=== PATIENT | female | born 1945 | race Caucasian/White ===

== ENCOUNTER → 2017-03-28 | Outpatient (REF) | payer MEDICARE ==
[2017-03-28 17:04] LABS: ALBUMIN 3.3 GM/DL (3.2-5.2); ALBUMIN/GLOBULIN RATIO 0.97 (1.00-1.93); BILIRUBIN,TOTAL 0.5 MG/DL (0.2-1.0); CREATININE FOR GFR 1.48 MG/DL (0.55-1.02); GLOMERULAR FILTRATION RATE 36.9 (>39); POTASSIUM SERUM 3.8 MEQ/L (3.5-5.1); TOTAL PROTEIN 6.7 GM/DL (6.4-8.2)
[2017-03-28 19:06] LABS: MEAN CORPUSCULAR HEMOGLOBIN 30.6 pg (27.0-33.0); MEAN CORPUSCULAR HGB CONC 33.3 g/dl (32.0-36.5); MEAN CORPUSCULAR VOLUME 91.8 fl (80.0-96.0); RED CELL DISTRIBUTION WIDTH 12.2 % (11.5-14.5); WHITE BLOOD COUNT 7.2 K/mm3 (4.0-10.0)
== END ==
LOC: M SFHCCLAY 09:30
PROVIDERS: ATTEND Nurse Practitioner Family
DX: I10 Essential (primary) hypertension (principal); E11.69 Type 2 diabetes mellitus with other specified complication; E78.4 Other hyperlipidemia; E55.9 Vitamin D deficiency, unspecified

== ENCOUNTER → 2017-03-31 | Outpatient (REF) | payer MEDICARE ==
[~2017-03-31] MED LIST: ASPI81TA85 PO; FISH1000 PO; FLUO40CA PO; GAVICHW PO; HYDR12.55 PO; IRON50TA PO; LISI40TAB PO; OXYC1TAB23 PO; POTA99TA PO; SIMV40TA2 PO; VESI5TAB2 PO; VITA100072 PO; VITA2000 PO; VITRTAB4 PO; XALA0.007 OU
== END ==
LOC: M SFHCCLAY 11:34
PROVIDERS: ATTEND Nurse Practitioner Family
DX: E11.69 Type 2 diabetes mellitus with other specified complication (principal); N39.0 Urinary tract infection, site not specified
CPT/HCPCS: 81002; 87088; 87186; G0463

== ENCOUNTER → 2017-05-11 | Day surgery (SDC) | payer MEDICARE ==
[~2017-05-11] VITALS: Ht 167.6 cm; Wt 90.7 kg
[~2017-05-11] MED LIST changes: +ACETAMINOPHEN 325 MG TAB PO PRN; +AcetaZOLAMIDE 500 MG ER CAP As Ordered ONE; +AcetaZOLAMIDE 500 MG ER CAP PO ONE; +BSS with VANC/TOB/EPI for EYE CASES IR ONE; +CEFUROXIME 1MG/0.1ML INTRACAMERAL INJ As Ordered ONE; +CYCLOPENTOLATE 2% OPHTH SOLN 2ML BTL OD ONE; +HEALON DUET (HEALON 10MG/ML 0.55ML & HEALON ENDOCOAT 30MG/ML 0.85ML) As Ordered ONE; +KETOROLAC 0.5% OPHTH SOLN OD ONE; +LIDOCAINE 1% SDV 5 ML VIAL As Ordered ONE; +LIDOCAINE 4% INJ 5 ML AMP OU ONE; +LR 500 ML IV ONE; +MIDAZOLAM INJ 2 MG/2 ML VIAL (J2250) As Ordered ONE; +OFLOXACIN 0.3 % (OCUFLOX) OPTH SOL 5ML OD ONE; +PHENYLEPHRINE 2.5% OPHTH SOL 2ML OD ONE; +POVIDONE-IODINE 5% OPHTH PREP SOL 30ML As Ordered ONE; +PROPARACAINE 0.5% OPHTH SOL 15ML OD PRN; +TRIMETHOBENZAMIDE 300 MG CAP PO PRN; +TROPICAMIDE 1% OPHTH SOLN 2ML OD ONE
[2017-05-11 13:15] VITALS: BP 187/88
--- NOTE | 2017-05-12 10:54 | RO ---
DATE OF PROCEDURE: 05/11/2017 PREPROCEDURE DIAGNOSIS: Cataract and glaucoma right eye. POSTPROCEDURE DIAGNOSIS: Cataract and glaucoma right eye. PROCEDURE: Femtosecond laser and phacoemulsification of the intraocular lens with lens implantation right eye. Intraocular lens power used was PCB00, 23.5 diopter, along with ECP endocyclophotocoagulation and placement of the Glaukos eye stent in the right eye. SURGEON: Anna Marie Russo MD FIELD SERVICE ENGINEER: None. ANESTHESIA: Local IV standby. COMPLICATIONS: None. DESCRIPTION OF PROCEDURE: The patient was brought to the operating room and laid in supine position. The right eye was prepped and draped in a sterile fashion for ophthalmic surgery. The patient was brought under the femtosecond laser. After adequate patient interface and good suction, OCT images were reviewed and the laser was activated. A capsulorrhexis lens fragmentation and corneal incisions were made per plan. The suction was then released. The patient was brought to the operating room in the supine position. The eye was prepped and draped in a sterile fashion for ophthalmic surgery and a lid speculum was placed. Sideport incision for the sideport incision was then opened and EndoCoat was injected into the anterior chamber. The temporal clear corneal incision was then made open and capsulorrhexis was removed. Phacoemulsification was done in divide and conquer method within the capsular bag followed by aspiration of the cortical material. Healon was placed in the capsular bag and intraocular lens PCB00, 23.5 diopters was placed in the capsular bag. Healon was then placed in the ciliary sulcus, which was then visualized on the video screen with the help of the EndoProbe. Endocyclophotocoagulation was done 280 degrees at 0.25 mW. Good results were noted by the shrinking of the ciliary processes. After this, the Healon was placed in the anterior chamber to visualize the intranasal trabecular mesh work under high magnification with the patient's head turned away from the surgeon with the help of Gonio lens. Eye stent was then placed and good red reflex was noted. Excess viscoelastic was then aspirated. Wound was hydrated. Intracanal cefuroxime 1 mg was then given. The lid speculum was removed, and patient was returned to the recovery room in stable condition.
== END | disposition home or self-care (01) ==
LOC: M SDC 10:19
PROVIDERS: ATTEND Ophthalmology
DX: H26.9 Unspecified cataract (principal); H40.9 Unspecified glaucoma; I10 Essential (primary) hypertension; E78.00 Pure hypercholesterolemia, unspecified; E78.4 Other hyperlipidemia; F32.9 Major depressive disorder, single episode, unspecified; N13.5 Crossing vessel and stricture of ureter without hydronephrosis; E55.9 Vitamin D deficiency, unspecified; E11.9 Type 2 diabetes mellitus without complications; K21.9 Gastro-esophageal reflux disease without esophagitis; D64.9 Anemia, unspecified; R01.1 Cardiac murmur, unspecified; Z88.1 Allergy status to other antibiotic agents; Z88.8 Allergy status to other drugs, medicaments and biological substances; Z79.899 Other long term (current) drug therapy; Z79.82 Long term (current) use of aspirin; Z92.21 Personal history of antineoplastic chemotherapy; Z92.3 Personal history of irradiation; Z78.0 Asymptomatic menopausal state; Z85.038 Personal history of other malignant neoplasm of large intestine; Z87.442 Personal history of urinary calculi; Z87.891 Personal history of nicotine dependence
CPT/HCPCS: 66711; 66984; C1783; J2250; V2632

== ENCOUNTER → 2017-06-02 | Outpatient (CLI) | payer MEDICARE ==
[~2017-06-02] MED LIST changes: -ACETAMINOPHEN 325 MG TAB PO PRN; -AcetaZOLAMIDE 500 MG ER CAP As Ordered ONE; -AcetaZOLAMIDE 500 MG ER CAP PO ONE; -BSS with VANC/TOB/EPI for EYE CASES IR ONE; -CEFUROXIME 1MG/0.1ML INTRACAMERAL INJ As Ordered ONE; -CYCLOPENTOLATE 2% OPHTH SOLN 2ML BTL OD ONE; -HEALON DUET (HEALON 10MG/ML 0.55ML & HEALON ENDOCOAT 30MG/ML 0.85ML) As Ordered ONE; -KETOROLAC 0.5% OPHTH SOLN OD ONE; -LIDOCAINE 1% SDV 5 ML VIAL As Ordered ONE; -LIDOCAINE 4% INJ 5 ML AMP OU ONE; -LR 500 ML IV ONE; -MIDAZOLAM INJ 2 MG/2 ML VIAL (J2250) As Ordered ONE; -OFLOXACIN 0.3 % (OCUFLOX) OPTH SOL 5ML OD ONE; -PHENYLEPHRINE 2.5% OPHTH SOL 2ML OD ONE; -POVIDONE-IODINE 5% OPHTH PREP SOL 30ML As Ordered ONE; -PROPARACAINE 0.5% OPHTH SOL 15ML OD PRN; -TRIMETHOBENZAMIDE 300 MG CAP PO PRN; -TROPICAMIDE 1% OPHTH SOLN 2ML OD ONE
--- NOTE | 2017-06-02 11:36 | REP ---
PA and lateral chest: There are no comparisons. There is a minor zone of discoid atelectasis versus parenchymal scar inferomedially in the right lung. There is a minor zone of discoid atelectasis versus parenchymal scar inferolaterally in the left lung. The lung johnson otherwise clear. Cardiac size is borderline enlarged. The william, mediastinum, and bony thorax are unremarkable. Impression: Focal zones of scarring versus discoid atelectasis in the lung bases. Borderline cardiac size. Otherwise, negative chest.
== END ==
LOC: M CLY 10:53
PROVIDERS: ATTEND Urology
DX: Z01.818 Encounter for other preprocedural examination (principal); N13.5 Crossing vessel and stricture of ureter without hydronephrosis; N18.3 Chronic kidney disease, stage 3 (moderate); N39.0 Urinary tract infection, site not specified

== ENCOUNTER → 2017-06-02 | Outpatient (REF) | payer MEDICARE | LOC: M LABSMT 10:45 | PROVIDERS: ATTEND Specialist | DX: N13.5 Crossing vessel and stricture of ureter without hydronephrosis (principal); Z01.818 Encounter for other preprocedural examination; N39.0 Urinary tract infection, site not specified ==

== ENCOUNTER → 2017-06-07 | Outpatient (REF) | payer MEDICARE ==
[2017-06-07 17:00] LABS: MEAN CORPUSCULAR HEMOGLOBIN 31.3 pg (27.0-33.0); MEAN CORPUSCULAR VOLUME 92.3 fl (80.0-96.0); RED CELL DISTRIBUTION WIDTH 12.1 % (11.5-14.5)
[2017-06-07 17:08] LABS: CREATININE FOR GFR 1.34 MG/DL (0.55-1.02); GLOMERULAR FILTRATION RATE 41.4 (>39)
== END ==
LOC: M LABSMT 13:32 → M LABDRAWC 13:33
PROVIDERS: ATTEND Specialist
DX: Z01.818 Encounter for other preprocedural examination (principal); N13.5 Crossing vessel and stricture of ureter without hydronephrosis; N39.41 Urge incontinence

== ENCOUNTER 2017-06-10 08:36 | Day surgery (SDC) | payer MEDICARE ==
[~2017-06-10] VITALS: Ht 167.6 cm; Wt 92.5 kg
[2017-06-10] MEDS ORDERED: LR 1,000 ML IV ONE (08:45)
[2017-06-10] MEDS ORDERED: TRIMETHOPRIM/SULFAMETHOXAZOLE 80 MG in D5W 100 ML IV ONE (08:45)
[2017-06-10] MEDS ORDERED: dexameTHASONE 4 MG/ML 1ML VIAL (J1100) As Ordered ONE (09:49)
[2017-06-10] MEDS ORDERED: ONDANSETRON 4MG/2ML VIAL (J2405) As Ordered ONE (09:49)
[2017-06-10] MEDS ORDERED: MIDAZOLAM INJ 2 MG/2 ML VIAL (J2250) As Ordered ONE (09:49)
[2017-06-10] MEDS ORDERED: PROPOFOL 200 MG/20 ML VIAL As Ordered ONE (09:49)
[2017-06-10] MEDS ORDERED: fentaNYL 100 MCG/2 ML INJECTION (J3010) As Ordered ONE (09:49)
[2017-06-10] MEDS ORDERED: LIDOCAINE 2% INJ 100 MG/5 ML SDV (FOR ANES.) As Ordered ONE (09:49)
[2017-06-10] MEDS ORDERED: VANCOMYCIN HCL 1,000 MG, VIAL MATE ADAPTER 1 EACH in D5W 250 ML IV ONE (11:15)
[2017-06-10] MEDS ORDERED: CONRAY-60 60% 50ML VIAL (Q9961) As Ordered ONE (11:50)
[2017-06-10] MEDS ORDERED: LIDOCAINE 2% 5ML JELLY UROJET As Ordered ONE (12:16)
[2017-06-10] MEDS ORDERED: LIDOCAINE 2% 5ML JELLY UROJET EXT ONE (12:20)
--- NOTE | 2017-06-10 12:46 | REP ---
RETROGRADE PYELOGRAM: Two views. HISTORY: Bilateral ureteral obstruction. 12 seconds of fluoroscopy time is reported. FINDINGS: A sequence of two fluoroscopically obtained last image hold spot radiographs of the abdomen document double pigtail ureteral stent placement bilaterally. Right hydronephrosis with contrast injected into the dilated right renal pelvis. Signed by Jerry Nunes MD 06/10/2017 12:52 P
[2017-06-10 13:30] VITALS: BP 142/72
--- NOTE | 2017-06-13 06:29 | RO ---
DATE OF PROCEDURE: 06/10/2017 PREPROCEDURE DIAGNOSIS: Bilateral ureteral obstruction. POSTPROCEDURE DIAGNOSIS: Bilateral ureteral obstruction. PROCEDURE: Cystoscopy, bilateral ureteral stent exchange, bilateral retrograde pyelogram with intraoperative interpretation of images. SURGEON: Dr. Jaspal Jack ABLE BODIED TANKERMAN: None. ANESTHESIA: MAC. OPERATIVE INDICATIONS: This is a 71-year-old female with bilateral ureteral obstruction managed with chronic ureteral stenting. She is here for routine stent exchange. DESCRIPTION OF PROCEDURE: The patient was brought to the operating room where MAC anesthesia was administered. Prophylactic antibiotics were infused. She was then placed in dorsal lithotomy position, prepped and draped in the usual sterile fashion. A rigid cystoscope was inserted into the urethral meatus and advanced into the bladder. Once within the bladder, the previously placed stents were seen. At this point, the left ureteral stent was grasped and withdrawn until the distal end was seen protruding from the urethral meatus. A guidewire was advanced up the stent into the left collecting system and then the stent was removed. Next, an open ended ureteral catheter was advanced over the wire up into the left collecting system. The wire was removed and a retrograde pyelogram was performed. It was notable for mild to moderate left hydronephrosis and no extravasation. At this point, the wire was advanced back up the ureteral catheter and then the ureteral catheter was removed. We then utilized this wire to advance a #7-Bulgarian x 22-32 cm JJ ureteral stent up into the left collecting system. The wire was then removed and there was adequate curl to the stent in the left renal pelvis and in the bladder. We then withdrew the right ureteral stent in a similar fashion and advanced the wire up into the right collecting system. The stent was removed leaving the wire in place. We then advanced a ureteral catheter over the wire and then the wire was removed. A retrograde pyelogram was performed from the right side and it was also notable for mild to moderate right hydronephrosis with no extravasation. The wire was then advanced back up the ureteral catheter and then the ureteral catheter was removed leaving the wire in place. The wire was then utilized to advance a #7-Bulgarian x 22-32 cm JJ ureteral stent up into the right collecting system. The wire was then removed and there was adequate curl to the stent in the right renal pelvis and in the bladder. The bladder was emptied of all fluid and this marked the conclusion of the procedure. The patient was then taken out of dorsal lithotomy position, awakened from anesthesia and transported to the recovery room in stable condition. ESTIMATED BLOOD LOSS: 0 mL. COMPLICATIONS: None. SPECIMENS: None. PLAN: The patient will followup with urologist in [place] for her next stent exchange in a few months. CEE
== END 2017-06-10 13:35 | disposition home or self-care (01) ==
LOC: M SDC 08:36
PROVIDERS: ATTEND Urology
DX: N13.5 Crossing vessel and stricture of ureter without hydronephrosis (principal); N39.41 Urge incontinence; E11.9 Type 2 diabetes mellitus without complications; N39.0 Urinary tract infection, site not specified; I10 Essential (primary) hypertension; E78.4 Other hyperlipidemia; E55.9 Vitamin D deficiency, unspecified; H40.9 Unspecified glaucoma; F32.9 Major depressive disorder, single episode, unspecified; K21.9 Gastro-esophageal reflux disease without esophagitis; D64.9 Anemia, unspecified; Z87.442 Personal history of urinary calculi; R01.1 Cardiac murmur, unspecified; Z88.1 Allergy status to other antibiotic agents; Z79.899 Other long term (current) drug therapy; Z85.038 Personal history of other malignant neoplasm of large intestine; Z87.891 Personal history of nicotine dependence; Z92.21 Personal history of antineoplastic chemotherapy; Z92.3 Personal history of irradiation; Z96.1 Presence of intraocular lens
CPT/HCPCS: 52332; 74420; C1769; C2617; J1100; J2250; J2405; J3010; J3370; Q9961

== ENCOUNTER → 2017-06-23 | Outpatient (REF) | payer MEDICARE ==
[2017-06-24 11:47] LABS: YEAST LIKE CELL URINE AUTO SMALL
== END ==
LOC: M LABSMT 14:02 → M CLY 14:12
PROVIDERS: ATTEND Nurse Practitioner Women's Health
DX: R30.0 Dysuria (principal)

== ENCOUNTER → 2017-07-15 | Outpatient (REF) | payer MEDICARE ==
[2017-07-15 16:56] LABS: PERCENT SATURATION 17.8 % (13.2-45.0)
[2017-07-15 17:06] LABS: FOLATE 9.7 NG/ML (>5.4)
[2017-07-15 17:47] LABS: MEAN CORPUSCULAR HEMOGLOBIN 31.7 pg (27.0-33.0); MEAN CORPUSCULAR HGB CONC 34.9 g/dl (32.0-36.5); MEAN CORPUSCULAR VOLUME 90.9 fl (80.0-96.0); RED CELL DISTRIBUTION WIDTH 11.4 % (11.5-14.5); RETIC HEMOGLOBIN CONTENT CHr 32.7 PG (24-36); RETICULOCYTE % 2.6 % (0.5-1.5); WHITE BLOOD COUNT 9.6 K/mm3 (4.0-10.0)
== END ==
LOC: M SFHCCLAY 10:36
PROVIDERS: ATTEND Nurse Practitioner Family
DX: D64.9 Anemia, unspecified (principal); E11.9 Type 2 diabetes mellitus without complications; E78.4 Other hyperlipidemia; E55.9 Vitamin D deficiency, unspecified

== ENCOUNTER → 2018-05-02 | Outpatient (REF) | payer MEDICARE ==
[2018-05-02 11:52] LABS: HEMOGLOBIN 12.7 g/dl (12.0-15.5); MEAN CORPUSCULAR HEMOGLOBIN 31.5 pg (27.0-33.0); MEAN CORPUSCULAR HGB CONC 34.3 g/dl (32.0-36.5); MEAN CORPUSCULAR VOLUME 91.8 fl (80.0-96.0); PLATELET COUNT, AUTOMATED 215 10^3/uL (150-450); RED BLOOD COUNT 4.03 10^6/uL (4.00-5.40); RED CELL DISTRIBUTION WIDTH 11.3 % (11.5-14.5); RETIC HEMOGLOBIN EQUIVALENT 36.2 pg (24-36); RETICULOCYTE # 75.4 10^9/L (17-77); RETICULOCYTE % 1.9 % (0.5-1.5); WHITE BLOOD COUNT 7.7 10^3/uL (4.0-10.0)
[2018-05-02 12:20] LABS: TOTAL 25(OH) VITAMIN D 32.6 NG/ML (30.0-100.0)
[2018-05-02 12:21] LABS: VITAMIN B12 LEVEL 1786 PG/ML (247-911)
[2018-05-02 12:34] LABS: ALBUMIN 3.6 GM/DL (3.2-5.2); ALBUMIN/GLOBULIN RATIO 1.03 (1.00-1.93); ALKALINE PHOSPHATASE 98 U/L (45-117); ALT/SGPT 19 U/L (12-78); ANION GAP 10 MEQ/L (8-16); AST/SGOT 12 U/L (7-37); BILIRUBIN,TOTAL 0.4 MG/DL (0.2-1.0); BLOOD UREA NITROGEN 25 MG/DL (7-18); CALCIUM LEVEL 8.7 MG/DL (8.8-10.2); CARBON DIOXIDE LEVEL 26 MEQ/L (21-32); CHLORIDE LEVEL 105 MEQ/L (98-107); CHOLESTEROL LEVEL 190 MG/DL (<200); CHOLESTEROL RISK RATIO 2.968 (<5); CREATININE FOR GFR 1.76 MG/DL (0.55-1.30); FERRITIN 278 NG/ML (8-252); GLOMERULAR FILTRATION RATE 30.1 (>39); GLUCOSE, FASTING 91 MG/DL (70-100); HDL CHOLESTEROL 64 MG/DL (>40); IRON (FE) 75 UG/DL (50-170); LDL CHOLESTEROL 89.8 MG/DL (<100); NON-HDL-C 126 MG/DL; PERCENT SATURATION 27.3 % (13.2-45.0); POTASSIUM SERUM 3.8 MEQ/L (3.5-5.1); SODIUM LEVEL 141 MEQ/L (136-145); TOTAL IRON BINDING CAPACITY 275 UG/DL (250-450); TOTAL PROTEIN 7.1 GM/DL (6.4-8.2); TRIGLYCERIDES LEVEL 181 MG/DL (<150)
[2018-05-02 12:46] LABS: ESTIMATED AVERAGE GLUCOSE 108 MG/DL (60-110); HEMOGLOBIN A1c 5.4 %
[2018-05-02 13:05] LABS: CREATININE, URINE 90.8 MG/DL; MAU/CREAT RATIO 1080.3 MCG/MG (0.0-30.0); TOTAL PROTEIN,RANDOM URINE 182.3 MG/DL (0.0-12.0)
== END ==
LOC: M SFHCCLAY 09:27
DX: I10 Essential (primary) hypertension (principal); E11.69 Type 2 diabetes mellitus with other specified complication; E78.4 Other hyperlipidemia; E55.9 Vitamin D deficiency, unspecified; Z79.899 Other long term (current) drug therapy
CPT/HCPCS: 82746

== ENCOUNTER → 2018-06-02 | Outpatient (CLI) | payer MEDICARE | LOC: M RAD 09:09 | DX: N39.0 Urinary tract infection, site not specified (principal); N13.30 Unspecified hydronephrosis; Z96.0 Presence of urogenital implants | CPT/HCPCS: 76775 ==

== ENCOUNTER → 2018-06-27 | Outpatient (REF) | payer MEDICARE ==
[2018-06-27 18:33] LABS: BACTERIA, URINE AUTO 3+ (NEGATIVE); RBC, URINE AUTO 55 /HPF (0-3); SQUAMOUS EPITHELIAL CELL UR AU 1 /HPF (0-6); WBC, URINE AUTO TNTC /HPF (0-3)
== END ==
LOC: M SMT 17:49
DX: N39.0 Urinary tract infection, site not specified (principal)
CPT/HCPCS: 81015

== ENCOUNTER → 2018-08-17 | Outpatient (REF) | payer MEDICARE ==
[2018-08-17 17:53] LABS: HEMATOCRIT 36.8 % (36.0-47.0); HEMOGLOBIN 12.4 g/dl (12.0-15.5); MEAN CORPUSCULAR HEMOGLOBIN 31.1 pg (27.0-33.0); MEAN CORPUSCULAR HGB CONC 33.7 g/dl (32.0-36.5); MEAN CORPUSCULAR VOLUME 92.2 fl (80.0-96.0); PLATELET COUNT, AUTOMATED 277 10^3/uL (150-450); RED BLOOD COUNT 3.99 10^6/uL (4.00-5.40); RED CELL DISTRIBUTION WIDTH 11.3 % (11.5-14.5); RETIC HEMOGLOBIN EQUIVALENT 36.8 pg (24-36); RETICULOCYTE # 92.2 10^9/L (17-77); RETICULOCYTE % 2.3 % (0.5-1.5)
[2018-08-17 18:00] LABS: ALBUMIN 3.5 GM/DL (3.2-5.2); ALBUMIN/GLOBULIN RATIO 0.95 (1.00-1.93); ALKALINE PHOSPHATASE 99 U/L (45-117); ALT/SGPT 16 U/L (12-78); ANION GAP 12 MEQ/L (8-16); AST/SGOT 13 U/L (7-37); BILIRUBIN,TOTAL 0.4 MG/DL (0.2-1.0); BLOOD UREA NITROGEN 25 MG/DL (7-18); CALCIUM LEVEL 8.9 MG/DL (8.8-10.2); CARBON DIOXIDE LEVEL 25 MEQ/L (21-32); CHLORIDE LEVEL 105 MEQ/L (98-107); CHOLESTEROL LEVEL 184 MG/DL (<200); CHOLESTEROL RISK RATIO 3.285 (<5); CREATININE FOR GFR 1.77 MG/DL (0.55-1.30); FERRITIN 435 NG/ML (8-252); GLOMERULAR FILTRATION RATE 29.9 (>39); GLUCOSE, FASTING 108 MG/DL (70-100); HDL CHOLESTEROL 56 MG/DL (>40); IRON (FE) 61 UG/DL (50-170); LDL CHOLESTEROL 85 MG/DL (<100); NON-HDL-C 128 MG/DL; POTASSIUM SERUM 3.9 MEQ/L (3.5-5.1); SODIUM LEVEL 142 MEQ/L (136-145); TOTAL IRON BINDING CAPACITY 254 UG/DL (250-450); TOTAL PROTEIN 7.2 GM/DL (6.4-8.2); TRIGLYCERIDES LEVEL 214 MG/DL (<150)
[2018-08-17 18:02] LABS: FOLATE 9.7 NG/ML (>5.4)
[2018-08-17 18:03] LABS: ESTIMATED AVERAGE GLUCOSE 117 MG/DL (60-110); HEMOGLOBIN A1c 5.7 %
== END ==
LOC: M SFHCCLAY 13:15
DX: D64.9 Anemia, unspecified (principal); I10 Essential (primary) hypertension; E11.69 Type 2 diabetes mellitus with other specified complication; E78.49 Other hyperlipidemia; E55.9 Vitamin D deficiency, unspecified
CPT/HCPCS: 82746

== ENCOUNTER → 2018-08-18 | Outpatient (REF) | payer MEDICARE ==
[2018-08-18 17:46] LABS: CREATININE, URINE 40.3 MG/DL
[2018-08-18 17:48] LABS: MAU/CREAT RATIO 287.8 MCG/MG (0.0-30.0)
== END ==
LOC: M SFHCCLAY 12:27
DX: E11.69 Type 2 diabetes mellitus with other specified complication (principal)
CPT/HCPCS: 82043

== ENCOUNTER → 2019-04-13 | Outpatient (REF) | payer MEDICARE ==
[~2019-04-13] MED LIST changes: +IRON1TAB PO; +LISI40TA PO; -LISI40TAB PO; +VITA100018 PO; -VITA100072 PO
== END ==
LOC: M LAB REF 13:15
PROVIDERS: ATTEND Internal Medicine Nephrology
DX: N39.0 Urinary tract infection, site not specified (principal)

== ENCOUNTER → 2019-05-17 | Outpatient (CLI) | payer MEDICARE ==
[~2019-05-17] MED LIST changes: +IRON18TA PO; +MULTCAP PO
[2019-05-17 18:30] LABS: BACTERIA, URINE AUTO 2+ (NEGATIVE); MUCUS, URINE SMALL (NEGATIVE); RBC, URINE AUTO 11 /HPF (0-3); SQUAMOUS EPITHELIAL CELL UR AU 2 /HPF (0-6); WBC, URINE AUTO TNTC /HPF (0-3)
[2019-05-18 10:10] LABS: HEMATOCRIT 38.2 % (36.0-47.0); HEMOGLOBIN 12.4 g/dl (12.0-15.5); MEAN CORPUSCULAR HEMOGLOBIN 31.6 pg (27.0-33.0); MEAN CORPUSCULAR HGB CONC 32.5 g/dl (32.0-36.5); MEAN CORPUSCULAR VOLUME 97.2 fl (80.0-96.0); PLATELET COUNT, AUTOMATED 180 10^3/uL (150-450); RED BLOOD COUNT 3.93 10^6/uL (4.00-5.40); WHITE BLOOD COUNT 8.1 10^3/uL (4.0-10.0)
[2019-05-18 10:13] LABS: CALCIUM LEVEL 8.6 MG/DL (8.8-10.2); CREATININE FOR GFR 1.56 MG/DL (0.55-1.30); GLOMERULAR FILTRATION RATE 34.5 (>39); POTASSIUM SERUM 3.7 MEQ/L (3.5-5.1)
== END ==
LOC: M SMT 15:03 → M WUC 15:03
PROVIDERS: ATTEND Specialist
DX: Z01.818 Encounter for other preprocedural examination (principal); N13.5 Crossing vessel and stricture of ureter without hydronephrosis

== ENCOUNTER → 2019-05-17 | Outpatient (CLI) | payer MEDICARE ==
[~2019-05-17] MED LIST changes: +KEFL500C17 PO; +NEUR300C PO; -SIMV40TA2 PO; +SIMV40TA20 PO
--- NOTE | 2019-05-17 23:34 | ECGEPIP ---
[facility] Test Date: 2019-05-17 Pat Name: NINA FORBES Department: Room: - Gender: Female Trade Mark Examiner: NICKY : 1945 Requested By: NEYMAR Carrasquillo Order Number: [id number] Reading MD: Vicente Mathew Measurements Intervals [place] Rate: 67 P: 79 HI: 212 QRS: 34 QRSD: 98 T: -18 QT: 418 QTc: 444 Interpretive Statements SINUS RHYTHM WITH SINUS ARRHYTHMIA WITH FIRST DEGREE AV BLOCK ST DEVIATION AND MODERATE T-WAVE ABNORMALITY, CONSIDER ANTERIOR ISCHEMIA No prior ECG available for comparison. Electronically Signed on 05-17-2019 23:34:18 EDT by Vicente Mathew
== END ==
LOC: M EKG 15:53
PROVIDERS: ATTEND Specialist
DX: Z01.818 Encounter for other preprocedural examination (principal); N13.5 Crossing vessel and stricture of ureter without hydronephrosis
CPT/HCPCS: 36415; 80048; 81015; 85027; 87088; 87186; 93005; G0463

== ENCOUNTER 2019-05-21 09:21 | Day surgery (SDC) | payer MEDICARE ==
[~2019-05-21] VITALS: Ht 167.6 cm; Wt 91.2 kg
[~2019-05-21 09:21] MED LIST changes: -KEFL500C17 PO; +LR 1,000 ML IV ONE; -NEUR300C PO; +SIMV40TA2 PO; -SIMV40TA20 PO; +TRIMETHOPRIM/SULFAMETHOXAZOLE 80 MG in D5W 100 ML IV ONE
[2019-05-21] MEDS ORDERED: fentaNYL 100 MCG/2 ML INJECTION (J3010) As Ordered ONE (09:55)
[2019-05-21] MEDS ORDERED: dexameTHASONE 4 MG/ML 1ML VIAL (J1100) As Ordered ONE (09:55)
[2019-05-21] MEDS ORDERED: LIDOCAINE 2% INJ 100 MG/5 ML SDV (FOR ANES.) As Ordered ONE (09:55)
[2019-05-21] MEDS ORDERED: PROPOFOL 200 MG/20 ML VIAL As Ordered ONE (09:55)
[2019-05-21] MEDS ORDERED: ONDANSETRON 4MG/2ML VIAL (J2405) As Ordered ONE (09:55)
[2019-05-21] MEDS ORDERED: MIDAZOLAM INJ 2 MG/2 ML VIAL (J2250) As Ordered ONE (09:56)
--- NOTE | 2019-05-21 13:38 | REP ---
Retrograde pyelogram: There is a single intraoperative fluoroscopic view demonstrating right and left ureteral stents. The proximal stent pigtails are in satisfactory positions. The distal pigtail stents are excluded at the inferior film margin. Fluoroscopic exposure time is 14 seconds. The fluoroscopic image is performed with last image hold technique, requiring no additional radiation. Electronically Signed by Santana Estrella MD 05/21/2019 01:30 P
[2019-05-21 14:00] VITALS: BP 125/66
--- NOTE | 2019-05-22 07:38 | RO ---
DATE OF PROCEDURE: 05/21/2019 PREOPERATIVE DIAGNOSIS: Bilateral ureteral strictures. POSTOPERATIVE DIAGNOSIS: Bilateral ureteral strictures. PROCEDURE: Cystoscopy and bilateral ureteral stent exchanges. SURGEON: Dr. Tammie Ha. ANESTHESIA: IV sedation. MEDICATIONS: Bactrim preoperatively. DRAINS: 7-Vietnamese universal stents placed bilaterally. 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 She recently has been having quite a lot of urinary symptoms and her urine culture did come back with E-coli and she was started on antibiotic therapy. She also felt that it was really time to get her stents exchanged because that is when she begins getting infections again. She also has urinary urgency, frequency, and urge incontinence and we have discussed different options for this but she was not interested in intravesical Botox because she did not want to risk urinary retention. Informed consent was obtained in both verbal and written form. DESCRIPTION OF PROCEDURE: The patient was brought into the operating room and sequential compression devices were in place. Preoperative antibiotics had been given. Anesthesia was given and the patient was then placed in the lithotomy position. Careful attention was paid that her pressure points were well padded and protected. Next a 17-Vietnamese cystoscope was inserted. The urethra was noted to be open without any evidence of lesions or strictures. Upon entering the bladder, both ureteral stents were seen and there was some debris in the bladder but no erythematous patches, lesions or other significant abnormalities. First, the right ureteral stent was grasped using grasping forceps and a wire was placed up this and the stent was then removed and replaced with a 7-Vietnamese ureteral stent. There was an excellent curl seen in the renal pelvis and down in the bladder. The same procedure was then done on the left-hand side. The patient tolerated the procedure well and was returned to the recovery room in stable condition.
== END 2019-05-21 14:30 | disposition home or self-care (01) ==
LOC: M SDC 09:21
PROVIDERS: ATTEND Specialist
DX: N13.5 Crossing vessel and stricture of ureter without hydronephrosis (principal); I10 Essential (primary) hypertension; E78.5 Hyperlipidemia, unspecified; Z87.19 Personal history of other diseases of the digestive system; K58.8 Other irritable bowel syndrome; K21.9 Gastro-esophageal reflux disease without esophagitis; Z87.891 Personal history of nicotine dependence; Z79.899 Other long term (current) drug therapy; Z92.3 Personal history of irradiation; Z92.21 Personal history of antineoplastic chemotherapy
CPT/HCPCS: 52332; 74420; C1769; C2617; J1100; J2250; J2405; J3010

== ENCOUNTER → 2019-07-17 | Outpatient (REF) | payer MEDICARE ==
[~2019-07-17] MED LIST changes: -LR 1,000 ML IV ONE; -TRIMETHOPRIM/SULFAMETHOXAZOLE 80 MG in D5W 100 ML IV ONE
[2019-07-17 15:35] LABS: FOLATE > 24.0 NG/ML; VITAMIN B12 LEVEL 1638 PG/ML
== END ==
LOC: M LABNEURO 08:56
PROVIDERS: ATTEND Psychiatry & Neurology Neurology
DX: R25.1 Tremor, unspecified (principal); M54.9 Dorsalgia, unspecified; E53.8 Deficiency of other specified B group vitamins; E51.9 Thiamine deficiency, unspecified; E03.9 Hypothyroidism, unspecified; E83.01 Wilson's disease; N13.5 Crossing vessel and stricture of ureter without hydronephrosis
CPT/HCPCS: 36415; 82390; 82525; 82607; 82746; 84207; 84425; 84443; 84446; G0463

== ENCOUNTER → 2019-08-10 | Outpatient (REF) | payer MEDICARE ==
[2019-08-10 18:55] LABS: HEMATOCRIT 38.5 % (36.0-47.0); HEMOGLOBIN 12.9 g/dl (12.0-15.5); MEAN CORPUSCULAR HEMOGLOBIN 31.8 pg (27.0-33.0); MEAN CORPUSCULAR HGB CONC 33.5 g/dl (32.0-36.5); MEAN CORPUSCULAR VOLUME 94.8 fl (80.0-96.0); PLATELET COUNT, AUTOMATED 220 10^3/uL (150-450); RED BLOOD COUNT 4.06 10^6/uL (4.00-5.40)
[2019-08-10 18:56] LABS: CALCIUM LEVEL 9.6 MG/DL (8.8-10.2); CREATININE FOR GFR 1.68 MG/DL (0.55-1.30); GLOMERULAR FILTRATION RATE 31.7 (>39); POTASSIUM SERUM 3.9 MEQ/L (3.5-5.1)
== END ==
LOC: M LABSMT 13:27
PROVIDERS: ATTEND Specialist
DX: N39.41 Urge incontinence (principal)

== ENCOUNTER 2019-08-20 06:57 | Day surgery (SDC) | payer MEDICARE ==
[~2019-08-20] VITALS: Ht 167.6 cm; Wt 91.6 kg
[~2019-08-20 06:57] MED LIST changes: +LR 1,000 ML IV ONE; -SIMV40TA2 PO; +SIMV40TA20 PO
[2019-08-20] MEDS ORDERED: TRIMETHOPRIM/SULFAMETHOXAZOLE 80 MG in D5W 100 ML IV ONE (07:00)
[2019-08-20] MEDS ORDERED: PROPOFOL 200 MG/20 ML VIAL As Ordered ONE ×2 (07:16→07:59)
[2019-08-20] MEDS ORDERED: LIDOCAINE 2% INJ 100 MG/5 ML SDV (FOR ANES.) As Ordered ONE (07:59)
[2019-08-20] MEDS ORDERED: dexameTHASONE 4 MG/ML 1ML VIAL (J1100) As Ordered ONE (08:00)
[2019-08-20] MEDS ORDERED: fentaNYL 100 MCG/2 ML INJECTION (J3010) As Ordered ONE (08:00)
[2019-08-20] MEDS ORDERED: MIDAZOLAM INJ 2 MG/2 ML VIAL (J2250) As Ordered ONE (08:00)
[2019-08-20] MEDS ORDERED: ONDANSETRON 4MG/2ML VIAL (J2405) As Ordered ONE (08:00)
[2019-08-20] MEDS ORDERED: CONRAY-60 60% 50ML VIAL (Q9961) As Ordered ONE (08:27)
[2019-08-20] MEDS ORDERED: LIDOCAINE 2% 5ML JELLY UROJET As Ordered ONE (08:27)
[2019-08-20 09:35] VITALS: BP 127/59
--- NOTE | 2019-08-20 09:41 | RO ---
DATE OF SURGICAL PROCEDURE: 08/20/2019 PREOPERATIVE DIAGNOSIS: Bilateral ureteral obstruction. POSTOPERATIVE DIAGNOSIS: Bilateral ureteral obstruction. PROCEDURE: Cystoscopy and bilateral ureteral stent exchanges. SURGEON: Dr. Tammie Ha STEAM PAN SPONGER: FINDINGS: Uneventful stent exchanges. ANESTHESIA: Monitored anesthesia care (MAC). INDICATIONS FOR PROCEDURE: The patient is a 73-year-old female with a history of a colon resection and radiation therapy, and afterwards she had developed bilateral ureteral strictures. Since then, she has been managed with stent exchanges every several months. Informed consent was obtained in both verbal and written form. DESCRIPTION OF PROCEDURE: The patient was brought into the operating room. Sequential compression devices were in place, and preoperative antibiotics had been given. Anesthesia was induced. She was then placed in the lithotomy position, and careful attention was paid that her pressure points were well padded and protected. She was prepped and draped in the usual fashion. Next, a 21-Lithuanian cystoscope was inserted using a flexible forceps. First, the right ureteral stent was grasped and removed out through the urethra, and a wire was placed through this. Another 7-Lithuanian Delphi ureteral stent was then placed under fluoroscopic guidance. There was good curl seen up in the kidney and down in the bladder. This was then repeated on the left-hand side without any difficulty. The patient tolerated the procedure well and was returned to the recovery room in stable condition.
[2019-08-20] MEDS ORDERED: METOCLOPRAMIDE INJ 10MG/2ML VIAL (J2765) IV PRN (09:45)
[2019-08-20] MEDS ORDERED: MEPERIDINE INJ 25 MG/ML VIAL (J2175) IV PRN (09:45)
[2019-08-20] MEDS ORDERED: ONDANSETRON 4MG/2ML VIAL (J2405) IV PRN (09:45)
[2019-08-20] MEDS ORDERED: fentaNYL 100 MCG/2 ML INJECTION (J3010) IV PRN (09:45)
[2019-08-20] MEDS ORDERED: PERCOCET 5MG/325MG TAB PO PRN (09:45)
[2019-08-20] MEDS ORDERED: LR 1,000 ML IV SCH (09:45)
== END 2019-08-20 10:16 | disposition home or self-care (01) ==
LOC: M SDC 06:57
PROVIDERS: ATTEND Specialist
DX: N13.5 Crossing vessel and stricture of ureter without hydronephrosis (principal); N39.41 Urge incontinence; R35.0 Frequency of micturition; N18.3 Chronic kidney disease, stage 3 (moderate); I12.9 Hypertensive chronic kidney disease with stage 1 through stage 4 chronic kidney disease, or unspecified chronic kidney disease; R01.1 Cardiac murmur, unspecified; E78.00 Pure hypercholesterolemia, unspecified; F41.9 Anxiety disorder, unspecified; F32.9 Major depressive disorder, single episode, unspecified; R06.83 Snoring; Z79.899 Other long term (current) drug therapy; Z87.891 Personal history of nicotine dependence; Z92.21 Personal history of antineoplastic chemotherapy; Z85.028 Personal history of other malignant neoplasm of stomach; Z92.3 Personal history of irradiation; Z78.0 Asymptomatic menopausal state; Z96.1 Presence of intraocular lens; Z98.41 Cataract extraction status, right eye; Z98.42 Cataract extraction status, left eye
CPT/HCPCS: 52332; 74420; C1769; C2617; J1100; J2250; J2405; J3010

== ENCOUNTER → 2019-11-02 | Outpatient (REF) | payer MEDICARE ==
[~2019-11-02] MED LIST changes: -LR 1,000 ML IV ONE
[2019-11-02 16:48] LABS: AMORPHOUS SEDIMENT SMALL (NEGATIVE); APPEARANCE, URINE CLOUDY (CLEAR); BACTERIA, URINE AUTO 2+ (NEGATIVE); BILIRUBIN, URINE AUTO NEGATIVE (NEGATIVE); BLOOD, URINE BLOOD 1+ (NEGATIVE); COLOR, URINE YELLOW (YELLOW); GLUCOSE, URINE (UA) AUTO NEGATIVE (NEGATIVE); KETONE, URINE AUTO NEGATIVE (NEGATIVE); LEUKOCYTE ESTERASE, URINE AUTO 2+ (NEGATIVE); NITRITE, URINE AUTO POSITIVE (NEGATIVE); PROTEIN, URINE AUTO 1+ mg/dL (NEGATIVE); RBC, URINE AUTO 60 /HPF (0-3); SPECIFIC GRAVITY URINE AUTO 1.014 (1.002-1.035); SQUAMOUS EPITHELIAL CELL UR AU 3 /HPF (0-6); UROBILINOGEN, URINE AUTO 0.2 mg/dL (0.0-2.0); WBC, URINE AUTO TNTC /HPF (0-3)
[2019-11-02 16:53] LABS: HEMATOCRIT 36.7 % (36.0-47.0); HEMOGLOBIN 12.2 g/dl (12.0-15.5); MEAN CORPUSCULAR HEMOGLOBIN 31.3 pg (27.0-33.0); MEAN CORPUSCULAR HGB CONC 33.2 g/dl (32.0-36.5); MEAN CORPUSCULAR VOLUME 94.1 fl (80.0-96.0); PLATELET COUNT, AUTOMATED 224 10^3/uL (150-450); WHITE BLOOD COUNT 10.4 10^3/uL (4.0-10.0)
[2019-11-02 17:13] LABS: CALCIUM LEVEL 9.2 MG/DL (8.8-10.2); CREATININE FOR GFR 1.52 MG/DL (0.55-1.30); GLOMERULAR FILTRATION RATE 35.6 (>39)
== END ==
LOC: M LABSMT 13:27
PROVIDERS: ATTEND Nurse Practitioner Women's Health
DX: Z01.818 Encounter for other preprocedural examination (principal); N28.9 Disorder of kidney and ureter, unspecified

== ENCOUNTER → 2019-11-02 | Outpatient (CLI) | payer MEDICARE ==
--- NOTE | 2019-11-02 14:45 | REP ---
CHEST, TWO VIEWS: COMPARISON: 06/02/2017 Mild bibasilar fibrotic changes are stable. There is no acute infiltrate. There is mild cardiomegaly. There is calcification and tortuosity of the thoracic aorta. The mediastinal silhouette is unchanged. There are degenerative changes of the spine. IMPRESSION: Mild cardiomegaly and chronic changes appear stable. No acute infiltrate. Electronically Signed by Santana Scott MD 11/03/2019 03:23 P
== END ==
LOC: M CLY 13:32
PROVIDERS: ATTEND Nurse Practitioner Women's Health
DX: Z01.818 Encounter for other preprocedural examination (principal); I51.7 Cardiomegaly; N13.5 Crossing vessel and stricture of ureter without hydronephrosis; N28.9 Disorder of kidney and ureter, unspecified

== ENCOUNTER 2019-11-09 10:50 | Day surgery (SDC) | payer MEDICARE ==
[~2019-11-09] VITALS: Ht 160 cm; Wt 90.6 kg
[~2019-11-09 10:50] MED LIST changes: +CONRAY-60 60% 50ML VIAL (Q9961) As Ordered ONE; +KEFL500C17 PO; +LIDOCAINE 1% MDV 20ML VIAL SQ PRN; +LIDOCAINE 2% INJ 100 MG/5 ML SDV (FOR ANES.) As Ordered ONE; +LR 1,000 ML IV ONE; +MIDAZOLAM INJ 2 MG/2 ML VIAL (J2250) As Ordered ONE; +NEUR300C PO; +propofoL 200 MG/20 ML VIAL As Ordered ONE; +propofoL 500 MG/50 ML VIAL As Ordered ONE
[2019-11-09] MEDS ORDERED: TRIMETHOPRIM/SULFAMETHOXAZOLE 160 MG in D5W 250 ML IV ONE (11:00)
[2019-11-09] MEDS: LIDOCAINE 2% 5ML JELLY UROJET As Ordered ONE ×2 (11:40→12:12)
--- NOTE | 2019-11-09 13:06 | REP ---
Retrograde pyelogram: Six views. History: Bilateral ureteral obstruction. 38 seconds of fluoroscopy time is reported. Findings: A sequence of six last image hold fluoroscopically obtained spot radiographs of the abdomen document bilateral ureteral cannulation, contrast injection, and stent placement. Electronically Signed by Jerry Nunes MD 11/09/2019 12:57 P
[2019-11-09 14:05] VITALS: BP 152/65
--- NOTE | 2019-11-09 19:46 | RO ---
DATE OF PROCEDURE: 11/09/2019 PREOPERATIVE DIAGNOSIS: Bilateral ureteral obstruction. POSTOPERATIVE DIAGNOSIS: Bilateral ureteral obstruction. PROCEDURE: Cystoscopy and bilateral ureteral stent exchange with bilateral retrograde pyelogram. SURGEON: Dr. Tammie Ha CRIME ANALYST: ANESTHESIA: General. MEDICATIONS: Bactrim DS preoperatively. DRAINS: Two 8-Japanese double-J universal ureteral stents. COMPLICATIONS: None. HISTORY OF PRESENT ILLNESS: The patient is a 73-year-old female who has bilateral ureteral obstruction after a colon resection and radiation therapy, which she gets changed every 3-4 months for quite a few years now. She also has urinary urgency, frequency, urge incontinence and has failed medical management. After discussing all different options, alternatives, risks and benefits, it was decided to bring her to the operating room for bilateral stent exchange. We had talked about intravesical Botox in the past, but she was not interested but now she would like to reconsider, so we will have her scheduled for urodynamic studies before her next procedure. Informed consent was obtained in both verbal and written form. DESCRIPTION OF PROCEDURE: The patient was brought into the operating room and anesthesia was induced. She was then placed in the lithotomy position and careful attention was paid that her pressure points were well padded and protected. She was prepped and draped in the usual fashion. A 21-Japanese cystoscope was inserted. Both ureteral orifices were seen. At this point, first the right ureteral stent was pulled using a flexible grasper and a wire was placed up this. The wire was then back loaded, and a retrograde pyelogram was done. She does have both kidneys lower in the pelvic region and narrowing of the ureters bilaterally. At this point, the stent was removed and then replaced using a 7-Japanese universal stent. The same procedure was then done on the opposite side. Cystoscopy showed no significant erythematous patches or other abnormalities throughout the bladder. The patient tolerated the procedure well and was returned to the recovery room in stable condition.
== END 2019-11-09 14:06 | disposition home or self-care (01) ==
LOC: M SDC 10:50
PROVIDERS: ATTEND Specialist
DX: N13.5 Crossing vessel and stricture of ureter without hydronephrosis (principal); I10 Essential (primary) hypertension; D64.9 Anemia, unspecified; E78.5 Hyperlipidemia, unspecified; K58.8 Other irritable bowel syndrome; F41.9 Anxiety disorder, unspecified; F32.9 Major depressive disorder, single episode, unspecified; Z88.1 Allergy status to other antibiotic agents; Z88.2 Allergy status to sulfonamides; Z92.3 Personal history of irradiation; Z85.038 Personal history of other malignant neoplasm of large intestine; Z79.899 Other long term (current) drug therapy; Z87.891 Personal history of nicotine dependence
CPT/HCPCS: 52332; 74420; C1769; C2617; J2250; Q9961

== ENCOUNTER → 2019-12-13 | Outpatient (REF) | payer MEDICARE ==
[~2019-12-13] MED LIST changes: -CONRAY-60 60% 50ML VIAL (Q9961) As Ordered ONE; -LIDOCAINE 1% MDV 20ML VIAL SQ PRN; -LIDOCAINE 2% INJ 100 MG/5 ML SDV (FOR ANES.) As Ordered ONE; -LR 1,000 ML IV ONE; -MIDAZOLAM INJ 2 MG/2 ML VIAL (J2250) As Ordered ONE; -propofoL 200 MG/20 ML VIAL As Ordered ONE; -propofoL 500 MG/50 ML VIAL As Ordered ONE
== END ==
LOC: M SFHCCLAY 11:06
PROVIDERS: ATTEND Nurse Practitioner Family
DX: R35.0 Frequency of micturition (principal)

== ENCOUNTER → 2020-01-07 | Outpatient (REF) | payer MEDICARE ==
[~2020-01-07] MED LIST changes: +NITR-67 PO
[2020-01-07 17:42] LABS: BACTERIA, URINE AUTO 2+ (NEGATIVE); RBC, URINE AUTO 75 /HPF (0-3); SQUAMOUS EPITHELIAL CELL UR AU 0 /HPF (0-6); WBC, URINE AUTO TNTC /HPF (0-3)
== END ==
LOC: M SMT 17:10
PROVIDERS: ATTEND Specialist
DX: N39.0 Urinary tract infection, site not specified (principal)
CPT/HCPCS: 81015; 87088; 87186; G0463

== ENCOUNTER → 2020-01-16 | Outpatient (REF) | payer MEDICARE ==
[~2020-01-16] MED LIST changes: -NITR-67 PO
== END ==
LOC: M LAB REF 16:59
PROVIDERS: ATTEND Specialist
DX: N39.0 Urinary tract infection, site not specified (principal)

== ENCOUNTER → 2020-02-04 | Outpatient (REF) | payer MEDICARE ==
[~2020-02-04] MED LIST changes: +NITR-67 PO
[2020-02-04 16:23] LABS: BACTERIA, URINE AUTO 1+ (NEGATIVE); RBC, URINE AUTO 98 /HPF (0-3); SQUAMOUS EPITHELIAL CELL UR AU 9 /HPF (0-6); WBC, URINE AUTO TNTC /HPF (0-3)
== END ==
LOC: M SFHCCLAY 10:14
PROVIDERS: ATTEND Specialist
DX: N39.0 Urinary tract infection, site not specified (principal)

== ENCOUNTER → 2020-02-08 | Day surgery (SDC) | payer MEDICARE ==
[~2020-02-08] VITALS: Ht 167.6 cm; Wt 90.7 kg
[~2020-02-08] MED LIST changes: +CONRAY-60 60% 50ML VIAL (Q9961) As Ordered ONE; +GENTAMICIN 100 MG in IV 1 EA IV ONE; +KETOROLAC 60 MG/2 ML VIAL (J1885 PER 15MG) As Ordered ONE; +LIDOCAINE 1% MDV 20ML VIAL SQ PRN; +LIDOCAINE 2% 100MG/5ML SDV (FOR ANES.) As Ordered ONE; +LIDOCAINE 2% 5ML JELLY UROJET As Ordered ONE; +LR 1,000 ML IV ONE; +MACR100C43 PO; +MIDAZOLAM INJ 2MG/2ML VIAL (J2250 PER 1MG) As Ordered ONE; +ONDANSETRON 4MG/2ML VIAL (J2405 PER 1MG) As Ordered ONE; +fentaNYL 100 MCG/2 ML INJECTION (J3010) As Ordered ONE; +propofoL 200 MG/20 ML VIAL As Ordered ONE
--- NOTE | 2020-02-08 08:24 | REP ---
Clinical: Bilateral ureteral stent placement. Technique: Intraoperative fluoroscopic imaging. Comparison: 11/09/2019 Findings: Final image demonstrates satisfactory bilateral ureteral stent placement. Earlier images demonstrate mild/moderate right hydronephrosis and mild left hydronephrosis which is improved from prior examination. Total fluoroscopic time 44 seconds. Impression: 1. Satisfactory bilateral ureteral stent placement. 2. Hydronephrosis appears improved compared to prior examination. Electronically Signed by Miller Purvis MD 02/08/2020 08:15 A
--- NOTE | 2020-02-08 08:54 | RO ---
DATE OF PROCEDURE: 02/08/2020 PREPROCEDURE DIAGNOSIS: Bilateral ureteral obstruction. POSTPROCEDURE DIAGNOSIS: Bilateral ureteral obstruction. PROCEDURE: Cystoscopy, bilateral retrograde pyelograms with intraoperative interpretation of images, bilateral ureteral stent exchange. SURGEON: Jaspal Jack MD LADIES SUIT OPERATOR: None. ANESTHESIA: Monitored anesthesia care (MAC). OPERATIVE INDICATIONS: This is a 74-year-old female with bilateral ureteral obstruction which is managed with chronic ureteral stenting. She is brought in today for routine stent exchange. DESCRIPTION OF PROCEDURE: The patient was brought to the operating room and MAC anesthesia was administered. Prophylactic antibiotics were infused. She was then placed in dorsal lithotomy position and prepped and draped in the usual sterile fashion. At this point, a rigid cystoscope was inserted into the urethral meatus and advanced to the bladder. Once inside the bladder the previous placed ureteral stents were seen. The right sided stent was then grasped and withdrawn until the distal end was protruding from the urethral meatus. I advanced a Guidewire up the right stent and then removed the stent. I then advanced a 5-St Lucian open-ended ureteral catheter over the wire and removed the wire. I shot a retrograde pyelogram and it was notable for moderate to severe right hydronephrosis with no extravasation. I then advanced the wire back up the open ended ureteral catheter and removed the ureteral catheter. I then utilized the wire to advance a 7 St Lucian x 24 cm black silicone ureteral stent into the right collecting system. The wire was removed and there were adequate curls of the stent in the right renal pelvis and in the bladder. I then advanced a Guidewire up the left collecting system and removed the left ureteral stent. I advanced a 5-St Lucian open-ended ureteral catheter over the wire into the left collecting system. I removed the wire and then shot a retrograde pyelogram. It was notable for moderate left hydronephrosis with no extravasation. I then advanced the wire back up the left collecting system and removed the ureteral catheter. I then utilized the wire to advance a 7 [place] Lucian x 24 cm black silicone ureteral stent into the left collecting system. The wire was removed and there were adequate curls of the stent in the left renal pelvis and in the bladder. At this point, the bladder was emptied of all fluid and this marked conclusion of the procedure. The patient was then taken out of the dorsal lithotomy position, awakened from anesthesia and transferred to the recovery room in stable condition. ESTIMATED BLOOD LOSS: 5 mL. COMPLICATIONS: None. SPECIMENS: None. PLAN: I will arrange a renal ultrasound to be done in about three months to make sure that both stents are still draining her collecting systems well. If that is the case then we will plan to keep the stents in longer. Of note, these stents can potentially stay in for up to a year. CEE
[2020-02-08 10:00] VITALS: BP 160/73
== END | disposition home or self-care (01) ==
LOC: M SDC 06:11
PROVIDERS: ATTEND Urology
DX: N13.5 Crossing vessel and stricture of ureter without hydronephrosis (principal); I10 Essential (primary) hypertension; K58.8 Other irritable bowel syndrome; K21.9 Gastro-esophageal reflux disease without esophagitis; F41.9 Anxiety disorder, unspecified; F32.9 Major depressive disorder, single episode, unspecified; Z88.2 Allergy status to sulfonamides; Z88.1 Allergy status to other antibiotic agents; Z88.8 Allergy status to other drugs, medicaments and biological substances; Z85.038 Personal history of other malignant neoplasm of large intestine; Z79.899 Other long term (current) drug therapy
CPT/HCPCS: 52332; 74420; C1769; C2617; J1580; J1885; J2250; J2405; J3010; Q9961

== ENCOUNTER → 2020-02-26 | Outpatient (REF) | payer MEDICARE ==
[~2020-02-26] MED LIST changes: -CONRAY-60 60% 50ML VIAL (Q9961) As Ordered ONE; -GENTAMICIN 100 MG in IV 1 EA IV ONE; -KETOROLAC 60 MG/2 ML VIAL (J1885 PER 15MG) As Ordered ONE; -LIDOCAINE 1% MDV 20ML VIAL SQ PRN; -LIDOCAINE 2% 100MG/5ML SDV (FOR ANES.) As Ordered ONE; -LIDOCAINE 2% 5ML JELLY UROJET As Ordered ONE; -LR 1,000 ML IV ONE; -MIDAZOLAM INJ 2MG/2ML VIAL (J2250 PER 1MG) As Ordered ONE; -ONDANSETRON 4MG/2ML VIAL (J2405 PER 1MG) As Ordered ONE; -fentaNYL 100 MCG/2 ML INJECTION (J3010) As Ordered ONE; -propofoL 200 MG/20 ML VIAL As Ordered ONE
[2020-02-27 11:35] LABS: HEMATOCRIT 33.1 % (36.0-47.0); HEMOGLOBIN 11.1 g/dl (12.0-15.5); MEAN CORPUSCULAR HEMOGLOBIN 31.2 pg (27.0-33.0); MEAN CORPUSCULAR HGB CONC 33.5 g/dl (32.0-36.5); PLATELET COUNT, AUTOMATED 220 10^3/uL (150-450); RED BLOOD COUNT 3.56 10^6/uL (4.00-5.40); WHITE BLOOD COUNT 6.2 10^3/uL (4.0-10.0)
[2020-02-27 11:47] LABS: ALBUMIN 3.2 GM/DL (3.2-5.2); ALT/SGPT 19 U/L (12-78); BILIRUBIN,TOTAL 0.4 MG/DL (0.2-1.0); BLOOD UREA NITROGEN 20 MG/DL (7-18); CALCIUM LEVEL 8.6 MG/DL (8.8-10.2); CARBON DIOXIDE LEVEL 28 MEQ/L (21-32); CHLORIDE LEVEL 102 MEQ/L (98-107); CHOLESTEROL LEVEL 146 MG/DL (<200); CHOLESTEROL RISK RATIO 2.979 (<5); CREATININE FOR GFR 1.77 MG/DL (0.55-1.30); FERRITIN 559 NG/ML (8-252); GLOMERULAR FILTRATION RATE 29.8 (>39); GLUCOSE, FASTING 114 MG/DL (70-100); HDL CHOLESTEROL 49 MG/DL (>40); IRON (FE) 32 UG/DL (50-170); LDL CHOLESTEROL 69 MG/DL (<100); NON-HDL-C 97 MG/DL; PERCENT SATURATION 15.8 % (13.2-45.0); POTASSIUM SERUM 3.2 MEQ/L (3.5-5.1); SODIUM LEVEL 139 MEQ/L (136-145); TOTAL IRON BINDING CAPACITY 202 UG/DL (250-450); TOTAL PROTEIN 6.7 GM/DL (6.4-8.2); TRIGLYCERIDES LEVEL 142 MG/DL (<150)
[2020-02-27 11:52] LABS: VITAMIN B12 LEVEL 1817 PG/ML (247-911)
[2020-02-27 11:53] LABS: FOLATE > 24.0 NG/ML (>5.4)
[2020-02-27 12:04] LABS: TOTAL 25(OH) VITAMIN D 37.6 NG/ML (30.0-100.0)
[2020-02-27 12:10] LABS: HEMOGLOBIN A1c 5.2 %
== END ==
LOC: M SFHCCLAY 13:31
PROVIDERS: ATTEND Nurse Practitioner Family
DX: D64.9 Anemia, unspecified (principal); M54.9 Dorsalgia, unspecified; E11.69 Type 2 diabetes mellitus with other specified complication; E78.5 Hyperlipidemia, unspecified; E55.9 Vitamin D deficiency, unspecified
CPT/HCPCS: 80053; 80061; 82306; 82607; 82728; 82746; 83036; 83550; 85027; G0463

== ENCOUNTER 2020-03-16 19:46 | Emergency (ER) | payer MEDICARE ==
[~2020-03-16] VITALS: Ht 167.6 cm; Wt 81.8 kg
[2020-03-16] MEDS ORDERED: NS 1,000 ML IV SCH (19:58)
[2020-03-16] MEDS ORDERED: IBUPROFEN 600MG TAB PO ONE (20:00)
[2020-03-16 20:09] LABS: BASO % 0.2 % (0.0-1.0); EOS % 0.3 % (0.0-3.0); HEMATOCRIT 30.2 % (36.0-47.0); HEMOGLOBIN 10.1 g/dl (12.0-15.5); LYMPH # 2.2 10^3/uL (1.5-5.0); LYMPH % 18.2 % (24.0-44.0); MEAN CORPUSCULAR HEMOGLOBIN 29.9 pg (27.0-33.0); MEAN CORPUSCULAR HGB CONC 33.4 g/dl (32.0-36.5); MEAN CORPUSCULAR VOLUME 89.3 fl (80.0-96.0); NEUTROPHILS # 8.9 10^3/uL (1.5-8.5); NEUTROPHILS % 72.9 % (36.0-66.0); PLATELET COUNT, AUTOMATED 201 10^3/uL (150-450); RED BLOOD COUNT 3.38 10^6/uL (4.00-5.40); WHITE BLOOD COUNT 12.2 10^3/uL (4.0-10.0)
[2020-03-16] MEDS ORDERED: ALPRAZolam 0.5 MG TAB PO ONE (20:45)
[2020-03-16 20:55] LABS: ALBUMIN 2.9 GM/DL (3.2-5.2); ALT/SGPT 15 U/L (12-78); BILIRUBIN,DIRECT < 0.1 MG/DL (0.0-0.2); BILIRUBIN,TOTAL 0.4 MG/DL (0.2-1.0); BLOOD UREA NITROGEN 26 MG/DL (7-18); CALCIUM LEVEL 8.4 MG/DL (8.8-10.2); CARBON DIOXIDE LEVEL 29 MEQ/L (21-32); CHLORIDE LEVEL 101 MEQ/L (98-107); GLOMERULAR FILTRATION RATE 27.4 (>39); GLUCOSE, FASTING 127 MG/DL (70-100); LIPASE 69 U/L (73-393); POTASSIUM SERUM 3.6 MEQ/L (3.5-5.1); SODIUM LEVEL 136 MEQ/L (136-145); TOTAL PROTEIN 6.8 GM/DL (6.4-8.2)
[2020-03-16] MEDS ORDERED: AMOX500C PO (21:39)
[2020-03-16] MEDS ORDERED: AMOXICILLIN 500 MG CAP PO ONE (21:45)
[2020-03-16 22:14] VITALS: BP 131/62
--- NOTE | 2020-03-18 09:57 | REP ---
CHEST, TWO VIEWS: Two views of the chest are performed. COMPARISON: 11/02/2019. There is no acute infiltrate or pulmonary edema. There is mild cardiomegaly. There is calcification and tortuosity of the thoracic aorta. Mediastinal silhouette is otherwise unremarkable. There are mild degenerative changes of the spine. IMPRESSION: Mild cardiomegaly. No acute infiltrate. Electronically Signed by Santana Scott MD 03/18/2020 01:38 P
== END 2020-03-16 22:18 | disposition home or self-care (01) ==
LOC: M ED 19:46
DX: N39.0 Urinary tract infection, site not specified (principal); M79.10 Myalgia, unspecified site; I10 Essential (primary) hypertension; N28.9 Disorder of kidney and ureter, unspecified; Z88.1 Allergy status to other antibiotic agents; Z88.2 Allergy status to sulfonamides; Z79.899 Other long term (current) drug therapy
CPT/HCPCS: 71046; 80048; 80076; 81001; 83690; 85025; 87040; 87088; 87186; 96360; 99284; U0002

== ENCOUNTER 2020-04-06 07:56 | Inpatient (IN) | payer MEDICARE ==
[~2020-04-06] VITALS: Ht 167.6 cm; Wt 81.7 kg
[2020-04-06] VITALS (13 sets, daily range): BP systolic 108–173; BP diastolic 53–74; O2SAT 90
[~2020-04-06 07:56] MED LIST changes: +AMOX500C PO
[2020-04-06] MEDS ORDERED: NS 500 ML IV ONE ×2 (08:30→11:15)
[2020-04-06 08:49] LABS: BASO # 0.1 10^3/uL (0.0-0.2); BASO % 0.3 % (0.0-1.0); EOS % 0.1 % (0.0-3.0); HEMATOCRIT 27.8 % (36.0-47.0); HEMOGLOBIN 9.3 g/dl (12.0-15.5); LYMPH % 6.2 % (24.0-44.0); MEAN CORPUSCULAR HEMOGLOBIN 29.5 pg (27.0-33.0); MEAN CORPUSCULAR HGB CONC 33.5 g/dl (32.0-36.5); MEAN CORPUSCULAR VOLUME 88.3 fl (80.0-96.0); MONO # 0.5 10^3/uL (0.0-0.8); MONO % 3.2 % (0.0-5.0); NEUTROPHILS # 14.4 10^3/uL (1.5-8.5); NEUTROPHILS % 89.2 % (36.0-66.0); PLATELET COUNT, AUTOMATED 322 10^3/uL (150-450); RED BLOOD COUNT 3.15 10^6/uL (4.00-5.40); WHITE BLOOD COUNT 16.1 10^3/uL (4.0-10.0)
[2020-04-06] MEDS ORDERED: amLODIPine 5 MG TAB PO SCH (09:00)
[2020-04-06] MEDS ORDERED: MORPHINE 2 MG/ML 1ML VIAL (J2270) As Ordered ONE (09:04)
[2020-04-06] MEDS: MORPHINE 2 MG/ML 1ML VIAL (J2270) IV PRN ×2 (09:11→10:38)
[2020-04-06 09:16] LABS: ALBUMIN 2.5 GM/DL (3.2-5.2); ALT/SGPT 12 U/L (12-78); AMYLASE 34 U/L (25-115); BILIRUBIN,DIRECT 0.1 MG/DL (0.0-0.2); BILIRUBIN,TOTAL 0.3 MG/DL (0.2-1.0); CK-MB VALUE MASS < 1.0 NG/ML (<3.6); CPK CREATINE PHOSPHOKINASE 61 U/L (26-192); LIPASE 42 U/L (73-393); MB/CK RELATIVE INDEX 1.64 (< OR =4); TOTAL PROTEIN 6.9 GM/DL (6.4-8.2); TROPONIN I < 0.02 NG/ML (< 0.10)
[2020-04-06 09:20] LABS: INR 1.34; PROTHROMBIN TIME 16.3 SECONDS (11.8-14.0)
[2020-04-06 09:21] LABS: PARTIAL THROMBOPLASTIN TIME 42.6 SECONDS (25.0-38.4)
--- NOTE | 2020-04-06 10:51 | REP ---
Single view chest: 04/06/2020. Indication: Fever. Comparison: 11/02/2019. Findings: Small left pleural effusion is present. Air space consolidation is noted within the right middle lobe. There is no pneumothorax. Mild cardiomegaly is present. Bibasilar discoid atelectasis is present. Impression: Right middle lobe pneumonia. Mild cardiomegaly. Small left pleural effusion. Electronically Signed by Gume Elizondo DO 04/06/2020 10:43 A
--- NOTE | 2020-04-06 10:59 | REPVR ---
PROCEDURE INFORMATION: Exam: CT Abdomen And Pelvis Without Contrast Exam date and time: 04/06/2020 10:10 AM Age: 74 years old Clinical indication: Other: Arf, stents, UTI; Additional info: Acute renal failure- stents, UTI TECHNIQUE: Imaging protocol: Computed tomography of the abdomen and pelvis without contrast. Radiation optimization: All CT scans at this facility use at least one of these dose optimization techniques: automated exposure control; mA and/or kV adjustment per patient size (includes targeted exams where dose is matched to clinical indication); or iterative reconstruction. COMPARISON: RF Retrograde Pyelogram 02/08/2020 7:50 AM FINDINGS: Limitations: Evaluation is somewhat limited by lack of IV contrast. Lungs: The lung bases demonstrate some atelectasis and scarring. Liver: Grossly unremarkable. Gallbladder and bile ducts: Cholecystectomy clips are present. There is dilatation of the common bile duct, often seen after cholecystectomy. Pancreas: Grossly unremarkable. Spleen: A splenule is noted. The spleen itself appears grossly unremarkable. Adrenals: Grossly unremarkable. Kidneys and ureters: There is severe bilateral hydronephrosis with mild bilateral hydroureter, despite the presence of bilateral ureteral stents, which appear to be in satisfactory positions. The renal cortices demonstrate thinning and scarring, right more than left. Stomach and bowel: The unopacified small bowel is not significantly distended to suggest obstruction. The large bowel is grossly unremarkable in appearance. Appendix: The appendix appears normal. Intraperitoneal space: There is no free air. Small free fluid is present in the pelvis. Vasculature: Coronary artery calcifications are noted. The abdominal aorta is nonaneurysmal. Atherosclerotic vascular calcifications are noted. Lymph nodes: Some enlarged left periaortic lymph nodes measure up to 1.4 cm short axis. Bladder: Grossly unremarkable. Reproductive: There is a left adnexal cyst measuring up to 2.7 cm. Bones/joints: Degenerative changes involve the spine and hips. Soft tissues: There is a fat containing right diaphragmatic hernia posteromedially. Moderate fat containing bilateral inguinal hernias are present. IMPRESSION: 1. Severe bilateral hydronephrosis and mild bilateral hydroureter, despite the presence of bilateral ureteral stents, which appear to be in satisfactory positions. This could relate to stent obstruction and/or infection. 2. Left adnexal cyst measuring up to 2.7 cm. Correlate with ultrasound given patient age. 3. Small nonspecific free fluid in the pelvis. 4. Mild left periaortic lymphadenopathy, nonspecific. Correlate clinically and follow-up. 5. Moderate fat containing bilateral inguinal hernias. Electronically signed by: Wenceslao Busby On 04/06/2020 10:59:36 AM
[2020-04-06] MEDS ORDERED: AMPICILLIN SOD 1 GM in D5W 50 ML IV ONE (11:15)
[2020-04-06] MEDS ORDERED: FLUO20CA20 PO (12:11)
[2020-04-06] MEDS ORDERED: APAP325T4 PO (12:11)
[2020-04-06] MEDS ORDERED: POTA10TA17 PO (12:11)
[2020-04-06] MEDS ORDERED: THERTAB20 PO (12:11)
[2020-04-06] MEDS ORDERED: MOM 30ML SUSPENSION UDC PO PRN (12:30)
[2020-04-06] MEDS ORDERED: ACETAMINOPHEN TAB 650MG DOSE (2X325MG) PO PRN (12:30)
[2020-04-06 12:56] LABS: VENOUS BASE EXCESS -3.1 (-2.0-2.0); VENOUS HCO3 21.7 MEQ/L (23.0-27.0); VENOUS O2 SATURATION 73.2 % (60.0-80.0); VENOUS PARTIAL PRESSURE CO2 38.1 mmHg (38.0-50.0); VENOUS PARTIAL PRESSURE O2 39.1 mmHg (30.0-50.0); VENOUS PH 7.374 UNITS (7.330-7.430); VENOUS STANDARD HCO3 21.4 MEQ/L; VENOUS TOTAL CO2 22.9 MEQ/L (24.0-28.0)
[2020-04-06 12:59] LABS: HEMATOCRIT 29.3 % (36.0-47.0); HEMOGLOBIN 9.6 g/dl (12.0-15.5); MEAN CORPUSCULAR HEMOGLOBIN 29.3 pg (27.0-33.0); MEAN CORPUSCULAR HGB CONC 32.8 g/dl (32.0-36.5); MEAN CORPUSCULAR VOLUME 89.3 fl (80.0-96.0); PLATELET COUNT, AUTOMATED 255 10^3/uL (150-450); RED BLOOD COUNT 3.28 10^6/uL (4.00-5.40); WHITE BLOOD COUNT 18.3 10^3/uL (4.0-10.0)
[2020-04-06] MEDS ORDERED: NS 1,000 ML IV SCH (13:00)
[2020-04-06 13:25] LABS: BLOOD UREA NITROGEN 31 MG/DL (7-18); CALCIUM LEVEL 8.3 MG/DL (8.8-10.2); CARBON DIOXIDE LEVEL 22 MEQ/L (21-32); CHLORIDE LEVEL 106 MEQ/L (98-107); CREATININE FOR GFR 2.38 MG/DL (0.55-1.30); GLOMERULAR FILTRATION RATE 21.2 (>39); GLUCOSE, FASTING 116 MG/DL (70-100); MAGNESIUM LEVEL 1.6 MG/DL (1.8-2.4); POTASSIUM SERUM 3.3 MEQ/L (3.5-5.1); SODIUM LEVEL 139 MEQ/L (136-145)
[2020-04-06] MEDS ORDERED: AMIODARONE HCL 150 MG in IV 1 EA IV STA ×3 (13:25→15:26)
[2020-04-06] MEDS ORDERED: MAG SULF 1GM/100ML (MAG RUN) 1 GM in IV 1 EA IV SCH (13:30)
[2020-04-06 13:36] LABS: HEMOGLOBIN A1c 5.7 %
[2020-04-06] MEDS ORDERED: KCL 40MEQ in NS 1000ML 1,000 ML IV SCH (14:00)
[2020-04-06] MEDS ORDERED: METOPROLOL SUCC (TopROL XL) 50MG **XL** TAB PO ONE (14:15)
[2020-04-06] MEDS ORDERED: METOPROLOL TART 50 MG TAB PO ONE (14:15)
[2020-04-06] MEDS: METOPROLOL 5 MG/5 ML VIAL IV SCH ×3 (14:18→14:35)
--- NOTE | 2020-04-06 14:21 | HPEPDOC ---
[facility] Medical History & Physical Date of Admission Apr 06, 2020 Date of Service: Apr 06, 2020 Primary Care Physician: Jena Hatfield Attending Physician: FRANCISCA ELIAS MD History and Physical TIME OF SERVICE 1258PM / CC time at the bedside including first and second assessment: 45 min CHIEF COMPLAINT: Vomiting, fever, abdominal pain HISTORY OF PRESENT ILLNESS: This is a 74-year-old female who presents with complaints of 9 /10 in severity, dull, generalized and constant abdominal pain that began last night. Associated symptoms include back pain, multiple episodes of nonbloody emesis that began today, fever, chills, pain with urination and cloudy colored urine. Because the UA findings were consistent with a UTI and the CT showed bilateral hydronephrosis, hydroureter, despite the placement of stents, discuss these findings with Dr. Jack who recommended placing cadena and starting antibiotics. Dr. Umana started ampicillin based on cultures and sensitives on her most recent urine culture. REVIEW OF SYSTEMS: 12 point review of systems negative except as listed in HPI PAST MEDICAL/ SURGICAL HISTORY: Chronic HTN CKD 3/4 Bilateral renal stents Dyslipidemia Chronic Pain /Neuropathy Bilateral ureteral obstruction requiring placement of stents (these were last exchanged 3 months ago) denied hx of CAD, DM or CVA SOCIAL HISTORY: She is a former smoker She doesn't drink alcohol FAMILY HISTORY: According to the patient, she doesn't know ALLERGIES: Please see below. HOME MEDICATIONS: Please see below. PHYSICAL EXAMINATION: Vital Signs Date Time Temp Pulse Resp B/P (MAP) Pulse Ox O2 Delivery O2 Flow Rate FiO2 04/06/20 08:03 169/84 (112) 04/06/20 08:05 98.3 74 19 93 Room Air 04/06/20 09:15 2.0 HR during my exam was 117 GEN: well-nourished / well developed/ listless / has chills INTEGUMENT: Has generalized pallor and slightly diaphoretic HEENT: normocephalic / atraumatic / lips acyanotic /mucus membranes moist and pink CVS: RRR/NMRG/ radial pulse intact LUNGS: able to speak full sentences without stopping to take a breath / no coughing / lungs are clear to auscultation bilaterally on room air ABDOMEN: Contour ( obese) / there are no masses or lesions / abdomen is tympanic on percussion, soft & slightly tender with palpation NEURO: CN 2-12 are grossly intact / speech is not dysarthric PSYCH: alert and oriented to person place and time/ able to understand and follow all commands LABORATORY DATA: 04/06/20 12:50 Immature Granulocyte % (Auto) 1.0, Neutrophils (%) (Auto) 89.2H, Lymphocytes (%) (Auto) 6.2L, Monocytes (%) (Auto) 3.2, Eosinophils (%) (Auto) 0.1, Basophils (%) (Auto) 0.3, Neutrophils # (Auto) 14.4H, Lymphocytes # (Auto) 1.0L, Monocytes # (Auto) 0.5, Eosinophils # (Auto) 0.0, Basophils # (Auto) 0.1, Nucleated Red Blood Cells % (auto) 0.0, Prothrombin Time 16.3H, Prothromb Time International Ratio 1.34, Activated Partial Thromboplast Time 42.6H, Lactic Acid Level 1.1, Total Bilirubin 0.3, Direct Bilirubin 0.1, Aspartate Amino Transf (AST/SGOT) 8, Alanine Aminotransferase (ALT/SGPT) 12, Alkaline Phosphatase 75, Total Creatine Kinase 61, Creatine Kinase MB < 1.0, Creatine Kinase MB Relative Index 1.64, Troponin I < 0.02, Total Protein 6.9, Albumin 2.5L, Albumin/Globulin Ratio 0.6L, Amylase Level 34, Lipase 42L 04/06/20 08:46: POC Glucose (Misc Panel) 135H, POC Sodium (Misc Panel) 139, POC Potassium (Misc Panel) 3.1L, POC Chloride (Misc Panel) 103, POC Total CO2 (Misc Panel) 21.0L, POC Blood Urea Nitrogen (Misc Panel 28H, POC Ionized Calcium (Misc Panel) 4.3L, POC Creatinine (Misc Panel) 2.7H, POC Hematocrit (Misc Panel) 29.0L 04/06/20 09:22: Urine Color YELLOW, Urine Appearance TURBIDH, Urine pH 5.0, Urine Specific [place] 1.011, Urine Protein 2+H, Urine Glucose (UA) NEGATIVE, Urine Ketones TRACEH, Urine Blood 1+H, Urine Nitrite POSITIVEH, Urine Bilirubin NEGATIVE, Urine Urobilinogen 0.2, Urine Leukocyte Esterase 3+H, Urine WBC (Auto) TNTCH, Urine RBC (Auto) 75H, Urine Hyaline Casts (Auto) 0, Urine Bacteria (Auto) 3+H, Urine Squamous Epithelial Cells 5, Urine Amorphous Sediment SMALLH, Urine Mucus (Auto) SMALL, Urine Sperm (Auto) 04/06/20 12:50: Nucleated Red Blood Cells % (auto) 0.0, Blood Gas Bicarbonate Standard 21.4, Venous Blood pH 7.374, Venous Blood Partial Pressure CO2 38.1, Venous Blood Partial Pressure O2 39.1, Venous Blood Total Carbon Dioxide 22.9L, Venous Blood HCO3 21.7L, Venous Blood Oxygen Saturation 73.2, Venous Blood Base Excess -3.1L, Anion Gap 11, Glomerular Filtration Rate 21.2L, Estimated Mean Plasma Glucose 117H, Hemoglobin A1c 5.7, Calcium Level 8.3L, Magnesium Level 1.6L IMAGING: Chest x-ray " Impression: Right middle lobe pneumonia. Mild cardiomegaly. Small left pleural effusion." CT abdomen and pelvis " IMPRESSION: 1. Severe bilateral hydronephrosis and mild bilateral hydroureter, despite the presence of bilateral ureteral stents, which appear to be in satisfactory positions. This could relate to stent obstruction and/or infection. 2. Left adnexal cyst measuring up to 2.7 cm. Correlate with ultrasound given patient age. 3. Small nonspecific free fluid in the pelvis. 4. Mild left periaortic lymphadenopathy, nonspecific. Correlate clinically and follow-up. 5. Moderate fat containing bilateral inguinal hernias. " MICROBIOLOGY: 04/06/20 Urine Culture, Received Pending 04/06/20 Blood Culture, Received Pending 04/06/20 Blood Culture, Received Pending ASSESSMENT: Ms. Best is a 74-year-old with a history of hypertension and dyslipidemia who is admitted for management of pyelonephritis and ANTELMO PLAN: 1. Sepsis 2/2 Pyelonephritis Main symptoms are abdominal pain, back pain, nausea, vomiting and subjective fever. SIRS criteria include WBC # of 16.1 and HR of 117 during the exam UA positive for WBCs, Leukocyte esterase and nitrites and bacteria CT abdomen findings as above The lactic acid is wnl QSOFA Score is = 0 points = not high risk Plan: admit to PCU/ f/u Ucx, blood Cx and renal function / c/w ampicillin sulbactam / I contacted who recommended repeat renal US on Tue to follow upon on the hydronephrosis 2. ANTELMO on CKD 3/4 Creatinine has increased to 2.7 from a baseline of about 1.52 CK is wnl UA as above Plan: per Dr.Chandler kaitlin cadena to monitor Is/Os / IVF / f/u ulytes for FENa or FEUrea 3. Hypertensive Crisis vs Uncontrolled HTN Blood pressure was 197/87 She denied being dizzy, having CP or dyspnea. She has back pain which is likely due to the urinary tract infection but could also be due to uncontrolled BP The initial trop and chest xray were unrevealing Plan: will aim to lower BP by about 25% w/in the first 2-4 hours with target BP of <160/100 / start amlodipine, hold HTCZ (home med bc of impaired renal function) / low salt diet 4. Hypokalemia Likely 2/2 vomiting Plan: f/u add on Mag, UK , Uosmol, plasma osmol to calculate transtubular K gradient / supplement 40 meq of KCl with NS 5. Non-anion gap metabolic acidosis likely 2/2 RTA Plan: follow-up VBG, Nicki, UCl, UK to calculate Urine anion gap to determine the type of RTA /IV fluids 6. Frequent PVCs ? During my examination she had PVCs on telemetry Trop wnl Plan: telemetry / f/u EKG 7. Left adnexal cyst Plan: pelvic ultrasound at a later date 8. Periaortic lymphadenopathy Plan: she can follow-up with PCP to discuss repeat CT scan of the abdomen and pelvis on an out pt basis 9. Neuropathy / Chronic Pain Plan: Gabapentin & [place] 10. Obesity With BMI of 30.7 complicates care Plan: f/u A1C / the pt can f/u w his or her PCP for STOP BANG questionnaire, instructional consultant consult DVT PROPHYLAXIS: Heparin DISPOSITION: likely home after more than 2 midnight's stay LATE ENTRY 200PM # Vtach At approximately 1321 PM prior to transfer to the PCU the patient had a run of Vtach lasting over 30 sec there was difficulties finding a pulse therefore she received chest compressions and one dose of 150mg of IV amiodarone and mag sulfate. Plan: Per d/w bc of the arrhythmia and acute elevation in blood pressure we will order metoprolol 5mg IV x 3 followed by metoprolol tartrate 50mg PO x1. Thereafter we will c/w amiodarone 200mg PO 4 x a day. She will be upgraded to ICU status, we will trend trops, f/u an Echo & lipid panel. Home Medications Scheduled Amlodipine Besylate (Amlodipine Besylate) 10 Mg Tablet, 10 MG PO QHS Amoxicillin/Potassium Clav (Augmentin 500-125 Tablet) 1 Each Tablet, 1 TAB PO BID Aspirin (Aspirin EC) 81 Mg Tablet.dr, 81 MG PO DAILY Captopril (Captopril) 25 Mg Tablet, 25 MG PO BID Carvedilol (Carvedilol) 12.5 Mg Tablet, 12.5 MG PO BID Chlorthalidone (Chlorthalidone) 25 Mg Tablet, 12.5 MG PO DAILY Famotidine (Famotidine) 20 Mg Tablet, 40 MG PO QHS Fluoxetine Hcl (Fluoxetine HCl) 20 Mg Capsule, 40 MG PO QHS L.acidoph/L.bulg/B.bif/S.therm (Mia-Bid Caplet) 1 Each Tablet, 1 EA PO BIDWM Latanoprost (Xalatan) 0.005 % Olga, 1 DROP OU QHS Magnesium Oxide (Magnesium Oxide) 400 Mg Tablet, 400 MG PO DAILY Multivit,Calc,Mins/Iron/Folic (Thera-M Tablet) 1 Each Tablet, 1 TAB PO QHS Potassium Chloride (Klor-Con M10) 10 Meq Tab.er.prt, 40 MEQ PO DAILY Simvastatin (Simvastatin) 40 Mg Tab, 40 MG PO QHS Spironolactone (Aldactone) 25 Mg Tablet, 12.5 MG PO DAILY Scheduled PRN Acetaminophen (Acetaminophen) 325 Mg Tablet, 650 MG PO Q6H PRN for PAIN Oxycodone HCl/Acetaminophen (Oxycodone-Acetaminophen 5-325) 1 Tab Tab, 1 TAB PO Q6HP PRN for PAIN Allergies Coded Allergies: cephalexin (Verified Allergy, Intermediate, rash, 01/23/20) levofloxacin (Verified Allergy, Unknown, rash, 01/23/20) sulfamethoxazole (Verified Adverse Reaction, Intermediate, problems with kidneys, 01/23/20) trimethoprim (Verified Adverse Reaction, Intermediate, problems with kidneys, 01/23/20) A-FIB/CHADSVASC A-FIB History Current/History of A-Fib/PAF?: No Current PO Anticoag Therapy: No FRANCISCA ELIAS MD Apr 06, 2020 14:21
[2020-04-06] MEDS ORDERED: POTASSIUM CHLORIDE 10 MEQ SR TABLET PO ONE ×3 (15:00→22:00)
[2020-04-06] MEDS ORDERED: MAG SULF 1GM/100ML (MAG RUN) 1 GM in IV 1 EA IV ONE ×3 (15:00→22:00)
[2020-04-06 15:05] LABS: CHOLESTEROL LEVEL 134 MG/DL (<200); CHOLESTEROL RISK RATIO 2.481 (<5); CK-MB VALUE MASS < 1.0 NG/ML (<3.6); CPK CREATINE PHOSPHOKINASE 82 U/L (26-192); HDL CHOLESTEROL 54 MG/DL (>40); LDL CHOLESTEROL 56 MG/DL (<100); MB/CK RELATIVE INDEX 1.22 (< OR =4); NON-HDL-C 80 MG/DL; TRIGLYCERIDES LEVEL 121 MG/DL (<150); TROPONIN I 0.02 NG/ML (< 0.10)
[2020-04-06 15:07] LABS: POTASSIUM RANDOM URINE 36.3 MEQ/L
[2020-04-06] MEDS ORDERED: lisinopriL 10 MG TAB PO ONE (15:45)
--- NOTE | 2020-04-06 16:11 | ECGEPIP ---
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
[2020-04-06 17:13] LABS: HEMOGLOBIN A1c 5.7 %
[2020-04-06] MEDS: CARVedilol 12.5 MG TAB PO SCH (17:25)
[2020-04-06] MEDS ORDERED: PERCOCET 5MG/325MG TAB PO PRN (17:30)
[2020-04-06] MEDS: AMIODARONE 200 MG TAB (PACERONE) PO SCH (17:37)
[2020-04-06] MEDS: AMPICILLIN SOD/SULBACTAM SOD 1.5 GM in D5W MINI-BAG PLUS 50 ML IV SCH (17:38)
[2020-04-06] MEDS ORDERED: AMIODARONE HCL 150 MG/100 ML PREMIXED BAG (NEXTERONE) (J0282 PER 30MG) ONE (18:09)
[2020-04-06 19:08] LABS: TROPONIN I 0.19 NG/ML (< 0.10)
--- NOTE | 2020-04-06 19:12 | ECGEPIP ---
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
--- NOTE | 2020-04-06 19:14 | ECGEPIP ---
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
[2020-04-06] MEDS ORDERED: PIPERACILLIN/TAZOBACTAM SOD 3.375 GM in D5W MINI-BAG PLUS 50 ML IV ONE (20:00)
--- NOTE | 2020-04-06 20:03 | CR ---
DATE OF CONSULTATION: 04/06/2020 CARDIOLOGY CONSULTATION. INDICATION: Recurrent ventricular tachycardia. HISTORY OF PRESENT ILLNESS: This 74-year-old mother of two grown children, disabled has a history of multiple medical problems including disabling spinal stenosis, walking with a cane the past 2 years. Other serious medical problems include recurrent bilateral hydronephrosis and pyelonephritis attributed to scarring following remote partial colectomy for cancer of the colon. Has undergone recurrent ureteral stenting for past several years every 3 months, currently followed by Dr. Jack. She has advanced renal insufficiency and has been also followed by Dr. Recio. Last stenting procedure was apparently several months ago. The past week the patient claims to have had intermittent fevers and chills with dysuria. Began having recurrent associated lightheadedness and has fallen. Presented to the emergency room this morning at 7:56 a.m. with initial vital signs showing heart rate of 74 bpm, blood pressure 169/84, respiratory rate 19, O2 saturation 93% on room air. She was initially afebrile but her temperature had increased at 102.8 degrees. Urine was cloudy. (COVID testing was negative). Blood work showed a normocytic normochromic anemia with leukocytosis. Urine was turbid, obviously pertinent, with leukocyte esterase positive times three. Portable upright chest x-ray was reported as showing mild cardiomegaly with right middle lobe pneumonia and small left pleural effusion. EKG showed sinus rhythm with moderate diffuse ST/T-wave abnormalities that interestingly was not truly changed from May 17, 2019. Chemistry demonstrated a mild hypokalemia and mild hypomagnesemia. While being monitored in the emergency room, she began having frequent isolated PVCs occurring in the bigeminal pattern followed by nonsustained and then a sustained run of polymorphic ventricular tachycardia at 300 beats per minute. These bouts all terminated spontaneously with the longest bout measuring 25 seconds. This was long enough for the patient to received several chest compressions and cardiology consultation was placed. CARDINAL CARDIAC SYMPTOMS: Chest pain: Has had a very longstanding history of gastroesophageal reflux on Gaviscon antacid therapy with variable effect. Still has frequent bouts of heartburn and reflux with occasional dysphagia, nausea and vomiting. No apparent recent GI bleeding. Denies effort related chest, jaw, or arm discomforts. Has been unaware of her abnormal EKG. Describes remote treadmill study due to discomfort with her heartburn. Study at that time was reportedly normal. Shortness of breath: Was exposed to secondhand smoke growing up and started smoking herself in her teens. Has smoked on and off for many years, stopping completely 10 years ago. Continues to have a cough productive of white or yellowish sputum. Denies hemoptysis. Has had prior bronchitis and walking pneumonia. Never hospitalized for respiratory difficulties. Does describe gradually increasing shortness of breath the past few years. Denies orthopnea, sleep disturbed primarily by her back and leg pain. No history of obstructive sleep apnea. Unaware of prior rheumatic fever or heart murmur. Treated hypertension since her 40s. Unaware of her cardiomegaly. Mild weight problem (weighed at 98 pounds at age 17, max weight currently at 190 pounds; claims to have gained weight this past year). Palpitations: Claims to have never had an awareness of her heart action. Has been noted to have pulse irregularity in the past but was given no medication for this. A cousin apparently suddenly in his 30s but no other family history of premature cardiac sudden . Brother suffered a CVA in his 50s. No family history of congenital deafness. May have occasional iced tea but otherwise avoids caffeinated beverages and alcohol. Current nonsmoker. No history of thyroid dysfunction. Denies use of [id number] decongestants, energizers or diet aids. Near syncope/syncope: For at least the past several years has had problems with bilateral lower leg and numbness and weakness and has been falling fortunately without sustaining serious injury. Denies vertigo or dizziness, but claims her legs simply give out. Has had more recent collapses and today did lose consciousness with her bout of polymorphic ventricular tachycardia observed in the emergency room. Embolic phenomenon: Followed by neurology Dr. Lay for her spinal stenosis and sciatica. Prior trial of gabapentin provoked dizziness. Denies any lateralizing neurological deficit to suggest cerebrovascular accident or blue toe syndrome. Intermittent flank pain and hematuria related to her urological problems. Claudication/peripheral venous disease: Denies actual effort-related calf discomfort to suggest vascular disease. Longstanding history of varicose veins and dependent, swelling over the past 10 years. Unaware of prior phlebitis. New heading cardiac risk factors: Advanced age. Postmenopausal status. Prior longstanding smoking history. Chronic hypertension. Hypercholesterolemia. No family history of premature cardiovascular event (in first-degree relatives). No diabetes mellitus. Obesity. OTHER PAST MEDICAL/SURGICAL HISTORY: Three normal vaginal deliveries. Remote partial colectomy for cancer the colon complicated by scarring of her ureters with development of bilateral hydronephroses and urinary tract infections requiring repeated stenting (currently followed by Dr. Jack, urology). Remote tonsillectomy and cholecystectomy, degenerative lumbar disk disease with apparent vertebral compressions fractures (previously seen by Dr. Ankur Gama and Dr. Loomis) currently followed by neurology. Chronic renal insufficiency followed by Dr. Recio nephrology. REVIEW OF SYSTEMS: Wears glasses for reading. No hearing problems. Edentulous, wears dentures. Cardiovascular, pulmonary, neuro and endocrine. Describes nocturia at least two every 2-3 hours during the night. Recurrent urinary tract infections as mentioned, no history of kidney stones. Chronic renal insufficiency. No history of allergies. No apparent problem with panic attacks, history of depression with her multiple medical problems. All other systems review is negative. MEDICATIONS: At home, she takes Gaviscon as needed for heartburn, Tylenol or oxycodone/acetaminophen for her spinal stenosis and pain, fluoxetine 40 mg q.h.s., Xalatan 0.0005% 1 drop each eye q.h.s. (has a history of glaucoma), hydrochlorothiazide 12.5 mg q.h.s. and potassium chloride at 10 mg q.h.s. with simvastatin 40 mg q.h.s. and multivitamin 1 tablet daily. He is allergic to CEPHALOSPORINS with rash, LEVOFLOXACIN rash, SULFAMETHOXAZOLE and TRIMETHOPRIM adverse reaction related to her renal insufficiency. PHYSICAL EXAMINATION: Pleasant, somewhat lethargic and pale elderly lady currently lying comfortably with the head of bed elevated at 30 degrees. Vital signs: Heart rate 68 bpm and regular, blood pressure 170/74 supine (both arms) and 164/76 sitting with respiratory rate 16 with O2 saturation 97% on room air. Low grade temperature of 100.6 degrees Fahrenheit, weight 190 pounds, height 66 inches, BMI 30.7 Eyes: Slightly pale conjunctiva. No injection or petechiae. No scleral icterus. No xanthelasma. ENT/mouth: Edentulous with normal oral moisture. No central cyanosis. Neck: Trachea midline. Thyroid not enlarged. Jugular veins appeared to be elevated at least 4 cm above the sternal angle. Respiratory: Slightly increased anteroposterior chest diameter with slightly reduced chest excursion and bilateral inspiratory rales. Slight prolongation of expiration but no audible wheeze. Cardiovascular: Apical impulse at the mid clavicular line, 5th intercostal space. Heart sounds slightly distant. Unable to detect S2 splitting. S4 gallop with soft systolic ejection murmur grade 1 - 2/6 along the left sternal border, but not radiating well to the apex or the base. Normal carotid upstrokes and volume with no bruits. Upper extremity pulses and femoral pulses were symmetrical and normal. Abdominal aorta was not palpable. Pedal pulses were symmetrically reduced. Few dilated superficial venules with only plus/minus lower extremity pitting edema. No sacral pitting up. Extremities: No clubbing peripheral cyanosis or splinter hemorrhages. GI: Slightly overweight but soft and nontender abdomen with prior well-healed surgical incision. No obvious hepatosplenomegaly. Normal bowel sounds. Rectal examination not indicated. Musculoskeletal: No obvious joint deformities. Was able to sit up with minimal assistance primarily because of her back pain. Muscular strength and tone appeared to be normal. Normal spine curvature. Neuro/psych: Somewhat lethargic and seemingly depressed, but normal eye, facial, and extremity movements. No involuntary movements. Skin: Slightly pale but no obvious ecchymotic lesions or icterus. INVESTIGATIONS: Chest x-ray: Portable upright study performed earlier today was reviewed independently and again shows obvious cardiomegaly even allowing for this technique. Slightly unfolded thoracic aorta with some calcification in the aortic arch. Pulmonary vasculature did not appear to be accentuated. Possible left pleural effusion. Consolidation right middle lobe. EKGs: Serial studies reviewed from earlier today, one at 8:44 a.m. showing sinus rhythm at 72 bpm. Baseline artifact, but suspicious of left atrial conduction disturbance. Borderline first-degree AV block. Somewhat low voltages with incomplete RBBB and persistent S waves in V5-V6 consistent with her body habitus and smoking history. Diffuse ST/T-wave abnormalities, interestingly not significantly changed from prior tracing 2019. Followup study 1422 hours showed ventricular bigeminy. Review of telemetry strips from the emergency room earlier this afternoon showed nonsustained and then sustained polymorphic ventricular tachycardia consistent with Torsades de pointes. Blood work as mentioned above. ECHOCARDIOGRAM: Please see separate official report, but this showed signs of hypertensive heart disease with preserved systolic function (no localized wall motion abnormality). Mild left atrial enlargement with LV diastolic dysfunction and at least mildly elevated mean left atrial pressure. Right heart chambers were also mildly dilated with at least moderate pulmonary hypertension and signs of slightly increased central venous pressure. Mild degenerative changes of her mitral and aortic valvular structures without functional abnormality. Minuscule posterior pericardial effusion. IMPRESSION/PLAN: 1. 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 Primary management is correction of precipitating factors including her hypomagnesemia and hypokalemia. IV and p.o. replacement therapy has been ordered. Antibiotic therapy has been ordered for her infection. Amiodarone IV and p.o. will be used temporarily until these triggering events can be corrected. 2. Abnormal EKG: Findings in keeping with her body habitus, prior smoking history, and hypertension. Has no symptoms to suggest myocardial ischemia. No definite evolutionary EKG changes with negative Troponin I and echocardiogram showing no sign of localized wall motion abnormality to suggest ischemia or prior infarction. Certainly has multiple coronary risk factors and a followup evaluation of her coronary prognosis as an outpatient would be prudent. In light of her risk factors, her rhythm disturbance and hypertension, she will be placed on beta-carlos alberto, dose adjusted short-acting JESICA inhibitor along with her statin therapy. Somewhat reluctant to introduce antiplatelet therapy with her anemia. She is receiving prophylactic low-dose heparin therapy. 3. Heart failure (diastolic dysfunction/chronic): Has clinical, radiographic and echocardiographic findings in keeping with biventricular dysfunction, believed to be related to her obesity, hypertension and pulmonary disease. Especially with her renal insufficiency, she should be kept on a modest salt intake restriction with her urinary tract problems. Urology has encouraged fluid intake. Especially with her electrolyte disturbance, we have withheld diuretic therapy at this point in light of her blood pressure problems and heart failure. We reintroduced carvedilol and dose adjusted JESICA inhibition. Her IV fluid has been discontinued to avoid overt decompensation. Currently on restricted activity because of her back pain, sepsis and rhythm disturbances. Receiving prophylactic low-dose heparin to prevent deep venous thrombosis. 4. Hypertensive heart disease (benign with heart failure): Systolic blood pressure readings are suboptimally controlled and has discussed with her attending physician, we will use combination carvedilol at 12.5 mg q.6 h with hold parameter for systolic blood pressure less than 120 or heart rate less than 60 and dose adjusted captopril 12.5 mg p.o. q.12 h (in light of her electrolyte disturbances, multiple coronary risk factors, as well as renal impairment). Should these two agents be insufficient to control her systolic blood pressure less than 140, we will also be using amlodipine 5 mg p.o. q.12 h. We will continue to monitor her blood pressure and renal function with you closely. I have discussed these impressions and our plan with the patient, who appears to understand and agree. MTDD
[2020-04-06] MEDS: HEPARIN SOD (PORCINE) 5000UNITS/ML VIAL (J1644 PER 1000UNITS) SC SCH (20:21)
[2020-04-06] MEDS: FAMOTIDINE 20 MG TAB PO SCH (20:21)
[2020-04-06] MEDS: LATANOPROST 0.005% OPHTH SOLN 2.5 ML OU SCH (20:21)
[2020-04-06] MEDS: FLUoxetine 20 MG CAP PO SCH (20:21)
[2020-04-06] MEDS: CAPTOpril 12.5 MG TAB PO SCH (20:22)
[2020-04-06] MEDS: PERCOCET 5MG/325MG TAB PO PRN (20:33)
[2020-04-06] MEDS ORDERED: SIMVASTATIN 40 MG TAB PO SCH (21:00)
[2020-04-06] MEDS: amLODIPine 5 MG TAB PO SCH (22:00)
[2020-04-07] VITALS (16 sets, daily range): BP systolic 108–153; BP diastolic 56–84
[2020-04-07] MEDS: AMPICILLIN SOD/SULBACTAM SOD 1.5 GM in D5W MINI-BAG PLUS 50 ML IV SCH ×4 (01:22→18:15)
[2020-04-07] MEDS: AMIODARONE 200 MG TAB (PACERONE) PO SCH ×4 (01:22→18:15)
[2020-04-07] MEDS: PERCOCET 5MG/325MG TAB PO PRN ×3 (04:09→18:17)
[2020-04-07 04:43] LABS: HEMATOCRIT 27.4 % (36.0-47.0); MEAN CORPUSCULAR HEMOGLOBIN 29.4 pg (27.0-33.0); MEAN CORPUSCULAR HGB CONC 32.8 g/dl (32.0-36.5); MEAN CORPUSCULAR VOLUME 89.5 fl (80.0-96.0); PLATELET COUNT, AUTOMATED 295 10^3/uL (150-450); RED BLOOD COUNT 3.06 10^6/uL (4.00-5.40)
[2020-04-07 05:10] LABS: CREATININE FOR GFR 2.15 MG/DL (0.55-1.30); GLOMERULAR FILTRATION RATE 23.8 (>39); MAGNESIUM LEVEL 2.9 MG/DL (1.8-2.4); POTASSIUM SERUM 3.5 MEQ/L (3.5-5.1); TROPONIN I 0.11 NG/ML (< 0.10)
[2020-04-07] MEDS: CARVedilol 12.5 MG TAB PO SCH ×4 (05:47→18:17)
--- NOTE | 2020-04-07 06:28 | ECHO ---
DATE OF PROCEDURE: 04/06/2020 DATE OF : 1945 AGE: 74 GENDER: Female HEIGHT: 66 inches WEIGHT: 189 pounds BODY SURFACE AREA: 1.95 m2 INPATIENT: ICU - Room 3202 REFERRING PHYSICIAN: Dr. Ann Beaulieu INDICATION: Cardiac dysrhythmia - recurrent ventricular tachycardia. MEASUREMENTS 2-D Measurements: RV: 4.6 cm LV: 4.5 cm Septum: 1.2 cm Posterior wall: 1.2 cm Aortic root: 3.4 cm LA: 4.3 cm LVEF: 70% Doppler Measurements: AV: 1.76 m/s LVOT: 1.07 m/s LVOT diameter: 2.0 cm MV - E 133 A 44 EA ratio 3 Early mitral deceleration time: 140 ms E prime medial: 7.5 A prime medial: 6.0 E prime lateral: 12.3 Average E/E prime ratio: 13.6/PCWP: 18.8 mmHg PV: 0.9 m/s Pulmonary artery acceleration time: 95 ms RVSP: 45 mmHg IVC: 2.0 cm COMMENTS: Normal sinus rhythm without intraventricular conduction disturbance. M-mode and two-dimensional echo echocardiography was performed with pulsed, continuous wave, color flow and tissue Doppler studies. Mild concentric left ventricle hypertrophy with hyperkinetic wall motion. Mildly dilated left atrium with grade 2 LV diastolic dysfunction and current estimated mean left atrial pressure borderline increased. At least mildly dilated right heart chambers with normal wall motion and Doppler evidence of at least moderate pulmonary hypertension. IVC size upper limits of normal with reduced respiratory collapse indicative of at least mildly elevated central venous pressure. Normal aortic dimensions. Subtle aortic valvular sclerosis without functional abnormality. Mild mitral annular calcification with very mild insufficiency. Normal appearing tricuspid valve with moderate insufficiency. No apparent intracardiac mass. Minuscule posterior pericardial effusion.
[2020-04-07] MEDS: CAPTOpril 12.5 MG TAB PO SCH ×2 (08:42→20:17)
[2020-04-07] MEDS: HEPARIN SOD (PORCINE) 5000UNITS/ML VIAL (J1644 PER 1000UNITS) SC SCH ×2 (08:43→20:19)
[2020-04-07] MEDS: MAALOX 30 ML SUSP *UDC PO PRN (09:29)
[2020-04-07] MEDS ORDERED: POTASSIUM CHLORIDE 10 MEQ SR TABLET PO ONE (09:45)
[2020-04-07] MEDS: amLODIPine 5 MG TAB PO SCH ×2 (10:10→22:09)
--- NOTE | 2020-04-07 10:12 | IPNPDOC ---
Date Seen The patient was seen on 04/07/20. Progress Note PER UROLOGY , DR WOOD, REPEAT US IN AM. IF HYDRONEPHROSIS, WILL CHANGE STENT. VS, I&O, 24H, Fishbone Vital Signs/I&O Vital Signs Date Time Temp Pulse Resp B/P (MAP) Pulse Ox O2 Delivery O2 Flow Rate FiO2 04/07/20 10:01 62 20 153/65 (94) 96 High Flow Cannula 2.0 04/07/20 08:01 97.9 I&O- Last 24 Hours up to 6 AM 04/07/20 06:00 Intake Total 2580 ml Output Total 1450 ml Balance 1130 ml Laboratory Data 24H LABS Laboratory Tests 2 04/06/20 12:50: Nucleated Red Blood Cells % (auto) 0.0, Blood Gas Bicarbonate Standard 21.4, Ve nous Blood pH 7.374, Venous Blood Partial Pressure CO2 38.1, Venous Blood Partial Pressure O2 39.1, Venous Blood Total Carbon Dioxide 22.9L, Venous Blood HCO3 21.7L, Venous Blood Oxygen Saturation 73.2, Venous Blood Base Excess -3.1L, Anion Gap 11, Glomerular Filtration Rate 21.2L, Estimated Mean Plasma Glucose 117H, Hemoglobin A1c 5.7, Calcium Level 8.3L, Magnesium Level 1.6L, Total Creatine Kinase 82, Creatine Kinase MB < 1.0, Creatine Kinase MB Relative Index 1.22, Troponin I 0.02, Triglycerides Level 121, Total Cholesterol 134, LDL Cholesterol 56, Non-HDL Cholesterol (LDL + VLDL) 80, Total HDL Cholesterol 54, Cholesterol/HDL Ratio 2.481 04/06/20 13:30: POC Troponin I (Misc) 0.07 04/06/20 15:51: Estimated Mean Plasma Glucose 117H, Hemoglobin A1c 5.7 04/06/20 18:26: Troponin I 0.19#H, CK-Ebg-N-Type Natriuretic Peptide [id number] 04/06/20 23:48: Troponin I 0.16H 04/07/20 04:10: Troponin I 0.11#H, Nucleated Red Blood Cells % (auto) 0.0, Anion Gap 8, Glomerular Filtration Rate 23.8L, Calcium Level 8.0L, Magnesium Level 2.9H CBC/BMP Laboratory Tests 04/06/20 12:50 04/07/20 04:10 Microbiology Microbiology 04/06/20 Urine Culture, Received Pending 04/06/20 Blood Culture - Preliminary, Resulted No growth after 24 hours . All specim... 04/06/20 Blood Culture - Preliminary, Resulted No growth after 24 hours . All specim... MARTIR QUINTANILLA MD Apr 07, 2020 10:12
--- NOTE | 2020-04-07 13:18 | SMCUROLCON ---
Urology Consultation General Date of Consultation 04/07/20 Reason For Consultation This patient is seen for Pyelonephritis. History of Present Illness This is a 74 y/o F w/ a PMH significant for glaucoma, depression, GERD, colon cancer s/p bowel resection and radiation therapy, CKD HTN, HL, cataracts, and b /l ureteral obstruction managed w/ chronic ureteral stents (last changed 02/08/20 w/ black silicone stents), admitted to the hospital w/ ANTELMO, pyelonephritis, and torsades de pointes. She notes that she had been having intermittent fevers, b/l flank pain, and dysuria, and this prompted her to come in yesterday. She also notes having difficulty emptying her bladder. Her UA appears positive for a UTI. A noncontrast CT A/P was obtained yesterday and was notable for moderate to severe b/l hydroureteronephrosis down to the level of the bladder. The ureteral stents were in appropriate position. She has a catheter in at this time and is currently on unasyn. She notes that she feels a lot better than she did yesterday. Past Medical History Medical History see [facility] Surgical Hstory bowel surgery laser surgery for glaucoma 05/2013 cholecystectomy 02/2015 cardiac cath 02/2015 Medications Current Medications Current Medications Medications (Trade) Dose Ordered Sig/Pedro Route PRN Reason Start Time Stop Time Status Last Admin Dose Admin Acetaminophen (Tylenol Tab) 650 mg Q4H PRN PO PAIN OR FEVER 04/06/20 12:30 Al Hydrox/Mg Hydrox/Simethicone (Mylanta) 30 ml DAILY PRN PO DYSPEPSIA 04/06/20 12:30 04/07/20 09:29 Amiodarone HCl (Pacerone, Cordarone) 200 mg Q6H PO 04/06/20 18:00 04/07/20 05:34 Amiodarone HCl 150 mg/IV Miscellaneous Supplies 100 ml @ 600 mls/hr STAT STAT IV 04/06/20 13:25 04/06/20 13:34 DC 04/06/20 13:27 Amiodarone HCl 150 mg/IV Miscellaneous Supplies 100 ml @ 600 mls/hr STAT STAT IV 04/06/20 15:00 04/06/20 15:44 DC 04/06/20 15:00 Amiodarone HCl 150 mg/IV Miscellaneous Supplies 100 ml @ 600 mls/hr STAT STAT IV 04/06/20 15:26 04/06/20 15:35 DC 04/06/20 15:35 Amlodipine Besylate (Norvasc) 5 mg DAILY PO 04/06/20 09:00 04/06/20 15:29 DC Amlodipine Besylate (Norvasc) 5 mg Q12H PO 04/06/20 22:00 04/07/20 10:10 Ampicillin Sodium/ Sulbactam Sodium 1.5 gm/Dextrose 50 ml @ 100 mls/hr Q6H IV 04/06/20 18:00 04/07/20 05:34 Captopril (CAPOten) 12.5 mg BID PO 04/06/20 21:00 04/07/20 08:42 Carvedilol (COReg) 12.5 mg Q6H PO 04/06/20 18:00 04/06/20 17:25 Famotidine (Pepcid) 40 mg QHS PO 04/06/20 21:00 04/06/20 20:21 Fluoxetine HCl (PROzac) 40 mg QHS PO 04/06/20 21:00 04/06/20 20:21 Heparin Sodium (Porcine) (Heparin) 5,000 units Q12H SC 04/06/20 21:00 04/07/20 08:43 Home Med (Med Rec Complete!) ASDIRECTED XX 04/06/20 12:15 04/06/20 12:17 DC Latanoprost (Xalatan 0.005% Op Soln) 1 drop QHS OU 04/06/20 21:00 04/06/20 20:21 Magnesium Hydroxide (Milk Of Magnesia) 30 ml DAILY PRN PO CONSTIPATION 04/06/20 12:30 Magnesium Sulfate/ Dextrose 1 gm/IV Miscellaneous Supplies 100 ml @ 100 mls/hr ASDIRECTED IV 04/06/20 13:30 04/06/20 14:41 DC 04/06/20 13:37 Metoprolol Tartrate (Lopressor) 5 mg Q5M IV 04/06/20 14:15 04/06/20 14:26 DC 04/06/20 14:35 Morphine Sulfate (Morphine Sulfate Inj) 2 mg Q30M PRN IV MODERATE PAIN (PS 5-7) 04/06/20 09:15 04/06/20 10:38 DC 04/06/20 10:38 Oxycodone/ Acetaminophen (Percocet 5mg/ 325mg Tablet) 1 tab Q4HP PRN PO MILD/MODERATE PAIN (PS 1-7) 04/06/20 17:00 04/07/20 10:14 Oxycodone/ Acetaminophen (Percocet 5mg/ 325mg Tablet) 1 tab Q6HP PRN PO PAIN 04/06/20 17:30 UNV Potassium Chloride/Sodium Chloride 1,000 ml @ 70 mls/hr [id number] IV 04/06/20 14:00 04/06/20 16:42 DC 04/06/20 13:52 Potassium Chloride (Micro-K Extencaps) 40 meq DAILY PO 04/08/20 09:00 Simvastatin (Zocor) 40 mg QHS PO 04/06/20 21:00 04/06/20 18:06 DC Sodium Chloride 1,000 ml @ 70 mls/hr [id number] IV 04/06/20 13:00 04/06/20 13:12 DC Allergies Allergies: Coded Allergies: cephalexin (Verified Allergy, Intermediate, rash, 01/23/20) levofloxacin (Verified Allergy, Unknown, rash, 01/23/20) sulfamethoxazole (Verified Adverse Reaction, Intermediate, problems with kidneys, 01/23/20) trimethoprim (Verified Adverse Reaction, Intermediate, problems with kidneys, 01/23/20) Review of Systems Constitutional: Reports: Fever, Chills Skin: Denies: Rash, Lesions, Breakdown, Nail Changes Pulmonary: Denies: Dyspnea, Cough Cardiovascular: Denies Chest Pain Gastrointestinal: Reports: Nausea, Vomiting Genitourinary: Reports: Dysuria Musculoskeletal: Reports: Back Pain Neurological: Reports: Weakness Physical Examination General Exam: Alert, Cooperative Chest Exam: Normal air movement Heart Exam: Rate Normal Abdomen Exam: Soft; No: Tenderness Skin Exam: Nl turgor and temperature Neuro Exam: Normal Speech Psych Exam: Mental status NL, Mood NL Vital Signs/I&O Vital Signs Date Time Temp Pulse Resp B/P (MAP) Pulse Ox O2 Delivery O2 Flow Rate FiO2 04/07/20 10:14 20 04/07/20 10:10 60 146/67 04/07/20 10:01 96 High Flow Cannula 2.0 04/07/20 08:01 97.9 I&O- Last 24 Hours up to 6 AM 04/07/20 06:00 Intake Total 2580 ml Output Total 1450 ml Balance 1130 ml Laboratory Data 24H Labs Laboratory Tests 2 04/06/20 12:50: Nucleated Red Blood Cells % (auto) 0.0, Blood Gas Bicarbonate Standard 21.4, Venous Blood pH 7.374, Venous Blood Partial Pressure CO2 38.1, Venous Blood Partial Pressure O2 39.1, Venous Blood Total Carbon Dioxide 22.9L, Venous Blood HCO3 21.7L, Venous Blood Oxygen Saturation 73.2, Venous Blood Base Excess -3.1L, Anion Gap 11, Glomerular Filtration Rate 21.2L, Estimated Mean Plasma Glucose 117H, Hemoglobin A1c 5.7, Calcium Level 8.3L, Magnesium Level 1.6L, Total Creatine Kinase 82, Creatine Kinase MB < 1.0, Creatine Kinase MB Relative Index 1.22, Troponin I 0.02, Triglycerides Level 121, Total Cholesterol 134, LDL Cholesterol 56, Non-HDL Cholesterol (LDL + VLDL) 80, Total HDL Cholesterol 54, Cholesterol/HDL Ratio 2.481 04/06/20 13:30: POC Troponin I (Misc) 0.07 04/06/20 15:51: Estimated Mean Plasma Glucose 117H, Hemoglobin A1c 5.7 04/06/20 18:26: Troponin I 0.19#H, NP-Eun-P-Type Natriuretic Peptide [id number] 04/06/20 23:48: Troponin I 0.16H 04/07/20 04:10: Troponin I 0.11#H, Nucleated Red Blood Cells % (auto) 0.0, Anion Gap 8, Glomerular Filtration Rate 23.8L, Calcium Level 8.0L, Magnesium Level 2.9H CBC/BMP Laboratory Tests 04/06/20 12:50 04/07/20 04:10 Microbiology Microbiology 04/06/20 Urine Culture, Received Pending 04/06/20 Blood Culture - Preliminary, Resulted No growth after 24 hours . All specim... 04/06/20 Blood Culture - Preliminary, Resulted No growth after 24 hours . All specim... Assessment This is a 74 y/o F admitted to the hospital w/ ANTELMO, pyelonephritis, and torsades de pointes. The hydro seen on CT yesterday could be due to the stents not draining properly or due to incomplete bladder emptying. Her Cr has started improving and her flank pain has resolved since catheter placement. I recommend a renal US tomorrow to reassess the degree of hydro. If there is improvement, this would indicate incomplete bladder emptying as the cause of her hydro and likely her recurrent UTIs. If that is the case, she will need a chronic catheter. If the hydro has not improved, we will need to set her up to change her stents. Plan - cont treatment of pyelonephritis w/ broad spectrum abx and adjust based on cultures - keep catheter to gravity drainage - renal US tomorrow - will follow ANNEMARIE WOOD MD Apr 07, 2020 10:59
--- NOTE | 2020-04-07 17:54 | IPN ---
DATE: 04/07/2020 Patient complains of chills and feeling warm at times. She complains of pain in the back. No dysuria or urgency. Telemetry was nonsustained ventricular tachycardia (v tach) with Torsades, on amiodarone and Coreg per Dr. Ness. No other issues overnight. Patient has been hydrated. No nausea or vomiting this morning, chest pain, pressure, tightness, shortness of breath, palpitations, or lightheadedness. Temperature 97.9, pulse 57, respiratory rate 20, blood pressure 141/65, 98% on 4 liters nasal cannula. Generally, patient is able to speak in full sentences with no respiratory distress or use of respiratory accessory muscles. Lungs are clear to auscultation. No wheezing, rales or rhonchi. Heart: S1, S2, sinus rhythm. Abdomen is obese, soft, nontender, nondistended. Positive costovertebral angle tenderness Extremities: No cyanosis or clubbing. LABORATORY DATA: White count 15, hemoglobin 9, hematocrit 27, platelet count 295. Sodium 139, potassium 3.5, chloride 105, bicarbonate 26, BUN 29, creatinine 2.15, glucose of 107, troponin 0.11, BNP 13,307. Echocardiogram read by Dr. Bobo Ness. Ejection fraction of 70%, at least moderate pulmonary hypertension, grade 2 left ventricular diastolic dysfunction, mild concentric left ventricular hypertrophy (LVH) with hyperkinetic wall motion. ASSESSMENT AND PLAN: This is a 74-year-old female with grade 2 left ventricular diastolic dysfunction, moderate pulmonary hypertension, abnormal EKG, presented with pyelonephritis, bilateral hydronephrosis despite stent, and Torsades de pointes in the setting of hypertensive heart disease, hypokalemia and hypomagnesemia and infection. IMPRESSION: 1. Acute pyelonephritis, currently on day #2 of intravenous Unasyn. Urine culture is still pending. 2. Torsades de pointes. Keep magnesium above 2, potassium above 4, repleted yesterday, required amiodarone. Coreg currently at 12.5 mg every 6 hours. Echo shows EF of 70% with grade 2 left ventricular diastolic dysfunction and moderate pulmonary hypertension. 3. Moderate pulmonary hypertension, complicating her care. 4. Bilateral hydronephrosis despite stent placement. Defer to urology. Dr. Jack has been consulted for any changes in management. Currently on IV antibiotics for pyelonephritis. 5. Chronic kidney disease, stage III to IV, currently at baseline creatinine. 6. Chronic hypertensive heart disease, currently on Coreg 12.5 mg every 6 hours, Norvasc 5 mg every 12 hours and captopril 12.5 mg twice a day. DISPOSITION: Patient may be transferred to progressive care unit (PCU). Telemetry to be continued. MTDD
[2020-04-07] MEDS: FAMOTIDINE 20 MG TAB PO SCH (20:18)
[2020-04-07] MEDS: LATANOPROST 0.005% OPHTH SOLN 2.5 ML OU SCH (20:19)
[2020-04-07] MEDS: FLUoxetine 20 MG CAP PO SCH (20:19)
--- NOTE | 2020-04-07 21:12 | ECGEPIP ---
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
--- NOTE | 2020-04-07 23:40 | IPN ---
DATE: 04/07/2020 CARDIOLOGY PROGRESS NOTE SUBJECTIVE: The patient has been up in her room in the intensive care unit ambulating with physical therapy, limited at this point chiefly by fatigue. Has remained free of chest discomfort, shortness of breath, any further dizziness or faintness. Appears to tolerate her current combination medical therapy without adverse effect. OBJECTIVE: Pleasant elderly lady, mildly overweight, appears less lethargic today. Heart rate has been regular, currently 68 beats per minute (bpm). Blood pressures for the most part have been controlled with current value of 154/69 with her lying. Respiratory rate 16 with oxygen (O2) saturation of 91-92. Currently afebrile. Weight today is essentially unchanged from yesterday. Appears comfortable lying with the head of bed elevated with one pillow. Fairly good air entry over both lung johnson with no current inspiratory rales. Slight prolongation of expiration but no audible wheeze. Heart sounds remain distant. Has no significant pitting edema at this time. 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 EKG: Last study showed sinus rhythm with borderline first-degree atrioventricular (AV) block. Diffuse repolarization abnormalities did not appear dramatically changed. I BLOOD WORK: Hemoglobin has drifted to 9, white blood cell count has come down to 15 from 18 yesterday. Normal platelet count. Electrolytes this morning were in balance with potassium up to 3.5, magnesium 2.9, BUN slightly down to 29 from 31 and creatinine down to 2.15 from 2.38 yesterday. Fasting glucose 107. Troponin I level remains in an indeterminate range related to her renal insufficiency. Pro-BNP level requested yesterday (13,307). IMPRESSION/PLAN: 1. Polymorphic ventricular tachycardia: Gratifyingly no further recurrent malignant ventricular arrhythmia. Now her electrolytes are in balance. She was given additional 40 mEq of potassium chloride this morning by her primary provider. I intend to continue amiodarone for the next few days in light of her recurrent acute on chronic urinary tract infection. 2. Abnormal EKG: Has remained free of symptomatic myocardial ischemia. Repolarization abnormalities did not appear significantly changed. Troponin I remains indeterminate due to her renal function. Remains on protective beta-carlos alberto, angiotensin-converting enzyme (JESICA) inhibitor, statin and low-dose prophylactic heparin. Followup EKG will be obtained tomorrow. QT interval remains prolonged but this has been the case for at least the past year. 3. Heart failure (diastolic dysfunction/chronic): Despite her elevated BNP level, has no current shortness of breath and lung johnson actually sound improved from yesterday. She remains on a modest salt intake restriction, but I hope to withhold diuretic therapy if possible. Continues on carvedilol and low-dose captopril. We will continue to monitor her chemistry and renal function. 4. Hypertensive heart disease (benign with heart failure): Blood pressure control has been improved, but at this point, we are still unsure of the specific combination of antihypertensive therapy we plan to send her home on. We should be able to have a better idea after initial 24-48 hours (understand urology will need this much time anyway). No medication changes have been made at this time. We will continue to observe her as we discussed above. I believe if urological intervention was necessary that she would tolerate this from the cardiac standpoint.
[2020-04-08] VITALS (11 sets, daily range): BP systolic 122–169; BP diastolic 58–70
[2020-04-08] MEDS: PERCOCET 5MG/325MG TAB PO PRN ×5 (00:08→20:18)
[2020-04-08] MEDS: AMPICILLIN SOD/SULBACTAM SOD 1.5 GM in D5W MINI-BAG PLUS 50 ML IV SCH ×5 (00:08→23:43)
[2020-04-08] MEDS: CARVedilol 12.5 MG TAB PO SCH ×5 (00:09→23:42)
[2020-04-08] MEDS: AMIODARONE 200 MG TAB (PACERONE) PO SCH ×2 (00:10→06:01)
[2020-04-08 04:46] LABS: BASO % 0.4 % (0.0-1.0); EOS # 0.1 10^3/uL (0.0-0.5); EOS % 0.6 % (0.0-3.0); HEMATOCRIT 25.9 % (36.0-47.0); HEMOGLOBIN 8.4 g/dl (12.0-15.5); LYMPH # 1.4 10^3/uL (1.5-5.0); LYMPH % 13.6 % (24.0-44.0); MEAN CORPUSCULAR HGB CONC 32.4 g/dl (32.0-36.5); MEAN CORPUSCULAR VOLUME 89.3 fl (80.0-96.0); MONO # 0.8 10^3/uL (0.0-0.8); MONO % 8.2 % (0.0-5.0); NEUTROPHILS # 7.6 10^3/uL (1.5-8.5); NEUTROPHILS % 76.2 % (36.0-66.0); PLATELET COUNT, AUTOMATED 276 10^3/uL (150-450)
[2020-04-08 05:00] LABS: CALCIUM LEVEL 7.9 MG/DL (8.8-10.2); CREATININE FOR GFR 2.17 MG/DL (0.55-1.30); GLOMERULAR FILTRATION RATE 23.5 (>39); POTASSIUM SERUM 3.6 MEQ/L (3.5-5.1)
[2020-04-08 08:05] LABS: MAGNESIUM LEVEL 2.4 MG/DL (1.8-2.4)
[2020-04-08] MEDS ORDERED: PREVNAR 13 VACCINE SYRINGE (CPT CODE:90670) IM ONE (09:00)
[2020-04-08] MEDS: HEPARIN SOD (PORCINE) 5000UNITS/ML VIAL (J1644 PER 1000UNITS) SC SCH ×2 (09:47→20:19)
[2020-04-08] MEDS: POTASSIUM CHLORIDE 10 MEQ SR TABLET PO SCH (09:48)
[2020-04-08] MEDS: CAPTOpril 12.5 MG TAB PO SCH ×2 (10:06→20:20)
--- NOTE | 2020-04-08 12:05 | REP ---
URINARY TRACT SONOGRAPHY: HISTORY: Hydronephrosis and pyelonephritis with stents. Comparison CT study April 06, 2020. FINDINGS: Scanning at the level of the urinary bladder shows that it is empty. Richmond catheter. Severe bilateral hydronephrosis persists similar to the CT scan findings. Renal cortical echogenicity pattern is somewhat hyperechoic and renal cortical thinning is seen bilaterally. Right kidney measures 13.3 x 7.2 x 7.4 cm. Left renal dimensions are 12.7 x 5.3 x 7.1 cm. Resistive indices in the intralobar arteries are slightly increased bilaterally measured at 0.87 on the right and 0.77 on the left. IMPRESSION: Severe bilateral hydronephrosis persists essentially unchanged. A Richmond catheter in the bladder. Electronically Signed by Jerry Nunes MD 04/08/2020 12:30 P
--- NOTE | 2020-04-08 15:24 | IPNPDOC ---
Date Seen The patient was seen on 04/08/20. Progress Note SUBJECTIVE: Renal US showed severe b/l hydronephrosis, to go to OR tomorrow for removal of old stents, replacing with new. Cr slightly improved. No events on tele overnight. Has poor appetite overall. Denies chest pain, shortness of breath, increased n/v. OBJECTIVE: VITAL SIGNS: Please see below PHYSICAL EXAMINATION: CONSTITUTIONAL: No acute distress, resting , AAO x 3 EYES: PERRLA, EOM intact HENT, MOUTH: Normocephalic, atraumatic, moist mucous membranes NECK: SUPPLE, no JVD, no lymphadenopathy, no carotid bruit CV: Regular rate and rhythm, S1S2 normal, no murmurs/rubs/gallops RESPIRATORY: Clear to auscultation bilaterally, no rales/rhonchi/wheezes GI: diffuse abd discomfort on exam. BS positive in 4 quadrants, soft, nontender, nondistended, no rebound or guarding, no organomegaly : Richmond catheter MUSCULOSKELETAL: Normal ROM. No cyanosis, clubbing, swelling, joint deformity, extremity edema INTEGUMENTARY: Intact, no rashes, no lesions, no erythema NEUROLOGIC: Cranial Nerves II-XII are intact, no focal deficits PSYCHIATRIC: Mood and affect are normal CURRENT MEDICATIONS: Please see below LABORATORY DATA: Please see below IMAGING: Renal US: severe b/l hydronephrosis Echo: EF of 70% with grade 2 left ventricular diastolic dysfunction and moderate pulmonary hypertension. ASSESSMENT: 74 y/o F PLAN: 1. Bilateral hydronephrosis, severe. Current stents in place. Renal US do not show change. To OR tomorrow by urology ( Dr. Jack) to take current stents out and replace. Monitor CMP closely. 2. Acute pyelonephritis. WBC 10K, improved. Afebrile but continues to complain of low back pain. Urine culture pending. F/u daily CBC. C/w Unasyn (day #3) 3. Torsades de pointes/ Polymorphic ventricular tachycardia. Potassium replaced this AM, no events overnight on tele. Per cardiology, continue amiodarone for the next few days in light of her recurrent acute on chronic urinary tract infection. C/w BB, telemetry. 4. Abnormal EKG. Last trop trending down, indeterminate with renal function. On repeat ECG, repolarization abnormalities did not appear significantly changed. C/w BB, ACEi, statin. F/u ECG in AM. According to cardiology, QT interval remains prolonged but this has been the case for at least the past year. 5. Chronic kidney disease, stage III to IV. Cr improved further today. F/u daily labs. Avoid nephrotoxic medications. 6. Chronic hypertensive heart disease. C/w BB, CCB, ACEi. 7. Diastolic CHF, chronic. Denies SOB, chest pain. Holding lasix , c/w BB, ACEi low dose. Echo above. 8. DVT px. Heparin. DISPOSITION: C/w current treatment above. PT/OT, plan for discharge not yet determined. VS, I&O, 24H, Fishbone Vital Signs/I&O Vital Signs Date Time Temp Pulse Resp B/P (MAP) Pulse Ox O2 Delivery O2 Flow Rate FiO2 04/08/20 12:00 97.0 51 18 153/66 (95) 91 Room Air 04/08/20 07:31 1.0 I&O- Last 24 Hours up to 6 AM 04/08/20 06:00 Intake Total 1460 ml Output Total 970 ml Balance 490 ml Laboratory Data 24H LABS Laboratory Tests 2 04/08/20 04:11: Immature Granulocyte % (Auto) 1.0, Neutrophils (%) (Auto) 76.2H, Lymphocytes (%) (Auto) 13.6L, Monocytes (%) (Auto) 8.2H, Eosinophils (%) (Auto) 0.6, Basophils (%) (Auto) 0.4, Neutrophils # (Auto) 7.6, Lymphocytes # (Auto) 1.4L, Monocytes # (Auto) 0.8, Eosinophils # (Auto) 0.1, Basophils # (Auto) 0.0, Nucleated Red Blood Cells % (auto) 0.0, Anion Gap 7L, Glomerular Filtration Rate 23.5L, Calcium Level 7.9L, Magnesium Level 2.4 CBC/BMP Laboratory Tests 04/08/20 04:11 Microbiology Microbiology 04/08/20 Respiratory Virus Panel (PCR) (LUZMA) - Final, Complete 04/06/20 Urine Culture, Received Pending 04/06/20 Blood Culture - Preliminary, Resulted No Growth after 48 hours. All Specime... 04/06/20 Blood Culture - Preliminary, Resulted No Growth after 48 hours. All Specime... Current Medications Current Medications Medications (Trade) Dose Ordered Sig/Pedro Route PRN Reason Start Time Stop Time Status Last Admin Dose Admin Acetaminophen (Tylenol Tab) 650 mg Q4H PRN PO PAIN OR FEVER 04/06/20 12:30 Al Hydrox/Mg Hydrox/Simethicone (Mylanta) 30 ml DAILY PRN PO DYSPEPSIA 04/06/20 12:30 04/07/20 09:29 Amiodarone HCl (Pacerone, Cordarone) 200 mg Q6H PO 04/06/20 18:00 04/08/20 08:13 DC 04/08/20 06:01 Amiodarone HCl 150 mg/IV Miscellaneous Supplies 100 ml @ 600 mls/hr STAT STAT IV 04/06/20 13:25 04/06/20 13:34 DC 04/06/20 13:27 Amiodarone HCl 150 mg/IV Miscellaneous Supplies 100 ml @ 600 mls/hr STAT STAT IV 04/06/20 15:00 04/06/20 15:44 DC 04/06/20 15:00 Amiodarone HCl 150 mg/IV Miscellaneous Supplies 100 ml @ 600 mls/hr STAT STAT IV 04/06/20 15:26 04/06/20 15:35 DC 04/06/20 15:35 Amlodipine Besylate (Norvasc) 5 mg DAILY PO 04/06/20 09:00 04/06/20 15:29 DC Amlodipine Besylate (Norvasc) 5 mg Q12H PO 04/06/20 22:00 04/08/20 08:14 DC 04/07/20 22:09 Ampicillin Sodium/ Sulbactam Sodium 1.5 gm/Dextrose 50 ml @ 100 mls/hr Q6H IV 04/06/20 18:00 04/08/20 11:25 Captopril (CAPOten) 12.5 mg BID PO 04/06/20 21:00 04/08/20 10:06 Carvedilol (COReg) 12.5 mg Q6H PO 04/06/20 18:00 04/08/20 00:09 Famotidine (Pepcid) 40 mg QHS PO 04/06/20 21:00 04/07/20 20:18 Fluoxetine HCl (PROzac) 40 mg QHS PO 04/06/20 21:00 04/07/20 20:19 Heparin Sodium (Porcine) (Heparin) 5,000 units Q12H SC 04/06/20 21:00 04/08/20 09:47 Home Med (Med Rec Complete!) ASDIRECTED XX 04/06/20 12:15 04/06/20 12:17 DC Latanoprost (Xalatan 0.005% Op Soln) 1 drop QHS OU 04/06/20 21:00 04/07/20 20:19 Magnesium Hydroxide (Milk Of Magnesia) 30 ml DAILY PRN PO CONSTIPATION 04/06/20 12:30 Magnesium Sulfate/ Dextrose 1 gm/IV Miscellaneous Supplies 100 ml @ 100 mls/hr ASDIRECTED IV 04/06/20 13:30 04/06/20 14:41 DC 04/06/20 13:37 Metoprolol Tartrate (Lopressor) 5 mg Q5M IV 04/06/20 14:15 04/06/20 14:26 DC 04/06/20 14:35 Morphine Sulfate (Morphine Sulfate Inj) 2 mg Q30M PRN IV MODERATE PAIN (PS 5-7) 04/06/20 09:15 04/06/20 10:38 DC 04/06/20 10:38 Oxycodone/ Acetaminophen (Percocet 5mg/ 325mg Tablet) 1 tab Q4HP PRN PO MILD/MODERATE PAIN (PS 1-7) 04/06/20 17:00 04/08/20 11:25 Oxycodone/ Acetaminophen (Percocet 5mg/ 325mg Tablet) 1 tab Q6HP PRN PO PAIN 04/06/20 17:30 UNV Potassium Chloride/Sodium Chloride 1,000 ml @ 70 mls/hr [id number] IV 04/06/20 14:00 04/06/20 16:42 DC 04/06/20 13:52 Potassium Chloride (Micro-K Extencaps) 40 meq DAILY PO 04/08/20 09:00 04/08/20 09:48 Simvastatin (Zocor) 40 mg QHS PO 04/06/20 21:00 04/06/20 18:06 DC Sodium Chloride 1,000 ml @ 70 mls/hr [id number] IV 04/06/20 13:00 6/14/20 13:12 DC Allergies Coded Allergies: cephalexin (Verified Allergy, Intermediate, rash, 01/23/20) levofloxacin (Verified Allergy, Unknown, rash, 01/23/20) sulfamethoxazole (Verified Adverse Reaction, Intermediate, problems with kidneys, 01/23/20) trimethoprim (Verified Adverse Reaction, Intermediate, problems with kidneys, 01/23/20) Josselin Judd MD Apr 08, 2020 15:24
--- NOTE | 2020-04-08 17:30 | ECGEPIP ---
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
[2020-04-08] MEDS: MAALOX 30 ML SUSP *UDC PO PRN (19:27)
[2020-04-08] MEDS: FAMOTIDINE 20 MG TAB PO SCH (20:18)
[2020-04-08] MEDS: FLUoxetine 20 MG CAP PO SCH (20:19)
[2020-04-08] MEDS: LATANOPROST 0.005% OPHTH SOLN 2.5 ML OU SCH (20:25)
[2020-04-09] VITALS (7 sets, daily range): BP systolic 130–178; BP diastolic 63–80
[2020-04-09] MEDS: PERCOCET 5MG/325MG TAB PO PRN ×5 (00:27→21:17)
[2020-04-09] MEDS: AMPICILLIN SOD/SULBACTAM SOD 1.5 GM in D5W MINI-BAG PLUS 50 ML IV SCH (05:40)
[2020-04-09] MEDS: CARVedilol 12.5 MG TAB PO SCH ×3 (05:40→20:31)
[2020-04-09 05:48] LABS: BASO # 0.1 10^3/uL (0.0-0.2); BASO % 0.6 % (0.0-1.0); EOS # 0.1 10^3/uL (0.0-0.5); HEMATOCRIT 26.3 % (36.0-47.0); HEMOGLOBIN 8.5 g/dl (12.0-15.5); LYMPH # 1.5 10^3/uL (1.5-5.0); LYMPH % 15.7 % (24.0-44.0); MEAN CORPUSCULAR HEMOGLOBIN 28.8 pg (27.0-33.0); MEAN CORPUSCULAR HGB CONC 32.3 g/dl (32.0-36.5); MEAN CORPUSCULAR VOLUME 89.2 fl (80.0-96.0); MONO # 0.8 10^3/uL (0.0-0.8); MONO % 7.9 % (0.0-5.0); NEUTROPHILS # 6.9 10^3/uL (1.5-8.5); PLATELET COUNT, AUTOMATED 256 10^3/uL (150-450); RED BLOOD COUNT 2.95 10^6/uL (4.00-5.40); WHITE BLOOD COUNT 9.4 10^3/uL (4.0-10.0)
[2020-04-09 05:57] LABS: CALCIUM LEVEL 8.2 MG/DL (8.8-10.2); CREATININE FOR GFR 1.96 MG/DL (0.55-1.30); GLOMERULAR FILTRATION RATE 26.5 (>39); MAGNESIUM LEVEL 2.3 MG/DL (1.8-2.4)
--- NOTE | 2020-04-09 07:57 | IPNPDOC ---
Subjective Review oF Systems Chief Complaint The patient is a 74-year-old female admitted with a reason for visit of Pyelonephritis. Events since Last Encounter No acute events o/n. Denies flank pain. No f/c/ns. Objective Physical Examination General Exam: Alert, Cooperative, No Acute Distress Chest Exam: Normal air movement Heart Exam: Positive: Rate Normal ABDOMEN EXAM: Soft Skin Exam: Nl turgor and temperature Neuro Exam: Normal Speech Psych Exam: Mental status NL, Mood NL Other physical findings catheter draining yellow urine Vital Signs/I&O Vital Signs Date Time Temp Pulse Resp B/P (MAP) Pulse Ox O2 Delivery O2 Flow Rate FiO2 04/09/20 06:26 18 04/09/20 04:00 96.8 60 130/68 (88) 92 Nasal Cannula 2.0 I&O- Last 24 Hours up to 6 AM 04/09/20 05:59 Intake Total 880 ml Output Total 1010 ml Balance -130 ml Laboratory Data Labs 24H Laboratory Tests 2 04/09/20 05:04: Immature Granulocyte % (Auto) 1.8, Neutrophils (%) (Auto) 73.0H, Lymphocytes (%) (Auto) 15.7L, Monocytes (%) (Auto) 7.9H, Eosinophils (%) (Auto) 1.0, Basophils (%) (Auto) 0.6, Neutrophils # (Auto) 6.9, Lymphocytes # (Auto) 1.5, Monocytes # (Auto) 0.8, Eosinophils # (Auto) 0.1, Basophils # (Auto) 0.1, Nucleated Red Blood Cells % (auto) 0.0, Anion Gap 8, Glomerular Filtration Rate 26.5L, Calcium Level 8.2L, Magnesium Level 2.3 CBC/BMP Laboratory Tests 04/09/20 05:04 Microbiology Microbiology 04/08/20 Respiratory Virus Panel (PCR) (LUZMA) - Final, Complete 04/06/20 Urine Culture - Final, Complete Escherichia Coli Enterococcus Faecalis 04/06/20 Blood Culture - Preliminary, Resulted No Growth after 48 hours. All Specime... 04/06/20 Blood Culture - Preliminary, Resulted No Growth after 48 hours. All Specime... Assessment/Plan Date Seen The patient was seen on 04/09/20. Patient Summary This is a 74 y/o F admitted to the hospital w/ ANTELMO, pyelonephritis, and torsades de pointes. Her renal US yesterday demonstrated persistent b/l severe hydro despite bladder decompression w/ a Richmond. This indicates that her stents are likely encrusted and need to be changed as they are not draining her kidneys properly. I recommended that we take her to the OR this afternoon for cystoscopy, b/l ureteral stent exchange. After a discussion of the risks and benefits, informed consent was signed. Plan/VTE VTE Prophylaxis Ordered?: Yes VTE Exclusion Mechanical Proph: N/A:VTE Prophy Ordered Plan/Urinary Catheter Reason for insertion/continuin: Acute obstruct/retention Plan - keep catheter to gravity drainage - will do a voiding trial at some point prior to discharge - to OR today for cystoscopy and b/l ureteral stent exchange - urine culture growing E coli and E faecalis - unasyn covering the E coli, but patient will require coverage of the E faecalis - NPO until OR - may resume normal diet postop ANNEMARIE WOOD MD Apr 09, 2020 07:57
--- NOTE | 2020-04-09 09:05 | IPNPDOC ---
Text Note Date of Service The patient was seen on 04/09/20. NOTE Cardiology Progress Note Subjective: 74-year-old female, admitted to the hospital for ANTELMO, pyelonephritis and polymorphic ventricular tachycardia. Patient is scheduled for cystoscopy and bilateral ureteral stent exchange at noon today. Patient was interviewed and examined today in the PCU. She was found to be resting comfortably in her bed in no acute distress. Patient was easily arousable and conversant. She continues to report generalized fatigue which, she states, has improved since yesterday. She denies any chest pain/discomfort, no shortness of breath or difficulty breathing. She has not been dizzy and she has not had any near syncope. She does, however, report intermittent nausea without abdominal pain. Objective: Vitals: Temperature 96.8, pulse 60, respiratory rate of 18, blood pressure 130/68 (88), pulse oximetry of 92% on 2 L via nasal cannula, weight of 85.5 kg which has been stable. Net negative of 560 mL yesterday, 600 mL thus far today. Gen.: Elderly female appearing stated age lying in bed with the head at approximately 30, in no acute distress, conversant, able to answer questions regarding her medical care and history. HEENT: Normocephalic, atraumatic, EOMI, conjunctiva pallor noted. No scleral injection, petechiae or icterus. No xanthelasma. Edentulous. No perioral cyanosis. Neck: Trachea is midline, no appreciable thyromegaly. JVP remains 4 cm above angle of [place]. No carotid bruits bilaterally. Cardiac: Regular rate and rhythm at 62 bpm. Unable to appreciate any murmur. Dilated superficial venules noted over anterior chest. Respiratory: Clear to auscultation bilaterally in both anterior and posterior lung johnson. Slight increase in AP diameter of the chest with mild prolongation of expiratory phase. No wheezing rales or rhonchi are appreciated. Extremities: No distal clubbing or splinter hemorrhages. Capillary refill less than 2 seconds. No lower extremity edema or swelling. Neuro: Alert and oriented 3, no appreciable aphasia, or dysarthria. Facial muscles are symmetric. monitoring specialist: No events overnight, patient has remained in sinus rhythm with isolated i ncidence of bradycardia in the mid to upper 50s. EKG (04/08/20): Largely unchanged from prior, first-degree AV block. PAC noted. Persistent and unchanged diffuse and nonspecific repolarization abnormalities. Echocardiogram (04/06/20): Sinus rhythm without IV conduction disturbance. Mild concentric left ventricle hypertrophy with hyperkinetic wall motion. Mildly dilated left atrium with grade 2 left ventricular diastolic dysfunction. Lizy dilated right heart chambers with normal wall motion, Doppler evidence of at least moderate pulmonary hypertension. Mild mitral annular calcification with very mild insufficiency. Normal tricuspid valve with moderate insufficiency. Miniscule posterior pericardial effusion. Left ventricular ejection fraction of 70%. Blood work: CBC demonstrates a resolving leukocytosis of 9.4 improved from 16.1 on initial presentation. H&H of 8.5/26.3, mildly improved from yesterday of 8.4/25.9. Platelets of 256. Chemistry demonstrates a normal sodium, potassium, chloride and magnesium. Calcium of 8.2. BUN/creatinine of 29/1.96, mildly improved from yesterday of 2.17/23.5. Impression/plan: #Polymorphic ventricular tachycardia Continue to suspect underlying hypertensive heart disease in the setting of hypokalemia and hypomagnesemia and acute infection is likely etiology. She was originally placed on amiodarone, temporarily to prevent further ventricular tachycardia. Electrolytic abnormalities have since been corrected and her amiodarone was discontinued on 04/08/20. No arrhythmias noted on the monitor in the last 24 hours. Some sinus bradycardia with heart rate in the high 40s to high 50s while sleeping. Patient has been sta ble with heart rate of 60 since midnight. Continue telemetry monitoring. #Abnormal EKG Repeat EKG performed in 04/08/2020. Largely unchanged from prior EKG study. No evidence suggest myocardial ischemia. Outpatient follow-up for CAD risk factors recommended. Patient is continued on a beta carlos alberto in addition to dose adjusted short acting JESICA inhibitor. #Heart failure (diastolic dysfunction/chronic) Clinical, radiographic and echocardiographic findings consistent with biventricular dysfunction, continued to believe secondary to obesity, hypertension, pulmonary disease. Electrolytes have been appropriately repleated. Continue to hold diuretic as patient currently appears to be euvolemic. Receiving prophylactic low-dose heparin to prevent DVT. #Hypertensive heart disease Blood pressure has been better controlled overnight. Currently utilizing Captopril 12.5 every 12 hours. Carvedilol 12.5 every 6 hours. Will continue to monitor before ultimately deciding patient's home regimen at discharge. VS,Fishbone, I+O VS, Fishbone, I+O Laboratory Tests 04/09/20 05:04 Vital Signs Date Time Temp Pulse Resp B/P (MAP) Pulse Ox O2 Delivery O2 Flow Rate FiO2 04/09/20 06:26 18 04/09/20 04:00 96.8 60 130/68 (88) 92 Nasal Cannula 2.0 I&O- Last 24 Hours up to 6 AM 04/09/20 06:00 Intake Total 820 ml Output Total 960 ml Balance -140 ml SINDY CHAUDHRY DO Apr 09, 2020 09:04
[2020-04-09] MEDS: CAPTOpril 12.5 MG TAB PO SCH (09:37)
[2020-04-09] MEDS: HEPARIN SOD (PORCINE) 5000UNITS/ML VIAL (J1644 PER 1000UNITS) SC SCH ×2 (09:37→20:32)
[2020-04-09] MEDS: POTASSIUM CHLORIDE 10 MEQ SR TABLET PO SCH (09:38)
--- NOTE | 2020-04-09 11:32 | IPNPDOC ---
Date Seen The patient was seen on 04/09/20. Progress Note SUBJECTIVE: BP slightly elevated today with systolics 160 mmHg, will reevaluate meds. OR today for b/l stent removal and replacement. Denies chest pain, shortness of breath, increased n/v. OBJECTIVE: VITAL SIGNS: Please see below PHYSICAL EXAMINATION: CONSTITUTIONAL: No acute distress, resting , AAO x 3 EYES: PERRLA, EOM intact HENT, MOUTH: Normocephalic, atraumatic, moist mucous membranes NECK: SUPPLE, no JVD, no lymphadenopathy, no carotid bruit CV: Regular rate and rhythm, S1S2 normal, no murmurs/rubs/gallops RESPIRATORY: Clear to auscultation bilaterally, no rales/rhonchi/wheezes GI: diffuse abd discomfort on exam has improved compared to 04/08/20. BS positive in 4 quadrants, soft, nontender, nondistended, no rebound or guarding, no organomegaly : Richmond catheter MUSCULOSKELETAL: Normal ROM. No cyanosis, clubbing, swelling, joint deformity, extremity edema INTEGUMENTARY: Intact, no rashes, no lesions, no erythema NEUROLOGIC: Cranial Nerves II-XII are intact, no focal deficits PSYCHIATRIC: Flat affect, mood down CURRENT MEDICATIONS: Please see below LABORATORY DATA: Please see below IMAGING: No new imaging Echo: EF of 70% with grade 2 left ventricular diastolic dysfunction and moderate pulmonary hypertension. ASSESSMENT: 74 y/o F admitted for bilateral hydronephrosis and acute pyelonephritis. PLAN: 1. Bilateral hydronephrosis, severe. OR today for removal of stents, replacement of stents. Urology following closely. Monitor CMP closely. 2. Acute pyelonephritis. E. faecalis and E. coli growing in cx, sensitve to ampicillin alone. Stopped Zosyn (Completed 4 days) and switched to Ampicillin 2 gm Q6 hrs (Day 1). WBC wnl, improved. F/u daily CBC. 3. Torsades de pointes/ Polymorphic ventricular tachycardia. Suspected likely 2/2 to hypertensive heart disease. Potassium wnl, no events overnight on tele. Per cardiology, continue amiodarone, BB, telemetry. 4. Abnormal EKG. Last trop trending down, indeterminate with renal function. C/w BB, ACEi, statin. F/u ECG in AM. According to cardiology, QT interval remains prolonged but this has been the case for at least the past year per cards. 5. Chronic kidney disease, stage III to IV. Cr appears to be closer to baseline at 1.96. F/u daily labs. Avoid nephrotoxic medications. 6. Chronic hypertensive heart disease. C/w BB, CCB, ACEi. 7. Diastolic CHF, chronic. Denies SOB, chest pain. Holding lasix , c/w BB, ACEi low dose. Echo above. 8. Physical deconditioning. PT/OT. 9. DVT px. Heparin. DISPOSITION: C/w current treatment above. PT/OT, plan for discharge not yet determined. VS, I&O, 24H, Fishbone Vital Signs/I&O Vital Signs Date Time Temp Pulse Resp B/P (MAP) Pulse Ox O2 Delivery O2 Flow Rate FiO2 04/09/20 09:50 16 Room Air 04/09/20 09:37 163/72 04/09/20 08:00 97.2 60 91 2.0 I&O- Last 24 Hours up to 6 AM 04/09/20 06:00 Intake Total 820 ml Output Total 960 ml Balance -140 ml Laboratory Data 24H LABS Laboratory Tests 2 04/09/20 05:04: Immature Granulocyte % (Auto) 1.8, Neutrophils (%) (Auto) 73.0H, Lymphocytes (%) (Auto) 15.7L, Monocytes (%) (Auto) 7.9H, Eosinophils (%) (Auto) 1.0, Basophils (%) (Auto) 0.6, Neutrophils # (Auto) 6.9, Lymphocytes # (Auto) 1.5, Monocytes # (Auto) 0.8, Eosinophils # (Auto) 0.1, Basophils # (Auto) 0.1, Nucleated Red Blood Cells % (auto) 0.0, Anion Gap 8, Glomerular Filtration Rate 26.5L, Calcium Level 8.2L, Magnesium Level 2.3 CBC/BMP Laboratory Tests 04/09/20 05:04 Microbiology Microbiology 04/08/20 Respiratory Virus Panel (PCR) (LUZMA) - Final, Complete 04/06/20 Urine Culture - Final, Complete Escherichia Coli Enterococcus Faecalis 04/06/20 Blood Culture - Preliminary, Resulted No Growth after 72 hours. All specime... 04/06/20 Blood Culture - Preliminary, Resulted No Growth after 72 hours. All specime... Current Medications Current Medications Medications (Trade) Dose Ordered Sig/Pedro Route PRN Reason Start Time Stop Time Status Last Admin Dose Admin Acetaminophen (Tylenol Tab) 650 mg Q4H PRN PO PAIN OR FEVER 04/06/20 12:30 04/08/20 19:26 Al Hydrox/Mg Hydrox/Simethicone (Mylanta) 30 ml DAILY PRN PO DYSPEPSIA 04/06/20 12:30 04/08/20 19:27 Amiodarone HCl (Pacerone, Cordarone) 200 mg Q6H PO 04/06/20 18:00 04/08/20 08:13 DC 04/08/20 06:01 Amiodarone HCl 150 mg/IV Miscellaneous Supplies 100 ml @ 600 mls/hr STAT STAT IV 04/06/20 13:25 04/06/20 13:34 DC 04/06/20 13:27 Amiodarone HCl 150 mg/IV Miscellaneous Supplies 100 ml @ 600 mls/hr STAT STAT IV 04/06/20 15:00 04/06/20 15:44 DC 04/06/20 15:00 Amiodarone HCl 150 mg/IV Miscellaneous Supplies 100 ml @ 600 mls/hr STAT STAT IV 04/06/20 15:26 04/06/20 15:35 DC 04/06/20 15:35 Amlodipine Besylate (Norvasc) 5 mg DAILY PO 04/06/20 09:00 04/06/20 15:29 DC Amlodipine Besylate (Norvasc) 5 mg Q12H PO 04/06/20 22:00 04/08/20 08:14 DC 04/07/20 22:09 Ampicillin Sodium 2 gm/Dextrose 100 ml @ 200 mls/hr Q6H IV 04/09/20 12:00 Ampicillin Sodium/ Sulbactam Sodium 1.5 gm/Dextrose 50 ml @ 100 mls/hr Q6H IV 04/06/20 18:00 04/09/20 08:12 DC 04/09/20 05:40 Captopril (CAPOten) 12.5 mg BID PO 04/06/20 21:00 04/09/20 09:37 Carvedilol (COReg) 12.5 mg Q6H PO 04/06/20 18:00 04/09/20 05:40 Famotidine (Pepcid) 40 mg QHS PO 04/06/20 21:00 04/08/20 20:18 Fluoxetine HCl (PROzac) 40 mg QHS PO 04/06/20 21:00 04/08/20 20:19 Heparin Sodium (Porcine) (Heparin) 5,000 units Q12H SC 04/06/20 21:00 04/09/20 09:37 Home Med (Med Rec Complete!) ASDIRECTED XX 04/06/20 12:15 04/06/20 12:17 DC Latanoprost (Xalatan 0.005% Op Soln) 1 drop QHS OU 04/06/20 21:00 04/08/20 20:25 Magnesium Hydroxide (Milk Of Magnesia) 30 ml DAILY PRN PO CONSTIPATION 04/06/20 12:30 Magnesium Sulfate/ Dextrose 1 gm/IV Miscellaneous Supplies 100 ml @ 100 mls/hr ASDIRECTED IV 04/06/20 13:30 04/06/20 14:41 DC 04/06/20 13:37 Metoprolol Tartrate (Lopressor) 5 mg Q5M IV 04/06/20 14:15 04/06/20 14:26 DC 04/06/20 14:35 Morphine Sulfate (Morphine Sulfate Inj) 2 mg Q30M PRN IV MODERATE PAIN (PS 5-7) 04/06/20 09:15 04/06/20 10:38 DC 04/06/20 10:38 Oxycodone/ Acetaminophen (Percocet 5mg/ 325mg Tablet) 1 tab Q4HP PRN PO MILD/MODERATE PAIN (PS 1-7) 04/06/20 17:00 04/09/20 09:50 Oxycodone/ Acetaminophen (Percocet 5mg/ 325mg Tablet) 1 tab Q6HP PRN PO PAIN 04/06/20 17:30 UNV Potassium Chloride/Sodium Chloride 1,000 ml @ 70 mls/hr [id number] IV 04/06/20 14:00 04/06/20 16:42 DC 04/06/20 13:52 Potassium Chloride (Micro-K Extencaps) 40 meq DAILY PO 04/08/20 09:00 04/09/20 09:38 Simvastatin (Zocor) 40 mg QHS PO 04/06/20 21:00 04/06/20 18:06 DC Sodium Chloride 1,000 ml @ 70 mls/hr [id number] IV 04/06/20 13:00 04/06/20 13:12 DC Allergies Coded Allergies: cephalexin (Verified Allergy, Intermediate, rash, 01/23/20) levofloxacin (Verified Allergy, Unknown, rash, 01/23/20) sulfamethoxazole (Verified Adverse Reaction, Intermediate, problems with kidneys, 01/23/20) trimethoprim (Verified Adverse Reaction, Intermediate, problems with kidneys, 01/23/20) Josselin Judd MD Apr 09, 2020 11:32
[2020-04-09] MEDS ORDERED: LIDOCAINE 2% 5ML JELLY UROJET As Ordered ONE (12:30)
[2020-04-09] MEDS ORDERED: ISOVUE-300 61% 50ML VIAL As Ordered ONE (12:30)
[2020-04-09] MEDS: AMPICILLIN SOD 2 GM in D5W MINI-BAG PLUS 100 ML IV SCH ×3 (12:56→23:06)
[2020-04-09] MEDS ORDERED: propofoL 200 MG/20 ML VIAL As Ordered ONE (12:57)
[2020-04-09] MEDS ORDERED: MIDAZOLAM INJ 2MG/2ML VIAL (J2250 PER 1MG) As Ordered ONE (12:57)
[2020-04-09] MEDS ORDERED: LIDOCAINE 2% 100MG/5ML SDV (FOR ANES.) As Ordered ONE (12:57)
[2020-04-09] MEDS ORDERED: fentaNYL 100 MCG/2 ML INJECTION (J3010) As Ordered ONE (12:57)
[2020-04-09] MEDS ORDERED: DESFLURANE 240 ML INHALANT As Ordered ONE (13:27)
[2020-04-09] MEDS ORDERED: fentaNYL 100 MCG/2 ML INJECTION (J3010) IV PRN (13:45)
[2020-04-09] MEDS ORDERED: LR 1,000 ML IV SCH (13:45)
[2020-04-09] MEDS ORDERED: oxyCODONE 5MG TAB PO PRN (13:45)
[2020-04-09] MEDS ORDERED: HYDROMORPHONE HCL 0.5 MG/ 0.5 ML SYRINGE (J1170 PER 1) IV PRN (13:45)
[2020-04-09] MEDS ORDERED: ONDANSETRON 4MG/2ML VIAL IV PRN (13:45)
--- NOTE | 2020-04-09 14:00 | ROOPDOC ---
[facility] Report Of Operation Report of Operation DATE OF PROCEDURE: 04/09/20 PREPROCEDURE DIAGNOSIS: Bilateral ureteral obstruction. POSTPROCEDURE DIAGNOSIS: Bilateral ureteral obstruction. PROCEDURE: Cystoscopy, bilateral retrograde pyelograms with intraoperative interpretation of images, bilateral ureteral stent exchange. SURGEON: Annemarie Wood MD SUPERVISOR CORE SHOP: None. ANESTHESIA: Monitored anesthesia care (MAC). OPERATIVE INDICATIONS: This is a 74-year-old female with bilateral ureteral obstruction which is managed with chronic ureteral stenting. She is brought in today for routine stent exchange. DESCRIPTION OF PROCEDURE: The patient was brought to the operating room and MAC anesthesia was administered. Culture specific antibiotics were infused. She was then placed in dorsal lithotomy position and prepped and draped in the usual sterile fashion. At this point, a rigid cystoscope was inserted into the urethral meatus and advanced to the bladder. Once inside the bladder the previous placed ureteral stents were seen. The right sided stent was then grasped and withdrawn until the distal end was protruding from the urethral meatus. I advanced a Guidewire up the right stent and then removed the stent. I then advanced a 5-Gibraltarian open-ended ureteral catheter over the wire and removed the wire. I then aspirated approximately 150mL of urine from her right kidney. I then shot a retrograde pyelogram and it was notable for severe right hydronephrosis with no extravasation. I then advanced the wire back up the open ended ureteral catheter and removed the ureteral catheter. I then utilized the wire to advance a 7 Gibraltarian x 22-26cm JJ uretera stent into the right collecting system. The wire was removed and there were adequate curls of the stent in the right renal pelvis and in the bladder. I then advanced a Guidewire up the left collecting system and removed the left ureteral stent. I advanced a 5-Gibraltarian open-ended ureteral catheter over the wire into the left collecting system. I removed the wire and then aspirated approximately 150mL of urine from the left kidney. Next, I shot a retrograde pyelogram. It was notable for severe left hydronephrosis with no extravasation. I then advanced the wire back up the left collecting system and removed the ureteral catheter. I then utilized the wire to advance a 7 Gibraltarian x 22-26 cm JJ ureteral stent into the left collecting system. The wire was removed and there were adequate curls of the stent in the left renal pelvis and in the bladder. At this point, the bladder was emptied of all fluid and this marked conclusion of the procedure. The patient was then taken out of the dorsal lithotomy position, awakened from anesthesia and transferred to the recovery room in stable condition. ESTIMATED BLOOD LOSS: 5 mL. COMPLICATIONS: None. SPECIMENS: None. PLAN: The patient will be admitted back to the PCU where she is being treated for pyelonephritis. We will set her up to change her stents in 3 months. ANNEMARIE WOOD MD Apr 09, 2020 14:00
--- NOTE | 2020-04-09 14:30 | REP ---
RETROGRADE PYELOGRAM: THREE VIEWS. HISTORY: Bilateral stent exchange. Comparison study, February 08, 2020. 30 seconds of fluoroscopy time is reported. FINDINGS: A sequence of three last image hold fluoroscopically obtained spot radiographs document bilateral ureteral cannulation, contrast injection, and stent placement. Electronically Signed by Jerry Nunes MD 04/09/2020 05:15 P
[2020-04-09] MEDS: FAMOTIDINE 20 MG TAB PO SCH (20:32)
[2020-04-09] MEDS: FLUoxetine 20 MG CAP PO SCH (20:32)
[2020-04-09] MEDS: LATANOPROST 0.005% OPHTH SOLN 2.5 ML OU SCH (20:32)
[2020-04-10] VITALS (7 sets, daily range): BP systolic 143–185; BP diastolic 64–90
[2020-04-10] MEDS: AMPICILLIN SOD 2 GM in D5W MINI-BAG PLUS 100 ML IV SCH ×4 (05:06→23:39)
[2020-04-10] MEDS: PERCOCET 5MG/325MG TAB PO PRN ×5 (05:08→23:39)
[2020-04-10 05:42] LABS: BASO # 0.1 10^3/uL (0.0-0.2); BASO % 0.6 % (0.0-1.0); EOS # 0.1 10^3/uL (0.0-0.5); EOS % 1.6 % (0.0-3.0); HEMATOCRIT 26.2 % (36.0-47.0); HEMOGLOBIN 8.4 g/dl (12.0-15.5); LYMPH # 1.5 10^3/uL (1.5-5.0); LYMPH % 18.6 % (24.0-44.0); MEAN CORPUSCULAR HEMOGLOBIN 28.5 pg (27.0-33.0); MEAN CORPUSCULAR HGB CONC 32.1 g/dl (32.0-36.5); MEAN CORPUSCULAR VOLUME 88.8 fl (80.0-96.0); MONO # 0.7 10^3/uL (0.0-0.8); MONO % 8.3 % (0.0-5.0); NEUTROPHILS # 5.5 10^3/uL (1.5-8.5); NEUTROPHILS % 67.1 % (36.0-66.0); PLATELET COUNT, AUTOMATED 268 10^3/uL (150-450); RED BLOOD COUNT 2.95 10^6/uL (4.00-5.40); WHITE BLOOD COUNT 8.2 10^3/uL (4.0-10.0)
[2020-04-10 05:57] LABS: CALCIUM LEVEL 7.7 MG/DL (8.8-10.2); CREATININE FOR GFR 1.61 MG/DL (0.55-1.30); GLOMERULAR FILTRATION RATE 33.2 (>39); MAGNESIUM LEVEL 1.8 MG/DL (1.8-2.4); POTASSIUM SERUM 3.5 MEQ/L (3.5-5.1)
[2020-04-10] MEDS ORDERED: amLODIPine 5 MG TAB PO ONE (07:30)
[2020-04-10] MEDS: MAALOX 30 ML SUSP *UDC PO PRN (07:43)
--- NOTE | 2020-04-10 07:53 | IPNPDOC ---
Subjective Review oF Systems Chief Complaint The patient is a 74-year-old female admitted with a reason for visit of Pyelonephritis. Events since Last Encounter No acute events o/n. Good pain control. No n/v. No f/c/ns. Objective Physical Examination General Exam: Alert, Cooperative, No Acute Distress ABDOMEN EXAM: Soft Skin Exam: Nl turgor and temperature Neuro Exam: Normal Speech Psych Exam: Mental status NL, Mood NL Other physical findings catheter draining clear urine Vital Signs/I&O Vital Signs Date Time Temp Pulse Resp B/P (MAP) Pulse Ox O2 Delivery O2 Flow Rate FiO2 04/10/20 05:42 20 04/10/20 04:00 98.6 63 179/90 (119) 90 Nasal Cannula 2.0 I&O- Last 24 Hours up to 6 AM 04/10/20 06:00 Intake Total 2140 ml Output Total 1700 ml Balance 440 ml Laboratory Data Labs 24H Laboratory Tests 2 04/10/20 05:27: Immature Granulocyte % (Auto) 3.8H, Neutrophils (%) (Auto) 67.1H, Lymphocytes (%) (Auto) 18.6L, Monocytes (%) (Auto) 8.3H, Eosinophils (%) (Auto) 1.6, Basophils (%) (Auto) 0.6, Neutrophils # (Auto) 5.5, Lymphocytes # (Auto) 1.5, Monocytes # (Auto) 0.7, Eosinophils # (Auto) 0.1, Basophils # (Auto) 0.1, Nucleated Red Blood Cells % (auto) 0.0, Anion Gap 10, Glomerular Filtration Rate 33.2L, Calcium Level 7.7L, Magnesium Level 1.8 CBC/BMP Laboratory Tests 04/10/20 05:27 Microbiology Microbiology 04/08/20 Respiratory Virus Panel (PCR) (LUZMA) - Final, Complete 04/06/20 Urine Culture - Final, Complete Escherichia Coli Enterococcus Faecalis 04/06/20 Blood Culture - Preliminary, Resulted No Growth after 72 hours. All specime... 04/06/20 Blood Culture - Preliminary, Resulted No Growth after 72 hours. All specime... Assessment/Plan Date Seen The patient was seen on 04/10/20. Patient Summary This is a 74 y/o F admitted to the hospital w/ ANTELMO 2/2 b/l hydro, pyelonephritis, and torsades de pointes, POD1 s/p cysto w/ b/l ureteral stent exchange. Her Cr is trending down, now 1.6. Plan/VTE VTE Prophylaxis Ordered?: Yes VTE Exclusion Mechanical Proph: N/A:VTE Prophy Ordered Plan/Urinary Catheter Reason for insertion/continuin: Acute obstruct/retention Plan - continue abx for pyelonephritis - prior to discharge will need to do a fill an pull w/ the patient's catheter to determine if she is still in retention - if patient cannot void or if she retains a large amount after the fill and pull, she will need to be discharged home w/ the catheter - will arrange outpt f/u in 1 wk - once patient is done w/ her current course of abx, will plan to put her on macrobid PO 100mg daily indefinitely for UTI prophylaxis - will plan to change her stents q3 months ANNEMARIE WOOD MD Apr 10, 2020 07:53
[2020-04-10] MEDS: HEPARIN SOD (PORCINE) 5000UNITS/ML VIAL (J1644 PER 1000UNITS) SC SCH ×2 (08:11→20:37)
[2020-04-10] MEDS: POTASSIUM CHLORIDE 10 MEQ SR TABLET PO SCH (08:11)
[2020-04-10] MEDS: MAGNESIUM OXIDE 400 MG TAB (MAG-OX) PO SCH (08:13)
[2020-04-10] MEDS: SPIRONOLACTONE 12.5MG PER 1/2 TABLET PO SCH (08:13)
[2020-04-10] MEDS: CARVedilol 12.5 MG TAB PO SCH ×2 (08:13→20:36)
[2020-04-10] MEDS ORDERED: traMADol 50 MG TAB PO ONE (08:15)
[2020-04-10] MEDS ORDERED: amLODIPine 5 MG TAB PO SCH ×2 (10:00→22:00)
[2020-04-10] MEDS: CHLORTHALIDONE 12.5MG PER 1/2 TABLET PO SCH (10:19)
--- NOTE | 2020-04-10 10:48 | ECGEPIP ---
[facility] Test Date: 2020-04-09 Pat Name: NINA FORBES Department: Room: [place] [address] Gender: Female Therapeutic Radiologist: : 1945 Requested By: Bobo Ness Order Number: [id number] Reading MD: Joni López Measurements Intervals [place] Rate: 62 P: 94 WI: 211 QRS: 2 QRSD: 90 T: 2 QT: 463 QTc: 471 Interpretive Statements Normal sinus rhythm with first degree AV block Low QRS complex voltage in the precordial leads Nonspecific ST-T wave abnormalities No significant change when compared to prior tracing of 04/08/2020 Electronically Signed on 04-10-2020 10:48:12 EDT by Joni López
[2020-04-10] MEDS ORDERED: FUROSEMIDE 20MG/2ML VIAL (J1940) IV ONE (12:00)
--- NOTE | 2020-04-10 16:14 | IPN ---
DATE: 04/10/2020 CARDIOLOGY PROGRESS NOTE SUBJECTIVE: Patient claims to feel relief having her Richmond catheter removed. Responded well to intravenous (IV) Lasix administered earlier today. Has no chest discomfort, shortness of breath, but does feel somewhat weak. Has not been ambulating in light of her prior Richmond catheter. Appears to be tolerating her medications without adverse effect. OBJECTIVE: Overweight, pleasant, elderly lady, appearing somewhat lethargic. Heart rate 60 beats per minute, blood pressure 148/62 supine, 144/60 sitting, and 130/56 standing with respiratory rate 16, oxygen saturation 92% on room air. Afebrile. Weight 189 pounds, height 66 inches, body mass index (BMI) 30.5. Normal oral moisture. Appears slightly pale. Trachea midline. Neck veins did not appear to be elevated at this time. Increased anteroposterior chest diameter with fairly good air entry over both lung johnson and slight prolongation of expiration but no audible wheeze. No sacral or lower leg pitting edema. end finder forming department: This has been showing sinus rhythm/sinus bradycardia only. No further ventricular arrhythmias. Has been off amiodarone for 48 hours. LABORATORY DATA: Hemoglobin 8.4; this has been stable the past few days. Normal white blood cell count and platelet count. Chemistry this morning off potassium supplement shows a slight downward trend from 4 yesterday to 3.5 today. Her magnesium level similarly showed a downward trend off magnesium replacement, from 2.3 yesterday to 1.80 today. Other electrolytes were normal, BUN down to 22, creatinine down to 1.6 from a high of 2.38 on admission. EKG: Last study was performed yesterday and shows a sinus rhythm at 62 BPM with first-degree atrioventricular (AV) block. Somewhat low precordial voltage and ongoing nonspecific ST/T-wave abnormalities. IMPRESSION/PLAN: 1. Polymorphic ventricular tachycardia: Gratifyingly has been free of further ventricular tachyarrhythmia with electrolyte balance and off amiodarone the past 48 hours. Curiously, despite her renal insufficiency, she appears to waste potassium and magnesium. I have reordered a daily potassium supplement with magnesium oxide. 2. Abnormal EKG: Repolarization abnormalities date back for at least the past year. No evolutionary change at this time. Continues to have a prolonged QT interval as in the past. Will continue on protective beta carlos alberto, carvedilol, angiotensin converting enzyme inhibitor, captopril, simvastatin 40 mg daily, and low-dose aspirin antiplatelet therapy. 3. Heart failure (diastolic/chronic): As previously mentioned, despite significantly elevated brain natriuretic peptide (BNP) level, really few clinical features of heart failure, but her echocardiogram did show left ventricular (LV) diastolic dysfunction and elevated mean left atrial pressure and elevated pulmonary arterial pressure. She should remain on a modest salt intake restriction along with low-dose carvedilol, captopril, chlorthalidone, and spirolactone. Hopefully, physical therapy can now start working on ambulation prior to tentative discharge tomorrow. 4. Hypertensive heart disease (benign with heart failure): With resolution of her septic process, off diuretic therapy, her blood pressure has been increasing despite adjustment of any hypertensive vasodilators and beta carlos alberto. We did start her on low-dose chlorthalidone and spirolactone earlier today, but to augment her response to her vasodilator therapy, a low dose of Lasix 20 mg IV was administered with good effect. At this point, I am cautiously optimistic she will be able to be discharged tomorrow with medications from our standpoint: Carvedilol 12.5 mg by mouth twice a day., captopril 25 mg by mouth twice a day, chlorthalidone 12.5 mg daily, spironolactone 12.5 mg daily, amlodipine 10 mg daily, potassium chloride 20 mEq daily, and magnesium oxide 400 mg by mouth daily. We will plan on seeing her in followup in approximately 1-2 weeks in my office. At that point, we will plan on arranging for an objective definition of her coronary prognosis, a pharmacological stress heart scan.
--- NOTE | 2020-04-10 19:47 | IPNPDOC ---
Date Seen The patient was seen on 04/10/20. Progress Note SUBJECTIVE: BP elevated in 180's, started on chlorthalidone, spironolactone and given dose of lasix with some improvement. Cr further improved to 1.6, near baseline. Passed fill and pull test with cadena catheter, will monitor for signs of urinary retention overnight. If she retains over the evening, will need to replace catheter and d/c home with it. Discussed her depression and lack of wanting to participate with PT. She did not wish to be seen by psychiatry this admission but will try to participate tomorrow more. Possible d/c in the AM if all things remain stable. Denies chest pain, shortness of breath, increased n/v. OBJECTIVE: VITAL SIGNS: Please see below PHYSICAL EXAMINATION: CONSTITUTIONAL: No acute distress, resting , AAO x 3 EYES: PERRLA, EOM intact HENT, MOUTH: Normocephalic, atraumatic, moist mucous membranes NECK: SUPPLE, no JVD, no lymphadenopathy, no carotid bruit CV: Regular rate and rhythm, S1S2 normal, no murmurs/rubs/gallops RESPIRATORY: Clear to auscultation bilaterally, no rales/rhonchi/wheezes GI: diffuse abd discomfort on exam has improved compared to 04/08/20. BS positive in 4 quadrants, soft, nontender, nondistended, no rebound or guarding, no organomegaly : Cadena catheter MUSCULOSKELETAL: Normal ROM. No cyanosis, clubbing, swelling, joint deformity, extremity edema INTEGUMENTARY: Intact, no rashes, no lesions, no erythema NEUROLOGIC: Cranial Nerves II-XII are intact, no focal deficits PSYCHIATRIC: Flat affect, mood down CURRENT MEDICATIONS: Please see below LABORATORY DATA: Please see below IMAGING: No new imaging ASSESSMENT: 74 y/o F admitted for bilateral hydronephrosis and acute pyelonephritis. PLAN: 1. Bilateral ureteral obstruction/hydronephrosis, severe. Status post cystoscopy, bilateral pyelogram, bilateral ureteral stent exchange 04/09/20. Upon discussion with urology is believed that her urinary retention was more likely to have caused this versus an issue with her stents. She passed a fill and pull test today and catheter was removed. We'll monitor urinary output. If urinary retention is suspected over the evening, Cadena catheter should be placed again. Follow up CMP in the a.m. Urology following. 2. Acute pyelonephritis. E. faecalis and E. coli growing in cx, sensitve to ampicillin alone. Stopped Zosyn (Completed 4 days) and switched to Ampicillin 2 gm Q6 hrs (Day 2). WBC wnl, improved. Patient can be discharged with ampicillin PO and levofloxacin tailored to specific bacteria. Patient complains of some GI disturbance with the IV antibiotics, probiotic added. F/u daily CBC. 3. Chronic hypertensive heart disease. BP uncontrolled earlier. Added spironolactone, chlorthalidone, lasix x 1 dose, C/w BB, CCB, ACEi. 4. Abnormal EKG. Last trop trending down, indeterminate with renal function. C/w BB, ACEi, statin. F/u ECG in AM. According to cardiology, QT interval remains prolonged but this has been the case for at least the past year per cards. 5. Chronic kidney disease, stage III to IV. Cr better than baseline at 1.6. Now that on diuretics monitor Cr closely. Avoid other nephrotoxic medications. F/u daily labs. 6. Torsades de pointes/ Polymorphic ventricular tachycardia- resolved. Suspected likely 2/2 to hypertensive heart disease. All electrolytes are within normal limits. Per cardiology, continue BB, telemetry. 7. Diastolic CHF, chronic. Denies SOB, chest pain. Holding lasix , c/w BB, ACEi low dose, spironolactone. Echo above. 8. Physical deconditioning. Not participating well with PT/OT. 9. Depression. Hx of chronic pain syndrome, fibromyalgia, chronic depression. States she has tried several medications in the past, with no improvement. Has seen specialists. Slightly tearful today. Discussed having psychiatry consulted, as worsening depression and not participating with PT/OT may delay discharge home. She did not wish to consult psychiatry. Will monitor and if by tomorrow she has not improved, will consult. C/w current treatment. DVT px. Heparin. 10. DVT px. Heparin SC. DISPOSITION: C/w current treatment above. Patient will need to start pa rticipating with PT/OT. Discussed at length with patient today. When appropriate the plan is discharge home. Cleared by urology and cardiology for discharge if remains stable over night. VS, I&O, 24H, Fishbone Vital Signs/I&O Vital Signs Date Time Temp Pulse Resp B/P (MAP) Pulse Ox O2 Delivery O2 Flow Rate FiO2 04/10/20 19:18 18 04/10/20 16:00 97.6 57 162/70 (100) 92 Room Air 04/10/20 04:00 2.0 I&O- Last 24 Hours up to 6 AM 04/10/20 06:00 Intake Total 2140 ml Output Total 1700 ml Balance 440 ml Laboratory Data 24H LABS Laboratory Tests 2 04/10/20 05:27: Immature Granulocyte % (Auto) 3.8H, Neutrophils (%) (Auto) 67.1H, Lymphocytes (%) (Auto) 18.6L, Monocytes (%) (Auto) 8.3H, Eosinophils (%) (Auto) 1.6, Basophils (%) (Auto) 0.6, Neutrophils # (Auto) 5.5, Lymphocytes # (Auto) 1.5, Monocytes # (Auto) 0.7, Eosinophils # (Auto) 0.1, Basophils # (Auto) 0.1, Nucleated Red Blood Cells % (auto) 0.0, Anion Gap 10, Glomerular Filtration Rate 33.2L, Calcium Level 7.7L, Magnesium Level 1.8 CBC/BMP Laboratory Tests 04/10/20 05:27 Microbiology Microbiology 04/08/20 Respiratory Virus Panel (PCR) (LUZMA) - Final, Complete 04/06/20 Urine Culture - Final, Complete Escherichia Coli Enterococcus Faecalis 04/06/20 Blood Culture - Preliminary, Resulted No Growth after 72 hours. All specime... 04/06/20 Blood Culture - Preliminary, Resulted No Growth after 72 hours. All specime... Current Medications Current Medications Medications (Trade) Dose Ordered Sig/Pedro Route PRN Reason Start Time Stop Time Status Last Admin Dose Admin Acetaminophen (Tylenol Tab) 650 mg Q4H PRN PO PAIN OR FEVER 04/06/20 12:30 04/08/20 19:26 Al Hydrox/Mg Hydrox/Simethicone (Mylanta) 30 ml DAILY PRN PO DYSPEPSIA 04/06/20 12:30 04/10/20 07:43 Amiodarone HCl (Pacerone, Cordarone) 200 mg Q6H PO 04/06/20 18:00 04/08/20 08:13 DC 04/08/20 06:01 Amiodarone HCl 150 mg/IV Miscellaneous Supplies 100 ml @ 600 mls/hr STAT STAT IV 04/06/20 13:25 04/06/20 13:34 DC 04/06/20 13:27 Amiodarone HCl 150 mg/IV Miscellaneous Supplies 100 ml @ 600 mls/hr STAT STAT IV 04/06/20 15:00 04/06/20 15:44 DC 04/06/20 15:00 Amiodarone HCl 150 mg/IV Miscellaneous Supplies 100 ml @ 600 mls/hr STAT STAT IV 04/06/20 15:26 04/06/20 15:35 DC 04/06/20 15:35 Amlodipine Besylate (Norvasc) 5 mg BID@1000,2200 PO 04/10/20 10:00 04/10/20 15:59 DC 04/10/20 10:19 Amlodipine Besylate (Norvasc) 5 mg BID@1000,2200 PO 04/10/20 22:00 04/10/20 23:55 Amlodipine Besylate (Norvasc) 5 mg DAILY PO 04/06/20 09:00 04/06/20 15:29 DC Amlodipine Besylate (Norvasc) 5 mg Q12H PO 04/06/20 22:00 04/08/20 08:14 DC 04/07/20 22:09 Amlodipine Besylate (Norvasc) 10 mg QHS PO 04/11/20 21:00 Ampicillin Sodium 2 gm/Dextrose 100 ml @ 200 mls/hr Q6H IV 04/09/20 12:00 04/10/20 18:47 Ampicillin Sodium/ Sulbactam Sodium 1.5 gm/Dextrose 50 ml @ 100 mls/hr Q6H IV 04/06/20 18:00 04/09/20 08:12 DC 04/09/20 05:40 Aspirin (Ecotrin) 81 mg DAILY PO 04/11/20 09:00 Captopril (CAPOten) 12.5 mg BID PO 04/06/20 21:00 04/09/20 17:01 DC 04/09/20 09:37 Captopril (CAPOten) 25 mg BID PO 04/09/20 21:00 04/10/20 08:12 Carvedilol (COReg) 12.5 mg BID PO 04/09/20 21:00 04/10/20 08:13 Carvedilol (COReg) 12.5 mg Q6H PO 04/06/20 18:00 04/09/20 17:01 DC 04/09/20 14:37 Chlorthalidone (Hygroton, Chlorthalidone) 12.5 mg DAILY PO 04/10/20 09:00 04/10/20 10:19 Famotidine (Pepcid) 40 mg QHS PO 04/06/20 21:00 04/09/20 20:32 Fentanyl Citrate (Sublimaze) 25 mcg Q5MP PRN IV PAIN LEVEL 5-10 04/09/20 13:45 04/09/20 14:45 DC Fluoxetine HCl (PROzac) 40 mg QHS PO 04/06/20 21:00 04/09/20 20:32 Heparin Sodium (Porcine) (Heparin) 5,000 units Q12H SC 04/06/20 21:00 04/10/20 08:11 Home Med (Med Rec Complete!) ASDIRECTED XX 04/06/20 12:15 04/06/20 12:17 DC Hydromorphone HCl (Dilaudid) 0.2 mg Q5MP PRN IV PAIN LEVEL 4-7 04/09/20 13:45 04/09/20 14:45 DC Lactated Ringer's 1,000 ml @ 70 mls/hr [id number] IV 04/09/20 13:45 04/09/20 14:45 DC Latanoprost (Xalatan 0.005% Op Soln) 1 drop QHS OU 04/06/20 21:00 04/09/20 20:32 Magnesium Hydroxide (Milk Of Magnesia) 30 ml DAILY PRN PO CONSTIPATION 04/06/20 12:30 Magnesium Oxide (Mag-Ox) 400 mg DAILY PO 04/10/20 09:00 04/10/20 08:13 Magnesium Sulfate/ Dextrose 1 gm/IV Miscellaneous Supplies 100 ml @ 100 mls/hr ASDIRECTED IV 04/06/20 13:30 04/06/20 14:41 DC 04/06/20 13:37 Metoprolol Tartrate (Lopressor) 5 mg Q5M IV 04/06/20 14:15 04/06/20 14:26 DC 04/06/20 14:35 Morphine Sulfate (Morphine Sulfate Inj) 2 mg Q30M PRN IV MODERATE PAIN (PS 5-7) 04/06/20 09:15 04/06/20 10:38 DC 04/06/20 10:38 Ondansetron HCl (ZOFRAN INJection) 4 mg Q4HP PRN IV NAUSEA OR VOMITING 04/09/20 13:45 04/09/20 14:45 DC Oxycodone HCl (Roxicodone, Oxyir) 5 mg ASDIRECTED PRN PO PAIN LEVEL 1-4 04/09/20 13:45 04/09/20 14:45 DC Oxycodone/ Acetaminophen (Percocet 5mg/ 325mg Tablet) 1 tab Q4HP PRN PO MILD/MODERATE PAIN (PS 1-7) 04/06/20 17:00 04/10/20 19:18 Oxycodone/ Acetaminophen (Percocet 5mg/ 325mg Tablet) 1 tab Q6HP PRN PO PAIN 04/06/20 17:30 UNV Potassium Chloride/Sodium Chloride 1,000 ml @ 70 mls/hr [id number] IV 04/06/20 14:00 04/06/20 16:42 DC 04/06/20 13:52 Potassium Chloride (Micro-K Extencaps) 40 meq DAILY PO 04/08/20 09:00 04/09/20 17:03 DC 04/09/20 09:38 Potassium Chloride (Micro-K Extencaps) 40 meq DAILY PO 04/10/20 09:00 04/10/20 08:11 Simvastatin (Zocor) 40 mg QHS PO 04/06/20 21:00 04/06/20 18:06 DC Simvastatin (Zocor) 40 mg QHS PO 04/10/20 21:00 Sodium Chloride 1,000 ml @ 70 mls/hr [id number] IV 04/06/20 13:00 04/06/20 13:12 DC Spironolactone (Aldactone) 12.5 mg DAILY PO 04/10/20 09:00 04/10/20 08:13 Allergies Coded Allergies: cephalexin (Verified Allergy, Intermediate, rash, 01/23/20) levofloxacin (Verified Allergy, Unknown, rash, 01/23/20) sulfamethoxazole (Verified Adverse Reaction, Intermediate, problems with kidneys, 01/23/20) trimethoprim (Verified Adverse Reaction, Intermediate, problems with kidneys, 01/23/20) Josselin Judd MD Apr 10, 2020 19:47
[2020-04-10] MEDS: FLUoxetine 20 MG CAP PO SCH (20:36)
[2020-04-10] MEDS: FAMOTIDINE 20 MG TAB PO SCH (20:36)
[2020-04-10] MEDS: LATANOPROST 0.005% OPHTH SOLN 2.5 ML OU SCH (20:37)
[2020-04-10] MEDS ORDERED: SIMVASTATIN 40 MG TAB PO SCH (21:00)
[2020-04-10] MEDS ORDERED: SLF 3 ML SYR IV PRN (21:30)
[2020-04-10] MEDS: SLF 3 ML SYR IV SCH (21:33)
[2020-04-10] MEDS: ONDANSETRON 4MG/2ML VIAL IV PRN (22:26)
[2020-04-11] VITALS: BP 146/64
[2020-04-11 04:00] VITALS: BP 167/74
[2020-04-11 05:26] LABS: HEMATOCRIT 27.9 % (36.0-47.0); HEMOGLOBIN 9.1 g/dl (12.0-15.5); MEAN CORPUSCULAR HEMOGLOBIN 29.3 pg (27.0-33.0); MEAN CORPUSCULAR HGB CONC 32.6 g/dl (32.0-36.5); MEAN CORPUSCULAR VOLUME 89.7 fl (80.0-96.0); PLATELET COUNT, AUTOMATED 200 10^3/uL (150-450); RED BLOOD COUNT 3.11 10^6/uL (4.00-5.40); WHITE BLOOD COUNT 7.9 10^3/uL (4.0-10.0)
[2020-04-11] MEDS: AMPICILLIN SOD 2 GM in D5W MINI-BAG PLUS 100 ML IV SCH (05:30)
[2020-04-11] MEDS: PERCOCET 5MG/325MG TAB PO PRN ×3 (05:31→10:37)
[2020-04-11] MEDS: SLF 3 ML SYR IV SCH (05:32)
[2020-04-11 05:48] LABS: CALCIUM LEVEL 8.6 MG/DL (8.8-10.2); CREATININE FOR GFR 1.63 MG/DL (0.55-1.30); GLOMERULAR FILTRATION RATE 32.7 (>39); MAGNESIUM LEVEL 1.9 MG/DL (1.8-2.4); POTASSIUM SERUM 3.7 MEQ/L (3.5-5.1)
[2020-04-11 06:04] LABS: ATYPICAL LYMPH 5 % (0-5); EOSINOPHILS 3 % (0-3); LYMPHOCYTES 30 % (16-44); MONOCYTES 3 % (0-5); MYELOCYTES 2 % (0-0); NEUTROPHILS 55 % (28-66); PROMYELOCYTES 1 % (0-0)
[2020-04-11 06:05] LABS: PLATELET CLUMPS SMALL AMT; PLATELET ESTIMATE NORMAL (NORMAL); POLYCHROMASIA 1+
[2020-04-11 08:00] VITALS: BP 158/72
[2020-04-11] MEDS ORDERED: LACTOBACILLUS ACIDOPHILUS CAP (BACID) PO SCH (08:00)
[2020-04-11 08:29] VITALS: BP 158/72
[2020-04-11] MEDS: SPIRONOLACTONE 12.5MG PER 1/2 TABLET PO SCH (08:29)
[2020-04-11] MEDS: HEPARIN SOD (PORCINE) 5000UNITS/ML VIAL (J1644 PER 1000UNITS) SC SCH (08:29)
[2020-04-11] MEDS: CARVedilol 12.5 MG TAB PO SCH (08:29)
[2020-04-11] MEDS: CHLORTHALIDONE 12.5MG PER 1/2 TABLET PO SCH (08:30)
[2020-04-11] MEDS: POTASSIUM CHLORIDE 10 MEQ SR TABLET PO SCH (08:30)
[2020-04-11] MEDS: ONDANSETRON 4MG/2ML VIAL IV PRN (08:30)
[2020-04-11] MEDS: MAGNESIUM OXIDE 400 MG TAB (MAG-OX) PO SCH (08:31)
[2020-04-11] MEDS ORDERED: ASPIRIN 81 MG ENTERIC TAB PO SCH (09:00)
[2020-04-11] MEDS ORDERED: ASPI81TAEC PO (10:52)
[2020-04-11] MEDS ORDERED: CHLO125TA PO (10:52)
[2020-04-11] MEDS ORDERED: KLOR10TA76 PO (10:52)
[2020-04-11] MEDS ORDERED: CARV12.5 PO (10:52)
[2020-04-11] MEDS ORDERED: CAPTO25TA PO (10:52)
[2020-04-11] MEDS ORDERED: FAMO20TA PO (10:52)
[2020-04-11] MEDS ORDERED: MAG400TA PO (10:52)
[2020-04-11] MEDS ORDERED: AMLO10TA5 PO (10:52)
[2020-04-11] MEDS ORDERED: ALDA25TA2 PO (10:52)
[2020-04-11] MEDS ORDERED: AUGM500T34 PO (10:52)
[2020-04-11] MEDS ORDERED: RISATAB3 PO (10:52)
[2020-04-11] MEDS: MAALOX 30 ML SUSP *UDC PO PRN (12:50)
--- NOTE | 2020-04-11 17:22 | DS.PDOC ---
Discharge Summary General Date of Admission Apr 06, 2020 at 12:18 Date of Discharge 04/11/20 Attending Physician: Josselin Judd MD Discharge Summary HISTORY OF PRESENT ILLNESS: This is a 74-year-old female who presents with complaints of 9 /10 in severity, dull, generalized and constant abdominal pain that began last night. Associated symptoms include back pain, multiple episodes of nonbloody emesis that began today, fever, chills, pain with urination and cloudy colored urine. Because the UA findings were consistent with a UTI and the CT showed bilateral hydronephrosis, hydroureter, despite the placement of stents, discuss these findings with Dr. Jack who recommended placing cadena and starting antibiotics. Dr. Umana started ampicillin based on cultures and sensitives on her most recent urine culture. HOSPITAL COURSE: The patient had bilateral ureteral obstruction/hydronephrosis which was severe. She underwent cystoscopy, bilateral pyelogram, bilateral ureteral stent exchange 04/09/20. Upon discussion with urology is believed that her urinary retention was more likely to have caused this versus an issue with her stents. She passed a fill and pull test today and catheter was removed. She was treated for acute pyelonephritis, UCx later growing E. faecalis and E. coli growing, sensitve to ampicillin alone. Stopped Zosyn (Completed 4 days) and switched to Ampicillin 2 gm Q6 hrs (Day 2). WBC wnl, improved. She had uncontrolled BP and cardiology followed for chronic hypertensive heart disease. Added spironolactone, chlorthalidone, lasix, BB, CCB, ACEi. She was found to have a chronically elevated QT interval remains prolonged but this has been the case for at least the past year per cards. Chronic kidney disease, stage III to IV improved to baseline, Cr 1.6. She experienced torsades de pointes/ Polymorphic ventricular tachycardia but that resolved with amiodarone and BB- amiodarone later was stopped and electrolytes were aggressively replaced, watched carefully. Diastolic CHF, chronic and appeared to be controlled after blood pressure controlled. Echocardiogramm showed preserved EF. Her depression was believed to be a problem this admission. She has a hx of chronic pain syndrome, fibromyalgia, chronic depression. States she has tried several medications in the past, with no improvement. Has seen specialists. Discussed having psychiatry consulted, as worsening depression and not participating with PT/OT may delay discharge home but she did not wish to consult psychiatry. On 04/11/20 patient was discharged home in improved condition without cadena catheter and needing f/u with urology and PCP. She will need to continue augmentin for additional 5 days. She denied chest pain, n/v/d, fevers, chills. PAST MEDICAL/ SURGICAL HISTORY: Chronic HTN CKD 3/4 Bilateral renal stents Dyslipidemia Chronic Pain /Neuropathy Bilateral ureteral obstruction requiring placement of stents (these were last exchanged 3 months ago) denied hx of CAD, DM or CVA SOCIAL HISTORY: She is a former smoker She doesn't drink alcohol FAMILY HISTORY: According to the patient, she doesn't know ALLERGIES: Please see below.] DISCHARGE MEDICATIONS: Please see below. VITAL SIGNS: Please see below PHYSICAL EXAMINATION: CONSTITUTIONAL: No acute distress, resting , AAO x 3 EYES: PERRLA, EOM intact HENT, MOUTH: Normocephalic, atraumatic, moist mucous membranes NECK: SUPPLE, no JVD, no lymphadenopathy, no carotid bruit CV: Regular rate and rhythm, S1S2 normal, no murmurs/rubs/gallops RESPIRATORY: Clear to auscultation bilaterally, no rales/rhonchi/wheezes GI: BS positive in 4 quadrants, soft, nontender, nondistended, no rebound or guarding, no organomegaly : deferred MUSCULOSKELETAL: Normal ROM. No cyanosis, clubbing, swelling, joint deformity, extremity edema INTEGUMENTARY: Intact, no rashes, no lesions, no erythema NEUROLOGIC: Cranial Nerves II-XII are intact, no focal deficits PSYCHIATRIC: Flat affect, mood down CURRENT MEDICATIONS: Please see below LABORATORY DATA: Please see below IMAGING: Please see under "imaging" transcriptions. ASSESSMENT: 74 y/o F treated for bilateral hydronephrosis, uncontrolled HTN, acute pyelonephritis and UTI . PLAN: 1. Bilateral ureteral obstruction/hydronephrosis, severe. Status post cystoscopy, bilateral pyelogram, bilateral ureteral stent exchange 04/09/20. Upon discussion with urology is believed that her urinary retention was more likely to have caused this versus an issue with her stents. She passed a fill and pull test today, continued to make good urine and cadena was able to be kept out. F/u with urology as o/p. 2. Acute pyelonephritis. E. faecalis and E. coli growing in cx, sensitve to ampicillin alone. Stopped Zosyn (Completed 4 days) and switched to Ampicillin 2 gm Q6 hrs (Completed 3 days). WBC wnl, improved. Discharging with PO augmentin PO BID. F/u with urology. 3. Chronic hypertensive heart disease. BP uncontrolled earlier. C/w spironolactone, chlorthalidone, BB, CCB, ACEi. F/u with cardiology as o/p. 4. Abnormal EKG. Last trop trending down, indeterminate with renal function. C/w BB, ACEi, statin. According to cardiology, QT interval remains prolonged but this has been the case for at least the past year per cards. 5. Chronic kidney disease, stage III to IV. Cr better than baseline at 1.6. 6. Torsades de pointes/ Polymorphic ventricular tachycardia- resolved. Suspected likely 2/2 to hypertensive heart disease. All electrolytes are within normal limits. C/w tx for HTN 7. Diastolic CHF, chronic. Denies SOB, chest pain. C/w BB, ACEi low dose, spironolactone. 8. Physical deconditioning. Was cleared by PT/OT to return home. 9. Depression. Hx of chronic pain syndrome, fibromyalgia, chronic depression. States she has tried several medications in the past, with no improvement. Has seen specialists. Discussed having psychiatry consulted, as worsening depression and not participating with PT/OT may delay discharge home. She did not wish to consult psychiatry.Recommend o/p referral to behavioral health, as this is definetly not controlled and could be the reason why she has chronic pain, fibromyalgia and decreased motivation to ambulate. DISPOSITION: Discharged home today in improved condition. F/u with PCP, urology and cardiology after discharge. TIME SPENT ON DISCHARGE: Greater than 30 minutes. Vital Signs/I&Os Vital Signs Date Time Temp Pulse Resp B/P (MAP) Pulse Ox O2 Delivery O2 Flow Rate FiO2 04/11/20 10:10 14 04/11/20 09:40 Room Air 04/11/20 08:29 60 158/72 04/11/20 08:00 96.5 92 04/10/20 04:00 2.0 I&O- Last 24 Hours up to 6 AM 04/11/20 06:00 Intake Total 300 ml Output Total 1975 ml Balance -1675 ml Laboratory Data Labs 24H Laboratory Tests 2 04/11/20 05:01: Immature Granulocyte % (Auto) , Neutrophils (%) (Auto) , Nucleated Red Blood Cells % (auto) 0.3H, Neutrophils 55, Band Neutrophils 1, Lymphocytes (Manual) 30 , Monocytes (Manual) 3, Eosinophils (Manual) 3, Myelocytes 2H, Promyelocytes 1H, Atypical Lymphocytes 5, Polychromasia 1+, Macrocytosis 1+, Platelet Estimate NORMAL, Clumped Platelets SMALL AMT, Anion Gap 6L, Glomerular Filtration Rate 32.7L, Calcium Level 8.6L, Magnesium Level 1.9 CBC/BMP Laboratory Tests 04/11/20 05:01 Microbiology Microbiology 04/08/20 Respiratory Virus Panel (PCR) (LUZMA) - Final, Complete 04/06/20 Urine Culture - Final, Complete Escherichia Coli Enterococcus Faecalis 04/06/20 Blood Culture - Final, Complete NO GROWTH AFTER 5 DAYS 04/06/20 Blood Culture - Final, Complete NO GROWTH AFTER 5 DAYS Discharge Medications Scheduled Amlodipine Besylate (Amlodipine Besylate) 10 Mg Tablet, 10 MG PO QHS Amoxicillin/Potassium Clav (Augmentin 500-125 Tablet) 1 Each Tablet, 1 TAB PO BID Aspirin (Aspirin EC) 81 Mg Tablet.dr, 81 MG PO DAILY Captopril (Captopril) 25 Mg Tablet, 25 MG PO BID Carvedilol (Carvedilol) 12.5 Mg Tablet, 12.5 MG PO BID Chlorthalidone (Chlorthalidone) 25 Mg Tablet, 12.5 MG PO DAILY Famotidine (Famotidine) 20 Mg Tablet, 40 MG PO QHS Fluoxetine Hcl (Fluoxetine HCl) 20 Mg Capsule, 40 MG PO QHS, (Reported) L.acidoph/L.bulg/B.bif/S.therm (Mia-Bid Caplet) 1 Each Tablet, 1 EA PO BIDWM Latanoprost (Xalatan) 0.005 % Olga, 1 DROP OU QHS, (Reported) Magnesium Oxide (Magnesium Oxide) 400 Mg Tablet, 400 MG PO DAILY Multivit,Calc,Mins/Iron/Folic (Thera-M Tablet) 1 Each Tablet, 1 TAB PO QHS, (Reported) Potassium Chloride (Klor-Con M10) 10 Meq Tab.er.prt, 40 MEQ PO DAILY Simvastatin (Simvastatin) 40 Mg Tab, 40 MG PO QHS, (Reported) Spironolactone (Aldactone) 25 Mg Tablet, 12.5 MG PO DAILY Scheduled PRN Acetaminophen (Acetaminophen) 325 Mg Tablet, 650 MG PO Q6H PRN for PAIN, (Reported) Oxycodone HCl/Acetaminophen (Oxycodone-Acetaminophen 5-325) 1 Tab Tab, 1 TAB PO Q6HP PRN for PAIN, (Reported) Allergies Coded Allergies: cephalexin (Verified Allergy, Intermediate, rash, 01/23/20) levofloxacin (Verified Allergy, Unknown, rash, 01/23/20) sulfamethoxazole (Verified Adverse Reaction, Intermediate, problems with kidneys, 01/23/20) trimethoprim (Verified Adverse Reaction, Intermediate, problems with kidneys, 01/23/20) Josselin Judd MD Apr 11, 2020 17:22
[2020-04-11] MEDS ORDERED: amLODIPine 10 MG TAB PO SCH (21:00)
== END 2020-04-11 13:28 | disposition home or self-care (01) | DRG 872 ==
LOC: EDBD 07:56 → M ED 07:56 → M ED INP 12:18 → ENRESERVTM 12:47 → ENRESERVDT 12:47 → M ICU 14:54 → M PCU 04-08 20:55
PROVIDERS: ADMIT Internal Medicine; ATTEND Internal Medicine
PROC: 0T787DZ Dilation of Bilateral Ureters with Intraluminal Device, Via Natural or Artificial Opening (ICD-10-PCS; 2020-04-09)
PROC: 0TP980Z Removal of Drainage Device from Ureter, Via Natural or Artificial Opening Endoscopic (ICD-10-PCS; principal; 2020-04-09 13:15)
DX: A41.9 Sepsis, unspecified organism (principal); N13.6 Pyonephrosis; N17.9 Acute kidney failure, unspecified; N18.4 Chronic kidney disease, stage 4 (severe); E87.2 Acidosis; I50.32 Chronic diastolic (congestive) heart failure; I13.0 Hypertensive heart and chronic kidney disease with heart failure and stage 1 through stage 4 chronic kidney disease, or unspecified chronic kidney disease; I47.2 Ventricular tachycardia; E87.6 Hypokalemia; R59.0 Localized enlarged lymph nodes; E66.9 Obesity, unspecified; B95.2 Enterococcus as the cause of diseases classified elsewhere; K21.9 Gastro-esophageal reflux disease without esophagitis; G62.9 Polyneuropathy, unspecified; I27.20 Pulmonary hypertension, unspecified; M79.7 Fibromyalgia; B96.20 Unspecified Escherichia coli [E. coli] as the cause of diseases classified elsewhere; H40.9 Unspecified glaucoma; G89.4 Chronic pain syndrome; E83.42 Hypomagnesemia; Z68.30 Body mass index [BMI] 30.0-30.9, adult; Z79.899 Other long term (current) drug therapy; Z88.1 Allergy status to other antibiotic agents; Z88.2 Allergy status to sulfonamides; Z88.8 Allergy status to other drugs, medicaments and biological substances; Z96.0 Presence of urogenital implants; Z87.891 Personal history of nicotine dependence; Z85.038 Personal history of other malignant neoplasm of large intestine; Z90.49 Acquired absence of other specified parts of digestive tract; Z11.59 Encounter for screening for other viral diseases

== ENCOUNTER 2020-04-20 15:59 | Inpatient (IN) | payer MEDICARE ==
[~2020-04-20] VITALS: Ht 167.6 cm; Wt 77.9 kg
[~2020-04-20 15:59] MED LIST changes: +ALDA25TA2 PO; +AMLO10TA5 PO; +APAP325T4 PO; +ASPI81TAEC PO; +AUGM500T34 PO; +CAPTO25TA PO; +CARV12.5 PO; +CHLO125TA PO; +FAMO20TA PO; +FLUO20CA20 PO; +KLOR10TA76 PO; +MAG400TA PO; +POTA10TA17 PO; +RISATAB3 PO; +THERTAB20 PO
[2020-04-20] MEDS ORDERED: NITR100C2 PO (16:25)
[2020-04-20] MEDS ORDERED: HYDR12.55 PO (16:25)
[2020-04-20] MEDS ORDERED: NS 1,000 ML IV SCH (16:30)
[2020-04-20] MEDS ORDERED: ONDANSETRON 4MG/2ML VIAL IV ONE ×2 (16:45→19:15)
[2020-04-20 17:04] LABS: VENOUS BASE EXCESS 1.9 (-2.0-2.0); VENOUS HCO3 25.5 MEQ/L (23.0-27.0); VENOUS O2 SATURATION 90.1 % (60.0-80.0); VENOUS PARTIAL PRESSURE CO2 36.3 mmHg (38.0-50.0); VENOUS PARTIAL PRESSURE O2 54.4 mmHg (30.0-50.0); VENOUS PH 7.464 UNITS (7.330-7.430); VENOUS TOTAL CO2 26.6 MEQ/L (24.0-28.0)
--- NOTE | 2020-04-20 17:09 | REP ---
Clinical: Syncope . Comparison: 03/16/2020 . Findings: The mediastinum and cardiac silhouette are stable and within normal limits for portable technique. The lung johnson demonstrate chronic-appearing changes without acute consolidation, effusion, or pneumothorax. Skeletal structures are intact. Impression: No acute cardiopulmonary process appreciated. Electronically Signed by Miller Purvis MD 04/20/2020 05:00 P
--- NOTE | 2020-04-20 17:10 | REP ---
Clinical: Syncope and loss of consciousness . Findings: Age-related atrophy and microvascular ischemic changes are appreciated. The ventricles and sulci are symmetric. Scott-white differentiation is maintained. There is no evidence for acute intracranial hemorrhage, mass/mass effect, pathology or infarction. No extra-axial fluid collection. Calvarium is intact. Paranasal sinuses and mastoid air cells are clear. Impression: Age related atrophy and microvascular ischemic changes. No acute intracranial hemorrhage, infarction, or mass/mass effect. Electronically Signed by Miller Purvis MD 04/20/2020 05:01 P
[2020-04-20 17:12] LABS: BASO # 0.1 10^3/uL (0.0-0.2); BASO % 0.8 % (0.0-1.0); EOS % 0.2 % (0.0-3.0); HEMOGLOBIN 12.9 g/dl (12.0-15.5); LYMPH # 2.6 10^3/uL (1.5-5.0); LYMPH % 19.7 % (24.0-44.0); MEAN CORPUSCULAR HEMOGLOBIN 28.9 pg (27.0-33.0); MEAN CORPUSCULAR HGB CONC 33.1 g/dl (32.0-36.5); MEAN CORPUSCULAR VOLUME 87.2 fl (80.0-96.0); MONO # 0.5 10^3/uL (0.0-0.8); MONO % 3.8 % (0.0-5.0); NEUTROPHILS # 9.9 10^3/uL (1.5-8.5); NEUTROPHILS % 75.2 % (36.0-66.0); PLATELET COUNT, AUTOMATED 274 10^3/uL (150-450); RED BLOOD COUNT 4.47 10^6/uL (4.00-5.40); WHITE BLOOD COUNT 13.1 10^3/uL (4.0-10.0)
--- NOTE | 2020-04-20 17:12 | REP ---
Clinical: Syncope. Technique: Axial noncontrast images from the skull base to the thoracic inlet with coronal and sagittal re-formations. Findings: Advanced multilevel degenerative disc osteophyte complexes are appreciated. Findings include osteophytosis, endplate sclerosis/heterogeneity, disc space narrowing and hypertrophic facet changes. No acute fracture / compression injury or subluxation identified. Spinal canal is grossly patent. Paravertebral soft tissues are within normal limits. Impression: Advanced multilevel degenerative spondylosis. No acute fracture / compression injury or subluxation. Electronically Signed by Miller Purvis MD 04/20/2020 05:03 P
--- NOTE | 2020-04-20 17:14 | REP ---
Clinical: Trauma. Syncope. Technique: Axial noncontrast images through the facial bones to include the mandible with coronal and sagittal re-formations. Findings: The osseous structures are intact and there is no evidence for fracture or dislocation. Specifically, the bilateral zygomatic arches, nasal bones, and mandible including bilateral temporomandibular joints appear normal and symmetric. The sinuses and mastoid air cells are all well aerated and clear without fluid level to suggest occult trauma. A few incidental maxillary mucoceles noted. The bilateral orbits including the globes and intraconal contents appear symmetric and normal. The surrounding soft tissues are grossly unremarkable. Impression: No evidence for acute pathology or trauma/injury. Electronically Signed by Miller Purvis MD 04/20/2020 05:05 P
[2020-04-20 17:23] LABS: INR 1.22; PROTHROMBIN TIME 15.1 SECONDS (11.8-14.0)
[2020-04-20 17:48] LABS: BLOOD UREA NITROGEN 28 MG/DL (7-18); CALCIUM LEVEL 9.8 MG/DL (8.8-10.2); CARBON DIOXIDE LEVEL 26 MEQ/L (21-32); CHLORIDE LEVEL 102 MEQ/L (98-107); CK-MB VALUE MASS 1.9 NG/ML (<3.6); CPK CREATINE PHOSPHOKINASE 74 U/L (26-192); CREATININE FOR GFR 2.31 MG/DL (0.55-1.30); GLOMERULAR FILTRATION RATE 21.9 (>39); GLUCOSE, FASTING 129 MG/DL (70-100); MB/CK RELATIVE INDEX 2.57 (< OR =4); POTASSIUM SERUM 3.7 MEQ/L (3.5-5.1); SODIUM LEVEL 135 MEQ/L (136-145); TROPONIN I < 0.02 NG/ML (< 0.10)
[2020-04-20] MEDS ORDERED: AMLO10TA5 PO (18:56)
[2020-04-20] MEDS ORDERED: POTA20TA6 PO (18:56)
[2020-04-20] MEDS ORDERED: SPIR-10 PO (18:56)
[2020-04-20] MEDS ORDERED: CARV12.5 PO (18:56)
[2020-04-20] MEDS ORDERED: FLUO40CA PO (18:56)
[2020-04-20] MEDS ORDERED: CAPT1TAB17 PO (18:56)
[2020-04-20] MEDS ORDERED: MAGN400T2 PO (18:56)
[2020-04-20] MEDS ORDERED: FAMO40TA3 PO (18:56)
[2020-04-20] MEDS ORDERED: ASPI81TA85 PO (18:56)
[2020-04-20] MEDS ORDERED: CHLO125TA PO (18:57)
[2020-04-20] MEDS ORDERED: GABA600T4 PO (18:58)
[2020-04-20] MEDS ORDERED: PERCOCET 5MG/325MG TAB PO ONE (19:15)
[2020-04-20] MEDS ORDERED: ACETAMINOPHEN TAB 650MG DOSE (2X325MG) PO PRN (20:15)
--- NOTE | 2020-04-20 20:35 | HPEPDOC ---
General Date of Admission 04/20/20 Date of Service: Apr 20, 2020 Chief Complaint The patient is a 74-year-old female admitted with a reason for visit of Weakness. Source: Patient Exam Limitations: No limitations Timing/Duration: Day(s) Severity: Moderate Associated Symptoms: Chills, Nausea, Vomiting History of Present Illness Patient 74 years old female with past medical history significant for chronic hypertension, CKG, chronic bilateral renal stents secondary to obstruction with changes every 3 months, chronic pain, neuropathy presented hospital with nausea, vomiting and chills. Patient stated that after bilateral stent changes on 04/10/20 patient was discharged from the hospital with by mouth Augmentin. After discharge patient developed daily nausea with chills and night sweats. Today patient became more agitated and had rigors. Also she developed a mechanical fall. Imaging study was negative for subluxation or fracture In emergency room patient was found to have leukocytes count of 13.3, hemoglobin 12.9, creatinine 2.3. EKG showed atrial fibrillation with rapid ventricular rate. UA showed pyuria. Previous urine culture which was done on 04/06/20 showed Escherichia coli with Enterococcus faecalis. Home Medications Scheduled Amlodipine Besylate (Amlodipine Besylate) 10 Mg Tablet, 10 MG PO QHS, (Reported) Aspirin (Aspir 81) 81 Mg Tablet.dr, 81 MG PO QHS, (Reported) Captopril (Captopril) 25 Mg Tablet, 25 MG PO BID, (Reported) Carvedilol (Carvedilol) 12.5 Mg Tablet, 12.5 MG PO BID, (Reported) Chlorthalidone (Chlorthalidone) 25 Mg Tablet, 12.5 MG PO QPM, (Reported) Famotidine (Famotidine) 40 Mg Tablet, 40 MG PO QHS, (Reported) Fluoxetine Hcl (Fluoxetine HCl) 40 Mg Capsule, 40 MG PO QHS, (Reported) Gabapentin (Gabapentin) 600 Mg Tablet, 600 MG PO TID, (Reported) Hydrochlorothiazide (Hydrochlorothiazide) 12.5 Mg Tablet, 12.5 MG PO DAILY, (Reported) Latanoprost (Xalatan) 0.005 % Olga, 1 DROP OU QHS, (Reported) Magnesium Oxide (Magnesium Oxide) 400 Mg Tablet, 400 MG PO DAILY, (Reported) NOON Multivit,Calc,Mins/Iron/Folic (Thera-M Tablet) 1 Each Tablet, 1 TAB PO QHS, (Reported) Nitrofurantoin Monohyd/M-Cryst (Nitrofurantoin [place]-Mcr 100 mg) 100 Mg Capsule, 100 MG PO QHS, (Reported) Potassium Chloride (Potassium Chloride) 20 Meq Tab.er.prt, 40 MEQ PO QHS, (Reported) Simvastatin (Simvastatin) 40 Mg Tab, 40 MG PO QHS, (Reported) Spironolactone (Spironolactone) 25 Mg Tablet, 12.5 MG PO QHS, (Reported) Scheduled PRN Acetaminophen (Acetaminophen) 325 Mg Tablet, 650 MG PO Q6H PRN for PAIN, (Reported) Oxycodone HCl/Acetaminophen (Oxycodone-Acetaminophen 5-325) 1 Tab Tab, 1 TAB PO Q6HP PRN for PAIN, (Reported) Allergies Coded Allergies: cephalexin (Verified Allergy, Intermediate, rash, 04/20/20) levofloxacin (Verified Allergy, Unknown, rash, 04/20/20) sulfamethoxazole (Verified Adverse Reaction, Intermediate, problems with kidneys, 04/20/20) trimethoprim (Verified Adverse Reaction, Intermediate, problems with kidneys, 04/20/20) Past Medical History Medical History GLAUCOMA DEPRESSION GERD CA OF COLON HYPERTENSION ANEMIA ELEVATED CHOLESTEROL RENAL CALCULI 09 HEART MURMUR ABNORMAL PAP, CERVICAL DYSPALSIA. 1999. MOST RECENT PAP SMEAR 2010 CATARACTS DM TYPE 2 Surgical History T. AND A. CHILD EXCISION OF COLON CANCER 1997 COLONOSCOPY 2005, 2009,2013 LASER SURGERY FOR GLAUCOMA 05/2013 UTERAL STENTS 2013 GALL BLADDER REMOVAL 02/2015 UTERAL STENTS 02/2015 COLONOSCOPY, ENDOSCOPY 02/2015 CARDIAC CATH 02/2015 CARDIAC STENTS REPLACED ON BOTH SIDES 01/2016 CHANGE OF KIDNEY STENTS 02/2017 FATUMA- EYES 04/2017 KIDNEY STENTS 05/21/2019 KIDNEY STENT REPLACEMENT 10/2019 Social History * Smoker: former Smoker Alcohol: Denies Drugs: denies A-FIB/CHADSVASC A-FIB History Current/History of A-Fib/PAF?: Yes Current PO Anticoag Therapy: No Review of Systems Constitutional: Reports: Chills, Fever Eyes: Denies: Pain ENT: Denies: Head Aches Skin: Denies: Rash Pulmonary: Denies: Dyspnea, Cough Cardiovascular: Denies: Chest Pain Gastrointestinal: Reports: Nausea; Denies: Vomiting Genitourinary: Reports: Dysuria, Frequency Hematologic: Denies: Bruising Endocrine: Denies: Polydipsia Musculoskeletal: Reports: Back Pain; Denies: Neck Pain Neurological: Denies: Weakness Psych: Reports: Mood Normal Physical Examination General Exam: Positive: Alert, Cooperative Eye Exam: Positive: PERRLA ENT Exam: Positive: Atraumatic Neck Exam: Positive: Supple; Negative: JVD Chest Exam: Positive: Clear to auscultation Heart Exam: Positive: Irregular Rhythm Telemetry: Positive: Atrial fibrillation Abdomen Exam: Positive: Normal bowel sounds Extremity Exam: Negative: Clubbing, Edema Skin Exam: Positive: Nl turgor and temperature Neuro Exam: Positive: Normal Tone, Sensation Intact, Cranial Nerves 3-12 NL Psych Exam: Positive: Mental status NL Vital Signs Vital Signs Date Time Temp Pulse Resp B/P (MAP) Pulse Ox O2 Delivery O2 Flow Rate FiO2 04/20/20 19:28 96.3 04/20/20 19:21 107 18 113/63 96 04/20/20 16:04 Room Air Laboratory Data Labs 24H Laboratory Tests 2 04/20/20 16:44: Immature Granulocyte % (Auto) 0.3, Neutrophils (%) (Auto) 75.2H, Lymphocytes (%) (Auto) 19.7L, Monocytes (%) (Auto) 3.8, Eosinophils (%) (Auto) 0.2, Basophils (%) (Auto) 0.8, Neutrophils # (Auto) 9.9H, Lymphocytes # (Auto) 2.6, Monocytes # (Auto) 0.5, Eosinophils # (Auto) 0.0, Basophils # (Auto) 0.1, Nucleated Red Blood Cells % (auto) 0.0, Prothrombin Time 15.1H, Prothromb Time International Ratio 1.22, Blood Gas Bicarbonate Standard 26.0, Venous Blood pH 7.464H, Venous Blood Partial Pressure CO2 36.3L, Venous Blood Partial Pressure O2 54.4H, Venous Blood Total Carbon Dioxide 26.6, Venous Blood HCO3 25.5, Venous Blood Oxygen Saturation 90.1H, Venous Blood Base Excess 1.9, Anion Gap 7L, Glomerular Filtration Rate 21.9L, Lactic Acid Level 1.7, Calcium Level 9.8, Total Creatine Kinase 74, Creatine Kinase MB 1.9, Creatine Kinase MB Relative Index 2.57, Trop onin I < 0.02, Thyroid Stimulating Hormone (TSH) 1.810 04/20/20 17:15: Bedside Glucose (Misc Panel) 124H 04/20/20 18:05: Urine Color YELLOW, Urine Appearance CLOUDYH, Urine pH 5.0, Urine Specific [place] 1.015, Urine Protein 2+H, Urine Glucose (UA) NEGATIVE, Urine Ketones NEGATIVE, Urine Blood 1+H, Urine Nitrite NEGATIVE, Urine Bilirubin NEGATIVE, Urine Urobilinogen 0.2, Urine Leukocyte Esterase 3+H, Urine WBC (Auto) 159H, Urine RBC (Auto) 15H, Urine Hyaline Casts (Auto) 0, Urine Bacteria (Auto) 1+H, Urine Squamous Epithelial Cells 2, Urine Amorphous Sediment SMALLH, Urine Yeast- Like Cells (Auto) SMALLH, Urine Sperm (Auto) CBC/BMP Laboratory Tests 04/20/20 16:44 Microbiology Microbiology 04/20/20 Urine Culture, Received Pending Assessment/Plan Patient 74 years old female with past medical history significant for chronic hypertension, CKG, chronic bilateral renal stents secondary to obstruction with changes every 3 months, chronic pain, neuropathy presented hospital with nausea, vomiting and chills. Patient stated that after bilateral stent changes on 04/10/20 patient was discharged from the hospital with by mouth Augmentin. After discharge patient developed daily nausea with chills and night sweats. Today patient became more agitated and had rigors. Also she developed a mechanical fall. Imaging study was negative for subluxation or fracture In emergency room patient was found to have leukocytes count of 13.3, hemoglobin 12.9, creatinine 2.3. EKG showed atrial fibrillation with rapid ventricular rate. UA showed pyuria. Previous urine culture which was done on 04/06/20 showed Escherichia coli with Enterococcus faecalis. Problems (1) Sepsis Status: Acute Problem Text: Patient developed leukocytosis of 13.1, tachycardia, UA shows pyuria and ANTELMO Previous UA culture was positive for Enterococcus faecalis and Escherichia coli sensitive to meropenem Patient has a history of recent hospitalization she's been treated with different antibiotic courses I started meropenem empirically to cover possible Pseudomonas infection IV fluid (2) UTI (urinary tract infection) Status: Acute Problem Text: Urine analysis shows pyuria According to urologist recommendation patient should be indefinitely on the Microbid doses We'll proceed with CT abdomen and pelvis to rule out urinary obstruction and hydronephrosis Consider urologist consult in the morning (3) Atrial fibrillation Status: Acute Problem Text: I will start oral anticoagulation Patient was not on the anticoagulation Continue beta blockers for heart rate control We'll check magnesium level Lopressor IV PRN (4) ARF (acute renal failure) Status: Acute Problem Text: Combined renal and prerenal Continue IV fluids Continue to monitor Plan / VTE VTE Prophylaxis Ordered?: Yes KHOI KHALIL DO Apr 20, 2020 20:35
[2020-04-20] MEDS ORDERED: NS 1,000 ML IV ONE (20:45)
[2020-04-20] MEDS ORDERED: METOPROLOL 5 MG/5 ML VIAL IV PRN (20:45)
--- NOTE | 2020-04-20 21:06 | REPVR ---
PROCEDURE INFORMATION: Exam: CT Abdomen And Pelvis Without Contrast Exam date and time: 04/20/2020 8:50 PM Age: 74 years old Clinical indication: Condition or disease; Kidney or ureter condition; Other: Obstruction; Additional info: Urether obstruction b/l TECHNIQUE: Imaging protocol: Computed tomography of the abdomen and pelvis without contrast. Radiation optimization: All CT scans at this facility use at least one of these dose optimization techniques: automated exposure control; mA and/or kV adjustment per patient size (includes targeted exams where dose is matched to clinical indication); or iterative reconstruction. COMPARISON: CT ABD PELVIS W/O CONTRAST 04/06/2020 10:23 AM FINDINGS: Lungs: Scarring in the lingular and middle lobes. Bibasilar atelectasis. Liver: Normal. No mass. Gallbladder and bile ducts: There has been a cholecystectomy. Pancreas: Normal. No ductal dilation. Spleen: Normal. No splenomegaly. Adrenals: There is bilateral adrenal hyperplasia. Kidneys and ureters: Bilateral renal parenchymal scarring and cortical thinning demonstrated as noted previously. Stomach and bowel: Unremarkable. No obstruction. No mucosal thickening. Appendix: No evidence of appendicitis. Intraperitoneal space: Unremarkable. No free air. No significant fluid collection. Vasculature: The aorta demonstrates mild atherosclerotic calcification. Status post placement of double pigtail stents within both collecting systems with satisfactory positioning of the proximal and distal coils. Lymph nodes: Unremarkable. No enlarged lymph nodes. Bladder: Unremarkable as visualized. Reproductive: Unremarkable as visualized. Bones/joints: Grade 1 degenerative anterolisthesis of L4 on L5.. Spine moderate. Moderate to severe central spinal stenosis L3-L4, severe central spinal stenosis L4-L5. Bilateral facet joint arthropathy L5-S1. Soft tissues: Small Bochdalek's hernia on the right. Bilateral fatty inguinal hernias without incarceration. IMPRESSION: 1. There has been a cholecystectomy. 2. There is bilateral adrenal hyperplasia. 3. Status post placement of double pigtail stents within both collecting systems with satisfactory positioning of the proximal and distal coils. There has been significant interval decompression of bilateral hydronephrosis in comparison to the prior study of 04/06/2020. 4. Bilateral fatty inguinal hernias without incarceration. 5. Bilateral renal parenchymal scarring and cortical thinning demonstrated as noted previously. Electronically signed by: Wade Hernandez On 04/20/2020 21:06:15 PM
[2020-04-20 21:20] LABS: BASO # 0.1 10^3/uL (0.0-0.2); BASO % 0.6 % (0.0-1.0); EOS % 0.1 % (0.0-3.0); HEMATOCRIT 36.3 % (36.0-47.0); HEMOGLOBIN 12.1 g/dl (12.0-15.5); LYMPH # 2.8 10^3/uL (1.5-5.0); LYMPH % 22.5 % (24.0-44.0); MEAN CORPUSCULAR HEMOGLOBIN 29.3 pg (27.0-33.0); MEAN CORPUSCULAR HGB CONC 33.3 g/dl (32.0-36.5); MEAN CORPUSCULAR VOLUME 87.9 fl (80.0-96.0); MONO # 0.7 10^3/uL (0.0-0.8); MONO % 5.6 % (0.0-5.0); NEUTROPHILS # 8.9 10^3/uL (1.5-8.5); NEUTROPHILS % 70.7 % (36.0-66.0); PLATELET COUNT, AUTOMATED 238 10^3/uL (150-450); RED BLOOD COUNT 4.13 10^6/uL (4.00-5.40); WHITE BLOOD COUNT 12.6 10^3/uL (4.0-10.0)
[2020-04-20 21:34] VITALS: BP 123/79
[2020-04-20] MEDS ORDERED: MEROPENEM INJ 2 GM in NS 100 ML IV SCH (22:00)
[2020-04-20] MEDS: FAMOTIDINE 20 MG TAB PO SCH (22:04)
[2020-04-20] MEDS: KCL 20MEQ in NS 1000ML 1,000 ML IV SCH (22:04)
[2020-04-20] MEDS: ASPIRIN 81 MG ENTERIC TAB PO SCH (22:05)
[2020-04-20] MEDS: POTASSIUM CHLORIDE 10 MEQ SR TABLET PO SCH (22:05)
[2020-04-20] MEDS: GABAPENTIN 300 MG CAP PO SCH (22:06)
[2020-04-20] MEDS: SIMVASTATIN 40 MG TAB PO SCH (22:06)
[2020-04-20] MEDS: APIXABAN 2.5 MG TAB (ELIQUIS) PO SCH (22:07)
[2020-04-20] MEDS: amLODIPine 10 MG TAB PO SCH (22:07)
[2020-04-20] MEDS: FLUoxetine 20 MG CAP PO SCH (22:07)
[2020-04-20] MEDS: CARVedilol 12.5 MG TAB PO SCH (22:08)
[2020-04-20] MEDS: LATANOPROST 0.005% OPHTH SOLN 2.5 ML OU SCH (22:54)
[2020-04-21] MEDS: PERCOCET 5MG/325MG TAB PO PRN ×4 (00:36→18:57)
[2020-04-21] MEDS: ONDANSETRON 4MG/2ML VIAL IV PRN ×3 (05:55→18:57)
[2020-04-21 06:00] VITALS: BP 102/54
[2020-04-21 06:05] LABS: HEMATOCRIT 33.2 % (36.0-47.0); HEMOGLOBIN 11.1 g/dl (12.0-15.5); MEAN CORPUSCULAR HEMOGLOBIN 29.8 pg (27.0-33.0); MEAN CORPUSCULAR HGB CONC 33.4 g/dl (32.0-36.5); MEAN CORPUSCULAR VOLUME 89.2 fl (80.0-96.0); PLATELET COUNT, AUTOMATED 252 10^3/uL (150-450); RED BLOOD COUNT 3.72 10^6/uL (4.00-5.40); WHITE BLOOD COUNT 13.7 10^3/uL (4.0-10.0)
[2020-04-21] MEDS: KCL 20MEQ in NS 1000ML 1,000 ML IV SCH (06:33)
[2020-04-21 06:37] LABS: ALBUMIN 2.7 GM/DL (3.2-5.2); BILIRUBIN,TOTAL 0.4 MG/DL (0.2-1.0); CREATININE FOR GFR 2.33 MG/DL (0.55-1.30); GLOMERULAR FILTRATION RATE 21.7 (>39); MAGNESIUM LEVEL 2.2 MG/DL (1.8-2.4); TOTAL PROTEIN 6.9 GM/DL (6.4-8.2)
--- NOTE | 2020-04-21 09:03 | ECGEPIP ---
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
[2020-04-21] MEDS ORDERED: VANCOMYCIN INTERMITTENT/PULSE DOSING BY CLINICAL PHARMACIST PER DOSING PROTOCOL XX SCH (09:30)
[2020-04-21] MEDS: GABAPENTIN 300 MG CAP PO SCH ×3 (09:37→21:41)
[2020-04-21] MEDS: NS 1,000 ML IV SCH ×2 (09:37→21:11)
[2020-04-21] MEDS: APIXABAN 2.5 MG TAB (ELIQUIS) PO SCH ×2 (09:37→21:41)
[2020-04-21] MEDS: CARVedilol 12.5 MG TAB PO SCH ×2 (09:46→21:40)
[2020-04-21] MEDS ORDERED: MEROPENEM INJ 1 GM in IV 1 EA IV SCH (10:00)
[2020-04-21] MEDS ORDERED: VANCOMYCIN HCL 1,000 MG, VIAL MATE ADAPTER 1 EACH in D5W 250 ML IV ONE (11:00)
[2020-04-21] MEDS: MAGNESIUM OXIDE 400 MG TAB (MAG-OX) PO SCH (12:30)
[2020-04-21] MEDS: LACTOBACILLUS ACIDOPHILUS CAP (BACID) PO SCH ×3 (12:30→21:41)
[2020-04-21] MEDS: AMPICILLIN SOD 1 GM in D5W MINI-BAG PLUS 50 ML IV SCH ×2 (12:58→18:08)
[2020-04-21 14:00] VITALS: BP 110/58
--- NOTE | 2020-04-21 14:18 | IPN ---
DATE OF SERVICE: 04/21/2020 The patient says that she has pain 7/10. Currently on as-needed pain medications. Says that it is on her back without any radiation. No chills. Complains of generalized fatigue. "They sent me home on antibiotics, and I think that is what got me tired." The patient has history of bilateral pigtail stents, both in the correct position with proximal and distal coils, with decompression of bilateral hydronephrosis as compared to prior study. Currently has no other issues, per nursing. VITAL SIGNS: Temperature 97.6, pulse 87, respiratory rate 17, blood pressure 102/54, 95% on room air. Generally, awake, alert, oriented times three. Able to provide a history. No jugular venous distention (JVD). No thyromegaly. Anicteric. No jaundice. Lungs are clear to auscultation. No wheezing, rales, or rhonchi. Heart: S1, S2, sinus rhythm. Abdomen: Is soft, nontender, nondistended. Positive bowel sounds. Pigtail catheters in place without any drainage, erythema of the skin. Extremities: No cyanosis or clubbing. LABORATORY DATA: White count 13.7, hemoglobin 11, hematocrit 33, platelet count 252. Sodium 141, potassium 4, chloride 109, bicarbonate 24, BUN 32, creatinine 2.33, glucose of 104, TSH of 1.8. ASSESSMENT AND PLAN: This is a 74-year-old female with history of bilateral hydronephrosis, status post pigtail catheter both positioned adequately, presents with complains of increasing fatigue. Prior cultures with Escherichia (E.) coli and enterococcus, still with increasing white count. Will add vancomycin. CURRENT ISSUES: Are as follows: 1. Recurrent urinary tract infections, status post bilateral pigtail catheters to decrease and decompress the patient's bilateral hydronephrosis. She currently is on broad-spectrum antibiotics until urine cultures are available and would be at risk for Clostridium (C) difficile. Therefore, Bacid has been added. The patient does not require any adjustment of the pigtail catheters, as they appear to be in the correct position. 2. Sepsis secondary to urinary tract infection, complicated by bilateral hydronephrosis, which is improved from previous, and pigtail catheters in the correct position. 3. Acute atrial fibrillation. The patient is on rate-control medication and anticoagulation. She is on Eliquis 2.5 twice a day, as well as Coreg 12.5 twice a day. Had received intravenous (IV) metoprolol yesterday. Current rate is controlled at 85-87. 4. Hypertension. Stable on Coreg. Avoid angiotensin-converting enzyme (JESICA) inhibitors due to renal failure. 5. Acute on chronic renal failure. Worsening creatinine of 2.33 from previous creatinine of 1.6. The patient is currently on captopril, which we will discontinue. A trial of intravenous (IV) fluids. Monitor intake and output (I and O). Pigtail catheters are in the correct position. Does not require any repositioning.
--- NOTE | 2020-04-21 20:36 | ECGEPIP ---
[facility] Test Date: 2020-04-21 Pat Name: NINA FORBES Department: Room: [place] [address] Gender: Female Fsr: RUKHSANA : 1945 Requested By: MARTIR Garcia Order Number: [id number] Reading MD: Ramya Ferreira Measurements Intervals [place] Rate: 85 P: NM: 0 QRS: 7 QRSD: 156 T: -37 QT: 444 QTc: 530 Interpretive Statements ATRIAL FIBRILLATION RIGHT BUNDLE BRANCH BLOCK NON-SPECIFIC STT ABNORMALITIES SIMILAR TO 04/20/20 Electronically Signed on 04-21-2020 20:36:12 EDT by Ramya Ferreira
[2020-04-21] MEDS: LATANOPROST 0.005% OPHTH SOLN 2.5 ML OU SCH (21:38)
[2020-04-21] MEDS: FLUoxetine 20 MG CAP PO SCH (21:40)
[2020-04-21] MEDS: FAMOTIDINE 20 MG TAB PO SCH (21:41)
[2020-04-21] MEDS: POTASSIUM CHLORIDE 10 MEQ SR TABLET PO SCH (21:41)
[2020-04-21] MEDS: SIMVASTATIN 40 MG TAB PO SCH (21:41)
[2020-04-21] MEDS: amLODIPine 10 MG TAB PO SCH (21:41)
[2020-04-21] MEDS: ASPIRIN 81 MG ENTERIC TAB PO SCH (21:41)
[2020-04-21 22:00] VITALS: BP 117/62
[2020-04-22] MEDS: AMPICILLIN SOD 1 GM in D5W MINI-BAG PLUS 50 ML IV SCH ×2 (00:21→05:51)
[2020-04-22] MEDS: PERCOCET 5MG/325MG TAB PO PRN ×3 (04:13→17:13)
[2020-04-22] MEDS: ONDANSETRON 4MG/2ML VIAL IV PRN (04:13)
[2020-04-22 06:00] VITALS: BP 109/53
[2020-04-22 06:15] LABS: BASO # 0.1 10^3/uL (0.0-0.2); BASO % 0.9 % (0.0-1.0); EOS # 0.2 10^3/uL (0.0-0.5); EOS % 1.6 % (0.0-3.0); HEMATOCRIT 29.7 % (36.0-47.0); HEMOGLOBIN 9.6 g/dl (12.0-15.5); LYMPH # 3.4 10^3/uL (1.5-5.0); LYMPH % 36.5 % (24.0-44.0); MEAN CORPUSCULAR HEMOGLOBIN 29.8 pg (27.0-33.0); MEAN CORPUSCULAR HGB CONC 32.3 g/dl (32.0-36.5); MEAN CORPUSCULAR VOLUME 92.2 fl (80.0-96.0); MONO # 0.6 10^3/uL (0.0-0.8); MONO % 6.4 % (0.0-5.0); NEUTROPHILS % 54.3 % (36.0-66.0); PLATELET COUNT, AUTOMATED 193 10^3/uL (150-450); RED BLOOD COUNT 3.22 10^6/uL (4.00-5.40); WHITE BLOOD COUNT 9.2 10^3/uL (4.0-10.0)
[2020-04-22 06:46] LABS: CALCIUM LEVEL 8.1 MG/DL (8.8-10.2); CREATININE FOR GFR 1.95 MG/DL (0.55-1.30); GLOMERULAR FILTRATION RATE 26.6 (>39); POTASSIUM SERUM 4.3 MEQ/L (3.5-5.1)
[2020-04-22] MEDS ORDERED: FLUCONAZOLE 50MG TABLET PO SCH (09:00)
[2020-04-22] MEDS: APIXABAN 2.5 MG TAB (ELIQUIS) PO SCH (09:31)
[2020-04-22] MEDS: LACTOBACILLUS ACIDOPHILUS CAP (BACID) PO SCH ×3 (09:31→17:13)
[2020-04-22] MEDS: GABAPENTIN 300 MG CAP PO SCH ×2 (09:31→17:12)
[2020-04-22 09:32] VITALS: BP 108/58
[2020-04-22] MEDS: CARVedilol 12.5 MG TAB PO SCH (09:32)
[2020-04-22] MEDS ORDERED: AMLO10TA5 PO (10:44)
[2020-04-22] MEDS ORDERED: DIFL50TA PO (10:44)
[2020-04-22] MEDS ORDERED: AMPI500C9 PO (10:44)
[2020-04-22] MEDS ORDERED: ELIQ2.5T PO (10:44)
[2020-04-22] MEDS ORDERED: RISATAB3 PO (10:44)
[2020-04-22] MEDS ORDERED: AMPICILLIN SOD 500 MG in D5W MINI-BAG PLUS 50 ML IV SCH (12:00)
[2020-04-22] MEDS ORDERED: AMPICILLIN SOD 500 MG in D5W 50 ML IV SCH (12:00)
[2020-04-22] MEDS: MAGNESIUM OXIDE 400 MG TAB (MAG-OX) PO SCH (12:05)
[2020-04-22 14:00] VITALS: BP 109/58
[2020-04-22] MEDS ORDERED: NITR100C2 PO (15:35)
--- NOTE | 2020-04-22 15:49 | DS.PDOC ---
Discharge Summary General Date of Admission Apr 20, 2020 at 20:05 Date of Discharge 04/22/2020 Discharge Summary PROCEDURES PERFORMED DURING STAY: [None]. ADMITTING DIAGNOSES / DISCHARGE DIAGNOSES: Weakness - possibly 2/2 nausea / vomiting - possibly 2/2 antibiotics UTI in the setting of ureteral stents - possibly 2/2 yeast Acute atrial fibrillation Hypertension Acute on chronic renal failure DVT prophylaxis COMPLICATIONS/CHIEF COMPLAINT: Weakness HISTORY OF PRESENT ILLNESS: Patient is a 74-year-old female with a past medical history of bilateral hydronephrosis status post pigtail catheters in appropriate position who presented to the emergency room with increasing fatigue. Prior urine cultures revealed Escherichia coli and enterococcus. Patient was discharged home with ampicillin orally. Patient presented to the hospital with complaints of weakness and was found to have evidence of dehydration and questionable recurrent urinary tract infection. Patient was admitted to the hospitalist service for further evaluation and treatment. HOSPITAL COURSE: Weakness - possibly 2/2 nausea / vomiting - possibly 2/2 antibiotics - Currently patient has had resolution of her nausea and vomiting UTI in the setting of ureteral stents - possibly 2/2 yeast - She is hemodynamically stable and afebrile - Leukocytosis resolved - Urine culture 04/20: Yeastlike organisms; Blood cultures 04/20: No growth after 24 hours - CT abdomen / pelvis 04/20: 1. There has been a cholecystectomy. 2. There is bilateral adrenal hyperplasia. 3. Status post placement of double pigtail stents within both collecting systems with satisfactory positioning of the proximal and distal coils. There has been significant interval decompression of bilateral hydronephrosis in comparison to the prior study of 04/06/2020.4. Bilateral fatty inguinal hernias without incarceration. 5. Bilateral renal parenchymal sca rring and cortical thinning demonstrated as noted previously. - s/p Antibiotic therapy; has completed course - Patient was advised by Urology that she should continue with Nitrofurantoin indefinitely - Will start Diflucan for 7 day course Acute atrial fibrillation - c/w rate control with carvedilol - c/w full anticoagulation with Eliquis Hypertension - BP well controlled - Will DC HCTZ, chlorthalidone, Spironolactone and Captopril - c/w Carvedilol and Amlodipine - Will have outpatient follow up with PCP for blood pressure followup Acute on chronic renal failure - Cr on admission of 2.31, has continue to improve - Baseline Cr of 1.6-2.1 - Cr continues to trend down - Will DC IV fluids; will hold off on diuretics at this time DVT prophylaxis - c/w full anticoagulation with Eliquis DISCHARGE MEDICATIONS: Please see below. ALLERGIES: Please see below. PHYSICAL EXAMINATION ON DISCHARGE: Vitals (See below) General: Lying in bed, appears comfortable, AAOx3 HEENT: NC, AT CVS: +S1S2 Lungs: Fair air entry b/l, -w/r/r Abdomen: Soft, ND, NT Extremities: - Edema, - Calf tenderness LABORATORY DATA: Please see below. ACTIVITY: [As tolerated]. DISCHARGE PLAN: Follow up with primary care provider, urology and cardiology within 7 days Remain compliant with treatment plan and medications Return to the ER if you experience any problems DISPOSITION: Home with services DISCHARGE CONDITION: [Stable]. TIME SPENT ON DISCHARGE: 35 minutes Vital Signs/I&Os Vital Signs Date Time Temp Pulse Resp B/P (MAP) Pulse Ox O2 Delivery O2 Flow Rate FiO2 04/22/20 14:00 97.8 84 16 109/58 (75) 95 Room Air I&O- Last 24 Hours up to 6 AM 04/22/20 05:59 Intake Total 4350 ml Output Total 900 ml Balance 3450 ml Laboratory Data Labs 24H Laboratory Tests 2 04/21/20 16:08: Bedside Glucose (Misc Panel) 120H 04/22/20 00:58: Bedside Glucose (Misc Panel) 110 04/22/20 06:01: Immature Granulocyte % (Auto) 0.3, Neutrophils (%) (Auto) 54.3, Lymphocytes (%) (Auto) 36.5, Monocytes (%) (Auto) 6.4H, Eosinophils (%) (Auto) 1.6, Basophils (%) (Auto) 0.9, Neutrophils # (Auto) 5.0, Lymphocytes # (Auto) 3.4, Monocytes # (Auto) 0.6, Eosinophils # (Auto) 0.2, Basophils # (Auto) 0.1, Nucleated Red Blood Cells % (auto) 0.0, Anion Gap 7L, Glomerular Filtration Rate 26.6L, Calcium Level 8.1L 04/22/20 11:33: Bedside Glucose (Misc Panel) 117H CBC/BMP Laboratory Tests 04/22/20 06:01 FSBS Laboratory Tests Test 04/21/20 16:08 6/30/20 00:58 04/22/20 11:33 Range/Units Bedside Glucose (Misc Panel) 120 110 117 83-110 MG/DL Microbiology Microbiology 04/20/20 Blood Culture - Preliminary, Resulted No growth after 24 hours . All specim... 04/20/20 Urine Culture - Final, Complete Yeast Like Organism Discharge Medications Scheduled Amlodipine Besylate (Amlodipine Besylate) 10 Mg Tablet, 5 MG PO QHS Apixaban (Eliquis) 2.5 Mg Tablet, 2.5 MG PO BID Aspirin (Aspir 81) 81 Mg Tablet.dr, 81 MG PO QHS, (Reported) Carvedilol (Carvedilol) 12.5 Mg Tablet, 12.5 MG PO BID, (Reported) Famotidine (Famotidine) 40 Mg Tablet, 40 MG PO QHS, (Reported) Fluconazole (Diflucan) 50 Mg Tablet, 100 MG PO DAILY Fluoxetine Hcl (Fluoxetine HCl) 40 Mg Capsule, 40 MG PO QHS, (Reported) Gabapentin (Gabapentin) 600 Mg Tablet, 600 MG PO TID, (Reported) L.acidoph/L.bulg/B.bif/S.therm (Mia-Bid Caplet) 1 Each Tablet, 1 EA PO WMHS Latanoprost (Xalatan) 0.005 % Olga, 1 DROP OU QHS, (Reported) Magnesium Oxide (Magnesium Oxide) 400 Mg Tablet, 400 MG PO DAILY, (Reported) NOON Multivit,Calc,Mins/Iron/Folic (Thera-M Tablet) 1 Each Tablet, 1 TAB PO QHS, (Reported) Nitrofurantoin Monohyd/M-Cryst (Nitrofurantoin [place]-Mcr 100 mg) 100 Mg Capsule, 100 MG PO QHS Potassium Chloride (Potassium Chloride) 20 Meq Tab.er.prt, 40 MEQ PO QHS, (Reported) Simvastatin (Simvastatin) 40 Mg Tab, 40 MG PO QHS, (Reported) Scheduled PRN Acetaminophen (Acetaminophen) 325 Mg Tablet, 650 MG PO Q6H PRN for PAIN, (Reported) Oxycodone HCl/Acetaminophen (Oxycodone-Acetaminophen 5-325) 1 Tab Tab, 1 TAB PO Q6HP PRN for PAIN, (Reported) Allergies Coded Allergies: cephalexin (Verified Allergy, Intermediate, rash, 04/20/20) levofloxacin (Verified Allergy, Unknown, rash, 04/20/20) sulfamethoxazole (Verified Adverse Reaction, Intermediate, problems with kidneys, 04/20/20) trimethoprim (Verified Adverse Reaction, Intermediate, problems with kidneys, 04/20/20) KADIE SIMON MD Apr 22, 2020 15:49
== END 2020-04-22 17:40 | disposition home health service (06) | DRG 690 ==
LOC: M ED 15:59 → M ED INP 20:05 → ENRESERV 21:06 → M MSPAV 21:34
PROVIDERS: ADMIT Internal Medicine; ATTEND Internal Medicine
DX: N39.0 Urinary tract infection, site not specified (principal); N17.9 Acute kidney failure, unspecified; N18.9 Chronic kidney disease, unspecified; R53.1 Weakness; I48.91 Unspecified atrial fibrillation; I12.9 Hypertensive chronic kidney disease with stage 1 through stage 4 chronic kidney disease, or unspecified chronic kidney disease; E86.0 Dehydration; Z79.899 Other long term (current) drug therapy; Z79.82 Long term (current) use of aspirin; Z88.8 Allergy status to other drugs, medicaments and biological substances; Z88.2 Allergy status to sulfonamides; H40.9 Unspecified glaucoma; K21.9 Gastro-esophageal reflux disease without esophagitis; E78.00 Pure hypercholesterolemia, unspecified; E11.9 Type 2 diabetes mellitus without complications; Z85.038 Personal history of other malignant neoplasm of large intestine; Z95.2 Presence of prosthetic heart valve

== ENCOUNTER 2020-04-30 12:35 | Inpatient (IN) | payer MEDICARE ==
[~2020-04-30] VITALS: Ht 167.6 cm; Wt 82.9 kg
[~2020-04-30 12:35] MED LIST changes: +AMPI500C9 PO; +CAPT1TAB17 PO; +DIFL50TA PO; +ELIQ2.5T PO; +FAMO40TA3 PO; +GABA600T4 PO; +MAGN400T2 PO; +NITR100C2 PO; +POTA20TA6 PO; +SPIR-10 PO
[2020-04-30] MEDS ORDERED: NS 1,000 ML IV ONE ×2 (13:15→14:45)
[2020-04-30 13:18] LABS: BASO # 0.1 10^3/uL (0.0-0.2); BASO % 0.9 % (0.0-1.0); EOS # 0.4 10^3/uL (0.0-0.5); EOS % 5.8 % (0.0-3.0); HEMATOCRIT 27.8 % (36.0-47.0); LYMPH # 2.3 10^3/uL (1.5-5.0); LYMPH % 36.6 % (24.0-44.0); MEAN CORPUSCULAR HEMOGLOBIN 29.8 pg (27.0-33.0); MEAN CORPUSCULAR HGB CONC 32.4 g/dl (32.0-36.5); MEAN CORPUSCULAR VOLUME 92.1 fl (80.0-96.0); MONO # 0.4 10^3/uL (0.0-0.8); MONO % 6.6 % (0.0-5.0); NEUTROPHILS # 3.2 10^3/uL (1.5-8.5); NEUTROPHILS % 49.8 % (36.0-66.0); PLATELET COUNT, AUTOMATED 185 10^3/uL (150-450); RED BLOOD COUNT 3.02 10^6/uL (4.00-5.40); WHITE BLOOD COUNT 6.4 10^3/uL (4.0-10.0)
[2020-04-30 13:58] LABS: ALBUMIN 2.9 GM/DL (3.2-5.2); BILIRUBIN,DIRECT 0.1 MG/DL (0.0-0.2); BILIRUBIN,TOTAL 0.4 MG/DL (0.2-1.0); THYROID STIMULATING HORMONE 1.24 uIU/ML (0.358-3.740); TOTAL PROTEIN 6.4 GM/DL (6.4-8.2)
[2020-04-30] MEDS ORDERED: VANCOMYCIN HCL 1,000 MG, VIAL MATE ADAPTER 1 EACH in D5W 250 ML IV ONE (14:45)
[2020-04-30] MEDS ORDERED: MEROPENEM INJ 1 GM in IV 1 EA IV ONE (14:45)
[2020-04-30] MEDS ORDERED: ELIQ2.5T PO (14:51)
[2020-04-30] MEDS ORDERED: AMLO5TAB6 PO (14:51)
[2020-04-30] MEDS ORDERED: RISATAB3 PO (14:51)
--- NOTE | 2020-04-30 16:11 | REP ---
CHEST, SINGLE VIEW: Single view of the chest is performed. COMPARISON: 04/20/2020 There is no acute infiltrate or pulmonary edema. There is mild cardiomegaly. There is mild calcification and tortuosity of the thoracic aorta. Cardiomediastinal silhouette is unchanged. IMPRESSION: No acute pulmonary disease. Mild cardiomegaly. Electronically Signed by Santana Scott MD 05/01/2020 09:35 A
[2020-04-30] MEDS ORDERED: VANCOMYCIN HCL 750 MG, VIAL MATE ADAPTER 1 EACH in D5W 250 ML IV ONE (17:00)
--- NOTE | 2020-04-30 17:07 | PHACANCOPD ---
PHARMACY VANCOMYCIN DOSING Pt Demographics Demographics Patient Age:74 , Weight:82.900 , Gender: female Adjusted Body Weight Date: 04/30/20, Adjusted Body Weight: Kg Events Past 24 Hours Events Past 24 Hours: NO: Dialysis, Diuretic Therapy, Change in CrCl, Fever, Elevation in WBC, Pending Diagnostics, Pending Procedures, Other Vancomycin Vancomycin indication: uti Vancomycin Target Ranges: 10-20 mcg/ml Vancomycin Load Y/N: Yes Load Dose Date Time Vancomycin Load Dose: 1.75g Date: 04/30/20 Time: 16:00 Vancomycin Dose Date: 04/30/20. Current Vancomycin Dose: [1g iv q24h Intermittent Dosing?: No Labs Labs Item Value Date Time POC Creatinine (Misc Panel) 2.3 MG/DL H 04/30/20 1254 White Blood Count 6.4 10^3/uL 04/30/20 1301 Micro Microbiology 04/30/20 Urine Culture, Received Pending 04/30/20 Blood Culture, Received Pending 04/30/20 Blood Culture, Received Pending Creatinine Clearance Date:04/30/20. Creatinine Clearance: [~22ml/min]. Assessment and Plan Maintaining Current Dose?: Yes Reason for dose change: No Dose Change Pharmacist Note Pharmacist Note Date: 04/30/20. Pharmacist note: Pt is a 74 year old female being treated for UTI goal trough 10-20mcg/ml. The patient was last treated with vancomycin here at [facility] May 2017. To achieve goal a 1.75 g vancomycin IV loading dose will start 04/30/20 @16:00. Maintenance therapy will consist of 1g IV every 24 hours. We will continue to monitor and adjust the dose as needed. [facility] Apr 30, 2020 17:07
--- NOTE | 2020-04-30 17:53 | HPE ---
DATE OF ADMISSION: 04/30/2020 CHIEF COMPLAINT: Lightheaded and dizzy. HISTORY OF PRESENT ILLNESS: This is a 74-year-old female with past medical history significant for renal calculi dating back to 2008, chronic kidney disease stage III to IV, bilateral hydronephrosis with stent placement exchanged every few months and follows with Dr. Jack, hypertensive heart disease, dyslipidemia, glaucoma, depression, reflux, spinal stenosis, colon cancer with resection and radiation, claudication, peripheral arterial disease, pyelonephritis, diastolic heart failure, cervical dysplasia, recently discharged from the hospital for pyelonephritis and acute on chronic renal failure, was seen by a home health aide today and was found to have low blood pressures and sent to the emergency room. The patient says that she has been lightheaded and dizzy which comes and goes over the past few days. No fever or chills. She has chronic low back pain that radiates down her leg that she attributes to her sciatica. For which, she takes oxycodone. The patient says that she has been sick since silicone stents have been placed by Dr. Jack from two admission ago. She had been on antibiotics and has been compliant with them. Last urine culture showed yeast. Previous cultures grew out Enterococcus (E) faecalis and Escherichia (E) coli. The patient has had no diarrhea. Denies any flank pain. No shortness of breath, chest pain, pressure or tightness, palpitations. Currently denies any changes in vision, rhinorrhea, sore throat, dysuria, urgency, frequency. She says that the output through the catheter has been clear. In the emergency room (ER), she was found to be hypotensive, systolic pressure of 98/53, responded to two liters of IV fluids, started on IV meropenem and vancomycin due to abnormal urinalysis with 3+ leukocyte esterase, too numerous to count white blood cells (WBCs) and red blood cells (RBCs) and cloudy appearing urine. Hospitalist was asked to admit for a urinary tract infection (UTI), hypotension with sepsis. PAST MEDICAL HISTORY: 1. Hypertensive heart disease. 2. Chronic kidney disease, stage III. 3. Bilateral renal stents. 4. Renal calculi in 2008. 5. Dyslipidemia. 6. Spinal stenosis, uses a cane. 7. Bilateral hydronephrosis with stent placement. 8. Pyelonephritis. 9. Escherichia (E) coli, Enterococcus (E) faecalis urinary tract infection (UTI). 10. Yeast in the urine. 11. Bilateral cataracts. 12. Acute on chronic renal failure. 13. Colon cancer status post resection and radiation. 14. History of torsades de pointes. 15. Peripheral arterial disease. 16. Pyelonephritis. 17. Diastolic dysfunction. 18. Cervical dysplasia in 1999. PAST SURGICAL HISTORY: 1. Tonsillectomy and adenoidectomy as a child. 2. Colon cancer resection with radiation. 3. Colonoscopy in 2013. 4. Glaucoma laser surgery in 2012. 5. Ureteral stents 2019. 6. Cholecystectomy 2014. 7. Cardiac catheterization 2014. 8. Cardiac stents 2015. 9. Bilateral cataract surgery 2016. 10. Kidney stent replacement October of 2019. SOCIAL HISTORY: Smoked a pack a day since she was a teenager, quit about 10 or more years ago. 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 Denies any alcohol use. ALLERGIES: CEPHALEXIN, LEVAQUIN, SULFA, METHICILLIN, TRIMETHOPRIM. FAMILY HISTORY: Father age 53 of liver cirrhosis. The patient's father was an alcoholic. Maternal grandmother with cerebrovascular accident (CVA). Mother at 93 with CVA. Brother with CVA and polio as well. HOME MEDICATIONS: - acetaminophen 650 every six hours as needed - Eliquis 2.5 twice a day - aspirin 81 at bedtime - Coreg 12.5 twice a day - famotidine 40 at bedtime - fluoxetine 40 at bedtime - gabapentin 600 three times a day - lactobacillus one tablet with meals and at bedtime - Xalatan one drop in each eye at bedtime - magnesium oxide 400 daily - multivitamin one tablet daily - oxycodone/acetaminophen one tablet every six hours as needed - potassium chloride 40 mEq at bedtime - simvastatin 40 mg at bedtime REVIEW OF SYSTEMS: Per history of present illness (HPI), 12-point system otherwise negative. PHYSICAL EXAMINATION: The patient is afebrile, pulse 58, respiratory rate 20, blood pressure 111/53, 91% on room air. GENERAL: Awake, alert, oriented to person, place and time, answering questions appropriately. No icterus. No pallor. No use of respiratory accessory muscles. Able to speak in full sentences. No jugular venous distention (JVD) or thyromegaly. No cervical lymphadenopathy. Lungs are clear to auscultation. No wheezing, rales, or rhonchi. Air entry is equal bilaterally. No adventitious breath sounds. HEART: S1, S2, sinus bradycardia. Abdomen is soft, nontender, nondistended. Positive bowel sounds. EXTREMITIES: No clubbing, cyanosis, or pitting edema. LABORATORY DATA: White count 6.4, hemoglobin 9, hematocrit 27, platelet count 185. Sodium 139, potassium 4.2, chloride 106, bicarbonate 21, BUN 26, creatinine 2.3, baseline is 1.7 to 1.9, glucose of 115. Urine culture and blood cultures are pending. Urinalysis: 3+ leukocyte esterase, too numerous to count WBC, RBC, cloudy urine, 2+ protein, 3+ blood, negative nitrate. Chest x-ray: No acute cardiopulmonary disease, mild cardiomegaly. CT abdomen and pelvis pending results. ASSESSMENT AND PLAN: This is a 74-year-old with multiple admission for acute on chronic renal failure due to hydronephrosis and recurrent postobstructive uropathy despite stent placement. The patient was found to be hypotensive by the home health aide nurse without fever, chills, dysuria, urgency, frequency or flank pain, brought into the emergency room for further evaluation. The patient was found to be hypotensive and responded quite well to IV fluids. She had a CT abdomen and pelvis. The result of which is still pending. She has been empirically started on vancomycin and meropenem due to history of Escherichia (E) coli and Enterococcus faecalis with allergy to cephalexin and Levaquin. Hospitalist was asked to admit. IMPRESSION: 1. Hypotension. Rule out infectious etiology. The patient does have a urinary tract infection in the setting of bilateral urinary stents. At this time, we will await CT abdomen and pelvis result. Currently broadly covered with vancomycin and meropenem renally dosed. 2. Sepsis secondary to urinary tract infection, status post IV fluids. Currently on IV vancomycin and meropenem renally dosed. 3. Chronic spinal stenosis, on Percocet as needed. 4. Acute on chronic kidney disease, stage III to IV. Due to hydronephrosis currently with stents in place, urologist consulted. On IV fluids, antibiotics, strict intake and output, and check for daily weights. 5. Hypertensive heart disease, currently with low blood pressure, holding her blood pressure medications. 6. History of diastolic heart failure, currently asymptomatic. Chest x-ray shows mild cardiomegaly but no pulmonary edema. 7. History of glaucoma. Resume the patient's eye drops. 8. Anemia of chronic disease. No acute indication for red blood cell (RBC) transfusion. No signs of acute gastrointestinal (GI) bleed. 9. Atrial fibrillation. The patient had been put on Eliquis twice a day, rate controlled on Coreg 12.5 twice a day. MTDD
[2020-04-30] MEDS: LACTOBACILLUS ACIDOPHILUS CAP (BACID) PO SCH ×2 (18:00→20:44)
[2020-04-30] MEDS: APIXABAN 2.5 MG TAB (ELIQUIS) PO SCH (20:44)
[2020-04-30] MEDS: CARVedilol 12.5 MG TAB PO SCH (20:44)
[2020-04-30] MEDS: POTASSIUM CHLORIDE 10 MEQ SR TABLET PO SCH (20:44)
[2020-04-30] MEDS: ASPIRIN 81 MG ENTERIC TAB PO SCH (20:44)
[2020-04-30] MEDS: GABAPENTIN 300 MG CAP PO SCH (20:44)
[2020-04-30] MEDS: LATANOPROST 0.005% OPHTH SOLN 2.5 ML OU SCH (20:45)
[2020-04-30] MEDS: FLUoxetine 20 MG CAP PO SCH (20:45)
[2020-04-30] MEDS: SIMVASTATIN 40 MG TAB PO SCH (20:45)
[2020-04-30] MEDS: FAMOTIDINE 20 MG TAB PO SCH (20:45)
[2020-04-30] MEDS: MULTIVITAMINS/MINERALS THERAP 1 TAB PO SCH (20:45)
--- NOTE | 2020-04-30 21:57 | REPVR ---
PROCEDURE INFORMATION: Exam: US Retroperitoneal Limited, Kidneys Exam date and time: 04/30/2020 9:26 PM Age: 74 years old Clinical indication: Condition or disease; Kidney or ureter condition; Hydronephrosis; Prior surgery; Surgery date: 1-6 months; Surgery type: Stents replaced every 3 months per patient for the last 6 or 7 years; Additional info: Bl hydronephrosis pigtail cath renal failure TECHNIQUE: Imaging protocol: Real-time ultrasound of the retroperitoneum with image documentation. Examination was focused on the kidneys. COMPARISON: RENAL US 04/08/2020 10:56 AM FINDINGS: Right kidney: The right kidney measures 10.7 x 4.0 x 4.0 cm. Severe hydronephrosis of the right kidney again visualized. A ureteral stent is visualized in the region of the right renal pelvis. Mild right renal cortical thinning or atrophy visualized. Slight increased echogenicity of the right renal cortex, suggestive of medical renal disease. Resistive indices were not measured on this limited exam. Left kidney: The left kidney measures 11.4 x 4.0 x 4.8 cm. Moderate left hydronephrosis identified, which has improved. A ureteral stent is identified within the left renal pelvis. Slight increased echogenicity of the left renal cortex, suggestive of medical renal disease. Resistive indices were not measured on this limited exam. Bladder: Ureteral stents are visualized within the bladder. No significant bladder wall thickening visualized. IMPRESSION: 1. Severe hydronephrosis of the right kidney again visualized. A ureteral stent is visualized in the region of the right renal pelvis. 2. Mild right renal cortical thinning or atrophy visualized. 3. Moderate left hydronephrosis identified, which has improved. A ureteral stent is identified within the left renal pelvis. 4. Slight increased echogenicity of the bilateral renal cortices, suggestive of medical renal disease. 5. Additional findings described above. Electronically signed by: Shimon Tony On 04/30/2020 21:57:04 PM
[2020-04-30 23:25] VITALS: BP 104/50
--- NOTE | 2020-05-01 00:28 | ECGEPIP ---
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
[2020-05-01] MEDS: MEROPENEM INJ 500 MG in IV 1 EA IV SCH ×4 (00:53→23:55)
--- NOTE | 2020-05-01 02:07 | REP ---
REASON FOR EXAM: Bilateral renal stents with acute renal failure and hypotension. COMPARISON: 04/20/2020 There are chronic lung base changes, status quo. Limited evaluation of the solid intra-abdominal organs shows no gross abnormalities or significant changes. Patient is status post cholecystectomy. Limited evaluation of the kidneys and adrenal glands shows no significant changes. There are bilateral double pigtail stents in the renal collecting systems. These are unchanged. There is mild bilateral hydronephrosis. There is no evidence of free fluid or free air in the abdomen or pelvis. There is no evidence of significant change in the appearance of the intra-abdominal and intrapelvic bowel loops and their mesenteries. No significant change is seen in the abdominal aorta and para-aortic regions. There is no change in the osseous structures. IMPRESSION: There is no significant change when compared to the prior exam of 04/20/2020. There are bilateral renal collecting system stents. There is no acute change in the abdomen or pelvis compared to the prior exam. Electronically Signed by Maxime Casanova DO 05/01/2020 11:26 A
[2020-05-01] MEDS: PERCOCET 5MG/325MG TAB PO PRN ×2 (04:04→11:48)
[2020-05-01 06:00] VITALS: BP 105/51
[2020-05-01] MEDS: GABAPENTIN 300 MG CAP PO SCH ×3 (08:13→20:20)
[2020-05-01] MEDS: LACTOBACILLUS ACIDOPHILUS CAP (BACID) PO SCH ×4 (08:13→20:20)
[2020-05-01] MEDS: CARVedilol 12.5 MG TAB PO SCH ×2 (08:16→20:20)
[2020-05-01] MEDS: APIXABAN 2.5 MG TAB (ELIQUIS) PO SCH ×2 (08:16→20:20)
[2020-05-01] MEDS: ACETAMINOPHEN TAB 650MG DOSE (2X325MG) PO PRN ×2 (08:23→16:12)
[2020-05-01 09:56] LABS: CALCIUM LEVEL 8.7 MG/DL (8.8-10.2); CREATININE FOR GFR 1.75 MG/DL (0.55-1.30); GLOMERULAR FILTRATION RATE 30.2 (>39); POTASSIUM SERUM 4.8 MEQ/L (3.5-5.1)
[2020-05-01 10:46] VITALS: BP 95/53
[2020-05-01 11:29] LABS: VANCOMYCIN RANDOM 17.6 UG/ML
[2020-05-01] MEDS: MAGNESIUM OXIDE 400 MG TAB (MAG-OX) PO SCH (11:48)
--- NOTE | 2020-05-01 12:57 | IPNPDOC ---
Text Note Date of Service The patient was seen on 05/01/20. NOTE Subjective: Reports that she still feels poorly and her abdomen feels uncomfortable without catalina pain PHYSICAL EXAMINATION: Vitals: see below, HDS and afebrile GENERAL: NAD, ill appearing HEENT: NCAT, PERRLA, eomi, anicteric, non injected Neck: No JVD, thyromegaly or adenopathy Lungs: CTAB Cardiac: RRR, no mrg Abdomen: Normoactive bowel sounds, soft, NTND Ext: no LE edema, WWP Neuro: speech is clear, CN 2-12 intact Psych: AOx3 LABORATORY DATA: WBC 6.4 Hgb 9 platelets 185 Na 143 K 4.8 Cr 1.75 UA was grossly positive and UCx was negative BCx are NGTD Chest x-ray: No acute cardiopulmonary disease, mild cardiomegaly. CT abdomen and pelvis: There is no significant change when compared to the prior exam of 04/20/2020. There are bilateral renal collecting system stents. There is no acute change in the abdomen or pelvis compared to the prior exam. Renal US: 1. Severe hydronephrosis of the right kidney again visualized. A ureteral stent is visualized in the region of the right renal pelvis. 2. Mild right renal cortical thinning or atrophy visualized. 3. Moderate left hydronephrosis identified, which has improved. A ureteral stent is identified within the left renal pelvis. 4. Slight increased echogenicity of the bilateral renal cortices, suggestive of medical renal disease. 5. Additional findings described above. ASSESSMENT: 74-year-old with multiple admission for acute on chronic renal failure due to hydronephrosis and recurrent postobstructive uropathy despite stent placement. The patient was found to be hypotensive by the home health aide nurse without fever, chills, dysuria, urgency, frequency or flank pain, brought into the emergency room for further evaluation. The patient was found to be hypotensive and responded quite well to IV fluids, with a ++UA but negative UCx on vancomycin and meropenem due to history of Escherichia (E) coli and Enterococcus faecalis with allergy to cephalexin and Levaquin. PLAN: 1. Sepsis: likely 2/2 UTI though culture had low yield the initial UA was frankly positive, with a long history of stones and bilateral urinary stents. -For now will continue renally dosed empiric vancomycin and meropenem 2. Chronic spinal stenosis, on Percocet as needed per home script. 3. Acute on chronic kidney disease, stage III to IV. Due to hydronephrosis -currently with stents in place -Continue IV fluids -strict intake and output 4. Hypertensive heart disease, currently with low blood pressure -continue holding her blood pressure medications. 6. History of diastolic heart failure, currently asymptomatic and euvolemic. -monitor 7. History of glaucoma. -continue home eye drops. 8. Anemia of chronic disease. -No acute indication for red blood cell (RBC) transfusion. -No signs of acute gastrointestinal (GI) bleed. -monitor daily CBC 9. Atrial fibrillation. -continue home Eliquis twice a day -contiune Coreg 12.5 twice a day DVT ppx: eliquis Dispo: medsurg VS,Fishbone, I+O VS, Fishbone, I+O Laboratory Tests 04/30/20 13:01 05/01/20 09:18 Vital Signs Date Time Temp Pulse Resp B/P (MAP) Pulse Ox O2 Delivery O2 Flow Rate FiO2 05/01/20 12:18 18 Room Air 05/01/20 08:16 93 124/59 05/01/20 06:00 99.5 94 I&O- Last 24 Hours up to 6 AM 05/01/20 06:00 Intake Total 3395 ml Balance 3395 ml TJ PETERSON MD May 01, 2020 12:57
[2020-05-01 14:00] VITALS: BP 120/58
[2020-05-01 14:54] VITALS: BP 115/91
[2020-05-01] MEDS: VANCOMYCIN HCL 1,000 MG, VIAL MATE ADAPTER 1 EACH in D5W 250 ML IV SCH (16:11)
[2020-05-01] MEDS ORDERED: ONDANSETRON 4MG/2ML VIAL IV PRN (17:00)
[2020-05-01] MEDS: FAMOTIDINE 20 MG TAB PO SCH (20:19)
[2020-05-01] MEDS: FLUoxetine 20 MG CAP PO SCH (20:19)
[2020-05-01] MEDS: POTASSIUM CHLORIDE 10 MEQ SR TABLET PO SCH (20:19)
[2020-05-01] MEDS: MULTIVITAMINS/MINERALS THERAP 1 TAB PO SCH (20:20)
[2020-05-01] MEDS: SIMVASTATIN 40 MG TAB PO SCH (20:20)
[2020-05-01] MEDS: ASPIRIN 81 MG ENTERIC TAB PO SCH (20:20)
[2020-05-01 22:00] VITALS: BP_SYST 102; BP_SYST 108; BP_DIAS 44; BP_DIAS 78
[2020-05-01] MEDS: LATANOPROST 0.005% OPHTH SOLN 2.5 ML OU SCH (22:45)
[2020-05-02] MEDS: ACETAMINOPHEN TAB 650MG DOSE (2X325MG) PO PRN (00:38)
[2020-05-02 02:00] VITALS: BP 114/52
[2020-05-02 03:35] LABS: BASO # 0.1 10^3/uL (0.0-0.2); BASO % 0.6 % (0.0-1.0); EOS # 0.3 10^3/uL (0.0-0.5); EOS % 3.6 % (0.0-3.0); HEMATOCRIT 26.3 % (36.0-47.0); HEMOGLOBIN 8.6 g/dl (12.0-15.5); LYMPH % 23.5 % (24.0-44.0); MEAN CORPUSCULAR HGB CONC 32.7 g/dl (32.0-36.5); MEAN CORPUSCULAR VOLUME 91.6 fl (80.0-96.0); MONO # 0.7 10^3/uL (0.0-0.8); MONO % 8.3 % (0.0-5.0); NEUTROPHILS # 5.3 10^3/uL (1.5-8.5); NEUTROPHILS % 63.9 % (36.0-66.0); PLATELET COUNT, AUTOMATED 145 10^3/uL (150-450); RED BLOOD COUNT 2.87 10^6/uL (4.00-5.40); WHITE BLOOD COUNT 8.3 10^3/uL (4.0-10.0)
[2020-05-02 04:14] LABS: CREATININE FOR GFR 1.65 MG/DL (0.55-1.30); GLOMERULAR FILTRATION RATE 32.3 (>39)
[2020-05-02 06:00] VITALS: BP 114/52
[2020-05-02] MEDS: MEROPENEM INJ 500 MG in IV 1 EA IV SCH ×3 (07:43→23:43)
[2020-05-02] MEDS: LACTOBACILLUS ACIDOPHILUS CAP (BACID) PO SCH ×4 (08:30→21:38)
[2020-05-02] MEDS: APIXABAN 2.5 MG TAB (ELIQUIS) PO SCH ×2 (08:30→21:37)
[2020-05-02] MEDS: GABAPENTIN 300 MG CAP PO SCH ×3 (08:30→21:39)
[2020-05-02] MEDS: CARVedilol 12.5 MG TAB PO SCH ×2 (08:31→21:40)
[2020-05-02] MEDS: PERCOCET 5MG/325MG TAB PO PRN ×2 (09:43→17:51)
[2020-05-02] MEDS: MAGNESIUM OXIDE 400 MG TAB (MAG-OX) PO SCH (12:30)
[2020-05-02 14:00] VITALS: BP 105/55
--- NOTE | 2020-05-02 14:18 | IPNPDOC ---
Text Note Date of Service The patient was seen on 05/02/20. NOTE Subjective: Feels really tired today PHYSICAL EXAMINATION: Vitals: see below, HDS and afebrile GENERAL: NAD, ill appearing HEENT: NCAT, PERRLA, eomi, anicteric, non injected Neck: No JVD, thyromegaly or adenopathy Lungs: CTAB Cardiac: RRR, no mrg Abdomen: Normoactive bowel sounds, soft, NTND Ext: no LE edema, WWP Neuro: speech is clear, CN 2-12 intact Psych: AOx3 LABORATORY DATA: WBC 8.3 Hgb 8.6 platelets 145 Na 143 K 5 Cr 1.65 UA was grossly positive and UCx was negative BCx are NGTD Chest x-ray: No acute cardiopulmonary disease, mild cardiomegaly. CT abdomen and pelvis: There is no significant change when compared to the prior exam of 04/20/2020. There are bilateral renal collecting system stents. There is no acute change in the abdomen or pelvis compared to the prior exam. Renal US: 1. Severe hydronephrosis of the right kidney again visualized. A ureteral stent is visualized in the region of the right renal pelvis. 2. Mild right renal cortical thinning or atrophy visualized. 3. Moderate left hydronephrosis identified, which has improved. A ureteral stent is identified within the left renal pelvis. 4. Slight increased echogenicity of the bilateral renal cortices, suggestive of medical renal disease. 5. Additional findings described above. ASSESSMENT: 74-year-old with multiple admission for acute on chronic renal failure due to hydronephrosis and recurrent postobstructive uropathy despite stent placement. The patient was found to be hypotensive by the home health aide nurse without fever, chills, dysuria, urgency, frequency or flank pain, brought into the emergency room for further evaluation. The patient was found to be hypotensive and responded quite well to IV fluids, with a ++UA but negative UCx on vancomycin and meropenem due to history of Escherichia (E) coli and Enterococcus faecalis with allergy to cephalexin and Levaquin. PLAN: 1. Sepsis: likely 2/2 UTI though culture had low yield the initial UA was frankly positive, with a long history of stones and bilateral urinary stents. -For now will continue renally dosed empiric vancomycin and meropenem, at least for 3 days and then discontinue. Day 2 of antibiotics 2. Chronic spinal stenosis, on Percocet as needed per home script. 3. Acute on chronic kidney disease, stage III to IV. Due to hydronephrosis: Resolved, now at baseline. -currently with stents in place -s/p IV fluids -strict intake and output 4. Hypertensive heart disease, currently with low blood pressure -continue holding her blood pressure medications. 6. History of diastolic heart failure, currently asymptomatic and euvolemic. -monitor 7. History of glaucoma. -continue home eye drops. 8. Anemia of chronic disease. -No acute indication for red blood cell (RBC) transfusion. -No signs of acute gastrointestinal (GI) bleed. -monitor daily CBC 9. Atrial fibrillation. -continue home Eliquis twice a day -contiune Coreg 12.5 twice a day 10. Diarrhea: I suspect that it is likely 2/2 abx given it began after starting abx. -GI panel, and if negative, will start loperamide DVT ppx: eliquis Dispo: medsurg VS,Fishbone, I+O VS, Fishbone, I+O Laboratory Tests 05/01/20 09:18 05/02/20 03:19 Vital Signs Date Time Temp Pulse Resp B/P (MAP) Pulse Ox O2 Delivery O2 Flow Rate FiO2 05/02/20 06:00 99.1 68 17 114/52 (72) 95 Room Air I&O- Last 24 Hours up to 6 AM 05/02/20 06:00 Intake Total 960 ml Output Total 0 ml Balance 960 ml TJ PETERSON MD May 02, 2020 07:46
[2020-05-02] MEDS: VANCOMYCIN HCL 1,000 MG, VIAL MATE ADAPTER 1 EACH in D5W 250 ML IV SCH (16:04)
[2020-05-02] MEDS: FLUoxetine 20 MG CAP PO SCH (21:36)
[2020-05-02] MEDS: POTASSIUM CHLORIDE 10 MEQ SR TABLET PO SCH (21:37)
[2020-05-02] MEDS: FAMOTIDINE 20 MG TAB PO SCH (21:37)
[2020-05-02] MEDS: SIMVASTATIN 40 MG TAB PO SCH (21:38)
[2020-05-02] MEDS: ASPIRIN 81 MG ENTERIC TAB PO SCH (21:38)
[2020-05-02] MEDS: MULTIVITAMINS/MINERALS THERAP 1 TAB PO SCH (21:38)
[2020-05-02] MEDS: LATANOPROST 0.005% OPHTH SOLN 2.5 ML OU SCH (21:39)
[2020-05-02 22:00] VITALS: BP 120/66
[2020-05-03 05:00] VITALS: BP 112/66
[2020-05-03] MEDS: LACTOBACILLUS ACIDOPHILUS CAP (BACID) PO SCH ×4 (07:30→21:41)
[2020-05-03] MEDS: MEROPENEM INJ 500 MG in IV 1 EA IV SCH ×3 (07:30→23:45)
[2020-05-03] MEDS: PERCOCET 5MG/325MG TAB PO PRN ×3 (07:30→23:50)
[2020-05-03 08:09] LABS: HEMATOCRIT 27.8 % (36.0-47.0); HEMOGLOBIN 8.8 g/dl (12.0-15.5); MEAN CORPUSCULAR HEMOGLOBIN 29.8 pg (27.0-33.0); MEAN CORPUSCULAR HGB CONC 31.7 g/dl (32.0-36.5); MEAN CORPUSCULAR VOLUME 94.2 fl (80.0-96.0); PLATELET COUNT, AUTOMATED 153 10^3/uL (150-450); RED BLOOD COUNT 2.95 10^6/uL (4.00-5.40); WHITE BLOOD COUNT 6.5 10^3/uL (4.0-10.0)
[2020-05-03] MEDS: APIXABAN 2.5 MG TAB (ELIQUIS) PO SCH ×2 (08:22→21:41)
[2020-05-03] MEDS: GABAPENTIN 300 MG CAP PO SCH ×3 (08:22→21:41)
[2020-05-03] MEDS: CARVedilol 12.5 MG TAB PO SCH ×2 (08:23→21:41)
[2020-05-03 10:19] LABS: CALCIUM LEVEL 8.3 MG/DL (8.8-10.2); CREATININE FOR GFR 1.39 MG/DL (0.55-1.30); GLOMERULAR FILTRATION RATE 39.3 (>39); POTASSIUM SERUM 5.3 MEQ/L (3.5-5.1)
[2020-05-03] MEDS: MAGNESIUM OXIDE 400 MG TAB (MAG-OX) PO SCH (12:14)
--- NOTE | 2020-05-03 13:18 | IPNPDOC ---
Text Note Date of Service The patient was seen on 05/03/20. NOTE Subjective: Feels so much better PHYSICAL EXAMINATION: Vitals: see below, HDS and afebrile GENERAL: NAD, ill appearing HEENT: NCAT, PERRLA, eomi, anicteric, non injected Neck: No JVD, thyromegaly or adenopathy Lungs: CTAB Cardiac: RRR, no mrg Abdomen: Normoactive bowel sounds, soft, NTND Ext: no LE edema, WWP Neuro: speech is clear, CN 2-12 intact Psych: AOx3 LABORATORY DATA: reviewed. UA was grossly positive and UCx was negative BCx are NGTD Chest x-ray: No acute cardiopulmonary disease, mild cardiomegaly. CT abdomen and pelvis: There is no significant change when compared to the prior exam of 04/20/2020. There are bilateral renal collecting system stents. There is no acute change in the abdomen or pelvis compared to the prior exam. Renal US: 1. Severe hydronephrosis of the right kidney again visualized. A ureteral stent is visualized in the region of the right renal pelvis. 2. Mild right renal cortical thinning or atrophy visualized. 3. Moderate left hydronephrosis identified, which has improved. A ureteral stent is identified within the left renal pelvis. 4. Slight increased echogenicity of the bilateral renal cortices, suggestive of medical renal disease. 5. Additional findings described above. ASSESSMENT: 74-year-old with multiple admission for acute on chronic renal failure due to hydronephrosis and recurrent postobstructive uropathy despite stent placement. The patient was found to be hypotensive by the home health aide nurse without fever, chills, dysuria, urgency, frequency or flank pain, brought into the emergency room for further evaluation. The patient was found to be hypotensive and responded quite well to IV fluids, with a ++UA but negative UCx on vancomycin and meropenem due to history of Escherichia (E) coli and Enterococcus faecalis with allergy to cephalexin and Levaquin. Course was c/b diarrhea with negative GI panel likely 2/2 abx. PLAN: 1. Sepsis: likely 2/2 UTI though culture had low yield the initial UA was frankly positive, with a long history of stones and bilateral urinary stents. -For now will continue renally dosed empiric vancomycin and meropenem, for 3 days and then discontinue. Day 3 of antibiotics. Will discontinue today. 2. Chronic spinal stenosis, on Percocet as needed per home script. 3. Acute on chronic kidney disease, stage III to IV. Due to hydronephrosis: Resolved, now at baseline. -currently with stents in place -s/p IV fluids -strict intake and output 4. Hypertensive heart disease, currently with low blood pressure -continue holding her blood pressure medications. 6. History of diastolic heart failure, currently asymptomatic and euvolemic. -monitor 7. History of glaucoma. -continue home eye drops. 8. Anemia of chronic disease. -No acute indication for red blood cell (RBC) transfusion. -No signs of acute gastrointestinal (GI) bleed. -monitor daily CBC 9. Atrial fibrillation. -continue home Eliquis twice a day -continue Coreg 12.5 twice a day 10. Diarrhea: I suspect that it is likely 2/2 abx given it began after starting abx. Resolved. -GI panel, negative DVT ppx: eliquis Dispo: medsurg. Plan for discharge home tomorrow VS,Varune, I+O VS, Fishbone, I+O Vital Signs Date Time Temp Pulse Resp B/P (MAP) Pulse Ox O2 Delivery O2 Flow Rate FiO2 05/03/20 07:30 16 05/03/20 05:00 98.5 65 112/66 (81) 95 Room Air I&O- Last 24 Hours up to 6 AM 05/03/20 06:00 Intake Total 1040 ml Output Total 625 ml Balance 415 ml TJ PETERSON MD May 03, 2020 07:37
[2020-05-03 14:00] VITALS: BP 114/56
[2020-05-03] MEDS: VANCOMYCIN HCL 1,000 MG, VIAL MATE ADAPTER 1 EACH in D5W 250 ML IV SCH (16:16)
[2020-05-03] MEDS: ASPIRIN 81 MG ENTERIC TAB PO SCH (21:40)
[2020-05-03] MEDS: MULTIVITAMINS/MINERALS THERAP 1 TAB PO SCH (21:41)
[2020-05-03] MEDS: FLUoxetine 20 MG CAP PO SCH (21:41)
[2020-05-03] MEDS: FAMOTIDINE 20 MG TAB PO SCH (21:41)
[2020-05-03] MEDS: SIMVASTATIN 40 MG TAB PO SCH (21:42)
[2020-05-03] MEDS: LATANOPROST 0.005% OPHTH SOLN 2.5 ML OU SCH (21:42)
[2020-05-03 22:00] VITALS: BP 122/69
[2020-05-04 06:00] VITALS: BP 115/55
[2020-05-04 06:39] LABS: HEMATOCRIT 27.8 % (36.0-47.0); HEMOGLOBIN 8.9 g/dl (12.0-15.5); MEAN CORPUSCULAR VOLUME 93.6 fl (80.0-96.0); PLATELET COUNT, AUTOMATED 159 10^3/uL (150-450); RED BLOOD COUNT 2.97 10^6/uL (4.00-5.40); WHITE BLOOD COUNT 6.5 10^3/uL (4.0-10.0)
[2020-05-04 07:22] LABS: CALCIUM LEVEL 8.4 MG/DL (8.8-10.2); CREATININE FOR GFR 1.45 MG/DL (0.55-1.30); GLOMERULAR FILTRATION RATE 37.5 (>39); POTASSIUM SERUM 4.7 MEQ/L (3.5-5.1)
[2020-05-04] MEDS: LACTOBACILLUS ACIDOPHILUS CAP (BACID) PO SCH (07:26)
[2020-05-04] MEDS: PERCOCET 5MG/325MG TAB PO PRN (07:26)
[2020-05-04] MEDS: MEROPENEM INJ 500 MG in IV 1 EA IV SCH (08:02)
[2020-05-04] MEDS: GABAPENTIN 300 MG CAP PO SCH (08:02)
[2020-05-04] MEDS: APIXABAN 2.5 MG TAB (ELIQUIS) PO SCH (08:02)
[2020-05-04 08:12] VITALS: BP 119/55
[2020-05-04] MEDS: CARVedilol 12.5 MG TAB PO SCH (08:12)
--- NOTE | 2020-05-04 09:30 | DS.PDOC ---
Discharge Summary General Date of Admission Apr 30, 2020 at 15:11 Date of Discharge 05/04/2020 Attending Physician: TJ PETERSON MD Discharge Summary PROCEDURES PERFORMED DURING STAY: None ADMITTING DIAGNOSES: 1. UTI DISCHARGE DIAGNOSES: Urinary tract infection Sepsis ANTELMO on CKD stage III Hypertensive heart disease. History of extensive renal stones s/p bilateral renal stents with bilateral hydronephrosis. Dyslipidemia. Spinal stenosis, uses a cane. COMPLICATIONS/CHIEF COMPLAINT: ARF. HISTORY OF PRESENT ILLNESS: 74-year-old W with a history significant for renal calculi dating back to 2008, chronic kidney disease stage III to IV, bilateral hydronephrosis with stent placement exchanged every few months and follows with Dr. Jack, hypertensive heart disease, dyslipidemia, glaucoma, depression, reflux, spinal stenosis, colon cancer with resection and radiation, claudication, peripheral arterial disease, history of pyelonephritis, diastolic heart failure, cervical dysplasia, who was recently discharged from the hospital for pyelonephritis and acute on chronic renal failure, who was seen by a home health aide on the day of presentation and was found to have low blood pressures and sent to the emergency room. HOSPITAL COURSE: In the ED, she reported feeling lightheaded and dizzy which comes and goes over the past few days without fever or chills. She was given two liters of IV fluids, started on IV meropenem and vancomycin due to abnormal urinalysis with 3+ leukocyte esterase, too numerous to count white blood cells (WBCs) and red blood cells (RBCs) and cloudy appearing urine and admitted for a urinary tract infection (UTI), hypotension with sepsis. She was continued on vanc/hue due to history of Escherichia (E) coli and Enterococcus faecalis with allergy to cephalexin and Levaquin. Ultimately her UCx was negative but given the extensive stone and stent history, I cautiously gave her antibiotics for 3 days. Her course was c/b diarrhea with a negative GI panel likely 2/2 abx that self resolved. She is now being discharged home. DISCHARGE MEDICATIONS: Please see below. ALLERGIES: Please see below. PHYSICAL EXAMINATION ON DISCHARGE: VITAL SIGNS: Please see below. GENERAL: NAD, well appearing, self grooming in the bathroom HEENT: NCAT, PERRLA, EOMI, anicteric, non injected Neck: No JVD, thyromegaly or adenopathy Lungs: CTAB Cardiac: RRR, no mrg Abdomen: Normoactive bowel sounds, soft, NTND Ext: no LE edema, WWP Neuro: speech is clear, CN 2-12 intact Psych: AOx3 LABORATORY DATA: Please see below. IMAGING: Chest x-ray: No acute cardiopulmonary disease, mild cardiomegaly. CT abdomen and pelvis: There is no significant change when compared to the prior exam of 04/20/2020. There are bilateral renal collecting system stents. There is no acute change in the abdomen or pelvis compared to the prior exam. Renal US: 1. Severe hydronephrosis of the right kidney again visualized. A ureteral stent is visualized in the region of the right renal pelvis. 2. Mild right renal cortical thinning or atrophy visualized. 3. Moderate left hydronephrosis identified, which has improved. A ureteral stent is identified within the left renal pelvis. 4. Slight increased echogenicity of the bilateral renal cortices, suggestive of medical renal disease. 5. Additional findings described above. PROGNOSIS: Good ACTIVITY: As tolerated DIET: 2g sodium DISCHARGE PLAN: Home with reactivation of services DISPOSITION: Home DISCHARGE INSTRUCTIONS: 1. PCP within 7d and expectant urology follow up ITEMS TO FOLLOWUP ON ON OUTPATIENT: 1. PCP within 7d and expectant urology follow up DISCHARGE CONDITION: Stable TIME SPENT ON DISCHARGE: 36 minutes. Vital Signs/I&Os Vital Signs Date Time Temp Pulse Resp B/P (MAP) Pulse Ox O2 Delivery O2 Flow Rate FiO2 05/04/20 07:56 16 05/04/20 06:00 97.4 63 115/55 (75) 96 05/03/20 14:00 Room Air I&O- Last 24 Hours up to 6 AM 05/04/20 06:00 Intake Total 1060 ml Output Total 680 ml Balance 380 ml Laboratory Data Labs 24H Laboratory Tests 2 05/04/20 06:29: Nucleated Red Blood Cells % (auto) 0.0, Anion Gap 6L, Glomerular Filtration Rate 37.5L, Calcium Level 8.4L CBC/BMP Laboratory Tests 05/04/20 06:29 Microbiology Microbiology 05/02/20 Gastrointestinal Tract Panel (PCR) - Final, Complete 04/30/20 Urine Culture - Final, Complete 04/30/20 Blood Culture - Preliminary, Resulted No Growth after 72 hours. All specime... 04/30/20 Blood Culture - Preliminary, Resulted No Growth after 72 hours. All specime... Discharge Medications Scheduled Apixaban (Eliquis) 2.5 Mg Tablet, 2.5 MG PO BID, (Reported) Aspirin (Aspir 81) 81 Mg Tablet.dr, 81 MG PO QHS, (Reported) Carvedilol (Carvedilol) 12.5 Mg Tablet, 12.5 MG PO BID, (Reported) Famotidine (Famotidine) 40 Mg Tablet, 40 MG PO QHS, (Reported) Fluoxetine Hcl (Fluoxetine HCl) 40 Mg Capsule, 40 MG PO QHS, (Reported) Gabapentin (Gabapentin) 600 Mg Tablet, 600 MG PO TID, (Reported) L.acidoph/L.bulg/B.bif/S.therm (Mia-Bid Caplet) 1 Each Tablet, 1 TAB PO WMHS, (Reported) Latanoprost (Xalatan) 0.005 % Olga, 1 DROP OU QHS, (Reported) Magnesium Oxide (Magnesium Oxide) 400 Mg Tablet, 400 MG PO DAILY, (Reported) NOON Multivit,Calc,Mins/Iron/Folic (Thera-M Tablet) 1 Each Tablet, 1 TAB PO QHS, (Reported) Potassium Chloride (Potassium Chloride) 20 Meq Tab.er.prt, 40 MEQ PO QHS, (Reported) Simvastatin (Simvastatin) 40 Mg Tab, 40 MG PO QHS, (Reported) Scheduled PRN Acetaminophen (Acetaminophen) 325 Mg Tablet, 650 MG PO Q6H PRN for PAIN, (Reported) Oxycodone HCl/Acetaminophen (Oxycodone-Acetaminophen 5-325) 1 Tab Tab, 1 TAB PO Q6HP PRN for PAIN, (Reported) Allergies Coded Allergies: cephalexin (Verified Allergy, Intermediate, rash, 04/30/20) levofloxacin (Verified Allergy, Intermediate, rash, 04/30/20) sulfamethoxazole (Verified Adverse Reaction, Intermediate, problems with kidneys, 04/30/20) trimethoprim (Verified Adverse Reaction, Intermediate, problems with kidneys, 04/30/20) TJ PETERSON MD May 04, 2020 08:23
== END 2020-05-04 10:29 | disposition home health service (06) | DRG 872 ==
LOC: M ED 12:35 → M ED INP 15:11 → ENRESERV 05-01 13:06 → M MSPAV 05-01 14:52
PROVIDERS: ADMIT General Practice; ATTEND Internal Medicine
DX: A41.9 Sepsis, unspecified organism (principal); N13.6 Pyonephrosis; I50.32 Chronic diastolic (congestive) heart failure; I13.0 Hypertensive heart and chronic kidney disease with heart failure and stage 1 through stage 4 chronic kidney disease, or unspecified chronic kidney disease; N18.3 Chronic kidney disease, stage 3 (moderate); Z96.0 Presence of urogenital implants; E78.5 Hyperlipidemia, unspecified; H40.9 Unspecified glaucoma; F32.9 Major depressive disorder, single episode, unspecified; K21.9 Gastro-esophageal reflux disease without esophagitis; I73.9 Peripheral vascular disease, unspecified; Z85.038 Personal history of other malignant neoplasm of large intestine; Z90.49 Acquired absence of other specified parts of digestive tract; Z92.3 Personal history of irradiation; Z98.41 Cataract extraction status, right eye; Z98.42 Cataract extraction status, left eye; Z95.5 Presence of coronary angioplasty implant and graft; Z87.891 Personal history of nicotine dependence; Z88.1 Allergy status to other antibiotic agents; Z88.2 Allergy status to sulfonamides; Z88.8 Allergy status to other drugs, medicaments and biological substances; Z79.01 Long term (current) use of anticoagulants; Z79.891 Long term (current) use of opiate analgesic; Z79.899 Other long term (current) drug therapy; D63.8 Anemia in other chronic diseases classified elsewhere; R19.7 Diarrhea, unspecified; T36.95XA Adverse effect of unspecified systemic antibiotic, initial encounter

== ENCOUNTER → 2020-05-14 | Outpatient (CLI) | payer MEDICARE ==
[~2020-05-14] MED LIST changes: -AMLO10TA5 PO; +AMLO1TAB24 PO; +AMLO1TAB25 PO; -ASPI81TA85 PO; +ASPI81TA86 PO; +CARV3.12 PO; +CVS1CAP5 PO; +FAMO1TAB11 PO; +FLUC200T2 PO; +GABA-845 PO; +LISI-542 PO; +OXYC10TA3 PO
--- NOTE | 2020-05-14 16:04 | REP ---
Clinical: Trauma. Contusion. Technique: AP, lateral, bilateral oblique views of the left hand. Findings: Age-related osteopenia and degenerative changes are noted. No acute fracture or dislocation identified. No subcutaneous emphysema or foreign body. Impression: No acute fracture or dislocation. Electronically Signed by Miller Purvis MD 05/14/2020 03:56 P
--- NOTE | 2020-05-14 16:05 | REP ---
Clinical: Trauma. Contusion. Technique: Internal rotation, external rotation, and Y view left shoulder. Findings: No acute fracture or dislocation. The acromioclavicular and glenohumeral joints are intact. No periarticular calcifications or degenerative changes are appreciated. Sub acromial space is normal. Surrounding soft tissues are unremarkable. Impression: No acute fracture or dislocation appreciated. Electronically Signed by Miller Purvis MD 05/14/2020 03:57 P
== END ==
LOC: M CLY 15:20
PROVIDERS: ATTEND Nurse Practitioner Family
DX: M85.842 Other specified disorders of bone density and structure, left hand (principal); S40.012A Contusion of left shoulder, initial encounter; S60.222A Contusion of left hand, initial encounter; W19.XXXA Unspecified fall, initial encounter; Y92.009 Unspecified place in unspecified non-institutional (private) residence as the place of occurrence of the external cause; Y93.9 Activity, unspecified; Y99.9 Unspecified external cause status
CPT/HCPCS: 73030; 73130; G0463

== ENCOUNTER → 2020-05-21 | Outpatient (REF) | payer MEDICARE | LOC: M LAB REF 08:35 | PROVIDERS: ATTEND Nurse Practitioner Family | DX: N39.0 Urinary tract infection, site not specified (principal) ==

== ENCOUNTER 2020-06-21 21:51 | Inpatient (IN) | payer MEDICARE ==
[~2020-06-21] VITALS: Ht 167.6 cm; Wt 77.4 kg
[~2020-06-21 21:51] MED LIST changes: -CARV3.12 PO; -CVS1CAP5 PO; -FAMO1TAB11 PO; -FLUC200T2 PO; -GABA-845 PO; -LISI-542 PO; -OXYC10TA3 PO
[2020-06-21 23:16] LABS: BASO # 0.1 10^3/uL (0.0-0.2); BASO % 0.6 % (0.0-1.0); EOS # 0.1 10^3/uL (0.0-0.5); EOS % 1.1 % (0.0-3.0); HEMATOCRIT 30.1 % (36.0-47.0); HEMOGLOBIN 9.7 g/dl (12.0-15.5); LYMPH # 2.1 10^3/uL (1.5-5.0); LYMPH % 16.6 % (24.0-44.0); MEAN CORPUSCULAR HEMOGLOBIN 30.2 pg (27.0-33.0); MEAN CORPUSCULAR HGB CONC 32.2 g/dl (32.0-36.5); MEAN CORPUSCULAR VOLUME 93.8 fl (80.0-96.0); MONO # 0.9 10^3/uL (0.0-0.8); MONO % 7.4 % (0.0-5.0); NEUTROPHILS # 9.1 10^3/uL (1.5-8.5); PLATELET COUNT, AUTOMATED 245 10^3/uL (150-450); RED BLOOD COUNT 3.21 10^6/uL (4.00-5.40); WHITE BLOOD COUNT 12.4 10^3/uL (4.0-10.0)
[2020-06-21 23:25] LABS: BILIRUBIN, URINE MANUAL NEGATIVE (NEGATIVE); GLUCOSE, URINE (UA) MANUAL NEGATIVE (NEGATIVE); KETONE, URINE MANUAL NEGATIVE (NEGATIVE); UROBILINOGEN, URINE MANUAL NORMAL (NORMAL)
[2020-06-21 23:32] LABS: BACTERIA, URINE LARGE AMOUNT; RBC, URINE 15-20 /hpf (0-3); SQUAMOUS EPITHELIAL CELL URINE MOD AMOUNT /hpf (SMALL AMT)
[2020-06-21 23:33] LABS: AMORPHOUS SEDIMENT, URINE SMALL AMOUNT (NEGATIVE); HYALINE CAST, URINE NONE SEEN /lpf (0-1)
[2020-06-21 23:41] LABS: ALBUMIN 2.7 GM/DL (3.2-5.2); ALT/SGPT 15 U/L (12-78); BILIRUBIN,DIRECT < 0.1 MG/DL (0.0-0.2); BILIRUBIN,TOTAL 0.2 MG/DL (0.2-1.0); BLOOD UREA NITROGEN 30 MG/DL (7-18); CALCIUM LEVEL 8.6 MG/DL (8.8-10.2); CARBON DIOXIDE LEVEL 24 MEQ/L (21-32); CHLORIDE LEVEL 107 MEQ/L (98-107); CK-MB VALUE MASS < 1.0 NG/ML (<3.6); CPK CREATINE PHOSPHOKINASE 57 U/L (26-192); GLOMERULAR FILTRATION RATE 23.2 (>39); GLUCOSE, FASTING 113 MG/DL (70-100); LIPASE 78 U/L (73-393); MB/CK RELATIVE INDEX 1.75 (< OR =4); POTASSIUM SERUM 4.7 MEQ/L (3.5-5.1); SODIUM LEVEL 137 MEQ/L (136-145); TOTAL PROTEIN 6.8 GM/DL (6.4-8.2); TROPONIN I < 0.02 NG/ML (< 0.10)
--- NOTE | 2020-06-22 00:19 | REPVR ---
PROCEDURE INFORMATION: Exam: CT Abdomen And Pelvis Without Contrast Exam date and time: 06/21/2020 11:53 PM Age: 74 years old Clinical indication: Other: Dysuria; Additional info: Abdoul, dysuria, HX of stents TECHNIQUE: Imaging protocol: Computed tomography of the abdomen and pelvis without contrast. Radiation optimization: All CT scans at this facility use at least one of these dose optimization techniques: automated exposure control; mA and/or kV adjustment per patient size (includes targeted exams where dose is matched to clinical indication); or iterative reconstruction. COMPARISON: CT ABD PELVIS W/O CONTRAST 2020-04-30 14:56 FINDINGS: Lungs: Dependent subsegmental pulmonary atelectasis. Liver: Normal. No mass. Gallbladder and bile ducts: Cholecystectomy clips in the right upper quadrant. Pancreas: Normal. No ductal dilation. Spleen: Normal. No splenomegaly. Adrenals: Normal. No mass. Kidneys and ureters: Renal and ureteral urothelial thickening. Moderate bilateral hydroureter and hydronephrosis, stents are in position appropriately. Bilateral large extrarenal pelves. Right greater than left renal scarring and atrophy. Correlate for pyelonephritis. Small, less than 5 mm, renal hypodensity. Highly likely to be benign and does not require follow-up imaging or biopsy per ACR. Stomach and bowel: Constipation. Appendix: No evidence of appendicitis. Intraperitoneal space: Unremarkable. No free air. No significant fluid collection. Vasculature: Unremarkable. No abdominal aortic aneurysm. Lymph nodes: Unremarkable. No enlarged lymph nodes. Bladder: Unremarkable as visualized. Reproductive: Atrophic as expected uterus and adnexal structures. Bones/joints: Severe lower lumbar spinal stenosis from degenerative disc and joint disease. Relatively hypodense bones indicating osteopenia. Stepwise degenerative L3-L5 anterolisthesis. Soft tissues: Bilateral fat protruding inguinal hernia. Surgical changes at the anorectal verge with scarring. IMPRESSION: 1. Renal and ureteral urothelial thickening. Moderate bilateral hydroureter and hydronephrosis, stents are in position appropriately. Bilateral large extrarenal pelves. Right greater than left renal scarring and atrophy. Correlate for pyelonephritis. Renal collecting system dilatation is mildly increased since the comparison, as is the urothelial thickening. 2. Severe lower lumbar spinal stenosis from degenerative disc and joint disease. Electronically signed by: Vicente Rubalcava On 06/22/2020 00:18:51 AM
[2020-06-22] MEDS ORDERED: MEROPENEM INJ 1 GM in IV 1 EA IV ONE (00:45)
[2020-06-22] MEDS ORDERED: ONDANSETRON 4MG/2ML VIAL IV ONE (00:45)
[2020-06-22] MEDS: MORPHINE 4 MG/ML 1ML VIAL/SYRINGE (J2270) IV PRN ×2 (01:00→03:45)
[2020-06-22] MEDS ORDERED: CARV3.12 PO (01:30)
[2020-06-22] MEDS ORDERED: GABA-845 PO (01:30)
[2020-06-22] MEDS ORDERED: FAMO1TAB11 PO (01:30)
[2020-06-22] MEDS ORDERED: CVS1CAP5 PO (01:30)
[2020-06-22] MEDS ORDERED: OXYC10TA3 PO (01:30)
[2020-06-22] MEDS ORDERED: ONDANSETRON 4MG/2ML VIAL IV PRN (02:15)
[2020-06-22] MEDS ORDERED: MORPHINE 4 MG/ML 1ML VIAL/SYRINGE (J2270) IV PRN (02:30)
[2020-06-22 02:52] LABS: FERRITIN 543 NG/ML (8-252); IRON (FE) 15 UG/DL (50-170); LDH LACTATE DEHYDROGENASE 161 U/L (84-246); PERCENT SATURATION 8.1 % (13.2-45.0); TOTAL IRON BINDING CAPACITY 185 UG/DL (250-450)
[2020-06-22] MEDS ORDERED: MEROPENEM INJ 1 GM in IV 1 EA IV SCH (03:30)
--- NOTE | 2020-06-22 03:30 | HPEPDOC ---
General Date of Admission Jun 22, 2020 at 01:13 Date of Service: Jun 22, 2020 Chief Complaint back pain Source: Patient Exam Limitations: No limitations Associated Symptoms: Fever, Chills, Loss of appetite, Malaise, Weakness, Dizziness History of Present Illness Patient is a 74 yo pleasant female with history of colon CA who has b/l ureteral stent d/t b/l ureteral obstruction which developed d/t colon resection and radiation therapy for colon CA presented to [facility] due to back pain, fever, chills, dysuria, urgency, and frequency as well as appetite loss, weight loss of 20lbs, and generalized weakness. She reported that she has intermittent and chills for about 2 months around 4-5 times a day without consistent pattern. Reported dysuria with burning pain as well as urgency and frequency which she reported the duration as "for a while." but cannot specify further. Reported midline low back pain that she usually have with a pyelonephritis which she describes as sharp 10/10 pain prior to receiving pain meds with alleviating factor being resting and pain meds; aggravating factor being pressure and movement. She reported ureteral stent last changed in March 2020, and she first had ureteral stent placed at least 3 years ago, and that her stents are changed around every 3 months per patient. Reported hx of prior UTI and intermittent hydronephrosis. Reported 20lb weight loss for the past 2 months; pt reported low appetite and reported that she thinks her weight loss is proportional to the amount of her decreased food intake. Denies any nausea, vomiting, abdominal pain, or flank pain. Generalized weakness for which she has to be using a cane for at least 6 months. Reported fatigue and dizziness.Denies any tick bite or recent travel hx. Home Medications Scheduled Apixaban (Eliquis) 2.5 Mg Tablet, 2.5 MG PO BID, (Reported) Aspirin (Aspir 81) 81 Mg Tablet.dr, 81 MG PO QHS, (Reported) Carvedilol (Carvedilol) 3.125 Mg Tablet, 3.125 MG PO BID, (Reported) Famotidine (Famotidine) 20 Mg Tablet, 40 MG PO QHS, (Reported) Fluconazole (Fluconazole) 200 Mg Tablet, 200 MG PO DAILY for Fungal UTI Fluoxetine Hcl (Fluoxetine HCl) 40 Mg Capsule, 40 MG PO QHS, (Reported) Gabapentin (Gabapentin) 400 Mg Capsule, 400 MG PO BID, (Reported) Lactobacillus Combination No.4 (Probiotic) 1 Each Capsule, 1 CAP PO BID, (Reported) Latanoprost (Xalatan) 0.005 % Olga, 1 DROP OU QHS, (Reported) Lisinopril (Lisinopril) 5 Mg Tablet, 5 MG PO DAILY Magnesium Oxide (Magnesium Oxide) 400 Mg Tablet, 400 MG PO DAILY, (Reported) NOON Multivit,Calc,Mins/Iron/Folic (Thera-M Tablet) 1 Each Tablet, 1 TAB PO QHS, (Reported) Potassium Chloride (Potassium Chloride) 20 Meq Tab.er.prt, 40 MEQ PO DAILY, (Reported) Simvastatin (Simvastatin) 40 Mg Tab, 40 MG PO QHS, (Reported) Scheduled PRN Acetaminophen (Acetaminophen) 325 Mg Tablet, 650 MG PO Q6H PRN for PAIN, (Reported) Oxycodone HCl/Acetaminophen (Oxycodone-Acetaminophen 10-325) 1 Each Tablet, 1 TAB PO QID PRN for PAIN, (Reported) Allergies Coded Allergies: cephalexin (Verified Allergy, Intermediate, rash, 04/30/20) levofloxacin (Verified Allergy, Intermediate, rash, 04/30/20) sulfamethoxazole (Verified Adverse Reaction, Intermediate, problems with kidneys, 04/30/20) trimethoprim (Verified Adverse Reaction, Intermediate, problems with kidneys, 04/30/20) Past Medical History Medical History Glaucoma Depression GERD UTI/Pyelonephritis Sepsis ANTELMO on CKD stage 3 Hypertensive heart disease/diastolic heart failure History of extensive renal stones s/p bilateral renal stents with bilateral hydronephrosis Dyslipidemia Spinal stenosis, uses a cane colon cancer with resection and radiation, reported to be in remission, Claudication Reported sciatica peripheral arterial disease cervical dysplasia Hypotension Surgical History T. and A. child Excision of colon cancer 1997 Colonoscopy 2005, 2009, 2013 Laser surgery for glaucoma 05/2013 Uteral stents 2014 Gall bladder removal 02/2015 Uteral stents 02/2015 Colnoscopy, endoscopy 02/2015 Cardiac cath 02/2015 Cardiac stents replaced on both sides 01/2016 Change of kidney stents 02/2017 B/l eyes 04/2017 Kidney stents 05/21/2019 Kidney stents replacement 10/2019 Torsades de pointes Social History * Smoker: Denies Reported daughter recently was diagnosed CA in [place]. Majority of family lives in [place]. Denies covid exposure or sick contact; pt reported recently tested neg for covid. A-FIB/CHADSVASC A-FIB History Current/History of A-Fib/PAF?: No Review of Systems Constitutional: Reports: Chills, Fever, Malaise, Weakness, Fatigue, Weight Loss Pulmonary: Denies: Dyspnea Cardiovascular: Denies: Chest Pain, Palpitations Gastrointestinal: Denies: Nausea, Vomiting, Abdominal Pain, Diarrhea, Constipat ion Genitourinary: Reports: Dysuria, Frequency, Other Symptoms (urgency) Musculoskeletal: Reports: Back Pain Neurological: Reports: Other Symptoms (No extremity weakness) Physical Examination General Exam: Positive: Alert, Mild Distress Eye Exam: Positive: Conjunctiva & lids normal ENT Exam: Positive: Atraumatic, Mucous membr. moist/pink Neck Exam: Positive: Supple Chest Exam: Positive: Normal air movement, Diminished; Negative: Rales, Rhonchi, Wheezing Heart Exam: Positive: Rate Normal, Regular Rhythm, Normal S1, Normal S2; Negative: Murmurs Abdomen Exam: Positive: Normal bowel sounds, Soft; Negative: Tenderness Extremity Exam: Negative: Edema, Swelling Skin Exam: Positive: Nl turgor and temperature Neuro Exam: Positive: Normal Speech, Strength at 5/5 X4 ext, Normal Tone, Sensation Intact Psych Exam: Positive: Mental status NL, Anxiety (mild), Memory Intact, Oriented x 3 Other physical findings Neg Dmitriy's sign b/l. Pos tenderness in lumbar spine Vital Signs Vital Signs Date Time Temp Pulse Resp B/P (MAP) Pulse Ox O2 Delivery O2 Flow Rate FiO2 06/22/20 01:10 14 06/21/20 22:06 06/21/20 21:52 99.6 87 95 Room Air Laboratory Data Labs 24H Laboratory Tests 2 06/21/20 22:54: Urine Color (ANA) YELLOW, Urine Appearance (ANA) CLOUDYH, Urine pH (ANA) 6.5, Urine Specific [place] (ANA) 1.010, Bedside Urine Glucose (UA) NEGATIVE, Bedside Urine Ketones (LAB) NEGATIVE, Bedside Urine Blood POSITIVEH, Bedside Urine N itrite (LAB) POSITIVEH, Bedside Urine Bilirubin (LAB) NEGATIVE, Bedside Urine Urobilinogen (LAB) NORMAL, Bedside Urine Leukocyte Esterase (L POSITIVEH, Urine Sediment Examination PERFORMED, Urine RBC 15-20H, Urine WBC TNTCH, Urine Squamous Epithelial Cells MOD AMOUNTH, Urine Amorphous Sediment SMALL AMOUNTH, Urine Bacteria LARGE AMOUNTH, Urine Hyaline Casts NONE SEEN 06/21/20 23:05: Immature Granulocyte % (Auto) 0.3, Neutrophils (%) (Auto) 74.0H, Lymphocytes (%) (Auto) 16.6L, Monocytes (%) (Auto) 7.4H, Eosinophils (%) (Auto) 1.1, Basophils (%) (Auto) 0.6, Neutrophils # (Auto) 9.1H, Lymphocytes # (Auto) 2.1, Monocytes # (Auto) 0.9H, Eosinophils # (Auto) 0.1, Basophils # (Auto) 0.1, Nucleated Red Blood Cells % (auto) 0.0, Anion Gap 6L, Glomerular Filtration Rate 23.2L, Lactic Acid Level 0.9, Calcium Level 8.6L, Iron Level 15L, Total Iron Binding Capacity 185L, Transferrin % Saturation 8.1L, Ferritin 543H, Total Bilirubin 0.2, Direct Bilirubin < 0.1, Aspartate Amino Transf (AST/SGOT) 12, Alanine Aminotransferase (ALT/SGPT) 15, Alkaline Phosphatase 95, Lactate Dehydrogenase 161, Total Creatine Kinase 57, Creatine Kinase MB < 1.0, Creatine Kinase MB Relative Index 1.75, Troponin I < 0.02, Total Protein 6.8, Albumin 2.7L, Albumin/Globulin Ratio 0.7L, Lipase 78 06/22/20 00:00: CBC/BMP Laboratory Tests 06/21/20 23:05 Microbiology Microbiology 06/22/20 Blood Culture, Received Pending 06/22/20 Blood Culture, Received Pending 06/21/20 Urine Culture, Received Pending Assessment/Plan 1. UTI likely with pyelonephritis. Intermittent fever/chills, dysuria, urgency, and frequency. Pos UA for leukocyte,WBC, RBC, bacteria, and nitrite; as pt is having urinary symptoms with fever/chills, start IV Meropenem. Urine cx and blood cx pending. Vital stable. Vital signs 2. Anemia, normocytic, chronic. Iron studies consistent with iron deficiency anemia. B12 and folate level pending. Cont to trend H&H and CBC. UA pos for RBC, consider outpt follow up with urology for hematuria work up 3. Hematuria. UA pos for RBC and blood. CT abd pelvis showed no nephrolithiasis. Consider outpatient follow up with urology. 4. B/l hydroureter and hydronephrosis. Moderate bilateral hydroureter and hydronephrosis with stents in appropriate position seen on CT. Bilateral large extrarenal pelves. B/l stent in place. Patient started on IV abx for pyelonephritis. 5. Severe lower lumbar spinal stenosis. Seen on abd/pelvis CT. Uses a cane to walk. Pain meds. PT/OT 6. Weight loss. 20lb weight loss, with fatigue, generalized weakness requiring walking with cane, 2 months intermittent fever/chills, and anemia. Although pt attributed to markedly decreased appetite causing weight loss. Initial work up for possible etiologies such as multiple myeloma with SPEP/UPEP, rheumatological disease with SUZANNE, colon CA with occult blood ordered. Consider TSH, CXR, HIV, ESR/CRP if all initial work up neg. Diet consult as pt also have low albumin and CKD 7. ANTELMO on CKD. Hx of CKD stage 3. Creatinine elevated compared to baseline. Start gentle hydration with NS at 60ml/hr as patient also has hx of diastolic heart failure. I&O. Vital signs. Daily weights 8. HTN with hx of hypertensive heart disease. Cont home med Carvedilol. Vital signs 9. Depression. Cont home med Fluoxetine 10. GERD. Cont home med famotidine. 11. Diastolic heart failure. Echo 03/2020 showed with grade 2 LV diastolic dysfunction. Pt follows Dr. Ness outpatient for hypertensive heart disease as well, pt . No signs of fluid overload at this time. 12. Dyslipidemia. Cont home med statin 13. Sciatica. Cont home med Gabapentin 14. peripheral arterial disease. Cont home med statin and aspirin. Avoid SCD or TEDS Plan / VTE VTE Prophylaxis Ordered?: Yes (on home med eliquis) DEON MCCLAIN DO Jun 22, 2020 03:30 FRANCISCA ELIAS MD Jul 01, 2020 03:12
[2020-06-22 03:35] VITALS: BP 109/66
--- NOTE | 2020-06-22 05:06 | IPNPDOC ---
Text Note Date of Service The patient was seen on 06/22/20. NOTE TIME OF SERICE 403 AM is a74 yr old F w a hx of frequent UTIs, CKD3, bilateral ureteral obstruction w/ chronic ureteral stents (replacement Q3 months) & hx of torsades who presented w c/o dysuria and frequency and will be admitted for management of sepsis 2/2 pyelonephritis and ANTELMO. rest per 's H&P VS,[place], I+O VS, Jose Enrique, I+O Laboratory Tests 06/21/20 23:05 Vital Signs Date Time Temp Pulse Resp B/P (MAP) Pulse Ox O2 Delivery O2 Flow Rate FiO2 06/22/20 03:45 18 06/22/20 03:35 98.2 89 109/66 (80) 96 Room Air I&O- Last 24 Hours up to 6 AM 06/22/20 06:00 Intake Total 50 ml Output Total 0 ml Balance 50 ml FRANCISCA ELIAS MD Jun 22, 2020 05:05
[2020-06-22] MEDS: NS 1,000 ML IV SCH ×2 (05:51→20:20)
[2020-06-22 06:55] LABS: HEMOGLOBIN 9.1 g/dl (12.0-15.5)
[2020-06-22] MEDS: POTASSIUM CHLORIDE 10 MEQ SR TABLET PO SCH ×2 (09:00→09:03)
[2020-06-22] MEDS: CARVedilol 3.125 MG TAB PO SCH ×2 (09:02→20:19)
[2020-06-22] MEDS: APIXABAN 2.5 MG TAB (ELIQUIS) PO SCH ×2 (09:03→20:19)
[2020-06-22] MEDS: GABAPENTIN 300 MG CAP PO SCH ×2 (09:03→20:18)
[2020-06-22] MEDS: LACTOBACILLUS ACIDOPHILUS CAP (BACID) PO SCH ×2 (09:03→18:47)
[2020-06-22] MEDS: oxyCODONE 5MG TAB PO PRN ×2 (09:04→20:23)
[2020-06-22] MEDS: MEROPENEM INJ 500 MG in IV 1 EA IV SCH (12:09)
[2020-06-22] MEDS: MAGNESIUM OXIDE 400 MG TAB (MAG-OX) PO SCH (12:10)
[2020-06-22 14:00] VITALS: BP 124/59
--- NOTE | 2020-06-22 15:05 | IPNPDOC ---
Text Note Date of Service The patient was seen on 06/22/20. NOTE SUBJECTIVE: complains of persistent severe back pain more on the right and ce ntral mid back. No fever this morning. PHYSICAL EXAM VITALS: As below General Exam: Positive: Alert, Mild Distress Eye Exam: Positive: Conjunctiva & lids normal ENT Exam: Positive: Atraumatic, Mucous membr. moist/pink Neck Exam: Positive: Supple Chest Exam: Positive: Normal air movement, Diminished; Negative: Rales, Rhonchi, Wheezing Heart Exam: Positive: Rate Normal, Regular Rhythm, Normal S1, Normal S2; Negative: Murmurs Abdomen Exam: Positive: Normal bowel sounds, Soft; Negative: Tenderness Extremity Exam: Negative: Edema, Swelling Skin Exam: Positive: Nl turgor and temperature Neuro Exam: Positive: Normal Speech, Strength at 5/5 X4 ext, Normal Tone, Sensation Intact Psych Exam: Positive: Mental status NL, Anxiety (mild), Memory Intact, Oriented x 3 Back: Tenderness in the spine mid and lower back Labs and Radiology: Reviewed. Assessment and Plan: Patient is a 74 yo pleasant female with history of colon CA who has b/l ureteral stent from 2013 due to b/l ureteral stricture which developed after colon resection and radiation therapy for colon CA in 1997 presented to [facility] due to back pain, fever, chills, dysuria, urgency, and frequency as well as appetite loss, weight loss of 20lbs, and generalized weakness. She reported ureteral stent last changed in April 09 2020, and she first had ureteral stent placed at least 6 years ago, and that her stents are changed around every 3 months per patient. Reported hx of prior UTI and intermittent hydronephrosis. Patient again found to have dirty UA and ANTELMO on CKD stage 3. Her last urine culture from May 21 grew pseudomonas. UTI/ Pyelonephritis/ sepsis Last Urine culture on May 21 Pseudomonas will continue Meropenem current urine culture pending. Bilateral obstructive uropathy with bilateral hydronephrosis. due to Ureteral strictures from radiation therapy after treatment for colon cancer Has bilateral ureteral stents ANTELMO on CKD stage 3 baseline creatinine 1.6 to 1.8 will monitor. Depression fluoxetine GERD PPI; famotidine Hypertensive heart disease/diastolic heart failure coreg Dyslipidemia statin Severe spinal canal stenosis Reported sciatica oxycodone and gabapentin Peripheral arterial disease Colon cancer with resection and radiation in 1997 reported to be in remission, VS,Fishbone, I+O VS, Varune, I+O Laboratory Tests 06/21/20 23:05 06/22/20 06:36 Vital Signs Date Time Temp Pulse Resp B/P (MAP) Pulse Ox O2 Delivery O2 Flow Rate FiO2 06/22/20 11:35 16 06/22/20 09:02 84 122/61 06/22/20 03:35 98.2 96 Room Air I&O- Last 24 Hours up to 6 AM 06/22/20 06:00 Intake Total 50 ml Output Total 0 ml Balance 50 ml EUGENE HELMS MD Jun 22, 2020 14:05
[2020-06-22] MEDS: PANTOPRAZOLE 40MG TAB (PROTONIX) PO SCH (15:51)
[2020-06-22] MEDS: FAMOTIDINE 20 MG TAB PO SCH (20:18)
[2020-06-22] MEDS: FLUoxetine 20 MG CAP PO SCH (20:18)
[2020-06-22] MEDS: SIMVASTATIN 40 MG TAB PO SCH (20:19)
[2020-06-22] MEDS: MULTIVITAMINS/MINERALS THERAP 1 TAB PO SCH (20:19)
[2020-06-22] MEDS: ASPIRIN 81 MG ENTERIC TAB PO SCH (20:19)
[2020-06-22] MEDS: LATANOPROST 0.005% OPHTH SOLN 2.5 ML OU SCH (21:29)
[2020-06-23] MEDS: MEROPENEM INJ 500 MG in IV 1 EA IV SCH ×2 (00:36→12:25)
[2020-06-23 06:00] VITALS: BP 132/55
[2020-06-23 06:30] LABS: HEMATOCRIT 25.8 % (36.0-47.0); HEMOGLOBIN 8.4 g/dl (12.0-15.5); MEAN CORPUSCULAR HEMOGLOBIN 30.3 pg (27.0-33.0); MEAN CORPUSCULAR HGB CONC 32.6 g/dl (32.0-36.5); MEAN CORPUSCULAR VOLUME 93.1 fl (80.0-96.0); PLATELET COUNT, AUTOMATED 226 10^3/uL (150-450); RED BLOOD COUNT 2.77 10^6/uL (4.00-5.40); WHITE BLOOD COUNT 9.7 10^3/uL (4.0-10.0)
[2020-06-23 06:51] LABS: BLOOD UREA NITROGEN 23 MG/DL (7-18); CALCIUM LEVEL 8.2 MG/DL (8.8-10.2); CARBON DIOXIDE LEVEL 24 MEQ/L (21-32); CHLORIDE LEVEL 111 MEQ/L (98-107); CREATININE FOR GFR 1.65 MG/DL (0.55-1.30); GLOMERULAR FILTRATION RATE 32.3 (>39); GLUCOSE, FASTING 96 MG/DL (70-100); POTASSIUM SERUM 4.3 MEQ/L (3.5-5.1); SODIUM LEVEL 141 MEQ/L (136-145); TOTAL PROTEIN 5.5 GM/DL (6.4-8.2)
[2020-06-23] MEDS: oxyCODONE 5MG TAB PO PRN ×2 (06:53→17:22)
[2020-06-23] MEDS: GABAPENTIN 300 MG CAP PO SCH ×2 (08:33→21:01)
[2020-06-23] MEDS: LACTOBACILLUS ACIDOPHILUS CAP (BACID) PO SCH ×2 (08:33→17:21)
[2020-06-23] MEDS: APIXABAN 2.5 MG TAB (ELIQUIS) PO SCH ×2 (08:34→21:01)
[2020-06-23] MEDS: CARVedilol 3.125 MG TAB PO SCH ×2 (08:34→21:02)
[2020-06-23] MEDS: POTASSIUM CHLORIDE 10 MEQ SR TABLET PO SCH (08:34)
[2020-06-23] MEDS: PANTOPRAZOLE 40MG TAB (PROTONIX) PO SCH (08:34)
[2020-06-23 09:08] LABS: CALCIUM LEVEL 8.5 MG/DL (8.8-10.2); CREATININE FOR GFR 1.94 MG/DL (0.55-1.30); GLOMERULAR FILTRATION RATE 26.8 (>39); POTASSIUM SERUM 4.6 MEQ/L (3.5-5.1)
[2020-06-23] MEDS: MAGNESIUM OXIDE 400 MG TAB (MAG-OX) PO SCH (12:25)
--- NOTE | 2020-06-23 13:18 | IPNPDOC ---
Text Note Date of Service The patient was seen on 06/23/20. NOTE SUBJECTIVE: Back in now in the low back better today. No fever in hospital. No CVA tenderness. PHYSICAL EXAM VITALS: As below General Exam: Positive: Alert, Mild Distress Eye Exam: Positive: Conjunctiva & lids normal ENT Exam: Positive: Atraumatic, Mucous membr. moist/pink Neck Exam: Positive: Supple Chest Exam: Positive: Normal air movement, Diminished; Negative: Rales, Rhonchi, Wheezing Heart Exam: Positive: Rate Normal, Regular Rhythm, Normal S1, Normal S2; Negative: Murmurs Abdomen Exam: Positive: Normal bowel sounds, Soft; Negative: Tenderness, No CVA tenderness. Extremity Exam: Negative: Edema, Swelling Skin Exam: Positive: Nl turgor and temperature Neuro Exam: Positive: Normal Speech, Strength at 5/5 X4 ext, Normal Tone, Sensation Intact Psych Exam: Positive: Mental status NL, Anxiety (mild), Memory Intact, Oriented x 3 Back: Tenderness in the spine mid and lower back Labs and Radiology: Reviewed. Assessment and Plan: Patient is a 74 yo pleasant female with history of colon CA who has b/l ureteral stent from 2013 due to b/l ureteral stricture which developed after colon resection and radiation therapy for colon CA in 1997 presented to [facility] due to back pain, fever, chills, dysuria, urgency, and frequency as well as appetite loss, weight loss of 20lbs, and generalized weakness. She reported ureteral stent last changed in April 09 2020, and she first had ureteral stent placed at least 6 years ago, and that her stents are changed around every 3 months per patient. Reported hx of prior UTI and intermittent hydronephrosis. Patient again found to have dirty UA and ANTELMO on CKD stage 3. Her last urine culture from May 21 grew pseudomonas. UTI/ Pyelonephritis/ sepsis Last Urine culture on May 21 Pseudomonas will continue Meropenem current urine culture contaminated ID consult Bilateral obstructive uropathy with bilateral hydronephrosis. due to Ureteral strictures from radiation therapy after treatment for colon canc er Has bilateral ureteral stents ANTELMO on CKD stage 3 baseline creatinine 1.6 to 1.8 will monitor. Depression fluoxetine GERD PPI; famotidine Hypertensive heart disease/diastolic heart failure coreg Dyslipidemia statin Severe spinal canal stenosis Reported sciatica oxycodone and gabapentin Peripheral arterial disease Colon cancer with resection and radiation in 1997 reported to be in remission, VS,Fishbone, I+O VS, Fishbone, I+O Laboratory Tests 06/23/20 06:12 Vital Signs Date Time Temp Pulse Resp B/P (MAP) Pulse Ox O2 Delivery O2 Flow Rate FiO2 06/23/20 08:34 68 132/55 06/23/20 07:23 18 06/23/20 06:00 99.0 93 Room Air I&O- Last 24 Hours up to 6 AM 06/23/20 05:59 Intake Total 1420 ml Output Total 800 ml Balance 620 ml EUGENE HELMS MD Jun 23, 2020 13:18
[2020-06-23 14:00] VITALS: BP 122/56
[2020-06-23] MEDS: ASPIRIN 81 MG ENTERIC TAB PO SCH (21:01)
[2020-06-23] MEDS: FAMOTIDINE 20 MG TAB PO SCH (21:01)
[2020-06-23] MEDS: FLUoxetine 20 MG CAP PO SCH (21:01)
[2020-06-23] MEDS: MULTIVITAMINS/MINERALS THERAP 1 TAB PO SCH (21:01)
[2020-06-23] MEDS: SIMVASTATIN 40 MG TAB PO SCH (21:02)
[2020-06-23] MEDS: LATANOPROST 0.005% OPHTH SOLN 2.5 ML OU SCH (21:02)
[2020-06-23 22:00] VITALS: BP 143/66
[2020-06-24] MEDS: oxyCODONE 5MG TAB PO PRN ×4 (00:31→20:07)
[2020-06-24] MEDS: MEROPENEM INJ 500 MG in IV 1 EA IV SCH ×2 (00:32→12:54)
[2020-06-24 06:00] VITALS: BP 147/70
[2020-06-24 06:25] LABS: HEMATOCRIT 25.8 % (36.0-47.0); HEMOGLOBIN 8.4 g/dl (12.0-15.5); MEAN CORPUSCULAR HEMOGLOBIN 30.3 pg (27.0-33.0); MEAN CORPUSCULAR HGB CONC 32.6 g/dl (32.0-36.5); MEAN CORPUSCULAR VOLUME 93.1 fl (80.0-96.0); PLATELET COUNT, AUTOMATED 255 10^3/uL (150-450); RED BLOOD COUNT 2.77 10^6/uL (4.00-5.40); WHITE BLOOD COUNT 8.3 10^3/uL (4.0-10.0)
[2020-06-24 06:42] LABS: CALCIUM LEVEL 8.5 MG/DL (8.8-10.2); CREATININE FOR GFR 1.58 MG/DL (0.55-1.30); GLOMERULAR FILTRATION RATE 33.9 (>39); POTASSIUM SERUM 4.5 MEQ/L (3.5-5.1)
[2020-06-24] MEDS: LACTOBACILLUS ACIDOPHILUS CAP (BACID) PO SCH ×2 (08:03→17:31)
[2020-06-24] MEDS: GABAPENTIN 300 MG CAP PO SCH ×2 (08:03→20:06)
[2020-06-24] MEDS: POTASSIUM CHLORIDE 10 MEQ SR TABLET PO SCH (08:06)
[2020-06-24] MEDS: PANTOPRAZOLE 40MG TAB (PROTONIX) PO SCH (08:06)
[2020-06-24] MEDS: CARVedilol 3.125 MG TAB PO SCH ×2 (08:06→20:06)
[2020-06-24 12:09] LABS: ANTINUCLEAR ANTIBODIES DIRECT Negative (Negative)
[2020-06-24] MEDS: MAGNESIUM OXIDE 400 MG TAB (MAG-OX) PO SCH (12:54)
[2020-06-24] MEDS: APIXABAN 2.5 MG TAB (ELIQUIS) PO SCH ×2 (12:54→20:06)
[2020-06-24 13:52] LABS: ALBUMIN 2.36 GM/DL (3.29-5.55); ALBUMIN % 42.9 % (55.8-66.1); ALPHA-2-GLOBULINS 1.19 GM/DL (0.42-0.99); ALPHA-2-GLOBULINS % 21.7 % (7.1-11.8); BETA-1-GLOBULINS 0.29 GM/DL (0.28-0.60); BETA-1-GLOBULINS % 5.3 % (4.7-7.2); BETA-2-GLOBULINS 0.37 GM/DL (0.19-0.55); BETA-2-GLOBULINS % 6.7 % (3.2-6.5); GAMMA GLOBULIN % 14.4 % (11.1-18.8); GAMMA GLOBULINS 0.79 GM/DL (0.65-1.58)
[2020-06-24 14:00] VITALS: BP 135/72
--- NOTE | 2020-06-24 17:26 | CR ---
DATE OF CONSULTATION: 06/23/2020 REASON FOR CONSULTATION: Recurrent pyelonephritis. REFERRING PHYSICIAN: Dr. Rose Aguilera. ATTENDING PHYSICIAN: DR. Calzada HISTORY OF PRESENT ILLNESS: Ms. Best is a 74-year-old female with a history of colorectal cancer status post resection and radiation therapy, who subsequently developed ureteral obstruction secondary to radiation and required bilateral ureteral stents. Patient states that since receiving her ureteral stents she has had recurrent urinary tract infections and pyelonephritis, which has required replacement of her stents approximately every 3 months by her urologist, Dr. Jack. The last time the patient had her stents replaced was in March 2020. She stated that most recently she has been hospitalized approximately four times in the past month for urinary tract infections and pyelonephritis. This past weekend the patient stated that she developed fever, dysuria, and urgency as well as frequency. She states this is exactly how she feels every time she gets a urinary tract infection. She did notice some lower back pain as well as some suprapubic tenderness as well. She presented to [facility], where she was started on meropenem for suspected pyelonephritis. Her previous cultures had demonstrated pseudomonas. Since starting antibiotics the patient has noticed improvement in her symptoms. The patient was scheduled to have a stent exchange toward the end of June, however, stated that she believe that this was apparently pushed up by Dr. Jack to be done earlier. Currently patient is doing well. She is continued on meropenem. She received approximately 3 days of meropenem therapy. MEDICAL HISTORY: 1. Colorectal cancer status post resection and radiation therapy. 2. Depression. 3. Gastroesophageal reflux disease (GERD). 4. Recurrent urinary tract infections (UTIs )and pyelonephritis. 5. Chronic kidney disease, stage III. 6. Hypertensive heart disease/diastolic heart failure. 7. Dyslipidemia. 8. Spinal stenosis. 9. Peripheral arterial disease. 10. Glaucoma. SURGICAL HISTORY: 1. Excision of colon cancer in 1997. 2. Colonoscopy. 3. Glaucoma surgery. 4. Ureteral stents placed in 2013 and every 3 months thereafter. 5. Cardiac in February 2015. 6. Cardiac catheterization with stent placement in January 2016. SOCIAL HISTORY: Patient denies smoking. She denies any intravenous (IV) or illicit drug use. FAMILY HISTORY: Patient has a daughter who is diagnosed with cancer in [place]. She denies any sick contacts. She denies any other family history of cancer. INPATIENT MEDICATIONS: Aspirin, famotidine, Prozac, multivitamin. INPATIENT ANTIBIOTICS: - meropenem 500 mg every 12 hours intravenous (IV) - Lactobacillus twice a day Tuesday/Tuesday by mouth REVIEW OF SYSTEMS: CONSTITUTIONAL: Admits to fevers, chills, and weakness. HEENT: Denies any congestion or sinus tenderness. CARDIOVASCULAR: Denies chest pain, palpitations, feeling of heart racing. PULMONARY: Denies any shortness of breath. Denies any cough or wheezing. GASTROINTESTINAL: Denies nausea or vomiting. Admits to suprapubic tenderness. Denies any diarrhea or constipation. GENITOURINARY: Admits to dysuria and frequency, which have improved since admission. MUSCULOSKELETAL: Reports lower back pain, chronic. NEUROLOGIC: Denies any muscle weakness. Denies any change in her gait. ENDOCRINE: Denies any heat intolerance or cold intolerance. HEMATOLOGIC/LYMPHATIC: Denies any easy bruising or bleeding. Denies any history of deep venous thrombosis (DVT) or pulmonary embolus (PE). PSYCHIATRIC: Denies any anxiety or depression. PHYSICAL EXAMINATION: VITAL SIGNS: Temperature 98.7, pulse 90, respiratory rate 16, blood pressure 122/56, pulse ox 94% on room air. GENERAL: Patient is awake, alert, oriented. She does not appear in any acute distress. She is lying comfortably in bed. HEENT: Atraumatic, normocephalic. Eyes anicteric. Trachea is midline. Mucous membranes are pink and moist. CARDIOVASCULAR: Normal S1, S2, regular rate and rhythm. No clicks, rubs, or murmurs. PULMONARY: Clear vesicular breath sounds bilaterally. Good respiratory effort. No wheeze, rhonchi, or rales. ABDOMEN: Soft, nondistended, nontender. No rebound tenderness or guarding. Normoactive bowel sounds. EXTREMITIES: No edema. Full and equal pulses bilaterally, upper and lower extremities. NEUROLOGIC: No focal neurological deficits. PSYCHIATRIC: Mood and affect appear appropriate. LABORATORY DATA: Hematology: WBC 9.7, hemoglobin 8.4, hematocrit 25.8, platelet count 226. Chemistries: Sodium 141, potassium 4.3, chloride 111, carbon dioxide 25, BUN 23, creatinine 1.65, fasting glucose 96, calcium 8.2. Total protein 5.5. IMAGING: Ct abdomen and pelvis, impression demonstrating renal and urothelial thickening, bilateral hydroureter and hydronephrosis. Stents in position appropriately. Bilateral large extrarenal pelvis. Right greater than left renal scarring, atrophy. Renal collecting system dilation is mildly increased in comparison, as is the urothelial thickening, and severe lower lumbar spinal stenosis from degenerative disc and joint disease. ASSESSMENT AND PLAN: Recurrent urinary tract infections/pyelonephritis. Patient has a history of recurrent urinary tract infections and pyelonephritis, which is complicated by allergies to several medications, including Keflex, levofloxacin, and Bactrim. The patient states that she has tried to be on amoxicillin for suppressive therapy; however, she developed urinary tract infection again. She does have stents placed due to bilateral ureteral obstruction that was occurring after she had received radiation therapy for colorectal cancer. Since that time she has had stents placed by Dr. Jack. Patient likely will continue to have her urinary tract infections due to infected stents. At this time we will continue meropenem. Patient is tentatively planned to have stents exchanged on this week. Will attempt to culture the stents and possible kidney to obtain a more accurate culture. The culture obtained earlier on admission was contaminated and demonstrated multiple polymicrobial rocío. Will obtain a straight catheterization urine culture today in hopes to obtain something. Otherwise we will wait for culture on from the stents. In the meantime, we will continue meropenem. CATHOLIC HEALTHJacqueline
--- NOTE | 2020-06-24 19:57 | IPNPDOC ---
Date Seen The patient was seen on 06/24/20. Progress Note SUBJECTIVE: patient was seen and examined at bedside. Doing well. Denies fevers, chills, n/v/d. Reports ongoing dysuria. Has chronic low back pain, 5/10. Otherwise no acute events overnight. OBJECTIVE PHYSICAL EXAMINATION: VITAL SIGNS: Please see below. GENERAL: NAD HEENT: PERRLA CARDIOVASCULAR: RRR, normal S1, S2. RESPIRATORY: Lungs CTAB. ABDOMINAL: soft, non tender, BS+ EXTREMITIES: no joint deformity, no edema NEUROLOGICAL: no focal neuro deficits, aao x 3 PSYCHOLOGICAL: calm, cooperative LABORATORY DATA, IMAGING STUDIES, MICROBIOLOGY: Please see below. DVT prophylaxis ordered?: Y ASSESSMENT AND PLAN: Patient is a 74 yo pleasant female with history of colon CA who has b/l ureteral stent from 2013 due to b/l ureteral stricture which developed after colon resection and radiation therapy for colon CA in 1997. Presented to [facility] due to back pain, fever, chills, dysuria, urgency, and frequency as well as appetite loss, weight loss of 20lbs, and generalized weakness. She reported ureteral stent last changed in April 09 2020, and she first had ureteral stent placed at least 6 years ago, and that her stents are changed around every 3 months per patient. Reported hx of prior UTI and intermittent hydronephrosis. Patient again found to have dirty UA and ANTELMO on CKD stage 3. Her last urine culture from May 21 grew pseudomonas. PROBLEMS: 1. Pyelonephritis: current urine culture polymicrobial. Meropenem. Pending ureteral stent replacement, cultures from stents as per urology on . ID on consult. 2. Bilateral obstructive uropathy with bilateral hydronephrosis: due to ureteral strictures from radiation therapy (colon ca)' has bilateral ureteral stents. Tentantively scheduled for stent replacement on 06/26/20. 3. ANTELMO on CKD III: Cr stable, monitor daily. 4. Depression: fluoxetine 5. GERD: PPI, famotidine 6. CHF: coreg 7. Dyslipidemia: statin 8. Severe spinal canal stenosis: oxycodone, gabapentin 9. PAD 10. Colon cancer: s/p resection, radiation in 1997. Reports remission. Cultures: Urine 06/21/20 - contaminated Blood 06/22/20 - prelim negative x 2. Urine 06/23/20 (straight cath) - pending Abx Meropenem 06/22/20 - DISPOSITION: Home when medically stable. VS, I&O, 24H, Fishbone Vital Signs/I&O Vital Signs Date Time Temp Pulse Resp B/P (MAP) Pulse Ox O2 Delivery O2 Flow Rate FiO2 06/24/20 14:00 97.1 77 17 135/72 (93) 95 Room Air I&O- Last 24 Hours up to 6 AM 06/24/20 06:00 Intake Total 1700 ml Output Total 1505 ml Balance 195 ml Laboratory Data 24H LABS Laboratory Tests 2 06/24/20 06:02: Nucleated Red Blood Cells % (auto) 0.0, Anion Gap 7L, Glomerular Filtration Rate 33.9L, Calcium Level 8.5L 06/24/20 13:17: Coronavirus (COVID-19)(PCR) NEGATIVE CBC/BMP Laboratory Tests 06/24/20 06:02 Microbiology Microbiology 06/23/20 Urine Culture, Received Pending 06/22/20 Blood Culture - Preliminary, Resulted No Growth after 48 hours. All Specime... 06/22/20 Blood Culture - Preliminary, Resulted No Growth after 48 hours. All Specime... 06/21/20 Urine Culture - Final, Complete CHANDA PETE MD Jun 24, 2020 19:57
[2020-06-24] MEDS: FAMOTIDINE 20 MG TAB PO SCH (20:05)
[2020-06-24] MEDS: SIMVASTATIN 40 MG TAB PO SCH (20:06)
[2020-06-24] MEDS: ASPIRIN 81 MG ENTERIC TAB PO SCH (20:06)
[2020-06-24] MEDS: FLUoxetine 20 MG CAP PO SCH (20:06)
[2020-06-24] MEDS: MULTIVITAMINS/MINERALS THERAP 1 TAB PO SCH (20:06)
[2020-06-24] MEDS: LATANOPROST 0.005% OPHTH SOLN 2.5 ML OU SCH (20:07)
[2020-06-24 22:00] VITALS: BP 153/69
[2020-06-25] MEDS: MEROPENEM INJ 500 MG in IV 1 EA IV SCH ×2 (00:56→13:20)
[2020-06-25] MEDS: oxyCODONE 5MG TAB PO PRN ×3 (04:03→20:15)
[2020-06-25] MEDS: ACETAMINOPHEN 325 MG TAB PO PRN ×2 (05:06→06:24)
[2020-06-25 06:00] VITALS: BP 145/67
[2020-06-25 06:26] LABS: HEMATOCRIT 26.9 % (36.0-47.0); HEMOGLOBIN 8.8 g/dl (12.0-15.5); MEAN CORPUSCULAR HEMOGLOBIN 30.2 pg (27.0-33.0); MEAN CORPUSCULAR HGB CONC 32.7 g/dl (32.0-36.5); MEAN CORPUSCULAR VOLUME 92.4 fl (80.0-96.0); PLATELET COUNT, AUTOMATED 301 10^3/uL (150-450); RED BLOOD COUNT 2.91 10^6/uL (4.00-5.40); WHITE BLOOD COUNT 9.5 10^3/uL (4.0-10.0)
[2020-06-25 06:45] LABS: CALCIUM LEVEL 8.5 MG/DL (8.8-10.2); CREATININE FOR GFR 1.47 MG/DL (0.55-1.30); GLOMERULAR FILTRATION RATE 36.9 (>39); POTASSIUM SERUM 4.4 MEQ/L (3.5-5.1)
[2020-06-25] MEDS: CARVedilol 3.125 MG TAB PO SCH ×2 (09:00→20:16)
[2020-06-25] MEDS: APIXABAN 2.5 MG TAB (ELIQUIS) PO SCH ×2 (09:25→20:15)
[2020-06-25] MEDS: GABAPENTIN 300 MG CAP PO SCH ×2 (09:26→20:15)
[2020-06-25] MEDS: PANTOPRAZOLE 40MG TAB (PROTONIX) PO SCH (09:26)
[2020-06-25] MEDS: LACTOBACILLUS ACIDOPHILUS CAP (BACID) PO SCH ×2 (09:26→17:48)
[2020-06-25] MEDS: POTASSIUM CHLORIDE 10 MEQ SR TABLET PO SCH (09:27)
--- NOTE | 2020-06-25 10:23 | SMCUROLCON ---
Urology Consultation General Date of Consultation 06/25/20 Reason For Consultation This patient is seen for Arf, Pyelonephritis, Sepsis. History of Present Illness This is a 74 y/o F w/ a PMH significant for colon cancer s/p resection and radiation therapy, GERD, CKD, recurrent UTIs, HL, PAD, and b/l ureteral obstruction managed w/ chronic ureteral stenting, admitted a few days ago for presumed pyelonephritis. She notes that she had been having dysuria and fevers at home, which prompted her to come in. She denies flank pain a this time. Her original urine culture on admission was contaminated. A straight cath urine sample obtained 2 days ago is still pending. She has been on meropenem since admission. Urology has been consulted to change her stents on this admission. They were last changed a little under 3 months ago. Past Medical History Medical History see HPI Surgical Hstory Bowel resection 1997, glaucoma surgery, cardiac cath w/ stent in 01/2016, chronic b/l stent changes Medications Current Medications Current Medications Medications (Trade) Dose Ordered Sig/Pedro Route PRN Reason Start Time Stop Time Status Last Admin Dose Admin Acetaminophen (Tylenol Tab) 650 mg Q6H PRN PO PAIN 06/22/20 02:15 06/25/20 05:06 Apixaban (Eliquis) 2.5 mg BID PO 06/22/20 09:00 06/24/20 20:06 Aspirin (Ecotrin) 81 mg QHS PO 06/22/20 21:00 06/24/20 20:06 Carvedilol (COReg) 3.125 mg BID PO 06/22/20 09:00 06/24/20 20:06 Famotidine (Pepcid) 10 mg QHS PO 06/22/20 21:00 06/24/20 20:05 Fluoxetine HCl (PROzac) 40 mg QHS PO 06/22/20 21:00 06/24/20 20:06 Gabapentin (Neurontin) 300 mg BID PO 06/22/20 09:00 06/24/20 20:06 Home Med (Med Rec Complete!) ASDIRECTED XX 06/22/20 01:45 06/22/20 01:37 DC Lactobacillus Acidophilus (Bacid) 1 ea BIDWM PO 06/22/20 08:00 06/24/20 17:31 Latanoprost (Xalatan 0.005% Op Soln) 1 drop QHS OU 06/22/20 21:00 06/24/20 20:07 Magnesium Oxide (Mag-Ox) 400 mg DAILY@1200 PO 06/22/20 12:00 06/24/20 12:54 Meropenem 1 gm/IV Miscellaneous Supplies 50 ml @ 100 mls/hr Q12H IV 06/22/20 03:30 06/22/20 04:22 DC Meropenem 500 mg/ IV Miscellaneous Supplies 50 ml @ 100 mls/hr Q12H IV 06/22/20 13:00 06/25/20 00:56 Morphine Sulfate (Morphine Sulfate Inj) 3 mg Q4HP PRN IV SEVERE PAIN (PS 8-10) 06/22/20 02:30 06/22/20 10:54 Morphine Sulfate (Morphine Sulfate Inj) 4 mg Q30M PRN IV SEVERE PAIN (PS 8-10) 06/22/20 00:45 06/22/20 03:45 DC 06/22/20 03:45 Multivitamins (Theragram-M) 1 tab QHS PO 06/22/20 21:00 06/24/20 20:06 Ondansetron HCl (ZOFRAN INJection) 4 mg Q4HP PRN IV NAUSEA OR VOMITING 06/22/20 02:15 Oxycodone HCl (Roxicodone, Oxyir) 10 mg Q6HP PRN PO SEVERE PAIN (PS 8-10) 06/22/20 02:15 06/25/20 04:03 Pantoprazole Sodium (Protonix) 40 mg DAILY PO 06/22/20 09:00 06/24/20 08:06 Potassium Chloride (Micro-K Extencaps) 40 meq DAILY PO 06/22/20 09:00 06/24/20 08:06 Simvastatin (Zocor) 40 mg QHS PO 06/22/20 21:00 06/24/20 20:06 Sodium Chloride 1,000 ml @ 60 mls/hr [id number] IV 06/22/20 05:15 06/23/20 07:54 DC 06/22/20 20:20 Allergies Allergies: Coded Allergies: cephalexin (Verified Allergy, Intermediate, rash, 04/30/20) levofloxacin (Verified Allergy, Intermediate, rash, 04/30/20) sulfamethoxazole (Verified Adverse Reaction, Intermediate, problems with kidneys, 04/30/20) trimethoprim (Verified Adverse Reaction, Intermediate, problems with kidneys, 04/30/20) Review of Systems Constitutional: Reports: Fever Pulmonary: Denies: Dyspnea, Cough Cardiovascular: Denies Chest Pain, Denies Palpitations Gastrointestinal: Denies: Nausea, Vomiting Genitourinary: Reports: Dysuria, Frequency Psych: Reports: Mood Normal Physical Examination General Exam: Alert, Cooperative, No Acute Distress ENT EXAM: Atraumatic Chest Exam: Normal air movement Heart Exam: Rate Normal Abdomen Exam: Soft, Hernia; No: Tenderness Neuro Exam: Normal Speech Psych Exam: Mental status NL, Mood NL Vital Signs/I&O Vital Signs Date Time Temp Pulse Resp B/P (MAP) Pulse Ox O2 Delivery O2 Flow Rate FiO2 06/25/20 06:00 100.5 70 18 145/67 (93) 92 Room Air I&O- Last 24 Hours up to 6 AM 06/25/20 05:59 Intake Total 1405 ml Output Total 1650 ml Balance -245 ml Laboratory Data 24H Labs Laboratory Tests 2 06/24/20 13:17: Coronavirus (COVID-19)(PCR) NEGATIVE 06/25/20 05:48: Nucleated Red Blood Cells % (auto) 0.0, Anion Gap 4L, Glomerular Filtration Rate 36.9L, Calcium Level 8.5L CBC/BMP Laboratory Tests 06/25/20 05:48 Microbiology Microbiology 06/23/20 Urine Culture, Received Pending 06/22/20 Blood Culture - Preliminary, Resulted No Growth after 72 hours. All specime... 06/22/20 Blood Culture - Preliminary, Resulted No Growth after 72 hours. All specime... 06/21/20 Urine Culture - Final, Complete Assessment This is a 74 y/o F w/ b/l ureteral obstruction managed w/ chronic ureteral stenting admitted a few days ago for pyelonephritis. We will arrange to change her stents tomorrow. Plan - f/u urine culture - continue abx per ID - NPO at midnight - plan for cystoscopy and b/l ureteral stent exchange tomorrow ANNEMARIE WOOD MD Jun 25, 2020 08:42
[2020-06-25] MEDS: MAGNESIUM OXIDE 400 MG TAB (MAG-OX) PO SCH (13:16)
[2020-06-25 14:00] VITALS: BP 149/65
[2020-06-25] MEDS ORDERED: MICAFUNGIN SODIUM 100 MG in D5W MINI-BAG PLUS 100 ML IV SCH (20:00)
[2020-06-25] MEDS: FLUoxetine 20 MG CAP PO SCH (20:14)
[2020-06-25] MEDS: MULTIVITAMINS/MINERALS THERAP 1 TAB PO SCH (20:15)
[2020-06-25] MEDS: LATANOPROST 0.005% OPHTH SOLN 2.5 ML OU SCH (20:16)
[2020-06-25] MEDS: FAMOTIDINE 20 MG TAB PO SCH (20:16)
[2020-06-25] MEDS: ASPIRIN 81 MG ENTERIC TAB PO SCH (20:16)
[2020-06-25] MEDS: SIMVASTATIN 40 MG TAB PO SCH (20:16)
--- NOTE | 2020-06-25 20:53 | IPNPDOC ---
Date Seen The patient was seen on 06/25/20. Progress Note SUBJECTIVE: patient was seen and examined at bedside. Febrile overnight Tmax 100.5 Reports ongoing dysuria. Has chronic low back pain, 03/02. \ OBJECTIVE PHYSICAL EXAMINATION: VITAL SIGNS: Please see below. GENERAL: NAD HEENT: PERRLA CARDIOVASCULAR: RRR, normal S1, S2. RESPIRATORY: Lungs CTAB. ABDOMINAL: soft, non tender, BS+ EXTREMITIES: no joint deformity, no edema NEUROLOGICAL: no focal neuro deficits, aao x 3 PSYCHOLOGICAL: calm, cooperative LABORATORY DATA, IMAGING STUDIES, MICROBIOLOGY: Please see below. DVT prophylaxis ordered?: Y ASSESSMENT AND PLAN: Patient is a 74 yo pleasant female with history of colon CA who has b/l ureteral stent from 2013 due to b/l ureteral stricture which developed after colon resection and radiation therapy for colon CA in 1997. Presented to [facility] due to back pain, fever, chills, dysuria, urgency, and frequency as well as appetite loss, weight loss of 20lbs, and generalized weakness. She reported ureteral stent last changed in April 09 2020, and she first had ureteral stent placed at least 6 years ago, and that her stents are changed around every 3 months per patient. Reported hx of prior UTI and intermittent hydronephrosis. Patient again found to have dirty UA and ANTELMO on CKD stage 3. Her last urine culture from May 21 grew pseudomonas. PROBLEMS: 1. Pyelonephritis: current urine culture polymicrobial. Meropenem. Pending ureteral stent replacement, cultures from stents as per urology on . ID on consult. Urine culture from 06/21 contaminated. Repeat straight cath from 06/23 showing yeast like organism. 2. Bilateral obstructive uropathy with bilateral hydronephrosis: due to ureteral strictures from radiation therapy (colon ca)' has bilateral ureteral stents. Tentantively scheduled for stent replacement on 06/26/20. 3. ANTELMO on CKD III: Cr stable, monitor daily. 4. Depression: fluoxetine 5. GERD: PPI, famotidine 6. CHF: coreg 7. Dyslipidemia: statin 8. Severe spinal canal stenosis: oxycodone, gabapentin 9. PAD 10. Colon cancer: s/p resection, radiation in 1997. Reports remission. Cultures: Urine 06/21/20 - contaminated Blood 06/22/20 - prelim negative x 2. Urine 06/23/20 (straight cath) - reported on 06/25 (yeast-like organism) Abx Meropenem 06/22/20 - DISPOSITION: Home when medically stable. VS, I&O, 24H, Fishbone Vital Signs/I&O Vital Signs Date Time Temp Pulse Resp B/P (MAP) Pulse Ox O2 Delivery O2 Flow Rate FiO2 06/25/20 20:16 68 148/64 06/25/20 20:15 18 06/25/20 14:00 99.0 96 Room Air I&O- Last 24 Hours up to 6 AM 06/25/20 06:00 Intake Total 1325 ml Output Total 1400 ml Balance -75 ml Laboratory Data 24H LABS Laboratory Tests 2 06/25/20 05:48: Nucleated Red Blood Cells % (auto) 0.0, Anion Gap 4L, Glomerular Filtration Rate 36.9L, Calcium Level 8.5L CBC/BMP Laboratory Tests 06/25/20 05:48 Microbiology Microbiology 06/23/20 Urine Culture - Final, Complete Yeast Like Organism 06/22/20 Blood Culture - Preliminary, Resulted No Growth after 72 hours. All specime... 06/22/20 Blood Culture - Preliminary, Resulted No Growth after 72 hours. All specime... 06/21/20 Urine Culture - Final, Complete CHANDA PETE MD Jun 25, 2020 20:53
[2020-06-25 22:00] VITALS: BP 148/68
[2020-06-26] VITALS (10 sets, daily range): BP systolic 107–186; BP diastolic 62–92
[2020-06-26] MEDS: MEROPENEM INJ 500 MG in IV 1 EA IV SCH ×2 (01:12→14:05)
[2020-06-26] MEDS: oxyCODONE 5MG TAB PO PRN ×2 (05:10→11:27)
[2020-06-26 06:29] LABS: HEMATOCRIT 25.6 % (36.0-47.0); HEMOGLOBIN 8.4 g/dl (12.0-15.5); MEAN CORPUSCULAR HEMOGLOBIN 30.1 pg (27.0-33.0); MEAN CORPUSCULAR HGB CONC 32.8 g/dl (32.0-36.5); MEAN CORPUSCULAR VOLUME 91.8 fl (80.0-96.0); PLATELET COUNT, AUTOMATED 257 10^3/uL (150-450); RED BLOOD COUNT 2.79 10^6/uL (4.00-5.40); WHITE BLOOD COUNT 8.5 10^3/uL (4.0-10.0)
[2020-06-26 07:03] LABS: CALCIUM LEVEL 8.4 MG/DL (8.8-10.2); CREATININE FOR GFR 1.28 MG/DL (0.55-1.30); GLOMERULAR FILTRATION RATE 43.3 (>39); POTASSIUM SERUM 4.2 MEQ/L (3.5-5.1)
[2020-06-26] MEDS: CARVedilol 3.125 MG TAB PO SCH (08:18)
[2020-06-26] MEDS: PANTOPRAZOLE 40MG TAB (PROTONIX) PO SCH (08:18)
[2020-06-26] MEDS: APIXABAN 2.5 MG TAB (ELIQUIS) PO SCH ×2 (08:18→21:04)
[2020-06-26] MEDS: POTASSIUM CHLORIDE 10 MEQ SR TABLET PO SCH (08:18)
[2020-06-26] MEDS: LACTOBACILLUS ACIDOPHILUS CAP (BACID) PO SCH ×2 (08:18→17:47)
[2020-06-26] MEDS: GABAPENTIN 300 MG CAP PO SCH ×2 (08:18→21:05)
--- NOTE | 2020-06-26 09:55 | IPN ---
DATE: 06/24/2020 SUBJECTIVE: Patient seen and examined this morning. Currently no new complaints overnight. She has remained afebrile. No elevations in white blood cell count. Patient tentatively scheduled for the operating room (OR) with Dr. Jack tomorrow to exchange her renal stents. She is being continued on meropenem without any adverse events reported overnight. Patient did have a urine culture via urinary straight catheterization yesterday. Urine culture is currently pending. OBJECTIVE: VITAL SIGNS: Temperature 97.1, pulse 77, respiratory rate 17, blood pressure 135/72, pulse oximetry 95% on room air. GENERAL: Patient is awake, alert, oriented. Appears in no acute distress. Lying comfortably in bed. HEENT: Atraumatic, normocephalic. Eyes anicteric. Trachea is midline. Mucous membranes pink and moist. CARDIOVASCULAR: Normal S1, S2. Regular rate and rhythm without clicks, rubs, or murmurs. PULMONARY: Clear vesicular breath sounds bilaterally. Good respiratory effort. No wheezes, rhonchi, or rales. ABDOMEN: Soft, nondistended, nontender. No rebound, tenderness, or guarding. Normoactive bowel sounds throughout. EXTREMITIES: No edema. Full and equal pulses, bilateral upper and lower extremities. NEUROLOGIC: No focal neurologic deficits. PSYCHIATRIC: Mood and affect appear appropriate. LABORATORY DATA: Hematology: White blood cell 8.3, hemoglobin 8.4, hematocrit 25.8, platelet count 255. Chemistry: Sodium 142, potassium 4.5, chloride 110, CO2 of 25, BUN 22, creatinine 1.58, fasting glucose 100, calcium 8.5. ASSESSMENT AND PLAN: Recurrent urinary tract infection (UTI)/pyelonephritis. As stated previously, patient has recurrent urinary tract infections and pyelonephritis, which is likely secondary to her history of radiation from her colorectal cancer treatment in the past, which essentially resulted in her requiring bilateral renal stents. Since having stents placed, though, she has had recurrent urinary tract infections and pyelonephritis. Unfortunately, the patient has several allergies to Keflex and levofloxacin. Additionally, given her renal disease she is not a candidate for Bactrim suppressive therapy. The patient has been having her stents exchanged every 3 months, Recently in April 2020 she had a new type of stent placed, which was anticipated to last at least a year without being exchanged; however, unfortunately the patient has developed pyelonephritis again. She is currently on meropenem. Urology is aware of the case and is planing on taking the patient to the operating room (OR) tomorrow to have the stents exchanged, at which point would benefit from culture of the stent and possibly the kidney, as at that point we would be able to do pathogen-directed therapy, as the patient's previous urine cultures have been contaminated. For the time being, we will continue meropenem. We will de-escalate, depending on what the stent cultures demonstrate. MTDD
[2020-06-26] MEDS ORDERED: CONRAY-60 60% 50ML VIAL (Q9961) As Ordered ONE (11:01)
[2020-06-26] MEDS ORDERED: propofoL 200 MG/20 ML VIAL As Ordered ONE (11:24)
[2020-06-26] MEDS ORDERED: ONDANSETRON 4MG/2ML VIAL As Ordered ONE (11:24)
[2020-06-26] MEDS ORDERED: LIDOCAINE 2% 100MG/5ML SDV (FOR ANES.) As Ordered ONE (11:24)
[2020-06-26] MEDS ORDERED: MIDAZOLAM INJ 2MG/2ML VIAL (J2250 PER 1MG) As Ordered ONE (11:25)
[2020-06-26] MEDS ORDERED: fentaNYL 100 MCG/2 ML INJECTION (J3010) As Ordered ONE (11:25)
[2020-06-26] MEDS: MAGNESIUM OXIDE 400 MG TAB (MAG-OX) PO SCH (12:00)
--- NOTE | 2020-06-26 12:52 | IPNPDOC ---
Subjective Review oF Systems Chief Complaint The patient is a 74-year-old female admitted with a reason for visit of Arf, Pyelonephritis, Sepsis. Events since Last Encounter No acute events o/n. No flank pain. No f/c/ns. Objective Physical Examination General Exam: Alert, Cooperative, No Acute Distress Chest Exam: Normal air movement Heart Exam: Positive: Rate Normal, Regular Rhythm ABDOMEN EXAM: Soft; No: Tenderness Skin Exam: Nl turgor and temperature Psych Exam: Mood NL Vital Signs/I&O Vital Signs Date Time Temp Pulse Resp B/P (MAP) Pulse Ox O2 Delivery O2 Flow Rate FiO2 06/26/20 12:25 18 Room Air 06/26/20 08:18 64 159/75 06/26/20 06:00 98.3 95 I&O- Last 24 Hours up to 6 AM 06/26/20 06:00 Intake Total 1820 ml Output Total 1950 ml Balance -130 ml Laboratory Data Labs 24H Laboratory Tests 2 06/26/20 06:06: Nucleated Red Blood Cells % (auto) 0.0, Anion Gap 6L, Glomerular Filtration Rate 43.3, Calcium Level 8.4L CBC/BMP Laboratory Tests 06/26/20 06:06 Microbiology Microbiology 06/23/20 Urine Culture - Final, Complete Yeast Like Organism 06/22/20 Blood Culture - Preliminary, Resulted No Growth after 72 hours. All specime... 06/22/20 Blood Culture - Preliminary, Resulted No Growth after 72 hours. All specime... 06/21/20 Urine Culture - Final, Complete Assessment/Plan Date Seen The patient was seen on 06/26/20. Patient Summary This is a 74 y/o F w/ b/l ureteral obstruction managed w/ chronic ureteral stenting admitted a few days ago for pyelonephritis. We will take her to the OR today for cystoscopy w/ b/l ureteral stent exchange. After a discussion of the risks and benefits, informed consent was signed. Plan/VTE VTE Prophylaxis Ordered?: Yes VTE Exclusion Mechanical Proph: N/A:VTE Prophy Ordered Plan - continue meropenem and micafungin per ID - will give next dose of micafungin prior to surgery - NPO - to OR for stent exchange ANNEMARIE WOOD MD Jun 26, 2020 12:51
[2020-06-26] MEDS ORDERED: LIDOCAINE 2% 5ML JELLY UROJET As Ordered ONE (13:07)
[2020-06-26] MEDS ORDERED: dexameTHASONE 4 MG/ML 1ML VIAL (J1100 PER 1MG) As Ordered ONE (13:10)
[2020-06-26] MEDS ORDERED: MICAFUNGIN SODIUM 100 MG in D5W MINI-BAG PLUS 100 ML IV ONE (13:30)
--- NOTE | 2020-06-26 13:38 | IPNPDOC ---
Date Seen The patient was seen on 06/26/20. Progress Note SUBJECTIVE: patient was seen and examined at bedside. afebrile overnight. No new compliants. Having dysuria. For OR today for stent exchange with Dr. Jack. OBJECTIVE PHYSICAL EXAMINATION: VITAL SIGNS: Please see below. GENERAL: NAD HEENT: PERRLA CARDIOVASCULAR: RRR, normal S1, S2. RESPIRATORY: Lungs CTAB. ABDOMINAL: soft, non tender, BS+ EXTREMITIES: no joint deformity, no edema NEUROLOGICAL: no focal neuro deficits, aao x 3 PSYCHOLOGICAL: calm, cooperative LABORATORY DATA, IMAGING STUDIES, MICROBIOLOGY: Please see below. DVT prophylaxis ordered?: Y ASSESSMENT AND PLAN: Patient is a 74 yo pleasant female with history of colon CA who has b/l ureteral stent from 2013 due to b/l ureteral stricture which developed after colon resection and radiation therapy for colon CA in 1997. Presented to [facility] due to back pain, fever, chills, dysuria, urgency, and frequency as well as appetite loss, weight loss of 20lbs, and generalized weakness. She reported ureteral stent last changed in April 09 2020, and she first had ureteral stent placed at least 6 years ago, and that her stents are changed around every 3 months per patient. Reported hx of prior UTI and intermittent hydronephrosis. Patient again found to have dirty UA and ANTELMO on CKD stage 3. Her last urine culture from May 21 grew pseudomonas. PROBLEMS: 1. Reccurent pyelonephritis: Pending ureteral stent replacement, cultures from stents as per urology on . ID on consult. Urine culture from 06/21 contaminated. Repeat straight cath from 06/23 showing yeast like organism. C/w meropenem, micafungin per ID. 2. Bilateral obstructive uropathy with bilateral hydronephrosis: due to ureteral strictures from radiation therapy (colon ca) has bilateral ureteral stents. For OR today for stent exchange. 3. ANTELMO on CKD III: Cr stable, monitor daily. Cr 1.28 this morning. 4. Depression: fluoxetine 5. GERD: PPI, famotidine 6. CHF: coreg 7. Dyslipidemia: statin 8. Severe spinal canal stenosis: oxycodone, gabapentin 9. PAD 10. Colon cancer: s/p resection, radiation in 1997. Reports remission. Cultures: Urine 06/21/20 - contaminated Blood 06/22/20 - prelim negative x 2. Urine 06/23/20 (straight cath) - reported on 06/25 (yeast-like organism) Abx Meropenem 06/22/20 - Antifungals Micafungin 06/26/20 - DISPOSITION: Home when medically stable. VS, I&O, 24H, Fishbone Vital Signs/I&O Vital Signs Date Time Temp Pulse Resp B/P (MAP) Pulse Ox O2 Delivery O2 Flow Rate FiO2 06/26/20 12:25 18 Room Air 06/26/20 08:18 64 159/75 06/26/20 06:00 98.3 95 I&O- Last 24 Hours up to 6 AM 06/26/20 05:59 Intake Total 1820 ml Output Total 1750 ml Balance 70 ml Laboratory Data 24H LABS Laboratory Tests 2 06/26/20 06:06: Nucleated Red Blood Cells % (auto) 0.0, Anion Gap 6L, Glomerular Filtration Rate 43.3, Calcium Level 8.4L CBC/BMP Laboratory Tests 06/26/20 06:06 Microbiology Microbiology 06/23/20 Urine Culture - Final, Complete Yeast Like Organism 06/22/20 Blood Culture - Preliminary, Resulted No Growth after 72 hours. All specime... 06/22/20 Blood Culture - Preliminary, Resulted No Growth after 72 hours. All specime... 06/21/20 Urine Culture - Final, Complete CHANDA PETE MD Jun 26, 2020 13:38
[2020-06-26] MEDS ORDERED: PHENYLephrine HCL 500 MCG/5 ML (100MCG/ML) SYRINGE (J2370) As Ordered ONE (14:15)
[2020-06-26] MEDS ORDERED: LACRILUBE (AKWA TEARS) OPHTH OINT 3.5 GM As Ordered ONE (14:26)
--- NOTE | 2020-06-26 14:38 | ROOPDOC ---
[facility] Report Of Operation Report of Operation DATE OF PROCEDURE: 06/26/20 PREPROCEDURE DIAGNOSIS: Bilateral ureteral obstruction. POSTPROCEDURE DIAGNOSIS: Bilateral ureteral obstruction. PROCEDURE: Cystoscopy, bilateral retrograde pyelograms with intraoperative interpretation of images, bilateral ureteral stent exchange. SURGEON: Annemarie Wood MD MANAGER OF CUSTOMER BILLING: None. ANESTHESIA: Monitored anesthesia care (MAC). OPERATIVE INDICATIONS: This is a 74-year-old female with bilateral ureteral obstruction which is managed with chronic ureteral stenting. She is brought in today for routine stent exchange. DESCRIPTION OF PROCEDURE: The patient was brought to the operating room and MAC anesthesia was administered. Culture specific antibiotics were infused. She was then placed in dorsal lithotomy position and prepped and draped in the usual sterile fashion. At this point, a rigid cystoscope was inserted into the urethral meatus and advanced to the bladder. Once inside the bladder the previous placed ureteral stents were seen. The right sided stent was then grasped and withdrawn until the distal end was protruding from the urethral meatus. I advanced a Guidewire up the right stent and then removed the stent. I then advanced a 5-German open-ended ureteral catheter over the wire and removed the wire. I then aspirated approximately 10mL of urine from her right kidney and this was sent for culture. I then shot a retrograde pyelogram and it was notable for severe right hydronephrosis with no extravasation. I then advanced the wire back up the open ended ureteral catheter and removed the ureteral catheter. I then utilized the wire to advance a 7 German x 22-26cm JJ ureteral stent into the right collecting system. The wire was removed and there were adequate curls of the stent in the right renal pelvis and in the bladder. I then advanced a Guidewire up the left collecting system and removed the left ureteral stent. I advanced a 5-German open-ended ureteral catheter over the wire into the left collecting system. I removed the wire and then aspirated approximately 50mL of urine from the left kidney and this was sent for culture. Next, I shot a retrograde pyelogram. It was notable for severe left hydronephrosis with no extravasation. I then advanced the wire back up the left collecting system and removed the ureteral catheter. I then utilized the wire to advance a 7 German x 22-26 cm JJ ureteral stent into the left collecting system. The wire was removed and there were adequate curls of the stent in the left renal pelvis and in the bladder. At this point, the bladder was emptied of all fluid and this marked conclusion of the procedure. The patient was then taken out of the dorsal lithotomy position, awakened from anesthesia and transferred to the recovery room in stable condition. ESTIMATED BLOOD LOSS: 5 mL. COMPLICATIONS: None. SPECIMENS: Urine from right and left kidneys for culture. PLAN: The patient will be admitted back to the PCU where she is being treated for pyelonephritis. We will set her up to change her stents in 3 months. ANNEMARIE WOOD MD Jun 26, 2020 14:38
[2020-06-26] MEDS ORDERED: ONDANSETRON 4MG/2ML VIAL IV PRN ×2 (14:45→15:45)
[2020-06-26] MEDS ORDERED: fentaNYL 100 MCG/2 ML INJECTION (J3010) IV PRN ×2 (14:45→15:45)
[2020-06-26] MEDS ORDERED: oxyCODONE 5MG TAB PO PRN ×2 (14:45→15:45)
[2020-06-26] MEDS ORDERED: LR 1,000 ML IV SCH ×2 (14:45→15:45)
[2020-06-26 15:59] LABS: APPEARANCE, URINE CLOUDY (CLEAR); BACTERIA, URINE AUTO NEGATIVE (NEGATIVE); BILIRUBIN, URINE AUTO NEGATIVE (NEGATIVE); BLOOD, URINE BLOOD 2+ (NEGATIVE); COLOR, URINE YELLOW (YELLOW); GLUCOSE, URINE (UA) AUTO NEGATIVE (NEGATIVE); KETONE, URINE AUTO NEGATIVE (NEGATIVE); LEUKOCYTE ESTERASE, URINE AUTO 3+ (NEGATIVE); MUCUS, URINE SMALL (NEGATIVE); NITRITE, URINE AUTO NEGATIVE (NEGATIVE); PROTEIN, URINE AUTO 1+ mg/dL (NEGATIVE); RBC, URINE AUTO 63 /HPF (0-3); SPECIFIC GRAVITY URINE AUTO 1.006 (1.002-1.035); SQUAMOUS EPITHELIAL CELL UR AU 2 /HPF (0-6); UROBILINOGEN, URINE AUTO 0.2 mg/dL (0.0-2.0); WBC, URINE AUTO TNTC /HPF (0-3)
[2020-06-26 16:10] LABS: APPEARANCE, URINE HAZY (CLEAR); BACTERIA, URINE AUTO NEGATIVE (NEGATIVE); BILIRUBIN, URINE AUTO NEGATIVE (NEGATIVE); BLOOD, URINE BLOOD 3+ (NEGATIVE); COLOR, URINE YELLOW (YELLOW); GLUCOSE, URINE (UA) AUTO NEGATIVE (NEGATIVE); KETONE, URINE AUTO NEGATIVE (NEGATIVE); LEUKOCYTE ESTERASE, URINE AUTO 3+ (NEGATIVE); MUCUS, URINE SMALL (NEGATIVE); NITRITE, URINE AUTO NEGATIVE (NEGATIVE); PROTEIN, URINE AUTO NEGATIVE (NEGATIVE); RBC, URINE AUTO TNTC /HPF (0-3); SPECIFIC GRAVITY URINE AUTO 1.008 (1.002-1.035); SQUAMOUS EPITHELIAL CELL UR AU 1 /HPF (0-6); UROBILINOGEN, URINE AUTO 0.2 mg/dL (0.0-2.0); WBC, URINE AUTO 58 /HPF (0-3)
[2020-06-26] MEDS ORDERED: CARVedilol 6.25 MG TAB PO SCH (21:00)
[2020-06-26] MEDS: FAMOTIDINE 20 MG TAB PO SCH (21:04)
[2020-06-26] MEDS: ASPIRIN 81 MG ENTERIC TAB PO SCH (21:04)
[2020-06-26] MEDS: SIMVASTATIN 40 MG TAB PO SCH (21:04)
[2020-06-26] MEDS: FLUoxetine 20 MG CAP PO SCH (21:04)
[2020-06-26] MEDS: LATANOPROST 0.005% OPHTH SOLN 2.5 ML OU SCH (21:05)
[2020-06-26] MEDS: MULTIVITAMINS/MINERALS THERAP 1 TAB PO SCH (21:05)
[2020-06-27] VITALS (9 sets, daily range): BP systolic 132–178; BP diastolic 58–72
[2020-06-27] MEDS: ACETAMINOPHEN 325 MG TAB PO PRN (00:30)
[2020-06-27] MEDS: MEROPENEM INJ 1 GM in IV 1 EA IV SCH ×2 (00:42→12:39)
[2020-06-27] MEDS ORDERED: lisinopriL 5 MG TAB PO STA (00:58)
[2020-06-27] MEDS ORDERED: MEROPENEM INJ 1 GM in IV 1 EA IV SCH (01:00)
[2020-06-27] MEDS ORDERED: ASPIRIN 81 MG CHEW TABLET PO STA (01:00)
[2020-06-27] MEDS ORDERED: ASPIRIN 81 MG CHEW TABLET PO ONE (01:00)
[2020-06-27 01:20] LABS: HEMATOCRIT 27.7 % (36.0-47.0); MEAN CORPUSCULAR HEMOGLOBIN 29.8 pg (27.0-33.0); MEAN CORPUSCULAR HGB CONC 32.5 g/dl (32.0-36.5); MEAN CORPUSCULAR VOLUME 91.7 fl (80.0-96.0); PLATELET COUNT, AUTOMATED 308 10^3/uL (150-450); RED BLOOD COUNT 3.02 10^6/uL (4.00-5.40); WHITE BLOOD COUNT 6.7 10^3/uL (4.0-10.0)
--- NOTE | 2020-06-27 01:24 | REPVR ---
PROCEDURE INFORMATION: Exam: XR Chest, 1 View Exam date and time: 06/27/2020 1:04 AM Age: 74 years old Clinical indication: Other: Waking up soaking in sweats TECHNIQUE: Imaging protocol: XR of the chest Views: 1 view. COMPARISON: CR PORTABLE CHEST X-RAY 04/30/2020 1:16 PM FINDINGS: Lungs: Minimal left base linear scar which is unchanged. No interval infiltrates. Pleural space: Slightly blunted left costophrenic angle which appears to have been present on the prior study. Heart/Mediastinum: The heart and mediastinum are unchanged. Bones/joints: Unremarkable. IMPRESSION: Stable chest since 04/30/2020. Electronically signed by: Juan Carlos Krishna On 06/27/2020 01:23:49 AM
[2020-06-27 02:01] LABS: BLOOD UREA NITROGEN 19 MG/DL (7-18); CALCIUM LEVEL 8.6 MG/DL (8.8-10.2); CARBON DIOXIDE LEVEL 26 MEQ/L (21-32); CHLORIDE LEVEL 110 MEQ/L (98-107); CK-MB VALUE MASS < 1.0 NG/ML (<3.6); CPK CREATINE PHOSPHOKINASE 38 U/L (26-192); CREATININE FOR GFR 1.51 MG/DL (0.55-1.30); GLOMERULAR FILTRATION RATE 35.8 (>39); GLUCOSE, FASTING 160 MG/DL (70-100); MAGNESIUM LEVEL 2.1 MG/DL (1.8-2.4); MB/CK RELATIVE INDEX 2.63 (< OR =4); PHOSPHORUS LEVEL 3.2 MG/DL (2.5-4.9); SODIUM LEVEL 144 MEQ/L (136-145); THYROID STIMULATING HORMONE 0.676 uIU/ML (0.358-3.740); TROPONIN I < 0.02 NG/ML (< 0.10)
[2020-06-27 06:29] LABS: HEMATOCRIT 27.6 % (36.0-47.0); MEAN CORPUSCULAR HEMOGLOBIN 29.7 pg (27.0-33.0); MEAN CORPUSCULAR HGB CONC 32.6 g/dl (32.0-36.5); MEAN CORPUSCULAR VOLUME 91.1 fl (80.0-96.0); PLATELET COUNT, AUTOMATED 318 10^3/uL (150-450); RED BLOOD COUNT 3.03 10^6/uL (4.00-5.40); WHITE BLOOD COUNT 8.7 10^3/uL (4.0-10.0)
[2020-06-27 07:06] LABS: BLOOD UREA NITROGEN 21 MG/DL (7-18); CALCIUM LEVEL 8.9 MG/DL (8.8-10.2); CARBON DIOXIDE LEVEL 27 MEQ/L (21-32); CHLORIDE LEVEL 109 MEQ/L (98-107); CK-MB VALUE MASS < 1.0 NG/ML (<3.6); CPK CREATINE PHOSPHOKINASE 26 U/L (26-192); CREATININE FOR GFR 1.44 MG/DL (0.55-1.30); GLOMERULAR FILTRATION RATE 37.8 (>39); GLUCOSE, FASTING 112 MG/DL (70-100); MB/CK RELATIVE INDEX 3.85 (< OR =4); POTASSIUM SERUM 4.6 MEQ/L (3.5-5.1); SODIUM LEVEL 140 MEQ/L (136-145); TROPONIN I < 0.02 NG/ML (< 0.10)
[2020-06-27] MEDS ORDERED: NS 1,000 ML IV SCH (08:00)
--- NOTE | 2020-06-27 08:07 | IPNPDOC ---
Date Seen The patient was seen on 06/27/20. Progress Note SUBJECTIVE: seen and examined at bedside. Had a period of afib with RVR HR 150s. Has a hx of afib. Resumed tele. HR converted to NSR. Asymptomatic. Per report, had diaphoresis overnight, reports feeling well. No fevers, no chills. S/p stent exchange. OBJECTIVE PHYSICAL EXAMINATION: VITAL SIGNS: Please see below. GENERAL: NAD HEENT: PERRLA CARDIOVASCULAR: RRR, normal S1, S2. RESPIRATORY: Lungs CTAB. ABDOMINAL: soft, non tender, BS+ EXTREMITIES: no joint deformity, no edema NEUROLOGICAL: no focal neuro deficits, aao x 3 PSYCHOLOGICAL: calm, cooperative LABORATORY DATA, IMAGING STUDIES, MICROBIOLOGY: Please see below. DVT prophylaxis ordered?: Y ASSESSMENT AND PLAN: Patient is a 74 yo pleasant female with history of colon CA who has b/l ureteral stent from 2013 due to b/l ureteral stricture which developed after colon resection and radiation therapy for colon CA in 1997. Presented to [facility] due to back pain, fever, chills, dysuria, urgency, and frequency as well as appetite loss, weight loss of 20lbs, and generalized weakness. She reported ureteral stent last changed in April 09 2020, and she first had ureteral stent placed at least 6 years ago, and that her stents are changed around every 3 months per patient. Reported hx of prior UTI and intermittent hydronephrosis. Patient again found to have dirty UA and ANTELMO on CKD stage 3. Her last urine culture from May 21 grew pseudomonas. PROBLEMS: 1. Reccurent pyelonephritis: s/p ureteral stent replacement on 06/26/[address] Chinmay morales. ID on consult. Intraoperative culutres from kidneys sent. F/u Cx. C/w meropenem, micafungin. 2. Bilateral obstructive uropathy with bilateral hydronephrosis: due to ureteral strictures from radiation therapy (colon ca) has bilateral ureteral stents. Stent exchange on 06/26/20. 3. ANTELMO on CKD III: Cr stable, monitor. Cr 1.44. IVF NS 100 cc/hr x 1 L. 4. Depression: fluoxetine 5. GERD: PPI, famotidine 6. CHF: coreg, add lisinopril 5 mg daily 7. Dyslipidemia: statin 8. Severe spinal canal stenosis: oxycodone, gabapentin 9. PAD 10. Colon cancer: s/p resection, radiation in 1997. Reports remission. 11. Anemia: check FOBT 12. Afib: known hx. last echo 03/2020. Coreg increased to 6.25 mg BID. AC on eliquis 2.5 mg bid. Cultures: Urine 06/21/20 - contaminated Blood 06/22/20 - prelim negative x 2. Urine 06/23/20 (straight cath) - reported on 06/25 (yeast-like organism) Abx Meropenem 06/22/20 - Antifungals Micafungin 06/26/20 - DISPOSITION: Home when medically stable. VS, I&O, 24H, Fishbone Vital Signs/I&O Vital Signs Date Time Temp Pulse Resp B/P (MAP) Pulse Ox O2 Delivery O2 Flow Rate FiO2 06/27/20 06:00 97.8 78 18 176/64 (101) 93 Room Air 06/26/20 14:33 2 I&O- Last 24 Hours up to 6 AM 06/27/20 05:59 Intake Total 700 ml Output Total 1705 ml Balance -1005 ml Laboratory Data 24H LABS Laboratory Tests 2 06/26/20 14:21: Urine Color YELLOW, Urine Appearance CLOUDYH, Urine pH 7.0, Urine Specific [place] 1.006, Urine Protein 1+H, Urine Glucose (Auto)(UA) NEGATIVE, Urine Ketones (Auto) NEGATIVE, Urine Blood 2+H, Urine Nitrite NEGATIVE, Urine Bilirubin NEGATIVE, Urine Urobilinogen 0.2, Urine Leukocyte Esterase (Auto) 3+H, Urine WBC (Auto) TNTCH, Urine RBC (Auto) 63H, Urine Hyaline Casts (Auto) 0, Urine Bacteria (Auto) NEGATIVE, Urine Squamous Epithelial Cells 2, Urine Mucus (Auto) SMALL, Urine Sperm (Auto) 06/27/20 01:03: Nucleated Red Blood Cells % (auto) 0.0, Anion Gap 8, Glomerular Filtration Rate 35.8L, Lactic Acid Level 0.6, Calcium Level 8.6L, Phosphorus Level 3.2, Magnesium Level 2.1, Total Creatine Kinase 38, Creatine Kinase MB < 1.0, Creatine Kinase MB Relative Index 2.63, Troponin I < 0.02, Thyroid Stimulating Hormone (TSH) 0.676 06/27/20 06:15: Nucleated Red Blood Cells % (auto) 0.0, Anion Gap 4L, Glomerular Filtration Rate 37.8L, Calcium Level 8.9, Total Creatine Kinase 26, Creatine Kinase MB < 1.0, Creatine Kinase MB Relative Index 3.85, Troponin I < 0.02 CBC/BMP Laboratory Tests 06/27/20 01:03 06/27/20 06:15 Microbiology Microbiology 06/26/20 Anaerobic Culture, Received Pending 06/26/20 Fungal Smear, Received Pending 06/26/20 Fungal Culture, Received Pending 06/26/20 Anaerobic Culture, Received Pending 06/26/20 Urine Culture, Received Pending 06/26/20 Urine Culture, Received Pending 06/23/20 Urine Culture - Final, Complete Yeast Like Organism 06/22/20 Blood Culture - Final, Complete NO GROWTH AFTER 5 DAYS 06/22/20 Blood Culture - Final, Complete NO GROWTH AFTER 5 DAYS 06/21/20 Urine Culture - Final, Complete CHANDA PETE MD Jun 27, 2020 08:07
[2020-06-27] MEDS: LACTOBACILLUS ACIDOPHILUS CAP (BACID) PO SCH ×2 (08:42→17:06)
[2020-06-27] MEDS: PANTOPRAZOLE 40MG TAB (PROTONIX) PO SCH (08:42)
[2020-06-27] MEDS: POTASSIUM CHLORIDE 10 MEQ SR TABLET PO SCH (08:42)
[2020-06-27] MEDS: APIXABAN 2.5 MG TAB (ELIQUIS) PO SCH ×2 (08:42→20:27)
[2020-06-27] MEDS: GABAPENTIN 300 MG CAP PO SCH ×2 (08:42→20:26)
[2020-06-27] MEDS: oxyCODONE 5MG TAB PO PRN ×3 (08:43→23:43)
--- NOTE | 2020-06-27 09:31 | IPNPDOC ---
Subjective Review oF Systems Chief Complaint The patient is a 74-year-old female admitted with a reason for visit of Arf, Pyelonephritis, Sepsis. Events since Last Encounter Patient denies flank or abd pain. No f/c/ns. Objective Physical Examination General Exam: Alert, Cooperative, No Acute Distress ABDOMEN EXAM: Soft; No: Tenderness Skin Exam: Nl turgor and temperature Psych Exam: Mood NL Other physical findings no CVAT Vital Signs/I&O Vital Signs Date Time Temp Pulse Resp B/P (MAP) Pulse Ox O2 Delivery O2 Flow Rate FiO2 06/27/20 08:43 17 Room Air 06/27/20 06:00 97.8 78 176/64 (101) 93 06/26/20 14:33 2 I&O- Last 24 Hours up to 6 AM 06/27/20 06:00 Intake Total 700 ml Output Total 1505 ml Balance -805 ml Laboratory Data Labs 24H Laboratory Tests 2 06/26/20 14:21: Urine Color YELLOW, Urine Appearance CLOUDYH, Urine pH 7.0, Urine Specific [place] 1.006, Urine Protein 1+H, Urine Glucose (Auto)(UA) NEGATIVE, Urine Ketones (Auto) NEGATIVE, Urine Blood 2+H, Urine Nitrite NEGATIVE, Urine Bilirubin NEGATIVE, Urine Urobilinogen 0.2, Urine Leukocyte Esterase (Auto) 3+H, Urine WBC (Auto) TNTCH, Urine RBC (Auto) 63H, Urine Hyaline Casts (Auto) 0, Urine Bacteria (Auto) NEGATIVE, Urine Squamous Epithelial Cells 2, Urine Mucus ( Auto) SMALL, Urine Sperm (Auto) 06/27/20 01:03: Nucleated Red Blood Cells % (auto) 0.0, Anion Gap 8, Glomerular Filtration Rate 35.8L, Lactic Acid Level 0.6, Calcium Level 8.6L, Phosphorus Level 3.2, Magnesium Level 2.1, Total Creatine Kinase 38, Creatine Kinase MB < 1.0, Creati ne Kinase MB Relative Index 2.63, Troponin I < 0.02, Thyroid Stimulating Hormone (TSH) 0.676 06/27/20 06:15: Nucleated Red Blood Cells % (auto) 0.0, Anion Gap 4L, Glomerular Filtration Rate 37.8L, Calcium Level 8.9, Total Creatine Kinase 26, Creatine Kinase MB < 1.0, Creatine Kinase MB Relative Index 3.85, Troponin I < 0.02 CBC/BMP Laboratory Tests 06/27/20 01:03 06/27/20 06:15 Microbiology Microbiology 06/26/20 Anaerobic Culture, Received Pending 06/26/20 Fungal Smear, Received Pending 06/26/20 Fungal Culture, Received Pending 06/26/20 Anaerobic Culture, Received Pending 06/26/20 Urine Culture - Final, Complete Yeast Like Organism 06/26/20 Urine Culture - Final, Complete Yeast Like Organism 06/23/20 Urine Culture - Final, Complete Yeast Like Organism 06/22/20 Blood Culture - Final, Complete NO GROWTH AFTER 5 DAYS 06/22/20 Blood Culture - Final, Complete NO GROWTH AFTER 5 DAYS 06/21/20 Urine Culture - Final, Complete Assessment/Plan Date Seen The patient was seen on 06/27/20. Patient Summary This is a 74 y/o F w/ b/l ureteral obstruction managed w/ chronic ureteral stenting admitted a few days ago for pyelonephritis, now POD1 s/p cysto w/ b/l ureteral stent exchange. Plan/VTE VTE Prophylaxis Ordered?: Yes VTE Exclusion Mechanical Proph: N/A:VTE Prophy Ordered Plan - cont antibiotics/antifungal per ID - patient will need next stent change in 3 months - will arrange outpt f/u in my office in a few wks ANNEMARIE WOOD MD Jun 27, 2020 09:31
[2020-06-27] MEDS: CARVedilol 3.125 MG TAB PO SCH ×2 (09:45→20:27)
[2020-06-27] MEDS: MAGNESIUM OXIDE 400 MG TAB (MAG-OX) PO SCH (12:39)
[2020-06-27] MEDS: MICAFUNGIN SODIUM 100 MG in D5W MINI-BAG PLUS 100 ML IV SCH (13:45)
[2020-06-27] MEDS ORDERED: SENOKOT S TAB PO PRN (15:30)
[2020-06-27] MEDS ORDERED: MIRALAX *UNIT DOSE* 17GM PACKET PO PRN (15:30)
--- NOTE | 2020-06-27 16:09 | IPN ---
DATE: 06/26/2020 Martha went to the operating room (OR) today with Dr. Jaspal Jack. He did a cystoscopy, bilateral retrograde pyelogram, and a ureteral stent exchange. Specimens were sent from both kidneys with urinalysis, urine culture, and fungal culture. There was severe right-sided hydronephrosis and left-sided hydronephrosis but no extravasation. On physical examination, temperature is 97.8, pulse 127, respiratory rate 19, blood pressure 107/75, oxygen saturation 93% on room air. Heart: Normal S1, S2, no murmurs, rubs, or gallops. Lungs: Clear, no wheezes, rales, or rhonchi. Abdomen: Soft, nontender, bowel sounds are present. Extremities: No clubbing, cyanosis, or edema. LABORATORY DATA: Urinalysis has too numerous to count white cells from one kidney and 58 white cells on the other kidney. The cultures are pending. IMPRESSION: 1. Recurrent pyelonephritis with bilateral stent and severe hydronephrosis status post stent removal. The patient is currently day #5 of IV meropenem and day #2 of IV micafungin. 2. Candiduria. Urine culture straight catheterization from 06/23/2020 had 20,000 yeast-like organism and therefore IV micafungin was started prior to surgery. 3. Severe hydronephrosis with acute kidney injury. Creatinine has improved, is down from 2.2 to 1.28. PLAN: Increase dose of IV meropenem to 1 gram every 12 hours. Continue IV micafungin at 100 mg every 24 hours. Continue with current antibiotics and antifungal therapy until results of intraoperative cultures are available. Will decide on switch at that point and anticipated antibiotics upon discharge. [facility]
[2020-06-27] MEDS: SIMVASTATIN 40 MG TAB PO SCH (20:26)
[2020-06-27] MEDS: FLUoxetine 10 MG CAP PO SCH (20:26)
[2020-06-27] MEDS: FAMOTIDINE 20 MG TAB PO SCH (20:27)
[2020-06-27] MEDS: LATANOPROST 0.005% OPHTH SOLN 2.5 ML OU SCH (20:27)
[2020-06-27] MEDS: ASPIRIN 81 MG ENTERIC TAB PO SCH (20:27)
[2020-06-27] MEDS: MULTIVITAMINS/MINERALS THERAP 1 TAB PO SCH (20:27)
[2020-06-28] MEDS: MEROPENEM INJ 1 GM in IV 1 EA IV SCH ×2 (00:26→12:43)
[2020-06-28 02:00] VITALS: BP 157/66
[2020-06-28 06:00] VITALS: BP 152/67
[2020-06-28 06:25] LABS: HEMATOCRIT 25.4 % (36.0-47.0); HEMOGLOBIN 8.4 g/dl (12.0-15.5); MEAN CORPUSCULAR HEMOGLOBIN 30.8 pg (27.0-33.0); MEAN CORPUSCULAR HGB CONC 33.1 g/dl (32.0-36.5); PLATELET COUNT, AUTOMATED 344 10^3/uL (150-450); RED BLOOD COUNT 2.73 10^6/uL (4.00-5.40); WHITE BLOOD COUNT 8.7 10^3/uL (4.0-10.0)
[2020-06-28 06:39] LABS: CALCIUM LEVEL 8.6 MG/DL (8.8-10.2); CREATININE FOR GFR 1.31 MG/DL (0.55-1.30); GLOMERULAR FILTRATION RATE 42.1 (>39); POTASSIUM SERUM 4.6 MEQ/L (3.5-5.1)
[2020-06-28] MEDS: APIXABAN 2.5 MG TAB (ELIQUIS) PO SCH ×2 (07:51→20:48)
[2020-06-28] MEDS: oxyCODONE 5MG TAB PO PRN ×3 (07:51→20:49)
[2020-06-28] MEDS: POTASSIUM CHLORIDE 10 MEQ SR TABLET PO SCH (07:51)
[2020-06-28] MEDS: LACTOBACILLUS ACIDOPHILUS CAP (BACID) PO SCH ×2 (07:51→18:00)
[2020-06-28] MEDS: GABAPENTIN 300 MG CAP PO SCH ×2 (07:52→20:48)
[2020-06-28] MEDS: PANTOPRAZOLE 40MG TAB (PROTONIX) PO SCH (07:52)
[2020-06-28] MEDS: lisinopriL 5 MG TAB PO SCH (07:55)
[2020-06-28] MEDS: CARVedilol 3.125 MG TAB PO SCH ×2 (07:56→20:50)
[2020-06-28 10:00] VITALS: BP 142/68
[2020-06-28] MEDS: MAGNESIUM OXIDE 400 MG TAB (MAG-OX) PO SCH (12:43)
[2020-06-28] MEDS: MICAFUNGIN SODIUM 100 MG in D5W MINI-BAG PLUS 100 ML IV SCH (13:32)
[2020-06-28 14:00] VITALS: BP 112/60
[2020-06-28 18:00] VITALS: BP 144/78
--- NOTE | 2020-06-28 20:34 | IPNPDOC ---
Date Seen The patient was seen on 06/28/20. Progress Note SUBJECTIVE: seen and examined at bedside. doing well, no new complaints. denies CP, n/v/d. No hematuria. OBJECTIVE PHYSICAL EXAMINATION: VITAL SIGNS: Please see below. GENERAL: NAD HEENT: PERRLA CARDIOVASCULAR: RRR, normal S1, S2. RESPIRATORY: Lungs CTAB. ABDOMINAL: soft, non tender, BS+ EXTREMITIES: no joint deformity, no edema NEUROLOGICAL: no focal neuro deficits, aao x 3 PSYCHOLOGICAL: calm, cooperative LABORATORY DATA, IMAGING STUDIES, MICROBIOLOGY: Please see below. DVT prophylaxis ordered?: Y ASSESSMENT AND PLAN: Patient is a 74 yo pleasant female with history of colon CA who has b/l ureteral stent from 2013 due to b/l ureteral stricture which developed after colon resection and radiation therapy for colon CA in 1997. Presented to [facility] due to back pain, fever, chills, dysuria, urgency, and frequency as well as appetite loss, weight loss of 20lbs, and generalized weakness. She reported ureteral stent last changed in April 09 2020, and she first had ureteral stent placed at least 6 years ago, and that her stents are changed around every 3 months per patient. Reported hx of prior UTI and intermittent hydronephrosis. Patient again found to have dirty UA and ANTELMO on CKD stage 3. Her last urine culture from May 21 grew pseudomonas. PROBLEMS: 1. Reccurent pyelonephritis: s/p ureteral stent replacement on 06/26/[address] Jack. ID on consult. Intraoperative culutres from kidneys sent. F/u fungal smear and culture.. C/w meropenem, micafungin. 2. Bilateral obstructive uropathy with bilateral hydronephrosis: due to ureteral strictures from radiation therapy (colon ca) has bilateral ureteral stents. Stent exchange on 06/26/20. Follow up with urology in 2-3 weeks. Next stent exchange in 3 mo. 3. ANTELMO on CKD III: Cr stable, monitor. Cr 1.44 --> 1.31. Improving. DC ivf 4. Depression: fluoxetine 5. GERD: PPI, famotidine 6. CHF: coreg, add lisinopril 5 mg daily 7. Dyslipidemia: statin 8. Severe spinal canal stenosis: oxycodone, gabapentin 9. PAD 10. Colon cancer: s/p resection, radiation in 1997. Reports remission. 11. Anemia: FOBT negative. 12. Afib: known hx. last echo 03/2020. Coreg increased to 6.25 mg BID. AC on eliquis 2.5 mg bid. Cultures: Urine 06/21/20 - contaminated Blood 06/22/20 - negative. Urine 06/23/20 (straight cath) - reported on 06/25 (yeast-like organism) Urine 06/26/20 - urine (kidney) - yeast like organism, anaerobic Cx neg. Gunal smear and culture pending. Abx Meropenem 06/22/20 - Antifungals Micafungin 06/26/20 - DISPOSITION: Home when medically stable. VS, I&O, 24H, Fishbone Vital Signs/I&O Vital Signs Date Time Temp Pulse Resp B/P (MAP) Pulse Ox O2 Delivery O2 Flow Rate FiO2 06/28/20 18:00 98.6 60 18 96 Room Air 06/28/20 18:00 144/78 (100) 06/26/20 14:33 2 I&O- Last 24 Hours up to 6 AM 06/28/20 06:00 Intake Total 2010 ml Output Total 2075 ml Balance -65 ml Laboratory Data 24H LABS Laboratory Tests 2 06/28/20 05:31: Nucleated Red Blood Cells % (auto) 0.0, Anion Gap 5L, Glomerular Filtration Rate 42.1, Calcium Level 8.6L CBC/BMP Laboratory Tests 06/28/20 05:31 Microbiology Microbiology 06/27/20 Stool Occult Blood (LUZMA) - Final, Complete 06/26/20 Anaerobic Culture - Final, Complete 06/26/20 Fungal Smear, Received Pending 06/26/20 Fungal Culture, Received Pending 06/26/20 Anaerobic Culture - Final, Complete 06/26/20 Urine Culture - Final, Complete Yeast Like Organism 06/26/20 Urine Culture - Final, Complete Yeast Like Organism 06/23/20 Urine Culture - Final, Complete Yeast Like Organism 06/22/20 Blood Culture - Final, Complete NO GROWTH AFTER 5 DAYS 06/22/20 Blood Culture - Final, Complete NO GROWTH AFTER 5 DAYS 06/21/20 Urine Culture - Final, Complete CHANDA PETE MD Jun 28, 2020 20:34
[2020-06-28] MEDS: FAMOTIDINE 20 MG TAB PO SCH (20:47)
[2020-06-28] MEDS: MULTIVITAMINS/MINERALS THERAP 1 TAB PO SCH (20:47)
[2020-06-28] MEDS: ASPIRIN 81 MG ENTERIC TAB PO SCH (20:48)
[2020-06-28] MEDS: SIMVASTATIN 40 MG TAB PO SCH (20:48)
[2020-06-28] MEDS: FLUoxetine 10 MG CAP PO SCH (20:48)
[2020-06-28] MEDS: LATANOPROST 0.005% OPHTH SOLN 2.5 ML OU SCH (20:49)
[2020-06-28 22:00] VITALS: BP 176/77
[2020-06-29] MEDS: MEROPENEM INJ 1 GM in IV 1 EA IV SCH ×2 (01:49→12:30)
[2020-06-29 02:00] VITALS: BP 170/76
[2020-06-29] MEDS: oxyCODONE 5MG TAB PO PRN ×4 (03:05→21:47)
[2020-06-29 06:50] VITALS: BP_SYST 158; BP_SYST 171; BP_DIAS 75; BP_DIAS 80
[2020-06-29] MEDS: LACTOBACILLUS ACIDOPHILUS CAP (BACID) PO SCH ×2 (08:45→17:10)
[2020-06-29] MEDS: PANTOPRAZOLE 40MG TAB (PROTONIX) PO SCH (08:45)
[2020-06-29] MEDS: GABAPENTIN 300 MG CAP PO SCH ×2 (08:45→21:46)
[2020-06-29] MEDS: APIXABAN 2.5 MG TAB (ELIQUIS) PO SCH ×2 (08:45→21:45)
[2020-06-29] MEDS: POTASSIUM CHLORIDE 10 MEQ SR TABLET PO SCH (08:46)
[2020-06-29] MEDS: lisinopriL 5 MG TAB PO SCH (08:49)
[2020-06-29] MEDS: CARVedilol 3.125 MG TAB PO SCH ×2 (08:50→21:46)
[2020-06-29 10:00] VITALS: BP 162/74
[2020-06-29] MEDS: MAGNESIUM OXIDE 400 MG TAB (MAG-OX) PO SCH (12:30)
[2020-06-29] MEDS: MICAFUNGIN SODIUM 100 MG in D5W MINI-BAG PLUS 100 ML IV SCH (13:14)
[2020-06-29 14:00] VITALS: BP 138/74
--- NOTE | 2020-06-29 16:29 | IPN ---
DATE: 06/27/2020 ATTENDING PHYSICIAN: Luis Calzada MD SUBJECTIVE: Patient is seen and examined this morning. Patient has been noted to have atrial fibrillation with rapid ventricular response (RVR) overnight likely secondary to her recent procedure with urology. Patients straight catheterized urine culture resulted in a yeast-like organism, as well as her subsequent urine culture on 06/26/2020 resulting in yeast-like organism as well. Patient had her stent exchanged. Her anaerobic, fungal, and aerobic cultures are currently pending. From a urology standpoint, the patient was told to followup in a couple of weeks and then have her stents exchanged again in 3 months. Currently, she is on micafungin as well as meropenem. The patient herself denies any symptoms. She has no new complaints. OBJECTIVE: Vital signs: Temperature 97.8, pulse 78, respiratory rate 18, blood pressure 176/64, pulse oximetry 93% on room air. General: Patient is awake, alert, oriented, does not appear in any acute distress, lying comfortably in bed. HEENT: Atraumatic, normocephalic. Eyes nonicteric. Trachea is midline. Mucous membranes pink and moist. Cardiovascular: Normal S1, S2, bradycardic, regular rhythm. No clicks, rubs, or murmurs. Pulmonary: Clear vesicular breath sounds bilaterally. No respiratory effort. No wheezes, rhonchi, or rales. Abdomen: Soft, nondistended, nontender. No rebound, tenderness, or guarding. Normoactive bowel sounds throughout. Extremities: No edema. Full and equal pulse bilateral upper and lower extremities. Psychiatric: Mood and affect appear appropriate. Neurologic: No focal or neurological deficits. LABORATORY DATA: Hematology: White blood cell 8.7, hemoglobin 9.0, hematocrit 27.6. Chemistry: Sodium 140, potassium 4.6, chloride 109, carbon dioxide 27, BUN 21, creatinine 1.44, fasting glucose 112, calcium 8.9, creatine kinase 26. Microbiology: Urine and kidney culture positive for yeast-like organism. INPATIENT ANTIBIOTICS: - Micafungin 100 mg every 24 hours IV. - meropenem 1 gram every 12 hours IV ASSESSMENT AND PLAN: 1. Recurrent urinary tract infection/pyelonephritis. Patient has had recurrent urinary tract infection and pyelonephritis requiring replacement of her ureteral stents every 3 months. Her most recent urine culture and kidney culture demonstrated yeast-like organism. The patient had been started on micafungin and is currently receiving that as well. As far as discharge, the patient will likely be discharged on fluconazole, however will have to see if patient was on fluconazole in the past. She states that she may have been receiving fluconazole previously for suspected yeast infections, however will see if culture data demonstrates sensitivities to fluconazole, at which point we will take patient off of micafungin and place on fluconazole. Will continue meropenem in the meantime pending the rest of her culture data. CEE
--- NOTE | 2020-06-29 17:32 | IPNPDOC ---
Date Seen The patient was seen on 06/29/20. Progress Note SUBJECTIVE: seen and examined at bedside. doing well, no new complaints. denies CP, n/v/d. No hematuria. OBJECTIVE PHYSICAL EXAMINATION: VITAL SIGNS: Please see below. GENERAL: NAD HEENT: PERRLA CARDIOVASCULAR: RRR, normal S1, S2. RESPIRATORY: Lungs CTAB. ABDOMINAL: soft, non tender, BS+ EXTREMITIES: no joint deformity, no edema NEUROLOGICAL: no focal neuro deficits, aao x 3 PSYCHOLOGICAL: calm, cooperative LABORATORY DATA, IMAGING STUDIES, MICROBIOLOGY: Please see below. DVT prophylaxis ordered?: Y ASSESSMENT AND PLAN: Patient is a 74 yo pleasant female with history of colon CA who has b/l ureteral stent from 2013 due to b/l ureteral stricture which d eveloped after colon resection and radiation therapy for colon CA in 1997. Presented to [facility] due to back pain, fever, chills, dysuria, urgency, and frequency as well as appetite loss, weight loss of 20lbs, and generalized weakness. She reported ureteral stent last changed in April 09 2020, and she first had ureteral stent placed at least 6 years ago, and that her stents are changed around every 3 months per patient. Reported hx of prior UTI and intermittent hydronephrosis. Patient again found to have dirty UA and ANTELMO on CKD stage 3. Her last urine culture from May 21 grew pseudomonas. PROBLEMS: 1. Reccurent pyelonephritis: s/p ureteral stent replacement on 06/26/[address] Jack. ID on consult. Intraoperative culutres from kidneys sent. F/u fungal smear and culture.. C/w meropenem, micafungin. Will likely be DC on fluconazole. 2. Bilateral obstructive uropathy with bilateral hydronephrosis: due to ureteral strictures from radiation therapy (colon ca) has bilateral ureteral stents. Stent exchange on 06/26/20. Follow up with urology in 2-3 weeks. Next stent exchange in 3 mo. 3. ANTELMO on CKD III: Cr stable, monitor. Cr 1.44 --> 1.31. Improving. DC ivf 4. Depression: fluoxetine 5. GERD: PPI, famotidine 6. CHF: coreg, add lisinopril 5 mg daily 7. Dyslipidemia: statin 8. Severe spinal canal stenosis: oxycodone, gabapentin 9. PAD 10. Colon cancer: s/p resection, radiation in 1997. Reports remission. 11. Anemia: FOBT negative. 12. Afib: known hx. last echo 03/2020. Coreg 3.125 mg. AC on eliquis 2.5 mg bid. Cultures: Urine 06/21/20 - contaminated Blood 06/22/20 - negative. Urine 06/23/20 (straight cath) - reported on 06/25 (yeast-like organism) Urine 06/26/20 - urine (kidney) - yeast like organism, anaerobic Cx neg. Gunal smear and culture pending. Abx Meropenem 06/22/20 - Antifungals Micafungin 06/26/20 - DISPOSITION: Home when medically stable. VS, I&O, 24H, Fishbone Vital Signs/I&O Vital Signs Date Time Temp Pulse Resp B/P (MAP) Pulse Ox O2 Delivery O2 Flow Rate FiO2 06/29/20 15:43 16 06/29/20 14:00 98.5 55 138/74 (95) 97 Room Air 06/26/20 14:33 2 I&O- Last 24 Hours up to 6 AM 06/29/20 06:00 Intake Total 1360 ml Output Total 1925 ml Balance -565 ml Laboratory Data Microbiology Microbiology 06/27/20 Stool Occult Blood (LUZMA) - Final, Complete 06/26/20 Anaerobic Culture - Final, Complete 06/26/20 Fungal Smear, Received Pending 06/26/20 Fungal Culture, Received Pending 06/26/20 Anaerobic Culture - Final, Complete 06/26/20 Urine Culture - Final, Complete Yeast Like Organism 06/26/20 Urine Culture - Final, Complete Yeast Like Organism 06/23/20 - Final, Complete Beatriz Tropicalis 06/23/20 Urine Culture - Final, Complete Yeast Like Organism 06/22/20 Blood Culture - Final, Complete NO GROWTH AFTER 5 DAYS 06/22/20 Blood Culture - Final, Complete NO GROWTH AFTER 5 DAYS 06/21/20 Urine Culture - Final, Complete CHANDA PETE MD Jun 29, 2020 17:32
[2020-06-29 18:00] VITALS: BP 138/66
[2020-06-29] MEDS: MULTIVITAMINS/MINERALS THERAP 1 TAB PO SCH (21:45)
[2020-06-29] MEDS: FLUoxetine 10 MG CAP PO SCH (21:45)
[2020-06-29] MEDS: ASPIRIN 81 MG ENTERIC TAB PO SCH (21:45)
[2020-06-29] MEDS: FAMOTIDINE 20 MG TAB PO SCH (21:45)
[2020-06-29] MEDS: LATANOPROST 0.005% OPHTH SOLN 2.5 ML OU SCH (21:46)
[2020-06-29] MEDS: SIMVASTATIN 40 MG TAB PO SCH (21:46)
[2020-06-29 22:00] VITALS: BP 153/59
[2020-06-30] MEDS: MEROPENEM INJ 1 GM in IV 1 EA IV SCH ×2 (01:29→13:50)
[2020-06-30 02:00] VITALS: BP 139/54
[2020-06-30] MEDS: oxyCODONE 5MG TAB PO PRN ×3 (04:12→18:16)
[2020-06-30 06:00] VITALS: BP 169/72
[2020-06-30 06:08] LABS: HEMATOCRIT 27.9 % (36.0-47.0); HEMOGLOBIN 9.1 g/dl (12.0-15.5); MEAN CORPUSCULAR HEMOGLOBIN 30.1 pg (27.0-33.0); MEAN CORPUSCULAR HGB CONC 32.6 g/dl (32.0-36.5); MEAN CORPUSCULAR VOLUME 92.4 fl (80.0-96.0); PLATELET COUNT, AUTOMATED 344 10^3/uL (150-450); RED BLOOD COUNT 3.02 10^6/uL (4.00-5.40); WHITE BLOOD COUNT 7.8 10^3/uL (4.0-10.0)
[2020-06-30 06:19] LABS: CALCIUM LEVEL 8.5 MG/DL (8.8-10.2); CREATININE FOR GFR 1.57 MG/DL (0.55-1.30); GLOMERULAR FILTRATION RATE 34.2 (>39); POTASSIUM SERUM 4.5 MEQ/L (3.5-5.1)
[2020-06-30 07:22] LABS: ANISOCYTOSIS 1+; BASOPHILS 3 % (0-1); EOSINOPHILS 7 % (0-3); LYMPHOCYTES 38 % (16-44); MONOCYTES 4 % (0-5); NEUTROPHILS 48 % (28-66); PLATELET ESTIMATE NORMAL (NORMAL)
[2020-06-30 07:23] LABS: MICROCYTOSIS 1+
[2020-06-30] MEDS: POTASSIUM CHLORIDE 10 MEQ SR TABLET PO SCH (08:37)
[2020-06-30] MEDS: APIXABAN 2.5 MG TAB (ELIQUIS) PO SCH ×2 (08:37→20:10)
[2020-06-30] MEDS: GABAPENTIN 300 MG CAP PO SCH ×2 (08:37→20:10)
[2020-06-30] MEDS: PANTOPRAZOLE 40MG TAB (PROTONIX) PO SCH (08:37)
[2020-06-30] MEDS: LACTOBACILLUS ACIDOPHILUS CAP (BACID) PO SCH ×2 (08:37→18:12)
[2020-06-30] MEDS: CARVedilol 3.125 MG TAB PO SCH ×2 (08:39→20:10)
[2020-06-30] MEDS: lisinopriL 5 MG TAB PO SCH (08:39)
[2020-06-30] MEDS ORDERED: FLUBLOK(EGG FREE)(QUAD)INFLUENZA VACC 0.5ML SYRINGE 18YRS & OLDER IM ONE (09:00)
--- NOTE | 2020-06-30 11:51 | IPNPDOC ---
Date Seen The patient was seen on 06/30/20. Progress Note SUBJECTIVE: seen and examined at bedside. doing well, no new complaints. denies CP, n/v/d. No hematuria. OBJECTIVE PHYSICAL EXAMINATION: VITAL SIGNS: Please see below. GENERAL: NAD HEENT: PERRLA CARDIOVASCULAR: RRR, normal S1, S2. RESPIRATORY: Lungs CTAB. ABDOMINAL: soft, non tender, BS+ EXTREMITIES: no joint deformity, no edema NEUROLOGICAL: no focal neuro deficits, aao x 3 PSYCHOLOGICAL: calm, cooperative LABORATORY DATA, IMAGING STUDIES, MICROBIOLOGY: Please see below. DVT prophylaxis ordered?: Y ASSESSMENT AND PLAN: Patient is a 74 yo pleasant female with history of colon CA who has b/l ureteral stent from 2013 due to b/l ureteral stricture which developed after colon resection and radiation therapy for colon CA in 1997. Presented to [facility] due to back pain, fever, chills, dysuria, urgency, and frequency as well as appetite loss, weight loss of 20lbs, and generalized weakness. She reported ureteral stent last changed in April 09 2020, and she first had ureteral stent placed at least 6 years ago, and that her stents are changed around every 3 months per patient. Reported hx of prior UTI and intermittent hydronephrosis. Patient again found to have dirty UA and ANTELMO on CKD stage 3. Her last urine culture from May 21 grew pseudomonas. PROBLEMS: 1. Reccurent pyelonephritis: s/p ureteral stent replacement on 06/26/[address] Jack. ID on consult. Intraoperative cultures from kidneys sent. F/u fungal smear and culture. C/w micafungin. DC meropenem. (anaerobic cultures negative). Urine catheterized culture positive for remedios tropicalis, urine kidney fungal culture pending. Will likely be DC on fluconazole. 2. Bilateral obstructive uropathy with bilateral hydronephrosis: due to ureteral strictures from radiation therapy (colon ca) has bilateral ureteral stents. S tent exchange on 06/26/20. Follow up with urology in 2-3 weeks. Next stent exchange in 3 mo. 3. ANTELMO on CKD III: Cr stable, monitor. 4. Depression: fluoxetine 5. GERD: PPI, famotidine 6. CHF: coreg, add lisinopril 5 mg daily 7. Dyslipidemia: statin 8. Severe spinal canal stenosis: oxycodone, gabapentin 9. PAD 10. Colon cancer: s/p resection, radiation in 1997. Reports remission. 11. Anemia: FOBT negative. 12. Afib: known hx. last echo 03/2020. Coreg 3.125 mg. AC on eliquis 2.5 mg bid. Cultures: Urine 06/21/20 - contaminated Blood 06/22/20 - negative. Urine 06/23/20 (straight cath) - reported on 06/25 (yeast-like organism) - Remedios tropicalis Urine 06/26/20 - urine (kidney) - yeast like organism, anaerobic Cx neg ( L and R kidney). Fungal smear and culture pending. Abx Meropenem 06/22/20 - 05/30/20 Antifungals Micafungin 06/26/20 - DISPOSITION: Home when medically stable. VS, I&O, 24H, Fishbone Vital Signs/I&O Vital Signs Date Time Temp Pulse Resp B/P (MAP) Pulse Ox O2 Delivery O2 Flow Rate FiO2 06/30/20 11:07 18 06/30/20 08:39 138/68 06/30/20 08:39 68 06/30/20 06:00 98.6 93 Room Air 06/26/20 14:33 2 I&O- Last 24 Hours up to 6 AM 06/30/20 06:00 Intake Total 1170 ml Output Total 3000 ml Balance -1830 ml Laboratory Data 24H LABS Laboratory Tests 2 06/30/20 05:42: Neutrophils (%) (Auto) , Nucleated Red Blood Cells % (auto) 0.0, Neutrophils 48, Lymphocytes (Manual) 38, Monocytes (Manual) 4, Eosinophils (Manual) 7H, Basophils (Manual) 3H, Anisocytosis 1+, Microcytosis 1+, Platelet Estimate NORMAL, Anion Gap 5L, Glomerular Filtration Rate 34.2L, Calcium Level 8.5L CBC/BMP Laboratory Tests 06/30/20 05:42 Microbiology Microbiology 06/27/20 Stool Occult Blood (LUZMA) - Final, Complete 06/26/20 Anaerobic Culture - Final, Complete 06/26/20 Fungal Smear, Received Pending 06/26/20 Fungal Culture, Received Pending 06/26/20 Anaerobic Culture - Final, Complete 06/26/20 Urine Culture - Final, Complete Yeast Like Organism 06/26/20 Urine Culture - Final, Complete Yeast Like Organism 06/23/20 - Final, Complete Remedios Tropicalis 06/23/20 Urine Culture - Final, Complete Yeast Like Organism 06/22/20 Blood Culture - Final, Complete NO GROWTH AFTER 5 DAYS 06/22/20 Blood Culture - Final, Complete NO GROWTH AFTER 5 DAYS 06/21/20 Urine Culture - Final, Complete CHANDA PETE MD Jun 30, 2020 11:51
[2020-06-30] MEDS: MICAFUNGIN SODIUM 100 MG in D5W MINI-BAG PLUS 100 ML IV SCH (12:31)
[2020-06-30] MEDS: MAGNESIUM OXIDE 400 MG TAB (MAG-OX) PO SCH (12:31)
[2020-06-30 14:00] VITALS: BP 146/60
[2020-06-30] MEDS: LATANOPROST 0.005% OPHTH SOLN 2.5 ML OU SCH (20:09)
[2020-06-30] MEDS: ASPIRIN 81 MG ENTERIC TAB PO SCH (20:09)
[2020-06-30] MEDS: FLUoxetine 10 MG CAP PO SCH (20:09)
[2020-06-30] MEDS: FAMOTIDINE 20 MG TAB PO SCH (20:10)
[2020-06-30] MEDS: MULTIVITAMINS/MINERALS THERAP 1 TAB PO SCH (20:10)
[2020-06-30] MEDS: SIMVASTATIN 40 MG TAB PO SCH (20:10)
[2020-06-30 22:00] VITALS: BP 152/62
[2020-07-01] MEDS: MEROPENEM INJ 1 GM in IV 1 EA IV SCH (01:41)
[2020-07-01] MEDS: oxyCODONE 5MG TAB PO PRN ×4 (01:43→20:42)
[2020-07-01 06:00] VITALS: BP 148/62
[2020-07-01 06:13] LABS: HEMATOCRIT 29.2 % (36.0-47.0); HEMOGLOBIN 9.4 g/dl (12.0-15.5); MEAN CORPUSCULAR HGB CONC 32.2 g/dl (32.0-36.5); MEAN CORPUSCULAR VOLUME 93.3 fl (80.0-96.0); PLATELET COUNT, AUTOMATED 264 10^3/uL (150-450); RED BLOOD COUNT 3.13 10^6/uL (4.00-5.40); WHITE BLOOD COUNT 7.9 10^3/uL (4.0-10.0)
[2020-07-01 06:32] LABS: CALCIUM LEVEL 8.5 MG/DL (8.8-10.2); CREATININE FOR GFR 1.44 MG/DL (0.55-1.30); GLOMERULAR FILTRATION RATE 37.8 (>39); POTASSIUM SERUM 4.4 MEQ/L (3.5-5.1)
[2020-07-01 06:40] LABS: EOSINOPHILS 1 % (0-3); LYMPHOCYTES 41 % (16-44); MONOCYTES 5 % (0-5); NEUTROPHILS 53 % (28-66)
[2020-07-01 06:42] LABS: PLATELET CLUMPS MODERATE AMT; PLATELET ESTIMATE INVALID (NORMAL)
[2020-07-01] MEDS: LACTOBACILLUS ACIDOPHILUS CAP (BACID) PO SCH ×2 (08:14→17:39)
[2020-07-01] MEDS: GABAPENTIN 300 MG CAP PO SCH ×2 (08:15→20:41)
[2020-07-01] MEDS: APIXABAN 2.5 MG TAB (ELIQUIS) PO SCH ×2 (08:15→20:41)
[2020-07-01] MEDS: PANTOPRAZOLE 40MG TAB (PROTONIX) PO SCH (08:15)
[2020-07-01] MEDS: POTASSIUM CHLORIDE 10 MEQ SR TABLET PO SCH (08:15)
[2020-07-01] MEDS: lisinopriL 5 MG TAB PO SCH (08:20)
[2020-07-01] MEDS: CARVedilol 3.125 MG TAB PO SCH ×2 (08:22→20:41)
[2020-07-01] MEDS: MICAFUNGIN SODIUM 100 MG in D5W MINI-BAG PLUS 100 ML IV SCH (12:09)
[2020-07-01] MEDS: MAGNESIUM OXIDE 400 MG TAB (MAG-OX) PO SCH (12:09)
[2020-07-01 14:00] VITALS: BP 147/61
--- NOTE | 2020-07-01 20:08 | IPNPDOC ---
Subjective Date Seen The patient was seen on 07/01/20. Subjective Chief Complaint/HPI Patient is a 74 year old female with history of colon CA nad bilateral ureteral stents from 2014 secondary to ureteral stricture s/p colon resection and radiation here with pyelonephritis. No acute events overnight. This morning, she was complaining of chronic back pain that was midline. Otherwise, denies fever/chills, chest pain, dyspnea, or diarrhea. Constitutional: Denies: Chills, Fever Eyes: Denies: Vision change ENT: Denies: Dysphagia, Sore Throat Pulmonary: Denies: Dyspnea, Cough Cardiovascular: Denies: Chest Pain Gastrointestinal: Denies: Nausea, Abdominal Pain, Diarrhea, Constipation Objective Physical Examination General Exam: Positive: Alert, Cooperative, No Acute Distress, Mild Distress Eye Exam: Positive: Conjunctiva & lids normal ENT Exam: Positive: Atraumatic, Mucous membr. moist/pink Neck Exam: Positive: Supple Chest Exam: Positive: Normal air movement; Negative: Rales, Rhonchi, Wheezing Heart Exam: Positive: Rate Normal, Regular Rhythm, Normal S1, Normal S2; Negative: Murmurs Abdomen Exam: Positive: Normal bowel sounds, Soft; Negative: Tenderness Extremity Exam: Negative: Edema, Swelling Skin Exam: Positive: Nl turgor and temperature Neuro Exam: Positive: Normal Speech, Strength at 5/5 X4 ext, Normal Tone, Sensation Intact Psych Exam: Positive: Mental status NL, Anxiety (mild), Memory Intact, Oriented x 3 Assessment /Plan Assessment Patient is a 74 year old female with history of bilateral uretal strictures s/p uretal stents 2/2 radiation for colon cancer here with pyelonephritis from fungal organism. Stent last changed in 06/26/2020. During this admission, cultures grew yeast like organisms (Beatriz tropicalis). Merrem (8days) have been d/c due to no bacterial source. ID has been following and recommendations appreciated. Plan/VTE VTE Prophylaxis Ordered?: Yes VTE Exclusion Mechanical Proph: N/A:VTE Prophy Ordered Plan 1. Recurrent pyelonephritis: S/P ureteral stent replacement on 06/26/[address] Jack. ID following. Pending fungal smear and culture. Merrem D/C due to negative anaerobic cultures. ID following, recommendations appreciated. Most likely will be d/c on fluconazole. 2. Bilateral obstructive uropathy with bilateral hydronephrosis. Secondary to ureteral strictures from radiation therapy for colon cancer. Stents had been placed. Last changed in Mar 2020. Stents changed again this admission on 06/26/2020. Patient to follow up with urology in 2-3 weeks. Patient should have next stent exchange in 3 months 3. ANTELMO on CKD. Continue to monitor renal function 4. Depression. Continue fluoxetine 5. GERD. Continue PPI and famotidine 6. CHF. Stable. Continue carvedilol and lisinopril 7. Severe spinal canal stenosis. Continue oxycodone and gabapentin 8. Atrial fibrillation. Continue carvedilol and eliquis 9. DVT ppx. On eliquis for atrial fibrillation VS, I&O, 24H, Fishbone Vital Signs/I&O Vital Signs Date Time Temp Pulse Resp B/P (MAP) Pulse Ox O2 Delivery O2 Flow Rate FiO2 07/01/20 14:50 18 07/01/20 14:00 98.8 65 147/61 (89) 94 Room Air 06/26/20 14:33 2 I&O- Last 24 Hours up to 6 AM 07/01/20 06:00 Intake Total 1500 ml Output Total 1625 ml Balance -125 ml Laboratory Data 24H LABS Laboratory Tests 2 07/01/20 05:49: Neutrophils (%) (Auto) , Nucleated Red Blood Cells % (auto) 0.0, Neutrophils 53, Lymphocytes (Manual) 41, Monocytes (Manual) 5, Eosinophils (Manual) 1, Red Blood Cell Morphology NORMAL, Platelet Estimate INVALID, Clumped Platelets MODERATE AMT, Anion Gap 4L, Glomerular Filtration Rate 37.8L, Calcium Level 8.5L CBC/BMP Laboratory Tests 07/01/20 05:49 Microbiology Microbiology 06/27/20 Stool Occult Blood (LUZMA) - Final, Complete 06/26/20 Anaerobic Culture - Final, Complete 06/26/20 Fungal Smear, Received Pending 06/26/20 Fungal Culture, Received Pending 06/26/20 Anaerobic Culture - Final, Complete 06/26/20 Urine Culture - Final, Complete Yeast Like Organism 06/26/20 Urine Culture - Final, Complete Yeast Like Organism 06/23/20 - Final, Complete Beatriz Tropicalis 06/23/20 Urine Culture - Final, Complete Yeast Like Organism 06/22/20 Blood Culture - Final, Complete NO GROWTH AFTER 5 DAYS 06/22/20 Blood Culture - Final, Complete NO GROWTH AFTER 5 DAYS 06/21/20 Urine Culture - Final, Complete LESLEY PERKINS DO Jul 01, 2020 20:08
[2020-07-01] MEDS: FLUoxetine 10 MG CAP PO SCH (20:40)
[2020-07-01] MEDS: ASPIRIN 81 MG ENTERIC TAB PO SCH (20:40)
[2020-07-01] MEDS: SIMVASTATIN 40 MG TAB PO SCH (20:41)
[2020-07-01] MEDS: MULTIVITAMINS/MINERALS THERAP 1 TAB PO SCH (20:41)
[2020-07-01] MEDS: FAMOTIDINE 20 MG TAB PO SCH (20:41)
[2020-07-01] MEDS: LATANOPROST 0.005% OPHTH SOLN 2.5 ML OU SCH (20:41)
[2020-07-01 22:00] VITALS: BP 140/81
[2020-07-02] MEDS: oxyCODONE 5MG TAB PO PRN ×2 (02:41→09:02)
[2020-07-02 06:00] VITALS: BP 145/63
[2020-07-02 06:25] LABS: HEMOGLOBIN 9.5 g/dl (12.0-15.5); MEAN CORPUSCULAR HEMOGLOBIN 30.6 pg (27.0-33.0); MEAN CORPUSCULAR HGB CONC 32.8 g/dl (32.0-36.5); MEAN CORPUSCULAR VOLUME 93.5 fl (80.0-96.0); PLATELET COUNT, AUTOMATED 229 10^3/uL (150-450); WHITE BLOOD COUNT 7.8 10^3/uL (4.0-10.0)
[2020-07-02 06:41] LABS: CALCIUM LEVEL 8.6 MG/DL (8.8-10.2); CREATININE FOR GFR 1.42 MG/DL (0.55-1.30); GLOMERULAR FILTRATION RATE 38.4 (>39); POTASSIUM SERUM 4.3 MEQ/L (3.5-5.1)
[2020-07-02 06:53] LABS: EOSINOPHILS 5 % (0-3); LYMPHOCYTES 40 % (16-44); MONOCYTES 1 % (0-5); NEUTROPHILS 54 % (28-66)
[2020-07-02 06:54] LABS: PLATELET ESTIMATE NORMAL (NORMAL)
[2020-07-02] MEDS ORDERED: LISI-542 PO (08:07)
[2020-07-02] MEDS ORDERED: FLUC200T2 PO (08:07)
[2020-07-02] MEDS: POTASSIUM CHLORIDE 10 MEQ SR TABLET PO SCH (08:57)
[2020-07-02 08:58] VITALS: BP 146/69
[2020-07-02] MEDS: GABAPENTIN 300 MG CAP PO SCH (08:58)
[2020-07-02] MEDS: lisinopriL 5 MG TAB PO SCH (08:58)
[2020-07-02] MEDS: LACTOBACILLUS ACIDOPHILUS CAP (BACID) PO SCH (08:58)
[2020-07-02] MEDS: APIXABAN 2.5 MG TAB (ELIQUIS) PO SCH (08:59)
[2020-07-02] MEDS: PANTOPRAZOLE 40MG TAB (PROTONIX) PO SCH (08:59)
[2020-07-02] MEDS: CARVedilol 3.125 MG TAB PO SCH (08:59)
[2020-07-02] MEDS ORDERED: FLUCONAZOLE 100 MG TAB PO SCH (09:00)
--- NOTE | 2020-07-02 15:20 | ECHO ---
DATE OF PROCEDURE: 06/29/2020 Age: 74 PATIENT LOCATION: Room 4226 REASON FOR ECHOCARDIOGRAM: Cardiac arrhythmias, atrial fibrillation. 2D MEASUREMENTS: IVS 1.1 cm LV 5.0 cm LVPW 1.1 cm LA 4.3 cm Aorta 2.8 cm RV 3.0 Ascending aorta 3.4 IVC 1.9 cm DOPPLER MEASUREMENT Peak velocity across the aortic valve 1.4 mm/s Peak velocity across the LVOT 0.9 mm/s Mitral E 1.1 Mitral A 0.5 with a ratio of 1.9 Maximal tricuspid valve velocity 3.0 mm/s 2D COMMENTS: 1. Normal left ventricle size, wall thickness, and normal global left ventricular systolic function. The estimated left ventricular systolic ejection fraction is 60% to 65%. 2. Mildly dilated left atrium. Normal right atrium and right ventricle. 3. The atrial septum appeared to be normal without evidence of defect or shunt. 4. Normal aortic root and ascending aorta. 5. Trace pericardial effusion noted. No evidence of cardiac tamponade. 6. Mildly calcified aortic valve with normal leaflet excursion. Mildly calcified mitral annulus with normal anterior mitral valve leaflet motion. Normal tricuspid valve and pulmonic valve. The proximal pulmonary artery branches also appeared to be normal. The inferior vena cava was normal in size, central venous pressure is most likely normal. DOPPLER: It detects mild mitral regurgitation, [id number] tricuspid regurgitation. The calculated pulmonary artery systolic pressure varies between 40 to 50 mmHg. Assessment of the left diastolic function appeared to be normal. IMPRESSION: 1. Normal global left ventricular systolic and diastolic function. 2. Aortic valve sclerosis without stenosis or aortic regurgitation. 3. Mitral annulus calcification with mild mitral regurgitation and a mildly enlarged left atrium. 4. [id number] tricuspid regurgitation with probably moderate pulmonary hypertension. 5. Trace pericardial effusion, no evidence of cardiac tamponade. [facility]
--- NOTE | 2020-07-02 21:49 | DS.PDOC ---
Discharge Summary General Date of Admission Jun 22, 2020 at 01:13 Date of Discharge Jun Attending Physician: LESLEY PERKINS DO Specialist/Consultants [facility] ID Discharge Summary PROCEDURES PERFORMED DURING STAY: Bilateral stent exchange ADMITTING DIAGNOSES: 1. Pyelonephritis complicated with bilateral ureteral stents 2. Anemia 3. Lower lumbar spinal stenosis 4. ANTELMO on CKD 5. HTN 6. Depression 7. GERD 8. Diastolic heart failure 9. Dyslipidemia 10. Sciatic 11. Bilateral obstructive uropathy with bilateral hydronephrosis DISCHARGE DIAGNOSES: 1. Pyelonephritis complicated with bilateral ureteral stents 2. Anemia 3. Lower lumbar spinal stenosis 4. ANTELMO on CKD 5. HTN 6. Depression 7. GERD 8. Diastolic heart failure 9. Dyslipidemia 10. Sciatic 11. Bilateral obstructive uropathy with bilateral hydronephrosis 12. Atrial fibrillation COMPLICATIONS/CHIEF COMPLAINT: Arf, Pyelonephritis, Sepsis. HISTORY OF PRESENT ILLNESS: Patient is a 74 year old female with bilateral ureteral stent secondary to ureteral stricture from radiation therapy for colon cancer. Her last stent exchange was March of 2020. For the past 2 months, she had reported intermitted chills with dysuria. She reported flank pain as well. She while in the ED she was empirically started on Meropenem. HOSPITAL COURSE: During her hospitalization she did well. Her urine cultures did not grow a bacterial source, but did grow yeast like organisms. She was initially started on micafungin. Merrem was continued until the anaerobic cultures returned negative (8 days of meropenem). Culture grew Beatriz tropicalis. ID saw patient and transition her to fluconazole. Will plan for 14 day course of antifungals. Otherwise on 06/26/2020, urology replaced the stent. Urology would like to see her in 1 to 2 weeks to investigate the frequent infections. Patient will need exchange in 3 months. Otherwise today she felt well. Denies fever/chills, chest pain, shortness of breath, abdominal pain, or diarrhea. She felt ready for home and was subsequently discharged today DISCHARGE MEDICATIONS: Please see below. ALLERGIES: Please see below. PHYSICAL EXAMINATION ON DISCHARGE: VITAL SIGNS: Please see below. GENERAL: Comfortable, in no apparent distress HEENT: Head normocephalic atraumatic NECK: Supple CARDIOVASCULAR EXAMINATION: Regular rate and rhythm RESPIRATORY EXAMINATION: Lungs clear to auscultation bilaterally ABDOMINAL EXAMINATION: Abdomen soft, non-tender, normal bowel sounds EXTREMITIES: Mild pitting edema bilaterally NEUROLOGICAL EXAMINATION: CN 3-12 grossly intact PSYCHIATRIC EXAMINATION: Normal mood and affect LABORATORY DATA: Please see below. PROGNOSIS: Stable ACTIVITY: [As tolerated]. DIET: As tolerated DISCHARGE PLAN: Home DISPOSITION: 01 Home, Self-Care. DISCHARGE INSTRUCTIONS: 1. Follow up with your PCP in 1 week 2. Follow up ID in 1 week 3. Follow up with urology in 1 to 2 weeks. Will need ureteral stent exchange in 3 months DISCHARGE CONDITION: [Stable]. Total time spent on discharge planning, discharge summary, and medication reconc iliation 40 mins. Vital Signs/I&Os Vital Signs Date Time Temp Pulse Resp B/P (MAP) Pulse Ox O2 Delivery O2 Flow Rate FiO2 07/02/20 09:45 16 07/02/20 09:02 68 07/02/20 08:58 146/69 07/02/20 06:00 98.8 93 Room Air 07/01/20 21:12 2.0 I&O- Last 24 Hours up to 6 AM 07/02/20 06:00 Intake Total 940 ml Output Total 1750 ml Balance -810 ml Laboratory Data Labs 24H Laboratory Tests 2 07/02/20 05:56: Neutrophils (%) (Auto) , Nucleated Red Blood Cells % (auto) 0.0, Neutrophils 54, Lymphocytes (Manual) 40, Monocytes (Manual) 1, Eosinophils (Manual) 5H, Red Blood Cell Morphology NORMAL, Platelet Estimate NORMAL, Anion Gap 4L, Glomerular Filtration Rate 38.4L, Calcium Level 8.6L CBC/BMP Laboratory Tests 07/02/20 05:56 Microbiology Microbiology 06/27/20 Stool Occult Blood (LUZMA) - Final, Complete 06/26/20 Anaerobic Culture - Final, Complete 06/26/20 Fungal Smear, Received Pending 06/26/20 Fungal Culture, Received Pending 06/26/20 Anaerobic Culture - Final, Complete 06/26/20 Urine Culture - Final, Complete Yeast Like Organism 06/26/20 Urine Culture - Final, Complete Yeast Like Organism 06/23/20 - Final, Complete Beatriz Tropicalis 06/23/20 Urine Culture - Final, Complete Yeast Like Organism 06/22/20 Blood Culture - Final, Complete NO GROWTH AFTER 5 DAYS 06/22/20 Blood Culture - Final, Complete NO GROWTH AFTER 5 DAYS Discharge Medications Scheduled Apixaban (Eliquis) 2.5 Mg Tablet, 2.5 MG PO BID, (Reported) Aspirin (Aspir 81) 81 Mg Tablet.dr, 81 MG PO QHS, (Reported) Carvedilol (Carvedilol) 3.125 Mg Tablet, 3.125 MG PO BID, (Reported) Famotidine (Famotidine) 20 Mg Tablet, 40 MG PO QHS, (Reported) Fluconazole (Fluconazole) 200 Mg Tablet, 200 MG PO DAILY for Fungal UTI Fluoxetine Hcl (Fluoxetine HCl) 40 Mg Capsule, 40 MG PO QHS, (Reported) Gabapentin (Gabapentin) 400 Mg Capsule, 400 MG PO BID, (Reported) Lactobacillus Combination No.4 (Probiotic) 1 Each Capsule, 1 CAP PO BID, (Reported) Latanoprost (Xalatan) 0.005 % Olga, 1 DROP OU QHS, (Reported) Lisinopril (Lisinopril) 5 Mg Tablet, 5 MG PO DAILY Magnesium Oxide (Magnesium Oxide) 400 Mg Tablet, 400 MG PO DAILY, (Reported) NOON Multivit,Calc,Mins/Iron/Folic (Thera-M Tablet) 1 Each Tablet, 1 TAB PO QHS, (Reported) Potassium Chloride (Potassium Chloride) 20 Meq Tab.er.prt, 40 MEQ PO DAILY, (Rep orted) Simvastatin (Simvastatin) 40 Mg Tab, 40 MG PO QHS, (Reported) Scheduled PRN Acetaminophen (Acetaminophen) 325 Mg Tablet, 650 MG PO Q6H PRN for PAIN, (Reported) Oxycodone HCl/Acetaminophen (Oxycodone-Acetaminophen 10-325) 1 Each Tablet, 1 TAB PO QID PRN for PAIN, (Reported) Allergies Coded Allergies: cephalexin (Verified Allergy, Intermediate, rash, 04/30/20) levofloxacin (Verified Allergy, Intermediate, rash, 04/30/20) sulfamethoxazole (Verified Adverse Reaction, Intermediate, problems with kidneys, 04/30/20) trimethoprim (Verified Adverse Reaction, Intermediate, problems with kidneys, 04/30/20) LESLEY PERKINS DO Jul 02, 2020 21:49
--- NOTE | 2020-07-03 10:38 | IPN ---
DATE: 07/01/2020 SUBJECTIVE: Martha is doing very well. She denies any dysuria, hematuria, or flank pain. She is anxious to go home. Her is visiting at the bedside. No nausea, vomiting, or diarrhea. She has received 7 days of IV Micafungin. She has had no fever or chills. No chest pain. No nausea, vomiting, or diarrhea. LABS: White count 7.9, hemoglobin 9.4, hematocrit 29.2, platelets 264, sodium 140, potassium 4.4, chloride 108, chloride 108, bicarb 28, BUN 27, creatinine 1.4, glucose 98, GFR 38, calcium 8.5. Cultures from right and left kidneys both had yeast-like organism and identification was Beatriz tropicalis. Susceptible to Fluconazole with LUZMA of 1, Voriconazole less than .012 and Micafungin less than 0.06. PHYSICAL EXAMINATION: Temperature 97.9, pulse 58, respirations 17, blood pressure 148/62, O2 sat 97% on room air. Heart normal S1, S2. No murmurs. Lungs are clear. No wheezes, rales, or rhonchi. Abdomen is soft, nontender. No hepatosplenomegaly. Extremities trace edema. IMPRESSION: 1. Beatriz tropicalis pyelonephritis with bilateral hydronephrosis status post exchange of stents. The patient had received 7 days of IV Micafungin, doing much better. She will be discharge home on p.o. Fluconazole 200 mg daily to finish a total 14 day course. 2. Paroxysmal atrial fibrillation, resolved. PLAN: Discharge patient home on p.o. Fluconazole 200 mg daily to follow up with Urology. She does not need an Infectious Disease follow up. KALEIDA HEALTHJacqueline
--- NOTE | 2020-07-08 10:53 | ECGEPIP ---
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
[2020-07-10 13:07] LABS: METANEPHRINE TOTAL URINE 31 ug/L (Undefined); METANEPHRINE URINE 48 ug/24 hr (36-209); NORMETANEPHRINE TOTAL URINE 73 ug/L (Undefined); NORMETANEPHRINE URINE 113 ug/24 hr (131-612)
--- NOTE | 2020-07-10 15:33 | ECGEPIP ---
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
--- NOTE | 2020-07-23 13:05 | REP ---
RETROPYELOGRAM: HISTORY: Bilateral stent exchange. TECHNIQUE: Intraoperative fluoroscopic imaging using C-arm technique. FINDINGS: Images demonstrates bilateral ureteral stents with mild hydronephrosis noted. Total fluoroscopic time: 35 seconds. IMPRESSION: Status post bilateral stent replacement. Mild hydronephrosis noted. MTDD
== END 2020-07-02 12:22 | disposition home or self-care (01) | DRG 660 ==
LOC: M ED 21:51 → M ED INP 06-22 01:13 → ENRESERV 06-22 02:46 → M MSPAV 06-22 03:32
PROVIDERS: ADMIT Internal Medicine; ATTEND Internal Medicine
PROC: 0TP980Z Removal of Drainage Device from Ureter, Via Natural or Artificial Opening Endoscopic (ICD-10-PCS; 2020-06-26)
PROC: 0T788DZ Dilation of Bilateral Ureters with Intraluminal Device, Via Natural or Artificial Opening Endoscopic (ICD-10-PCS; principal; 2020-06-26 12:55)
DX: N13.6 Pyonephrosis (principal); I13.0 Hypertensive heart and chronic kidney disease with heart failure and stage 1 through stage 4 chronic kidney disease, or unspecified chronic kidney disease; I50.32 Chronic diastolic (congestive) heart failure; B37.49 Other urogenital candidiasis; H40.9 Unspecified glaucoma; F32.9 Major depressive disorder, single episode, unspecified; I48.91 Unspecified atrial fibrillation; K21.9 Gastro-esophageal reflux disease without esophagitis; N18.3 Chronic kidney disease, stage 3 (moderate); M54.40 Lumbago with sciatica, unspecified side; I73.9 Peripheral vascular disease, unspecified; M48.061 Spinal stenosis, lumbar region without neurogenic claudication; N17.9 Acute kidney failure, unspecified; Z79.01 Long term (current) use of anticoagulants; Z79.82 Long term (current) use of aspirin; Z79.899 Other long term (current) drug therapy; Z88.1 Allergy status to other antibiotic agents; Z88.2 Allergy status to sulfonamides; Z85.038 Personal history of other malignant neoplasm of large intestine; Z88.8 Allergy status to other drugs, medicaments and biological substances; Z96.0 Presence of urogenital implants; Z95.5 Presence of coronary angioplasty implant and graft; Z92.3 Personal history of irradiation; Z90.49 Acquired absence of other specified parts of digestive tract

== ENCOUNTER → 2020-07-14 | Outpatient (REF) | payer MEDICARE ==
[~2020-07-14] MED LIST changes: +CARV3.12 PO; +CVS1CAP5 PO; +FAMO1TAB11 PO; +FLUC200T2 PO; +GABA-845 PO; +LISI-542 PO; +OXYC10TA3 PO
[2020-07-14 17:53] LABS: APPEARANCE, URINE TURBID (CLEAR); BACTERIA, URINE AUTO 2+ (NEGATIVE); BILIRUBIN, URINE AUTO NEGATIVE (NEGATIVE); BLOOD, URINE BLOOD 1+ (NEGATIVE); COLOR, URINE YELLOW (YELLOW); GLUCOSE, URINE (UA) AUTO NEGATIVE (NEGATIVE); KETONE, URINE AUTO NEGATIVE (NEGATIVE); LEUKOCYTE ESTERASE, URINE AUTO 3+ (NEGATIVE); MUCUS, URINE SMALL (NEGATIVE); NITRITE, URINE AUTO POSITIVE (NEGATIVE); PROTEIN, URINE AUTO 2+ mg/dL (NEGATIVE); RBC, URINE AUTO 58 /HPF (0-3); SPECIFIC GRAVITY URINE AUTO 1.015 (1.002-1.035); SQUAMOUS EPITHELIAL CELL UR AU 4 /HPF (0-6); UROBILINOGEN, URINE AUTO 0.2 mg/dL (0.0-2.0); WBC, URINE AUTO TNTC /HPF (0-3)
== END ==
LOC: M SMT 17:15
PROVIDERS: ATTEND Urology
DX: Z87.440 Personal history of urinary (tract) infections (principal); Z79.899 Other long term (current) drug therapy

== ENCOUNTER → 2020-09-30 | Outpatient (REF) | payer MEDICARE ==
[~2020-09-30] MED LIST changes: +MULT1CAP3 PO; +POTA8TAB8 PO; +PRIM50TA6 PO; +VITA200028 PO; +ZINC1TAB2 PO
== END ==
LOC: M SMT 16:47
PROVIDERS: ATTEND Urology
DX: Z01.818 Encounter for other preprocedural examination (principal); N13.5 Crossing vessel and stricture of ureter without hydronephrosis; N39.0 Urinary tract infection, site not specified
CPT/HCPCS: 87086; G0463

== ENCOUNTER → 2020-10-02 | Outpatient (REF) | payer MEDICARE ==
[2020-10-03 12:04] LABS: HEMATOCRIT 33.8 % (36.0-47.0); HEMOGLOBIN 11.1 g/dl (12.0-15.5); MEAN CORPUSCULAR HEMOGLOBIN 30.7 pg (27.0-33.0); MEAN CORPUSCULAR HGB CONC 32.8 g/dl (32.0-36.5); MEAN CORPUSCULAR VOLUME 93.6 fl (80.0-96.0); PLATELET COUNT, AUTOMATED 201 10^3/uL (150-450); RED BLOOD COUNT 3.61 10^6/uL (4.00-5.40)
[2020-10-03 12:30] LABS: CREATININE FOR GFR 1.55 MG/DL (0.55-1.30); GLOMERULAR FILTRATION RATE 34.7 (>39); POTASSIUM SERUM 4.6 MEQ/L (3.5-5.1)
== END ==
LOC: M LABSMT 13:53
PROVIDERS: ATTEND Urology
DX: Z01.818 Encounter for other preprocedural examination (principal); N13.5 Crossing vessel and stricture of ureter without hydronephrosis

== ENCOUNTER → 2020-10-03 | Outpatient (REF) | payer MEDICARE | LOC: M SMT 16:47 | PROVIDERS: ATTEND Urology | DX: Z01.818 Encounter for other preprocedural examination (principal); N13.5 Crossing vessel and stricture of ureter without hydronephrosis; N39.0 Urinary tract infection, site not specified ==

== ENCOUNTER → 2020-10-04 | Outpatient (CLI) | payer MEDICARE | LOC: M LABSMTC 08:29 | PROVIDERS: ATTEND Anesthesiology | DX: Z01.812 Encounter for preprocedural laboratory examination (principal); Z11.59 Encounter for screening for other viral diseases ==

== ENCOUNTER 2020-10-09 12:42 | Day surgery (SDC) | payer MEDICARE ==
[~2020-10-09] VITALS: Ht 167.6 cm; Wt 78.2 kg
[~2020-10-09 12:42] MED LIST changes: +CONRAY-60 60% 50ML VIAL (Q9961) As Ordered ONE; +LIDOCAINE 2% 100MG/5ML SDV (FOR ANES.) As Ordered ONE; +LR 1,000 ML IV ONE; +ONDANSETRON 4MG/2ML VIAL As Ordered ONE; +fentaNYL 100 MCG/2 ML INJECTION (J3010) As Ordered ONE; +propofoL 200 MG/20 ML VIAL As Ordered ONE
[2020-10-09] MEDS ORDERED: LIDOCAINE 2% 5ML JELLY UROJET As Ordered ONE (13:23)
[2020-10-09] MEDS ORDERED: diphenhydrAMINE 50MG/ML VIAL (J1200) IV PRN (13:30)
[2020-10-09] MEDS ORDERED: cefTAZidime 1 GM in D5W MINI-BAG PLUS 50 ML IV ONE (14:00)
--- NOTE | 2020-10-09 14:24 | REP ---
INDICATION: BILATERAL STENT EXCHANGE. COMPARISON: Comparison study June 26, 2020.. TECHNIQUE: Three views. 33 seconds of fluoroscopy time is reported. FINDINGS: A sequence of 3 last image hold fluoroscopically obtained spot radiographs of the abdomen document bilateral ureteral or contrast injection and stent position. IMPRESSION: Procedural imaging. <Electronically signed by Tripp Nunes > 10/09/20 [id number]
--- NOTE | 2020-10-09 14:48 | ROOPDOC ---
[facility] Report Of Operation Report of Operation DATE OF PROCEDURE: 10/09/20 PREPROCEDURE DIAGNOSIS: Bilateral ureteral obstruction. POSTPROCEDURE DIAGNOSIS: Bilateral ureteral obstruction, right ureteral stone. PROCEDURE: Cystoscopy, bilateral retrograde pyelograms with intraoperative interpretation of images, bilateral ureteral stent exchange, removal of right ureteral stone. SURGEON: Annemarie Wood MD AUTO MECHANIC SUPERVISOR: None. ANESTHESIA: Monitored anesthesia care (MAC). OPERATIVE INDICATIONS: This is a 74-year-old female with bilateral ureteral obstruction which is managed with chronic ureteral stenting. She is brought in today for routine stent exchange. DESCRIPTION OF PROCEDURE: The patient was brought to the operating room and MAC anesthesia was administered. Culture specific antibiotics were infused. She was then placed in dorsal lithotomy position and prepped and draped in the usual sterile fashion. At this point, a rigid cystoscope was inserted into the urethral meatus and advanced to the bladder. Once inside the bladder the previously placed ureteral stents were seen. The right sided stent was then grasped and withdrawn until the distal end was protruding from the urethral meatus. I advanced a Guidewire up the right stent and then removed the stent. I then advanced a 5-Mozambican open-ended ureteral catheter over the wire and removed the wire. I then aspirated approximately 10mL of urine from her right kidney. I then shot a retrograde pyelogram and it was notable for severe right hydronephrosis with no extravasation. I then advanced the wire back up the open ended ureteral catheter and removed the ureteral catheter. I then utilized the wire to advance a 7 Mozambican x 22-26cm JJ ureteral stent into the right collecting system. The wire was removed and there were adequate curls of the stent in the right renal pelvis and in the bladder. Of note, there was a 3mm stone protruding from the right ureteral orifice. This was removed and sent for analysis. I then advanced a Guidewire up the left collecting system and removed the left ureteral stent. I advanced a 5-Mozambican open-ended ureteral catheter over the wire into the left collecting system. I removed the wire and then aspirated approximately 10mL of urine from the left kidney. Next, I shot a retrograde pyelogram. It was notable for moderate left hydronephrosis with no extravasation. I then advanced the wire back up the left collecting system and removed the ureteral catheter. I then utilized the wire to advance a 7 Mozambican x 22-26 cm JJ ureteral stent into the left collecting system. The wire was removed and there were adequate curls of the stent in the left renal pelvis and in the bladder. At this point, the bladder was emptied of all fluid and this marked conclusion of the procedure. The patient was then taken out of the dorsal lithotomy position, awakened from anesthesia and transferred to the recovery room in stable condition. ESTIMATED BLOOD LOSS: 5 mL. COMPLICATIONS: None. SPECIMENS: Right ureteral stone. PLAN: The patient will follow up for routine stent exchange in 3 months. ANNEMARIE WOOD MD Oct 09, 2020 14:47
[2020-10-09 15:30] VITALS: BP 156/70
== END 2020-10-09 16:04 | disposition home or self-care (01) ==
LOC: M SDC 12:42
PROVIDERS: ATTEND Urology
DX: N13.5 Crossing vessel and stricture of ureter without hydronephrosis (principal); N13.30 Unspecified hydronephrosis; N20.1 Calculus of ureter; I48.91 Unspecified atrial fibrillation; I12.9 Hypertensive chronic kidney disease with stage 1 through stage 4 chronic kidney disease, or unspecified chronic kidney disease; N18.30 Chronic kidney disease, stage 3 unspecified; D64.9 Anemia, unspecified; E78.5 Hyperlipidemia, unspecified; K21.9 Gastro-esophageal reflux disease without esophagitis; K58.9 Irritable bowel syndrome, unspecified; R06.83 Snoring; Z79.01 Long term (current) use of anticoagulants; Z79.899 Other long term (current) drug therapy; Z85.038 Personal history of other malignant neoplasm of large intestine; Z87.891 Personal history of nicotine dependence; Z88.1 Allergy status to other antibiotic agents; Z88.8 Allergy status to other drugs, medicaments and biological substances; Z92.21 Personal history of antineoplastic chemotherapy; Z92.3 Personal history of irradiation; Z96.1 Presence of intraocular lens; Z98.0 Intestinal bypass and anastomosis status; Z98.41 Cataract extraction status, right eye; Z98.42 Cataract extraction status, left eye
CPT/HCPCS: 52332; 74420; 82365; 88300; C1769; C2617; J0713; J2405; J3010; Q9961

== ENCOUNTER → 2021-01-12 | Outpatient (CLI) | payer MEDICARE ==
[~2021-01-12] MED LIST changes: +ASPI-569 PO; -ASPI81TAEC PO; -CONRAY-60 60% 50ML VIAL (Q9961) As Ordered ONE; +D31000TA2 PO; +IRON65TA2 PO; -LIDOCAINE 2% 100MG/5ML SDV (FOR ANES.) As Ordered ONE; -LISI-542 PO; +LISI-898 PO; -LISI40TA PO; +LISI40TA4 PO; -LR 1,000 ML IV ONE; -MAG400TA PO; +MAGN400T35 PO; +MULT1TAB16 PO; -ONDANSETRON 4MG/2ML VIAL As Ordered ONE; +RISATAB3; -THERTAB20 PO; +THERTAB21 PO; -fentaNYL 100 MCG/2 ML INJECTION (J3010) As Ordered ONE; -propofoL 200 MG/20 ML VIAL As Ordered ONE
--- NOTE | 2021-01-12 11:58 | REP ---
INDICATION: N13.5, Z01.818, PRE OP EXAM. COMPARISON: Comparison chest x-ray June 27, 2020. TECHNIQUE: Two views.. FINDINGS: The lungs are well inflated and clear. Pleural angles are sharp. Heart is enlarged, CT ratio 51.3%. There is mild linear fibrosis in the right infrahilar region unchanged. The thoracic aorta is calcific and slightly tortuous. There are degenerative changes in the thoracic spine. IMPRESSION: Mild cardiomegaly. Otherwise no acute disease.. <Electronically signed by Tripp Nunes > 01/12/21 [id number]
== END ==
LOC: M CLY 10:21
PROVIDERS: ATTEND Urology
DX: Z01.818 Encounter for other preprocedural examination (principal); N13.5 Crossing vessel and stricture of ureter without hydronephrosis; N39.0 Urinary tract infection, site not specified; I51.7 Cardiomegaly; M51.34 Other intervertebral disc degeneration, thoracic region

== ENCOUNTER → 2021-01-12 | Outpatient (REF) | payer MEDICARE ==
[2021-01-12 16:07] LABS: HEMATOCRIT 32.9 % (36.0-47.0); HEMOGLOBIN 10.9 g/dl (12.0-15.5); MEAN CORPUSCULAR HEMOGLOBIN 31.2 pg (27.0-33.0); MEAN CORPUSCULAR HGB CONC 33.1 g/dl (32.0-36.5); MEAN CORPUSCULAR VOLUME 94.3 fl (80.0-96.0); PLATELET COUNT, AUTOMATED 219 10^3/uL (150-450); RED BLOOD COUNT 3.49 10^6/uL (4.00-5.40)
[2021-01-12 16:17] LABS: CALCIUM LEVEL 8.9 MG/DL (8.8-10.2); CREATININE FOR GFR 1.44 MG/DL (0.55-1.30); GLOMERULAR FILTRATION RATE 37.7 (>39); POTASSIUM SERUM 3.9 MEQ/L (3.5-5.1)
== END ==
LOC: M LABSMT 10:17
PROVIDERS: ATTEND Urology
DX: Z01.818 Encounter for other preprocedural examination (principal); N13.5 Crossing vessel and stricture of ureter without hydronephrosis; N39.0 Urinary tract infection, site not specified

== ENCOUNTER → 2021-01-16 | Outpatient (CLI) | payer MEDICARE | LOC: M LABSMTC 11:09 | PROVIDERS: ATTEND Anesthesiology | DX: Z01.812 Encounter for preprocedural laboratory examination (principal); Z20.822 Contact with and (suspected) exposure to COVID-19 ==

== ENCOUNTER 2021-01-21 07:01 | Day surgery (SDC) | payer MEDICARE ==
[~2021-01-21] VITALS: Ht 167.6 cm; Wt 78.9 kg
[~2021-01-21 07:01] MED LIST changes: +GENTAMICIN 80 MG in IV 1 EA IV ONE; +LR 1,000 ML IV ONE; +VANCOMYCIN HCL 1,000 MG, VIAL MATE ADAPTER 1 EACH in NS 250 ML IV ONE
[2021-01-21] MEDS ORDERED: propofoL 200 MG/20 ML VIAL As Ordered ONE (07:25)
[2021-01-21] MEDS ORDERED: ACETAMINOPHEN 1000MG 100ML IV BTL (OFIRMEV) (J0131 PER 10MG) As Ordered ONE (07:25)
[2021-01-21] MEDS ORDERED: ONDANSETRON 4MG/2ML VIAL As Ordered ONE (07:25)
[2021-01-21] MEDS ORDERED: MIDAZOLAM INJ 2MG/2ML VIAL (J2250 PER 1MG) As Ordered ONE (07:25)
[2021-01-21] MEDS ORDERED: dexameTHASONE 4 MG/ML 1ML VIAL (J1100 PER 1MG) As Ordered ONE (07:25)
[2021-01-21] MEDS ORDERED: fentaNYL 100 MCG/2 ML INJECTION (J3010) As Ordered ONE (07:25)
[2021-01-21] MEDS ORDERED: KETOROLAC 60MG 2ML VIAL As Ordered ONE (07:25)
[2021-01-21] MEDS ORDERED: LIDOCAINE 2% 100MG/5ML SDV (FOR ANES.) As Ordered ONE (07:25)
[2021-01-21] MEDS ORDERED: VANCOMYCIN 1000MG/20ML VIAL As Ordered ONE (07:32)
[2021-01-21] MEDS ORDERED: LIDOCAINE 2% 5ML JELLY UROJET As Ordered ONE (08:46)
[2021-01-21] MEDS ORDERED: CONRAY-60 60% 50ML VIAL (Q9961) As Ordered ONE (08:46)
--- NOTE | 2021-01-21 10:02 | ROOPDOC ---
[facility] Report Of Operation Report of Operation DATE OF PROCEDURE: 01/21/21 PREPROCEDURE DIAGNOSIS: Bilateral ureteral obstruction. POSTPROCEDURE DIAGNOSIS: Bilateral ureteral obstruction. PROCEDURE: Cystoscopy, bilateral retrograde pyelograms with intraoperative interpretation of images, bilateral ureteral stent exchange. SURGEON: Annemarie Wood MD TRUCK CRANE OPERATOR: None. ANESTHESIA: Monitored anesthesia care (MAC). OPERATIVE INDICATIONS: This is a 75-year-old female with bilateral ureteral obstruction which is managed with chronic ureteral stenting. She is brought in today for routine stent exchange. DESCRIPTION OF PROCEDURE: The patient was brought to the operating room and MAC anesthesia was administered. Culture specific antibiotics were infused. She was then placed in dorsal lithotomy position and prepped and draped in the usual sterile fashion. At this point, a rigid cystoscope was inserted into the urethral meatus and advanced to the bladder. Once inside the bladder the previously placed ureteral stents were seen. The right sided stent was then grasped and withdrawn until t he distal end was protruding from the urethral meatus. I advanced a Guidewire up the right stent and then removed the stent. I then advanced a 5-Scottish open-ended ureteral catheter over the wire and removed the wire. I then aspirated approximately 10mL of urine from her right kidney. I then shot a retrograde pyelogram and it was notable for moderate right hydronephrosis with no extravasation. I then advanced the wire back up the open ended ureteral catheter and removed the ureteral catheter. I then utilized the wire to advance a 7 Scottish x 22-26cm JJ ureteral stent into the right collecting system. The wire was removed and there were adequate curls of the stent in the right renal pelvis and in the bladder. I then advanced a Guidewire up the left collecting system and removed the left ureteral stent. I advanced a 5-Scottish open-ended ureteral catheter over the wire into the left collecting system. I removed the wire and then aspirated approximately 10mL of urine from the left kidney. Next, I shot a retrograde pyelogram. It was notable for moderate left hydronephrosis with no extravasation. I then advanced the wire back up the left collecting system and removed the ureteral catheter. I then utilized the wire to advance a 7 Scottish x 22-26 cm JJ ureteral stent into the left collecting system. The wire was removed and there were adequate curls of the stent in the left renal pelvis and in the bladder. At this point, the bladder was emptied of all fluid and this marked conclusion of the procedure. The patient was then taken out of the dorsal lithotomy position, awakened from anesthesia and transferred to the recovery room in stable condition. ESTIMATED BLOOD LOSS: 5 mL. COMPLICATIONS: None. SPECIMENS: None. PLAN: The patient will follow up for routine stent exchange in 3 months. ANNEMARIE WOOD MD Jan 21, 2021 10:02
[2021-01-21] MEDS ORDERED: ONDANSETRON 4MG/2ML VIAL IV PRN (10:15)
[2021-01-21] MEDS ORDERED: fentaNYL 100 MCG/2 ML INJECTION (J3010) IV PRN (10:15)
[2021-01-21] MEDS ORDERED: METOCLOPRAMIDE INJ 10MG/2ML VIAL (J2765 PER 1) IV PRN (10:15)
[2021-01-21] MEDS ORDERED: oxyCODONE 5MG TAB PO PRN (10:15)
[2021-01-21] MEDS ORDERED: LR 1,000 ML IV SCH (10:15)
--- NOTE | 2021-01-21 10:17 | REP ---
INDICATION: STENT PLACEMENT. COMPARISON: 10/09/2028 TECHNIQUE: Three last image hold fluoroscopic spot radiographs from C-arm fluoroscopy provided to Dr. Jack of the urology division. FINDINGS: Bilateral ureteral stents are visible coiled proximally in the renal pelvis and distally in the bladder on the right and left within the collecting system. Contrast in the collecting systems of both the kidneys demonstrated with mild hydronephrosis. IMPRESSION: Status post bilateral ureteral stent replacements. Fluoroscopy time 24 seconds. <Electronically signed by Alexadner Hopkins > 01/21/21 [id number]
[2021-01-21 10:35] VITALS: BP 173/76
== END 2021-01-21 11:07 | disposition home or self-care (01) ==
LOC: M SDC 07:01
PROVIDERS: ATTEND Urology
DX: N13.2 Hydronephrosis with renal and ureteral calculous obstruction (principal); I10 Essential (primary) hypertension; E78.5 Hyperlipidemia, unspecified; K21.9 Gastro-esophageal reflux disease without esophagitis; D64.9 Anemia, unspecified; F41.9 Anxiety disorder, unspecified; F32.9 Major depressive disorder, single episode, unspecified; Z85.038 Personal history of other malignant neoplasm of large intestine; Z92.21 Personal history of antineoplastic chemotherapy; Z92.3 Personal history of irradiation; K58.8 Other irritable bowel syndrome; Z87.891 Personal history of nicotine dependence; Z88.1 Allergy status to other antibiotic agents; Z88.2 Allergy status to sulfonamides
CPT/HCPCS: 52332; 74420; C1769; C2617; J0131; J1100; J1580; J1885; J2250; J2405; J3010; J3370; Q9961

== ENCOUNTER → 2021-07-03 | Outpatient (REF) | payer MEDICARE ==
[~2021-07-03] MED LIST changes: +DOXY-350 PO; +GABA-283 PO; -GABA-845 PO; -GENTAMICIN 80 MG in IV 1 EA IV ONE; -KLOR10TA76 PO; -LR 1,000 ML IV ONE; +OXYB5TAB10 PO; +PHEN1TAB73 PO; +POTA-136 PO; -VANCOMYCIN HCL 1,000 MG, VIAL MATE ADAPTER 1 EACH in NS 250 ML IV ONE; +med rec comment
[2021-07-03 13:55] LABS: APPEARANCE, URINE TURBID (CLEAR); BACTERIA, URINE AUTO NEGATIVE (NEGATIVE); BILIRUBIN, URINE AUTO NEGATIVE (NEGATIVE); BLOOD, URINE BLOOD 2+ (NEGATIVE); COLOR, URINE YELLOW (YELLOW); GLUCOSE, URINE (UA) AUTO NEGATIVE (NEGATIVE); KETONE, URINE AUTO NEGATIVE (NEGATIVE); LEUKOCYTE ESTERASE, URINE AUTO 3+ (NEGATIVE); NITRITE, URINE AUTO POSITIVE (NEGATIVE); PROTEIN, URINE AUTO 3+ mg/dL (NEGATIVE); RBC, URINE AUTO TNTC /HPF (0-3); SPECIFIC GRAVITY URINE AUTO 1.012 (1.002-1.035); SQUAMOUS EPITHELIAL CELL UR AU 5 /HPF (0-6); TRANSITIONAL EPITHELIAL AUTO 1 /HPF; UROBILINOGEN, URINE AUTO 0.2 mg/dL (0.0-2.0); WBC, URINE AUTO TNTC /HPF (0-3)
== END ==
LOC: M SMT 12:50
PROVIDERS: ATTEND Nurse Practitioner Women's Health
DX: N13.5 Crossing vessel and stricture of ureter without hydronephrosis (principal)
CPT/HCPCS: 81001; 87086; G0463

== ENCOUNTER → 2021-07-29 | Outpatient (REF) | payer MEDICARE ==
[2021-07-29 18:40] LABS: MAGNESIUM LEVEL 1.5 MG/DL (1.8-2.4)
[2021-07-30 09:21] LABS: PERCENT SATURATION 19.7 % (13.2-45.0)
== END ==
LOC: M LAB REF 17:25
PROVIDERS: ATTEND Internal Medicine Nephrology
DX: E83.42 Hypomagnesemia (principal); D50.9 Iron deficiency anemia, unspecified

== ENCOUNTER → 2021-08-17 | Outpatient (REF) | payer MEDICARE | LOC: M LAB REF 17:40 | PROVIDERS: ATTEND Nurse Practitioner Family | DX: N39.0 Urinary tract infection, site not specified (principal) ==

== ENCOUNTER → 2021-09-02 | Outpatient (REF) | payer MEDICARE ==
[2021-09-02 16:35] LABS: HEMATOCRIT 35.3 % (36.0-47.0); HEMOGLOBIN 11.4 g/dl (12.0-15.5); MEAN CORPUSCULAR HGB CONC 32.3 g/dl (32.0-36.5); MEAN CORPUSCULAR VOLUME 89.8 fl (80.0-96.0); PLATELET COUNT, AUTOMATED 299 10^3/uL (150-450); RED BLOOD COUNT 3.93 10^6/uL (4.00-5.40); WHITE BLOOD COUNT 7.8 10^3/uL (4.0-10.0)
[2021-09-02 16:44] LABS: INR 1.08; PROTHROMBIN TIME 14.4 SECONDS (12.7-14.5)
[2021-09-02 16:45] LABS: PARTIAL THROMBOPLASTIN TIME 41.4 SECONDS (25.9-37.0)
[2021-09-02 16:57] LABS: APPEARANCE, URINE TURBID (CLEAR); BACTERIA, URINE AUTO 3+ (NEGATIVE); BILIRUBIN, URINE AUTO NEGATIVE (NEGATIVE); BLOOD, URINE BLOOD 2+ (NEGATIVE); CALCIUM LEVEL 9.1 MG/DL (8.8-10.2); COLOR, URINE AMBER (YELLOW); CREATININE FOR GFR 1.35 MG/DL (0.55-1.30); GLOMERULAR FILTRATION RATE 40.6 (>39); GLUCOSE, URINE (UA) AUTO NEGATIVE (NEGATIVE); KETONE, URINE AUTO NEGATIVE (NEGATIVE); LEUKOCYTE ESTERASE, URINE AUTO 3+ (NEGATIVE); NITRITE, URINE AUTO NEGATIVE (NEGATIVE); POTASSIUM SERUM 3.4 MEQ/L (3.5-5.1); PROTEIN, URINE AUTO 3+ mg/dL (NEGATIVE); RBC, URINE AUTO 139 /HPF (0-3); SPECIFIC GRAVITY URINE AUTO 1.011 (1.002-1.035); SQUAMOUS EPITHELIAL CELL UR AU 4 /HPF (0-6); UROBILINOGEN, URINE AUTO 0.2 mg/dL (0.0-2.0); WBC, URINE AUTO TNTC /HPF (0-3)
== END ==
LOC: M SFHCCLAY 13:08
PROVIDERS: ATTEND Urology
DX: Z01.818 Encounter for other preprocedural examination (principal); N13.5 Crossing vessel and stricture of ureter without hydronephrosis

== ENCOUNTER → 2021-09-21 | Outpatient (REF) | payer MEDICARE ==
[~2021-09-21] MED LIST changes: +CIPR500T39 PO; -FLUC200T2 PO; +FLUC200T4 PO; +FLUO-96 PO; -FLUO20CA20 PO; +LEVO250T3 PO; -LISI-898 PO; +LISI5TAB11 PO; +POTA-151 PO; +POTA1TAB22 PO; -POTA20TA6 PO; -POTA8TAB8 PO
== END ==
LOC: M SMT 13:12
PROVIDERS: ATTEND Urology
DX: N39.0 Urinary tract infection, site not specified (principal)

== ENCOUNTER → 2021-09-21 | Outpatient (CLI) | payer MEDICARE ==
[~2021-09-21] MED LIST changes: +FLUC200T2 PO; -FLUC200T4 PO; -FLUO-96 PO; +FLUO20CA20 PO; -LEVO250T3 PO; +LISI-898 PO; -LISI5TAB11 PO; -POTA-151 PO; -POTA1TAB22 PO; +POTA20TA6 PO; +POTA8TAB8 PO
== END ==
LOC: M LABSMTC 09:02
PROVIDERS: ATTEND Anesthesiology
DX: Z01.812 Encounter for preprocedural laboratory examination (principal); Z11.52 Encounter for screening for COVID-19
CPT/HCPCS: 87086; U0003

== ENCOUNTER → 2021-09-23 | Outpatient (REF) | payer MEDICARE ==
[2021-09-23 17:36] LABS: APPEARANCE, URINE TURBID (CLEAR); BACTERIA, URINE AUTO 1+ (NEGATIVE); BILIRUBIN, URINE AUTO NEGATIVE (NEGATIVE); BLOOD, URINE BLOOD 3+ (NEGATIVE); COLOR, URINE AMBER (YELLOW); GLUCOSE, URINE (UA) AUTO NEGATIVE (NEGATIVE); KETONE, URINE AUTO NEGATIVE (NEGATIVE); LEUKOCYTE ESTERASE, URINE AUTO 2+ (NEGATIVE); NITRITE, URINE AUTO NEGATIVE (NEGATIVE); PROTEIN, URINE AUTO 2+ mg/dL (NEGATIVE); RBC, URINE AUTO 54 /HPF (0-3); SPECIFIC GRAVITY URINE AUTO 1.009 (1.002-1.035); SQUAMOUS EPITHELIAL CELL UR AU 68 /HPF (0-6); TRANSITIONAL EPITHELIAL AUTO 4 /HPF; UROBILINOGEN, URINE AUTO 0.2 mg/dL (0.0-2.0); WBC, URINE AUTO TNTC /HPF (0-3)
== END ==
LOC: M SMT 16:58
PROVIDERS: ATTEND Urology
DX: Z01.818 Encounter for other preprocedural examination (principal); N39.0 Urinary tract infection, site not specified

== ENCOUNTER 2021-09-25 07:32 | Day surgery (SDC) | payer MEDICARE ==
[~2021-09-25] VITALS: Ht 167.6 cm; Wt 75.7 kg
[~2021-09-25 07:32] MED LIST changes: +GENTAMICIN 100 MG in IV 1 EA IV ONE; +LR 1,000 ML IV ONE
[2021-09-25] MEDS ORDERED: LIDOCAINE 2% 5ML JELLY UROJET As Ordered ONE (10:50)
[2021-09-25] MEDS ORDERED: CONRAY-60 60% 50ML VIAL (Q9961) As Ordered ONE (10:50)
[2021-09-25] MEDS ORDERED: ETOMIDATE INJ 20MG/10ML VIAL As Ordered ONE (11:11)
[2021-09-25] MEDS ORDERED: MIDAZOLAM INJ 2MG/2ML VIAL (J2250 PER 1MG) As Ordered ONE (11:11)
[2021-09-25] MEDS ORDERED: propofoL 200 MG/20 ML VIAL As Ordered ONE (11:11)
[2021-09-25] MEDS ORDERED: fentaNYL 100 MCG/2 ML INJECTION (J3010) As Ordered ONE (11:11)
--- NOTE | 2021-09-25 12:07 | REP ---
INDICATION: BILATERAL STENT PLACEMENT. COMPARISON: 07/19/2021. TECHNIQUE: Four C-arm views abdomen and pelvis. FINDINGS: Contrast opacifies the pelvocaliceal systems bilaterally, with severe hydronephrosis again noted bilaterally. There are bilateral ureteral stents, the proximal end of each stent is in the respective renal pelvis, the distal end is in the urinary bladder. IMPRESSION: 45 seconds of fluoroscopy time was utilized. <Electronically signed by Santana Scott > 09/25/21 [id number]
[2021-09-25 12:48] VITALS: BP 164/77
--- NOTE | 2021-09-25 13:29 | RO ---
OPERATIVE NOTE DATE OF OPERATION: 09/25/2021 PREOPERATIVE DIAGNOSIS: Bilateral ureteral obstruction. POSTOPERATIVE DIAGNOSIS: Bilateral ureteral obstruction. PROCEDURE: Cystoscopy, bilateral retrograde pyelogram with intraop interpreted images, bilateral ureteral stent exchange. SURGEON: Jaspal Jack MD NEON TECHNICIAN: None. ANESTHESIA: MAC. OPERATIVE INDICATIONS: This is a 75-year-old female with bilateral ureteral obstruction which is managed with chronic ureteral stents. These stents are changed every two months now and she is here for a routine stent exchange. DESCRIPTION OF PROCEDURE: The patient was brought to the operating room and MAC anesthesia was administered. Prophylactic antibiotics were infused. She was placed in a dorsal lithotomy position and prepped and draped in the usual sterile fashion. A rigid cystoscope was inserted in the urethral meatus and advanced into the bladder. The previously placed bilateral ureteral stents were seen. At this point, a guidewire was advanced up the left collecting system and then that ureteral stent was removed. I advanced a 5 Zambian open-ended ureteral catheter over the wire and then the wire was removed. At this point, I aspirated out a significant amount of urine from the left kidney, indicating that it was not draining properly. After that was done, a retrograde pyelogram was performed. It was notable for severe left hydronephrosis, no extravasation. I then advanced the guidewire back up and removed the ureteral catheter. I utilized the guidewire to advance a 7 Zambian x 22 cm black silicone ureteral stent up the left collecting. The wire was removed and there were adequate coils of the stent in the left renal pelvis and the bladder. At this point, the guidewire was advanced up the right collecting system and then that stent was removed. The ureteral catheter was advanced over the wire into the right collecting system. I also aspirated out a significant amount of urine from the right kidney, indicating that that stent had stopped draining properly. A retrograde pyelogram was performed and that was also notable for severe right hydronephrosis and no extravasation. I advanced the guidewire back up and then removed the ureteral catheter. I then advanced a 7 Zambian x 22 cm black silicone ureteral stent over the wire up the right collecting system. The wire was removed and there were adequate coils of the stent in the right renal pelvis and in the bladder. The bladder was emptied of all fluids and this marked the conclusion of the procedure. The patient was taken out of the dorsal lithotomy position, awakened from anesthesia and transported to the recovery room in stable condition. ESTIMATED BLOOD LOSS: 5 mL COMPLICATIONS: None. SPECIMENS: None. PLAN: The patient will follow up for routine stent exchange in two months. Of note if her stents become obstructed or fail prior to this period, I think at this point that it would be best that she be managed with bilateral nephrostomy tubes. CEE
== END 2021-09-25 12:53 | disposition home or self-care (01) ==
LOC: M SDC 07:32
PROVIDERS: ATTEND Urology
DX: N13.1 Hydronephrosis with ureteral stricture, not elsewhere classified (principal); I12.9 Hypertensive chronic kidney disease with stage 1 through stage 4 chronic kidney disease, or unspecified chronic kidney disease; E78.5 Hyperlipidemia, unspecified; R73.03 Prediabetes; Z85.09 Personal history of malignant neoplasm of other digestive organs; Z92.21 Personal history of antineoplastic chemotherapy; Z92.3 Personal history of irradiation; R12 Heartburn; Z90.49 Acquired absence of other specified parts of digestive tract; M19.90 Unspecified osteoarthritis, unspecified site; M54.50 Low back pain, unspecified; F41.9 Anxiety disorder, unspecified; F32.9 Major depressive disorder, single episode, unspecified; N18.30 Chronic kidney disease, stage 3 unspecified; R32 Unspecified urinary incontinence; D64.9 Anemia, unspecified; H40.9 Unspecified glaucoma; E87.6 Hypokalemia; B37.0 Candidal stomatitis; Z87.891 Personal history of nicotine dependence; Z88.1 Allergy status to other antibiotic agents; Z88.2 Allergy status to sulfonamides; Z79.899 Other long term (current) drug therapy; Z79.2 Long term (current) use of antibiotics; Z79.891 Long term (current) use of opiate analgesic
CPT/HCPCS: 52332; 74420; C1769; C2617; J1580; J2250; J3010; Q9961

== ENCOUNTER → 2021-11-13 | Outpatient (REF) | payer MEDICARE ==
[~2021-11-13] MED LIST changes: +FLUO-96 PO; -FLUO20CA20 PO; -GENTAMICIN 100 MG in IV 1 EA IV ONE; -LISI-898 PO; +LISI5TAB11 PO; -LR 1,000 ML IV ONE; +POTA-151 PO; +POTA1TAB22 PO; -POTA20TA6 PO; -POTA8TAB8 PO
[2021-11-13 12:01] LABS: HEMATOCRIT 33.4 % (36.0-47.0); HEMOGLOBIN 10.9 g/dl (12.0-15.5); MEAN CORPUSCULAR HEMOGLOBIN 28.9 pg (27.0-33.0); MEAN CORPUSCULAR HGB CONC 32.6 g/dl (32.0-36.5); MEAN CORPUSCULAR VOLUME 88.6 fl (80.0-96.0); PLATELET COUNT, AUTOMATED 202 10^3/uL (150-450); RED BLOOD COUNT 3.77 10^6/uL (4.00-5.40); WHITE BLOOD COUNT 8.4 10^3/uL (4.0-10.0)
[2021-11-13 12:34] LABS: CALCIUM LEVEL 9.1 MG/DL (8.8-10.2); CREATININE FOR GFR 1.75 MG/DL (0.55-1.30); POTASSIUM SERUM 3.9 MEQ/L (3.5-5.1)
[2021-11-13 12:37] LABS: INR 1.07; PROTHROMBIN TIME 14.3 SECONDS (12.7-14.5)
[2021-11-13 12:38] LABS: PARTIAL THROMBOPLASTIN TIME 39.8 SECONDS (25.9-37.0)
[2021-11-13 16:32] LABS: APPEARANCE, URINE CLEAR (CLEAR); BACTERIA, URINE AUTO 1+ (NEGATIVE); BILIRUBIN, URINE AUTO NEGATIVE (NEGATIVE); BLOOD, URINE BLOOD 1+ (NEGATIVE); COLOR, URINE YELLOW (YELLOW); GLUCOSE, URINE (UA) AUTO NEGATIVE (NEGATIVE); KETONE, URINE AUTO NEGATIVE (NEGATIVE); LEUKOCYTE ESTERASE, URINE AUTO 3+ (NEGATIVE); MUCUS, URINE SMALL (NEGATIVE); NITRITE, URINE AUTO POSITIVE (NEGATIVE); PROTEIN, URINE AUTO 1+ mg/dL (NEGATIVE); RBC, URINE AUTO 10 /HPF (0-3); RENAL EPITHELIAL CELLS 1 /HPF; SPECIFIC GRAVITY URINE AUTO 1.006 (1.002-1.035); SQUAMOUS EPITHELIAL CELL UR AU 8 /HPF (0-6); UROBILINOGEN, URINE AUTO 0.2 mg/dL (0.0-2.0); WBC, URINE AUTO TNTC /HPF (0-3)
== END ==
LOC: M SFHCCLAY 09:15
PROVIDERS: ATTEND Nurse Practitioner Women's Health
DX: Z01.818 Encounter for other preprocedural examination (principal); N13.5 Crossing vessel and stricture of ureter without hydronephrosis; Z79.899 Other long term (current) drug therapy; Z79.01 Long term (current) use of anticoagulants

== ENCOUNTER → 2021-11-16 | Outpatient (REF) | payer MEDICARE ==
[~2021-11-16] MED LIST changes: -FLUC200T2 PO; +FLUC200T4 PO; +LEVO250T3 PO
[2021-11-16 18:53] LABS: APPEARANCE, URINE CLOUDY (CLEAR); BACTERIA, URINE AUTO NEGATIVE (NEGATIVE); BILIRUBIN, URINE AUTO NEGATIVE (NEGATIVE); BLOOD, URINE BLOOD 1+ (NEGATIVE); COLOR, URINE YELLOW (YELLOW); GLUCOSE, URINE (UA) AUTO NEGATIVE (NEGATIVE); KETONE, URINE AUTO NEGATIVE (NEGATIVE); LEUKOCYTE ESTERASE, URINE AUTO 3+ (NEGATIVE); MUCUS, URINE SMALL (NEGATIVE); NITRITE, URINE AUTO POSITIVE (NEGATIVE); PROTEIN, URINE AUTO 1+ mg/dL (NEGATIVE); RBC, URINE AUTO 3 /HPF (0-3); SPECIFIC GRAVITY URINE AUTO 1.006 (1.002-1.035); SQUAMOUS EPITHELIAL CELL UR AU 1 /HPF (0-6); UROBILINOGEN, URINE AUTO 0.2 mg/dL (0.0-2.0); WBC, URINE AUTO 162 /HPF (0-3)
== END ==
LOC: M SMT 16:48
PROVIDERS: ATTEND Urology
DX: Z96.0 Presence of urogenital implants (principal); Z79.899 Other long term (current) drug therapy

== ENCOUNTER → 2021-11-17 | Outpatient (REF) | payer MEDICARE ==
[2021-11-17 12:06] LABS: GLOMERULAR FILTRATION RATE 25.7 (>39); POTASSIUM SERUM 3.9 MEQ/L (3.5-5.1)
== END ==
LOC: M SFHCCLAY 07:56
PROVIDERS: ATTEND Nurse Practitioner Family
DX: I10 Essential (primary) hypertension (principal)

== ENCOUNTER → 2021-11-18 | Outpatient (CLI) | payer MEDICARE ==
[~2021-11-18] MED LIST changes: +FLUC200T2 PO; -FLUC200T4 PO; -LEVO250T3 PO
== END ==
LOC: M LABSMTC 10:06
PROVIDERS: ATTEND Anesthesiology
DX: Z01.812 Encounter for preprocedural laboratory examination (principal); Z20.822 Contact with and (suspected) exposure to COVID-19

== ENCOUNTER 2021-11-23 11:05 | Day surgery (SDC) | payer MEDICARE ==
[~2021-11-23] VITALS: Ht 167.6 cm; Wt 72.3 kg
[~2021-11-23 11:05] MED LIST changes: -FLUC200T2 PO; +FLUC200T4 PO
[2021-11-23] MEDS ORDERED: LEVO250T3 PO (11:22)
[2021-11-23] MEDS ORDERED: NITR100C2 PO (11:22)
[2021-11-23 14:10] VITALS: BP 179/72
== END 2021-11-23 14:30 | disposition home or self-care (01) ==
LOC: M SDC 11:05
PROVIDERS: ATTEND Urology
DX: N13.9 Obstructive and reflux uropathy, unspecified (principal); N13.30 Unspecified hydronephrosis; E78.00 Pure hypercholesterolemia, unspecified; H35.30 Unspecified macular degeneration; I10 Essential (primary) hypertension; I25.2 Old myocardial infarction; K21.9 Gastro-esophageal reflux disease without esophagitis; R32 Unspecified urinary incontinence; Z79.899 Other long term (current) drug therapy; Z85.038 Personal history of other malignant neoplasm of large intestine; Z88.1 Allergy status to other antibiotic agents; Z88.2 Allergy status to sulfonamides; Z92.21 Personal history of antineoplastic chemotherapy; Z92.3 Personal history of irradiation; Z96.1 Presence of intraocular lens
CPT/HCPCS: 52332; 74420; C1769; C2617; J1580; J2250; J3010; Q9961

== ENCOUNTER → 2022-01-19 | Outpatient (CLI) | payer MEDICARE ==
[~2022-01-19] MED LIST changes: -D31000TA2 PO; +FERR325T81 PO; +FLUO20CA22 PO; +LEVO250T3 PO; +POTA-149 PO; +TRIA37.5 PO; +VITA100093 PO; +VITMTA PO
== END ==
LOC: M CLY 11:10
PROVIDERS: ATTEND Family Medicine
DX: M54.9 Dorsalgia, unspecified (principal); M51.36 Other intervertebral disc degeneration, lumbar region

== ENCOUNTER → 2022-01-19 | Outpatient (REF) | payer MEDICARE ==
[~2022-01-19] MED LIST changes: -FERR325T81 PO; -FLUO20CA22 PO; -POTA-149 PO; -TRIA37.5 PO; -VITMTA PO
[2022-01-19 11:52] LABS: HEMATOCRIT 36.1 % (36.0-47.0); MEAN CORPUSCULAR HEMOGLOBIN 30.5 pg (27.0-33.0); MEAN CORPUSCULAR HGB CONC 33.2 g/dl (32.0-36.5); MEAN CORPUSCULAR VOLUME 91.9 fl (80.0-96.0); PLATELET COUNT, AUTOMATED 167 10^3/uL (150-450); RED BLOOD COUNT 3.93 10^6/uL (4.00-5.40); WHITE BLOOD COUNT 8.6 10^3/uL (4.0-10.0)
[2022-01-19 12:00] LABS: APPEARANCE, URINE TURBID (CLEAR); BACTERIA, URINE AUTO 3+ (NEGATIVE); BILIRUBIN, URINE AUTO NEGATIVE (NEGATIVE); BLOOD, URINE BLOOD 2+ (NEGATIVE); COLOR, URINE YELLOW (YELLOW); GLUCOSE, URINE (UA) AUTO NEGATIVE (NEGATIVE); KETONE, URINE AUTO NEGATIVE (NEGATIVE); LEUKOCYTE ESTERASE, URINE AUTO 3+ (NEGATIVE); MUCUS, URINE SMALL (NEGATIVE); NITRITE, URINE AUTO POSITIVE (NEGATIVE); PROTEIN, URINE AUTO 3+ mg/dL (NEGATIVE); RBC, URINE AUTO 80 /HPF (0-3); SPECIFIC GRAVITY URINE AUTO 1.011 (1.002-1.035); SQUAMOUS EPITHELIAL CELL UR AU 5 /HPF (0-6); UROBILINOGEN, URINE AUTO 0.2 mg/dL (0.0-2.0); WBC, URINE AUTO TNTC /HPF (0-3)
[2022-01-19 12:03] LABS: INR 1.07; PROTHROMBIN TIME 14.3 SECONDS (12.7-14.5)
[2022-01-19 12:17] LABS: CREATININE FOR GFR 1.82 MG/DL (0.55-1.30); GLOMERULAR FILTRATION RATE 28.7 (>39); POTASSIUM SERUM 3.7 MEQ/L (3.5-5.1)
== END ==
LOC: M SFHCCLAY 09:34
PROVIDERS: ATTEND Family Medicine
DX: Z01.818 Encounter for other preprocedural examination (principal); N13.5 Crossing vessel and stricture of ureter without hydronephrosis

== ENCOUNTER → 2022-01-22 | Outpatient (CLI) | payer MEDICARE ==
[~2022-01-22] MED LIST changes: +FERR325T81 PO; +FLUO20CA22 PO; +POTA-149 PO; +TRIA37.5 PO; +VITMTA PO
== END ==
LOC: M LABSMTC 10:53
PROVIDERS: ATTEND Anesthesiology
DX: Z01.812 Encounter for preprocedural laboratory examination (principal); Z20.822 Contact with and (suspected) exposure to COVID-19

== ENCOUNTER → 2022-03-23 | Outpatient (REF) | payer MEDICARE ==
[~2022-03-23] MED LIST changes: +CARV6.25
[2022-03-23 11:14] LABS: HEMATOCRIT 34.4 % (36.0-47.0); HEMOGLOBIN 11.6 g/dl (12.0-15.5); MEAN CORPUSCULAR HEMOGLOBIN 31.8 pg (27.0-33.0); MEAN CORPUSCULAR HGB CONC 33.7 g/dl (32.0-36.5); MEAN CORPUSCULAR VOLUME 94.2 fl (80.0-96.0); PLATELET COUNT, AUTOMATED 152 10^3/uL (150-450); RED BLOOD COUNT 3.65 10^6/uL (4.00-5.40); WHITE BLOOD COUNT 6.8 10^3/uL (4.0-10.0)
[2022-03-23 11:19] LABS: APPEARANCE, URINE CLOUDY (CLEAR); BACTERIA, URINE AUTO 1+ (NEGATIVE); BILIRUBIN, URINE AUTO NEGATIVE (NEGATIVE); BLOOD, URINE BLOOD 2+ (NEGATIVE); COLOR, URINE YELLOW (YELLOW); GLUCOSE, URINE (UA) AUTO NEGATIVE (NEGATIVE); KETONE, URINE AUTO NEGATIVE (NEGATIVE); LEUKOCYTE ESTERASE, URINE AUTO 2+ (NEGATIVE); MUCUS, URINE SMALL (NEGATIVE); NITRITE, URINE AUTO NEGATIVE (NEGATIVE); PROTEIN, URINE AUTO 2+ mg/dL (NEGATIVE); RBC, URINE AUTO 31 /HPF (0-3); SPECIFIC GRAVITY URINE AUTO 1.011 (1.002-1.035); SQUAMOUS EPITHELIAL CELL UR AU 4 /HPF (0-6); TRIPLE PHOSPHATE CRYSTALS SMALL; UROBILINOGEN, URINE AUTO 0.2 mg/dL (0.0-2.0); WBC, URINE AUTO TNTC /HPF (0-3)
[2022-03-23 11:25] LABS: INR 1.01; PROTHROMBIN TIME 13.7 SECONDS (12.7-14.5)
[2022-03-23 11:52] LABS: CALCIUM LEVEL 8.7 MG/DL (8.8-10.2); CREATININE FOR GFR 1.89 MG/DL (0.55-1.30); GLOMERULAR FILTRATION RATE 27.5 (>39)
== END ==
LOC: M SFHCCLAY 09:03
PROVIDERS: ATTEND Urology
DX: Z01.818 Encounter for other preprocedural examination (principal); N13.5 Crossing vessel and stricture of ureter without hydronephrosis

== ENCOUNTER → 2022-03-24 | Outpatient (REF) | payer MEDICARE | LOC: M SMT 17:19 | PROVIDERS: ATTEND Urology | DX: N39.0 Urinary tract infection, site not specified (principal) ==

== ENCOUNTER → 2022-03-29 | Outpatient (CLI) | payer MEDICARE | LOC: M LABSMTC 10:45 | PROVIDERS: ATTEND Anesthesiology | DX: Z01.812 Encounter for preprocedural laboratory examination (principal) ==

== ENCOUNTER 2022-04-02 15:08 | Day surgery (SDC) | payer MEDICARE ==
[~2022-04-02] VITALS: Ht 167.6 cm; Wt 59.3 kg
[2022-04-02] MEDS: LevoFLOXacin IV 500 MG in IV 1 EA IV ONE ×2 (14:30→16:30)
[~2022-04-02 15:08] MED LIST changes: +ISOVUE-300 61% 50ML VIAL As Ordered ONE
[2022-04-02] MEDS ORDERED: MACR100C43 PO (15:40)
[2022-04-02] MEDS ORDERED: LR 1,000 ML IV SCH ×2 (16:15→18:15)
[2022-04-02] MEDS ORDERED: LIDOCAINE 2% 100MG/5ML SDV (FOR ANES.) As Ordered ONE (17:18)
[2022-04-02] MEDS ORDERED: propofoL 200 MG/20 ML VIAL As Ordered ONE (17:18)
[2022-04-02] MEDS ORDERED: dexameTHASONE 4 MG/ML 1ML VIAL (J1100 PER 1MG) As Ordered ONE (17:18)
[2022-04-02] MEDS ORDERED: ONDANSETRON 4MG/2ML VIAL As Ordered ONE (17:18)
[2022-04-02] MEDS ORDERED: fentaNYL 100 MCG/2 ML INJECTION As Ordered ONE (17:18)
[2022-04-02] MEDS ORDERED: MIDAZOLAM INJ 2MG/2ML VIAL (J2250 PER 1MG) As Ordered ONE (17:18)
[2022-04-02] MEDS ORDERED: hydrALAZINE 20MG/ML 1ML VIAL (J0360 PER 20MG) As Ordered ONE (17:39)
[2022-04-02] MEDS ORDERED: ONDANSETRON 4MG/2ML VIAL IV PRN (18:15)
[2022-04-02] MEDS ORDERED: PERCOCET 5MG/325MG TAB PO PRN (18:35)
[2022-04-02] MEDS: oxyCODONE 5MG TAB PO PRN ×2 (18:43→19:15)
[2022-04-02] MEDS: fentaNYL 100 MCG/2 ML INJECTION IV PRN ×3 (18:48→19:33)
[2022-04-02] MEDS: HYDROMORPHONE HCL 0.5 MG/ 0.5 ML SYRINGE (J1170 PER 1) IV PRN ×4 (18:53→19:19)
[2022-04-02] MEDS ORDERED: KETOROLAC 30 MG/ML 1ML VIAL IV STA (19:04)
[2022-04-02] MEDS ORDERED: KETOROLAC 30 MG/ML 1ML VIAL As Ordered ONE (19:06)
[2022-04-02 20:11] VITALS: BP 116/65
== END 2022-04-02 20:22 | disposition home or self-care (01) ==
LOC: M SDC 15:08
PROVIDERS: ATTEND Urology
DX: N13.1 Hydronephrosis with ureteral stricture, not elsewhere classified (principal); F32.A Depression, unspecified; K21.9 Gastro-esophageal reflux disease without esophagitis; I10 Essential (primary) hypertension; D64.9 Anemia, unspecified; E78.00 Pure hypercholesterolemia, unspecified; Z87.442 Personal history of urinary calculi; R01.1 Cardiac murmur, unspecified; H42 Glaucoma in diseases classified elsewhere; E11.39 Type 2 diabetes mellitus with other diabetic ophthalmic complication; E55.9 Vitamin D deficiency, unspecified; Z85.038 Personal history of other malignant neoplasm of large intestine; Z79.899 Other long term (current) drug therapy; Z79.2 Long term (current) use of antibiotics; Z87.891 Personal history of nicotine dependence; Z88.0 Allergy status to penicillin; Z88.1 Allergy status to other antibiotic agents; Z88.2 Allergy status to sulfonamides; Z96.0 Presence of urogenital implants
CPT/HCPCS: 52332; 52351; 74420; C1894; C2617; J0360; J1100; J1170; J1885; J1956; J2250; J2405; J3010; Q9967

== ENCOUNTER → 2022-05-20 | Outpatient (REF) | payer MEDICARE ==
[~2022-05-20] MED LIST changes: -ISOVUE-300 61% 50ML VIAL As Ordered ONE
[2022-05-20 16:17] LABS: HEMATOCRIT 31.9 % (36.0-47.0); HEMOGLOBIN 10.9 g/dl (12.0-15.5); MEAN CORPUSCULAR HEMOGLOBIN 31.4 pg (27.0-33.0); MEAN CORPUSCULAR HGB CONC 34.2 g/dl (32.0-36.5); MEAN CORPUSCULAR VOLUME 91.9 fl (80.0-96.0); PLATELET COUNT, AUTOMATED 269 10^3/uL (150-450); RED BLOOD COUNT 3.47 10^6/uL (4.00-5.40); WHITE BLOOD COUNT 8.6 10^3/uL (4.0-10.0)
[2022-05-20 16:28] LABS: APPEARANCE, URINE TURBID (CLEAR); BACTERIA, URINE AUTO 2+ (NEGATIVE); BILIRUBIN, URINE AUTO NEGATIVE (NEGATIVE); BLOOD, URINE BLOOD 1+ (NEGATIVE); COLOR, URINE YELLOW (YELLOW); GLUCOSE, URINE (UA) AUTO NEGATIVE (NEGATIVE); KETONE, URINE AUTO NEGATIVE (NEGATIVE); LEUKOCYTE ESTERASE, URINE AUTO 3+ (NEGATIVE); NITRITE, URINE AUTO NEGATIVE (NEGATIVE); PROTEIN, URINE AUTO 2+ mg/dL (NEGATIVE); RBC, URINE AUTO 10 /HPF (0-3); SPECIFIC GRAVITY URINE AUTO 1.011 (1.002-1.035); SQUAMOUS EPITHELIAL CELL UR AU 5 /HPF (0-6); UROBILINOGEN, URINE AUTO 0.2 mg/dL (0.0-2.0); WBC, URINE AUTO TNTC /HPF (0-3)
[2022-05-20 17:12] LABS: INR 1.06; PARTIAL THROMBOPLASTIN TIME 34.4 SECONDS (25.9-37.0); PROTHROMBIN TIME 14.2 SECONDS (12.7-14.5)
[2022-05-20 17:14] LABS: CALCIUM LEVEL 8.7 MG/DL (8.8-10.2); CREATININE FOR GFR 1.83 MG/DL (0.55-1.30); GLOMERULAR FILTRATION RATE 28.5 (>39); POTASSIUM SERUM 3.9 MEQ/L (3.5-5.1)
== END ==
LOC: M SFHCCLAY 10:45
PROVIDERS: ATTEND Urology
DX: Z01.818 Encounter for other preprocedural examination (principal); N13.5 Crossing vessel and stricture of ureter without hydronephrosis

== ENCOUNTER → 2022-05-20 | Outpatient (CLI) | payer MEDICARE | LOC: M CLY 11:01 | PROVIDERS: ATTEND Nurse Practitioner Women's Health | DX: Z01.818 Encounter for other preprocedural examination (principal); N13.5 Crossing vessel and stricture of ureter without hydronephrosis ==

== ENCOUNTER → 2022-05-23 | Outpatient (CLI) | payer MEDICARE | LOC: M LABSMTC 10:33 | PROVIDERS: ATTEND Anesthesiology | DX: Z01.812 Encounter for preprocedural laboratory examination (principal); Z20.822 Contact with and (suspected) exposure to COVID-19 ==

== ENCOUNTER 2022-05-28 10:37 | Day surgery (SDC) | payer MEDICARE ==
[~2022-05-28] VITALS: Ht 167.6 cm; Wt 72.6 kg
[~2022-05-28 10:37] MED LIST changes: +GENTAMICIN 100 MG in IV 1 EA IV ONE; +LEVO1TAB38 PO; -LEVO250T3 PO; +POTA-150 PO; -POTA10TA17 PO
[2022-05-28] MEDS ORDERED: LR 1,000 ML IV SCH (11:20)
[2022-05-28] MEDS ORDERED: fentaNYL 100 MCG/2 ML INJECTION As Ordered ONE (11:26)
[2022-05-28] MEDS ORDERED: propofoL 200 MG/20 ML VIAL As Ordered ONE ×3 (11:26→13:49)
[2022-05-28] MEDS ORDERED: LIDOCAINE 2% 100MG/5ML SDV (FOR ANES.) As Ordered ONE (11:26)
[2022-05-28] MEDS ORDERED: MIDAZOLAM INJ 2MG/2ML VIAL (J2250 PER 1MG) As Ordered ONE (11:26)
[2022-05-28] MEDS ORDERED: LIDOCAINE 2% 5ML JELLY UROJET As Ordered ONE (12:47)
[2022-05-28] MEDS ORDERED: dexameTHASONE 4 MG/ML 1ML VIAL (J1100 PER 1MG) As Ordered ONE (13:08)
[2022-05-28] MEDS ORDERED: ONDANSETRON 4MG 2ML VIAL As Ordered ONE (13:08)
[2022-05-28] MEDS ORDERED: ISOVUE-300 61% 50ML VIAL As Ordered ONE (13:18)
[2022-05-28 14:55] VITALS: BP 127/62
== END 2022-05-28 14:58 | disposition home or self-care (01) ==
LOC: M SDC 10:37
PROVIDERS: ATTEND Urology
DX: N13.39 Other hydronephrosis (principal); N13.5 Crossing vessel and stricture of ureter without hydronephrosis; F32.A Depression, unspecified; H40.9 Unspecified glaucoma; E78.00 Pure hypercholesterolemia, unspecified; K21.9 Gastro-esophageal reflux disease without esophagitis; E11.9 Type 2 diabetes mellitus without complications; R01.1 Cardiac murmur, unspecified; H25.9 Unspecified age-related cataract; D64.9 Anemia, unspecified; Z85.038 Personal history of other malignant neoplasm of large intestine; Z87.440 Personal history of urinary (tract) infections; Z87.891 Personal history of nicotine dependence; Z79.899 Other long term (current) drug therapy; Z88.1 Allergy status to other antibiotic agents; Z88.2 Allergy status to sulfonamides; Z88.0 Allergy status to penicillin
CPT/HCPCS: 52224; 52332; 52351; 74420; 88305; C1769; C2617; J1580; J2250; J3010; Q9967

== ENCOUNTER → 2022-06-29 | Outpatient (REF) | payer MEDICARE ==
[~2022-06-29] MED LIST changes: -GENTAMICIN 100 MG in IV 1 EA IV ONE
[2022-06-29 14:04] LABS: APPEARANCE, URINE MANUAL CLOUDY (CLEAR); COLOR, URINE MANUAL YELLOW (YELLOW)
[2022-06-29 14:05] LABS: BILIRUBIN, URINE MANUAL NEGATIVE (NEGATIVE); BLOOD URINE MANUAL POSITIVE (NEGATIVE); GLUCOSE, URINE (UA) MANUAL NEGATIVE (NEGATIVE); KETONE, URINE MANUAL NEGATIVE (NEGATIVE); LEUKOCYTE ESTERASE, URINE MAN POSITIVE (NEGATIVE); NITRITE, URINE MANUAL POSITIVE (NEGATIVE); PROTEIN, URINE MANUAL 3+ mg/dL (NEGATIVE); SPECIFIC GRAVITY,URINE MANUAL 1.015 (1.002-1.035); UROBILINOGEN, URINE MANUAL NORMAL (NORMAL)
[2022-06-29 14:06] LABS: WBC, URINE TNTC /hpf (0-3)
[2022-06-29 14:10] LABS: BACTERIA, URINE MOD AMOUNT; HYALINE CAST, URINE NONE SEEN /lpf (0-1); MUCUS, URINE SMALL AMOUNT (NEGATIVE); SQUAMOUS EPITHELIAL CELL URINE SMALL AMOUNT /hpf (SMALL AMT)
== END ==
LOC: M SMT 13:21
PROVIDERS: ATTEND Nurse Practitioner Women's Health
DX: R30.0 Dysuria (principal)

== ENCOUNTER → 2022-07-26 | Outpatient (REF) | payer MEDICARE ==
[2022-07-26 11:23] LABS: HEMOGLOBIN 12.3 g/dl (12.0-15.5); MEAN CORPUSCULAR HEMOGLOBIN 31.5 pg (27.0-33.0); MEAN CORPUSCULAR HGB CONC 33.2 g/dl (32.0-36.5); MEAN CORPUSCULAR VOLUME 94.6 fl (80.0-96.0); PLATELET COUNT, AUTOMATED 214 10^3/uL (150-450); RED BLOOD COUNT 3.91 10^6/uL (4.00-5.40); WHITE BLOOD COUNT 7.9 10^3/uL (4.0-10.0)
[2022-07-26 11:40] LABS: INR 1.07; PROTHROMBIN TIME 14.3 SECONDS (12.7-14.5)
[2022-07-26 11:41] LABS: PARTIAL THROMBOPLASTIN TIME 35.6 SECONDS (25.9-37.0)
[2022-07-26 11:51] LABS: APPEARANCE, URINE MANUAL CLOUDY (CLEAR); BILIRUBIN, URINE MANUAL NEGATIVE (NEGATIVE); COLOR, URINE MANUAL YELLOW (YELLOW); GLUCOSE, URINE (UA) MANUAL NEGATIVE (NEGATIVE); KETONE, URINE MANUAL NEGATIVE (NEGATIVE); PROTEIN, URINE MANUAL 3+ mg/dL (NEGATIVE); SPECIFIC GRAVITY,URINE MANUAL 1.015 (1.002-1.035); UROBILINOGEN, URINE MANUAL NORMAL (NORMAL)
[2022-07-26 11:52] LABS: BLOOD URINE MANUAL POSITIVE (NEGATIVE); LEUKOCYTE ESTERASE, URINE MAN POSITIVE (NEGATIVE); NITRITE, URINE MANUAL POSITIVE (NEGATIVE)
[2022-07-26 12:02] LABS: CALCIUM LEVEL 9.3 MG/DL (8.8-10.2); CREATININE FOR GFR 2.16 MG/DL (0.55-1.30); GLOMERULAR FILTRATION RATE 23.5 (>39)
[2022-07-26 12:16] LABS: WBC, URINE TNTC /hpf (0-3)
[2022-07-26 12:17] LABS: SQUAMOUS EPITHELIAL CELL URINE SMALL AMOUNT /hpf (SMALL AMT)
[2022-07-26 12:18] LABS: BACTERIA, URINE MOD AMOUNT; HYALINE CAST, URINE NONE SEEN /lpf (0-1)
== END ==
LOC: M SFHCCLAY 09:19
PROVIDERS: ATTEND Family Medicine
DX: Z01.818 Encounter for other preprocedural examination (principal); R30.0 Dysuria; N13.5 Crossing vessel and stricture of ureter without hydronephrosis; Z79.01 Long term (current) use of anticoagulants

== ENCOUNTER → 2022-07-29 | Outpatient (CLI) | payer MEDICARE | LOC: M LABSMTC 11:19 | PROVIDERS: ATTEND Anesthesiology | DX: Z01.812 Encounter for preprocedural laboratory examination (principal); Z20.822 Contact with and (suspected) exposure to COVID-19 ==

== ENCOUNTER 2022-08-02 08:52 | Day surgery (SDC) | payer MEDICARE ==
[~2022-08-02] VITALS: Ht 167.6 cm; Wt 74.9 kg
[~2022-08-02 08:52] MED LIST changes: +ERTAPENEM SODIUM 1 GM in NS MINI-BAG PLUS 50 ML IV ONE
[2022-08-02] MEDS ORDERED: LR 1,000 ML IV SCH (10:00)
[2022-08-02] MEDS ORDERED: propofoL 200 MG/20 ML VIAL As Ordered ONE (11:19)
[2022-08-02] MEDS ORDERED: MIDAZOLAM INJ 2MG/2ML VIAL (J2250 PER 1MG) As Ordered ONE (11:19)
[2022-08-02] MEDS ORDERED: LIDOCAINE 2% 100MG/5ML SDV (FOR ANES.) As Ordered ONE (11:19)
[2022-08-02] MEDS ORDERED: ONDANSETRON 4MG 2ML VIAL As Ordered ONE (11:19)
[2022-08-02] MEDS ORDERED: dexameTHASONE 4 MG/ML 1ML VIAL (J1100 PER 1MG) As Ordered ONE (11:19)
[2022-08-02] MEDS ORDERED: fentaNYL 100 MCG/2 ML INJECTION As Ordered ONE (11:20)
[2022-08-02] MEDS ORDERED: ISOVUE-300 61% 50ML VIAL As Ordered ONE (11:53)
[2022-08-02] MEDS ORDERED: LIDOCAINE 2% 5ML JELLY UROJET As Ordered ONE (11:53)
[2022-08-02 13:35] VITALS: BP 160/74
== END 2022-08-02 13:48 | disposition home or self-care (01) ==
LOC: M SDC 08:52
PROVIDERS: ATTEND Urology
DX: N13.1 Hydronephrosis with ureteral stricture, not elsewhere classified (principal); Z96.0 Presence of urogenital implants; G25.2 Other specified forms of tremor; N13.9 Obstructive and reflux uropathy, unspecified; H40.9 Unspecified glaucoma; F32.A Depression, unspecified; K21.9 Gastro-esophageal reflux disease without esophagitis; I10 Essential (primary) hypertension; K64.9 Unspecified hemorrhoids; E78.00 Pure hypercholesterolemia, unspecified; R01.1 Cardiac murmur, unspecified; Z87.442 Personal history of urinary calculi; E11.9 Type 2 diabetes mellitus without complications; Z85.038 Personal history of other malignant neoplasm of large intestine; Z87.891 Personal history of nicotine dependence; Z79.899 Other long term (current) drug therapy
CPT/HCPCS: 52332; 52351; 74420; C1769; C2617; J1100; J1335; J2250; J2405; J3010; Q9967

== ENCOUNTER → 2022-09-20 | Outpatient (REF) | payer MEDICARE ==
[~2022-09-20] MED LIST changes: +CALTAB PO; +DOCU8.6T PO; -DOXY-350 PO; +DOXY-444 PO; -ERTAPENEM SODIUM 1 GM in NS MINI-BAG PLUS 50 ML IV ONE
[2022-09-20 12:21] LABS: HEMATOCRIT 38.4 % (36.0-47.0); HEMOGLOBIN 12.6 g/dl (12.0-15.5); MEAN CORPUSCULAR HEMOGLOBIN 31.4 pg (27.0-33.0); MEAN CORPUSCULAR HGB CONC 32.8 g/dl (32.0-36.5); MEAN CORPUSCULAR VOLUME 95.8 fl (80.0-96.0); PLATELET COUNT, AUTOMATED 201 10^3/uL (150-450); RED BLOOD COUNT 4.01 10^6/uL (4.00-5.40)
[2022-09-20 12:23] LABS: APPEARANCE, URINE MANUAL CLOUDY (CLEAR); COLOR, URINE MANUAL YELLOW (YELLOW)
[2022-09-20 12:24] LABS: BILIRUBIN, URINE MANUAL NEGATIVE (NEGATIVE); BLOOD URINE MANUAL POSITIVE (NEGATIVE); GLUCOSE, URINE (UA) MANUAL NEGATIVE (NEGATIVE); KETONE, URINE MANUAL NEGATIVE (NEGATIVE); LEUKOCYTE ESTERASE, URINE MAN POSITIVE (NEGATIVE); NITRITE, URINE MANUAL POSITIVE (NEGATIVE); PROTEIN, URINE MANUAL 3+ mg/dL (NEGATIVE); UROBILINOGEN, URINE MANUAL NORMAL (NORMAL)
[2022-09-20 12:37] LABS: WBC, URINE TNTC /hpf (0-3)
[2022-09-20 12:38] LABS: SQUAMOUS EPITHELIAL CELL URINE MOD AMOUNT /hpf (SMALL AMT)
[2022-09-20 12:39] LABS: BACTERIA, URINE SMALL AMOUNT; HYALINE CAST, URINE NONE SEEN /lpf (0-1)
[2022-09-20 12:41] LABS: INR 1.04; PROTHROMBIN TIME 13.8 SECONDS (12.5-14.5)
[2022-09-20 12:42] LABS: PARTIAL THROMBOPLASTIN TIME 36.1 SECONDS (24.8-34.2)
[2022-09-20 14:11] LABS: CREATININE FOR GFR 2.05 MG/DL (0.55-1.30)
== END ==
LOC: M SFHCCLAY 08:46
PROVIDERS: ATTEND Family Medicine
DX: N13.5 Crossing vessel and stricture of ureter without hydronephrosis (principal); Z01.818 Encounter for other preprocedural examination

== ENCOUNTER → 2022-09-26 | Outpatient (CLI) | payer MEDICARE ==
[~2022-09-26] MED LIST changes: +FOSF3PAC2
== END ==
LOC: M LABSMTC 10:45
PROVIDERS: ATTEND Anesthesiology
DX: Z01.812 Encounter for preprocedural laboratory examination (principal); Z20.822 Contact with and (suspected) exposure to COVID-19

== ENCOUNTER 2022-09-29 06:09 | Day surgery (SDC) | payer MEDICARE ==
[~2022-09-29] VITALS: Ht 167.6 cm; Wt 59.0 kg
[~2022-09-29 06:09] MED LIST changes: -FOSF3PAC2
[2022-09-29] MEDS ORDERED: CARV6.25 (06:47)
[2022-09-29] MEDS ORDERED: FOSF3PAC2 (06:47)
[2022-09-29] MEDS ORDERED: LR 1,000 ML IV SCH (07:05)
[2022-09-29] MEDS ORDERED: ERTAPENEM SODIUM 1 GM in NS MINI-BAG PLUS 50 ML IV ONE (07:25)
[2022-09-29] MEDS ORDERED: LIDOCAINE 2% 100MG/5ML SDV (FOR ANES.) As Ordered ONE (07:56)
[2022-09-29] MEDS ORDERED: propofoL 200 MG/20 ML VIAL As Ordered ONE (07:56)
[2022-09-29] MEDS ORDERED: KETOROLAC 60MG 2ML VIAL As Ordered ONE (07:56)
[2022-09-29] MEDS ORDERED: fentaNYL 100 MCG/2 ML INJECTION As Ordered ONE (07:57)
[2022-09-29] MEDS ORDERED: MIDAZOLAM INJ 2MG/2ML VIAL (J2250 PER 1MG) As Ordered ONE (07:57)
[2022-09-29] MEDS ORDERED: LIDOCAINE 2% 5ML JELLY UROJET As Ordered ONE (08:10)
[2022-09-29] MEDS ORDERED: ISOVUE-300 61% 50ML VIAL As Ordered ONE (08:11)
[2022-09-29 09:40] VITALS: BP 109/54
== END 2022-09-29 09:47 | disposition home or self-care (01) ==
LOC: M SDC 06:09
PROVIDERS: ATTEND Urology
DX: N13.1 Hydronephrosis with ureteral stricture, not elsewhere classified (principal); F32.A Depression, unspecified; K21.9 Gastro-esophageal reflux disease without esophagitis; I10 Essential (primary) hypertension; G25.2 Other specified forms of tremor; Z96.0 Presence of urogenital implants; E11.9 Type 2 diabetes mellitus without complications; D64.9 Anemia, unspecified; E78.00 Pure hypercholesterolemia, unspecified; Z87.891 Personal history of nicotine dependence; Z79.899 Other long term (current) drug therapy; Z79.2 Long term (current) use of antibiotics; Z88.1 Allergy status to other antibiotic agents; Z88.2 Allergy status to sulfonamides; Z88.0 Allergy status to penicillin
CPT/HCPCS: 52332; 52351; 74420; 93005; C1769; C2617; J1335; J1885; J2250; J3010; Q9967

== ENCOUNTER → 2022-11-22 | Outpatient (REF) | payer MEDICARE ==
[~2022-11-22] MED LIST changes: +FOSF3PAC2
[2022-11-22 11:38] LABS: HEMATOCRIT 37.4 % (36.0-47.0); HEMOGLOBIN 12.3 g/dl (12.0-15.5); MEAN CORPUSCULAR HEMOGLOBIN 31.2 pg (27.0-33.0); MEAN CORPUSCULAR HGB CONC 32.9 g/dl (32.0-36.5); MEAN CORPUSCULAR VOLUME 94.9 fl (80.0-96.0); PLATELET COUNT, AUTOMATED 230 10^3/uL (150-450); RED BLOOD COUNT 3.94 10^6/uL (4.00-5.40); WHITE BLOOD COUNT 7.9 10^3/uL (4.0-10.0)
[2022-11-22 11:49] LABS: INR 1.03; PROTHROMBIN TIME 13.7 SECONDS (12.5-14.5)
[2022-11-22 11:50] LABS: PARTIAL THROMBOPLASTIN TIME 35.4 SECONDS (24.8-34.2)
[2022-11-22 12:00] LABS: CALCIUM LEVEL 9.2 MG/DL (8.3-10.6); CREATININE FOR GFR 1.95 MG/DL (0.55-1.30); GLOMERULAR FILTRATION RATE 26.4 (>39); POTASSIUM SERUM 3.9 MMOL/L (3.5-5.1)
== END ==
LOC: M SFHCCLAY 08:36
PROVIDERS: ATTEND Nurse Practitioner Women's Health
DX: Z01.818 Encounter for other preprocedural examination (principal); N13.5 Crossing vessel and stricture of ureter without hydronephrosis

== ENCOUNTER → 2022-11-22 | Outpatient (CLI) | payer MEDICARE | LOC: M CLY 08:45 | PROVIDERS: ATTEND Nurse Practitioner Women's Health | DX: Z01.818 Encounter for other preprocedural examination (principal); N13.5 Crossing vessel and stricture of ureter without hydronephrosis ==

== ENCOUNTER → 2022-11-28 | Outpatient (CLI) | payer MEDICARE | LOC: M LABSMTC 10:29 | PROVIDERS: ATTEND Anesthesiology | DX: Z01.812 Encounter for preprocedural laboratory examination (principal); Z20.822 Contact with and (suspected) exposure to COVID-19 ==

== ENCOUNTER 2022-12-01 06:07 | Day surgery (SDC) | payer MEDICARE ==
[~2022-12-01] VITALS: Ht 167.6 cm; Wt 74.8 kg
[~2022-12-01 06:07] MED LIST changes: +GENTAMICIN 100 MG in IV 1 EA IV ONE
[2022-12-01] MEDS ORDERED: LR 1,000 ML IV SCH (06:20)
[2022-12-01] MEDS ORDERED: ONDANSETRON 4MG 2ML VIAL As Ordered ONE (07:04)
[2022-12-01] MEDS ORDERED: ACETAMINOPHEN 1000MG 100ML IV BAG As Ordered ONE (07:04)
[2022-12-01] MEDS ORDERED: KETOROLAC 60MG 2ML VIAL As Ordered ONE (07:04)
[2022-12-01] MEDS ORDERED: propofoL 200 MG/20 ML VIAL As Ordered ONE (07:04)
[2022-12-01] MEDS ORDERED: fentaNYL 100 MCG/2 ML INJECTION As Ordered ONE (07:05)
[2022-12-01] MEDS ORDERED: LIDOCAINE 2% 100MG/5ML SDV (FOR ANES.) As Ordered ONE (07:06)
[2022-12-01] MEDS ORDERED: propofoL 500 MG/50 ML VIAL As Ordered ONE (07:10)
[2022-12-01] MEDS ORDERED: ISOVUE-300 61% 100ML VIAL As Ordered ONE (07:14)
[2022-12-01] MEDS ORDERED: ERTAPENEM SODIUM 1 GM in NS MINI-BAG PLUS 50 ML IV ONE (07:30)
[2022-12-01] MEDS ORDERED: LIDOCAINE 2% 5ML JELLY UROJET As Ordered ONE (07:53)
[2022-12-01] MEDS ORDERED: ACETAMINOPHEN TAB 650MG DOSE (2X325MG) PO PRN (09:10)
[2022-12-01 09:40] VITALS: BP 147/74
== END 2022-12-01 10:28 | disposition home or self-care (01) ==
LOC: M SDC 06:07
PROVIDERS: ATTEND Urology
DX: N13.5 Crossing vessel and stricture of ureter without hydronephrosis (principal); N39.0 Urinary tract infection, site not specified; G25.2 Other specified forms of tremor; K21.9 Gastro-esophageal reflux disease without esophagitis; I12.9 Hypertensive chronic kidney disease with stage 1 through stage 4 chronic kidney disease, or unspecified chronic kidney disease; E78.00 Pure hypercholesterolemia, unspecified; R73.03 Prediabetes; N18.30 Chronic kidney disease, stage 3 unspecified; F41.9 Anxiety disorder, unspecified; F32.A Depression, unspecified; N39.41 Urge incontinence; M19.90 Unspecified osteoarthritis, unspecified site; Z96.0 Presence of urogenital implants; M54.50 Low back pain, unspecified; G89.29 Other chronic pain; Z87.891 Personal history of nicotine dependence; Z87.442 Personal history of urinary calculi; Z79.899 Other long term (current) drug therapy
CPT/HCPCS: 52332; 52351; 74420; C1769; C2617; J0131; J1100; J1335; J1885; J2405; J3010; Q9967

== ENCOUNTER → 2022-12-20 | Outpatient (CLI) | payer MEDICARE ==
[~2022-12-20] MED LIST changes: -GENTAMICIN 100 MG in IV 1 EA IV ONE
== END ==
LOC: M CLY 13:05
PROVIDERS: ATTEND Family Medicine
DX: M54.50 Low back pain, unspecified (principal)

== ENCOUNTER → 2022-12-30 | Outpatient (REF) | payer MEDICARE ==
[2022-12-30 18:14] LABS: POTASSIUM SERUM 3.8 MMOL/L (3.5-5.1)
== END ==
LOC: M LAB REF 17:09
PROVIDERS: ATTEND Nurse Practitioner Family
DX: N39.0 Urinary tract infection, site not specified (principal); N18.32 Chronic kidney disease, stage 3b

== ENCOUNTER → 2023-01-24 | Outpatient (CLI) | payer MEDICARE | LOC: M RAD 10:25 | PROVIDERS: ATTEND Urology | DX: N13.5 Crossing vessel and stricture of ureter without hydronephrosis (principal); N28.1 Cyst of kidney, acquired ==

== ENCOUNTER → 2023-03-22 | Outpatient (CLI) | payer MEDICARE | LOC: M RAD 11:28 | PROVIDERS: ATTEND Urology | DX: N13.5 Crossing vessel and stricture of ureter without hydronephrosis (principal); Z96.0 Presence of urogenital implants ==

== ENCOUNTER → 2023-04-21 | Outpatient (REF) | payer MEDICARE ==
[~2023-04-21] MED LIST changes: +BACTDSTA PO
[2023-04-21 18:19] LABS: APPEARANCE, URINE TURBID (CLEAR); BACTERIA, URINE AUTO 2+ (NEGATIVE); BILIRUBIN, URINE AUTO NEGATIVE (NEGATIVE); BLOOD, URINE BLOOD 1+ (NEGATIVE); COLOR, URINE AMBER (YELLOW); GLUCOSE, URINE (UA) AUTO NEGATIVE (NEGATIVE); KETONE, URINE AUTO NEGATIVE (NEGATIVE); LEUKOCYTE ESTERASE, URINE AUTO 3+ (NEGATIVE); MUCUS, URINE SMALL (NEGATIVE); NITRITE, URINE AUTO NEGATIVE (NEGATIVE); PROTEIN, URINE AUTO 2+ mg/dL (NEGATIVE); RBC, URINE AUTO 53 /HPF (0-3); SPECIFIC GRAVITY URINE AUTO 1.017 (1.002-1.035); SQUAMOUS EPITHELIAL CELL UR AU 4 /HPF (0-6); UROBILINOGEN, URINE AUTO 0.2 mg/dL (0.0-2.0); WBC, URINE AUTO TNTC /HPF (0-3)
== END ==
LOC: M SMT 17:02
PROVIDERS: ATTEND Urology
DX: N39.0 Urinary tract infection, site not specified (principal)

== ENCOUNTER 2023-05-24 03:06 | Inpatient (IN) | payer MEDICARE ==
[~2023-05-24] VITALS: Ht 167.6 cm; Wt 80.5 kg
[~2023-05-24 03:06] MED LIST changes: +COLA100C5 PO; -GABA-283 PO; +GABA-284 PO; +METO1TAB87 PO
[2023-05-24 03:44] LABS: BASO % 0.2 % (0.0-1.0); HEMATOCRIT 28.3 % (36.0-47.0); HEMOGLOBIN 9.2 g/dl (12.0-15.5); LYMPH # 1.2 10^3/uL (1.5-5.0); LYMPH % 10.3 % (24.0-44.0); MEAN CORPUSCULAR HEMOGLOBIN 30.8 pg (27.0-33.0); MEAN CORPUSCULAR HGB CONC 32.5 g/dl (32.0-36.5); MEAN CORPUSCULAR VOLUME 94.6 fl (80.0-96.0); MONO % 8.5 % (2.0-8.0); NEUTROPHILS # 9.4 10^3/uL (1.5-8.5); NEUTROPHILS % 80.5 % (36.0-66.0); PLATELET COUNT, AUTOMATED 175 10^3/uL (150-450); RED BLOOD COUNT 2.99 10^6/uL (4.00-5.40); WHITE BLOOD COUNT 11.7 10^3/uL (4.0-10.0)
[2023-05-24 04:07] LABS: LIPASE 17 U/L (12-53)
[2023-05-24 04:09] LABS: ALBUMIN 2.4 G/DL (3.2-5.2); ALKALINE PHOSPHATASE 98 U/L (46-116); ALT/SGPT < 9 U/L (7.0-40); AST/SGOT < 8 U/L (<34); BILIRUBIN,DIRECT < 0.1 MG/DL (<0.4); BILIRUBIN,TOTAL < 0.2 MG/DL (0.3-1.2); BLOOD UREA NITROGEN 67 MG/DL (9-23); CARBON DIOXIDE LEVEL 20 MMOL/L (20-31); CHLORIDE LEVEL 103 MMOL/L (98-107); CK-MB VALUE MASS < 1.0 NG/ML (<3.6); CREATININE FOR GFR 2.55 MG/DL (0.55-1.30); GLOMERULAR FILTRATION RATE 19.4 (>39); GLUCOSE, FASTING 115 MG/DL (74-106); POTASSIUM SERUM 4.9 MMOL/L (3.5-5.1); SODIUM LEVEL 134 MMOL/L (136-145); TOTAL PROTEIN 6.2 G/DL (5.7-8.2)
[2023-05-24 04:10] LABS: CPK CREATINE PHOSPHOKINASE 105 U/L (34-145); MB/CK RELATIVE INDEX 0.95 (< OR =4)
[2023-05-24 04:25] LABS: RSV AMPLIFICATION NEGATIVE (NEGATIVE)
[2023-05-24] MEDS ORDERED: HYOSCYAMINE SULFATE 0.125 MG SUBL TABLET PO ONE (06:50)
[2023-05-24] MEDS ORDERED: NS 1,000 ML IV ONE (06:50)
[2023-05-24] MEDS ORDERED: MAALOX 30 ML SUSP *UDC PO ONE (06:50)
[2023-05-24 08:03] LABS: CK-MB VALUE MASS < 1.0 NG/ML (<3.6)
[2023-05-24 08:04] LABS: CPK CREATINE PHOSPHOKINASE 91 U/L (34-145); MB/CK RELATIVE INDEX 1.09 (< OR =4)
[2023-05-24] MEDS ORDERED: MED REC IN PROGRESS XX SCH (10:45)
[2023-05-24] MEDS ORDERED: MEROPENEM INJ 500 MG in IV 1 EA IV ONE (10:50)
[2023-05-24] MEDS ORDERED: HYDROMORPHONE HCL 0.5 MG/ 0.5 ML SYRINGE IV PRN (11:05)
[2023-05-24] MEDS ORDERED: METOCLOPRAMIDE INJ 10MG/2ML VIAL IV ONE (11:40)
[2023-05-24] MEDS: NS 1,000 ML IV SCH ×2 (11:42→23:05)
[2023-05-24] MEDS ORDERED: FLUO40CA PO (12:20)
[2023-05-24] MEDS ORDERED: MYRB50TA PO (12:27)
[2023-05-24] MEDS: HYDROMORPHONE HCL 0.5 MG/ 0.5 ML SYRINGE IV PRN (12:33)
[2023-05-24] MEDS ORDERED: HOME MED LIST COMPLETE! XX SCH (12:40)
[2023-05-24 15:14] VITALS: BP 132/60; TEMP 97.4; O2SAT 96
[2023-05-24] MEDS: PANTOPRAZOLE 40MG VIAL IV SCH (17:38)
[2023-05-24 17:47] VITALS: BP 132/60; TEMP 98.3; O2SAT 93
[2023-05-24 20:20] VITALS: BP 128/59; TEMP 98.1; O2SAT 95
[2023-05-24] MEDS: SIMVASTATIN 40 MG TAB PO SCH (20:24)
[2023-05-24] MEDS: LATANOPROST 0.005% OPHTH SOLN 2.5 ML OU SCH (20:25)
[2023-05-24] MEDS: METOPROLOL TART 25 MG TABLET PO SCH (20:25)
[2023-05-24] MEDS: PRIMIDONE 50MG TAB PO SCH (20:25)
[2023-05-24] MEDS ORDERED: VITAMIN D 1,000 INTERNATIONAL UNITS TABLET PO SCH (21:00)
[2023-05-24] MEDS ORDERED: HEPARIN SOD (PORCINE) 5000UNITS/ML 1ML VIAL/SYRINGE SC SCH (21:00)
[2023-05-24] MEDS: MEROPENEM INJ 500 MG in IV 1 EA IV SCH (23:05)
[2023-05-25] VITALS: BP 135/61; TEMP 98.6; O2SAT 95
[2023-05-25] MEDS: HYDROMORPHONE HCL 0.5 MG/ 0.5 ML SYRINGE IV PRN ×4 (01:57→17:36)
[2023-05-25] MEDS ORDERED: HYOSCYAMINE SULFATE 0.125 MG SUBL TABLET PO ONE (03:50)
[2023-05-25 04:07] VITALS: BP 126/60; TEMP 97.3; O2SAT 96
[2023-05-25 05:11] LABS: BASO % 0.4 % (0.0-1.0); EOS % 0.1 % (0.0-3.0); HEMATOCRIT 25.4 % (36.0-47.0); HEMOGLOBIN 8.2 g/dl (12.0-15.5); LYMPH % 13.9 % (24.0-44.0); MEAN CORPUSCULAR HEMOGLOBIN 30.7 pg (27.0-33.0); MEAN CORPUSCULAR HGB CONC 32.3 g/dl (32.0-36.5); MEAN CORPUSCULAR VOLUME 95.1 fl (80.0-96.0); MONO # 0.7 10^3/uL (0.0-0.8); MONO % 9.4 % (2.0-8.0); NEUTROPHILS # 5.4 10^3/uL (1.5-8.5); NEUTROPHILS % 75.5 % (36.0-66.0); PLATELET COUNT, AUTOMATED 177 10^3/uL (150-450); RED BLOOD COUNT 2.67 10^6/uL (4.00-5.40); WHITE BLOOD COUNT 7.1 10^3/uL (4.0-10.0)
[2023-05-25 05:35] LABS: ALBUMIN 1.9 G/DL (3.2-5.2); CALCIUM LEVEL 7.2 MG/DL (8.3-10.6); CREATININE FOR GFR 2.15 MG/DL (0.55-1.30); GLOMERULAR FILTRATION RATE 23.6 (>39); PHOSPHORUS LEVEL 2.7 MG/DL (2.4-5.1); POTASSIUM SERUM 4.6 MMOL/L (3.5-5.1)
[2023-05-25 07:43] LABS: INR 1.32; PROTHROMBIN TIME 16.6 SECONDS (12.5-14.5)
[2023-05-25] MEDS: NS 1,000 ML IV SCH ×2 (07:50→17:31)
[2023-05-25] MEDS ORDERED: ISOVUE-300 61% 100ML VIAL As Ordered ONE (08:07)
[2023-05-25] MEDS ORDERED: LIDOCAINE 1% MDV 20ML VIAL As Ordered ONE (08:07)
[2023-05-25] MEDS ORDERED: ceFAZolin 2 GM/D5W 50 ML IV BAG As Ordered ONE (08:25)
[2023-05-25] MEDS ORDERED: MIDAZOLAM INJ 2MG/2ML VIAL As Ordered ONE (08:43)
[2023-05-25] MEDS ORDERED: fentaNYL 100 MCG/2 ML INJECTION As Ordered ONE (08:43)
[2023-05-25] MEDS ORDERED: LIDOCAINE 2% 100MG/5ML SDV (FOR ANES.) As Ordered ONE (08:44)
[2023-05-25] MEDS ORDERED: propofoL 200 MG/20 ML VIAL As Ordered ONE (08:44)
[2023-05-25] MEDS ORDERED: ceFAZolin SOD 2 GM in IV 1 EA IV ONE (08:50)
[2023-05-25] MEDS ORDERED: METOPROLOL 5 MG/5 ML VIAL As Ordered ONE (09:10)
[2023-05-25] MEDS ORDERED: PHENYLephrine 500MCG 5ML (100MCG/ML) SYRINGE As Ordered ONE (09:53)
[2023-05-25] MEDS ORDERED: fentaNYL 100 MCG/2 ML INJECTION IV PRN (10:10)
[2023-05-25] MEDS ORDERED: ONDANSETRON 4MG 2ML VIAL IV PRN (10:10)
[2023-05-25] MEDS ORDERED: oxyCODONE 5MG TAB PO PRN (10:10)
[2023-05-25] MEDS ORDERED: HYDROMORPHONE HCL 0.5 MG/ 0.5 ML SYRINGE IV PRN (10:10)
[2023-05-25 10:18] LABS: APPEARANCE, URINE CLOUDY (CLEAR); BACTERIA, URINE AUTO 1+ (NEGATIVE); BILIRUBIN, URINE AUTO NEGATIVE (NEGATIVE); BLOOD, URINE BLOOD 2+ (NEGATIVE); COLOR, URINE YELLOW (YELLOW); GLUCOSE, URINE (UA) AUTO NEGATIVE (NEGATIVE); KETONE, URINE AUTO TRACE mg/dL (NEGATIVE); LEUKOCYTE ESTERASE, URINE AUTO 3+ (NEGATIVE); NITRITE, URINE AUTO NEGATIVE (NEGATIVE); PROTEIN, URINE AUTO 1+ mg/dL (NEGATIVE); RBC, URINE AUTO 13 /HPF (0-3); SPECIFIC GRAVITY URINE AUTO 1.009 (1.002-1.035); SQUAMOUS EPITHELIAL CELL UR AU 0 /HPF (0-6); UROBILINOGEN, URINE AUTO 0.2 mg/dL (0.0-2.0); WBC, URINE AUTO TNTC /HPF (0-3)
[2023-05-25 10:19] LABS: APPEARANCE, URINE CLOUDY (CLEAR); BACTERIA, URINE AUTO NEGATIVE (NEGATIVE); BILIRUBIN, URINE AUTO NEGATIVE (NEGATIVE); BLOOD, URINE BLOOD 2+ (NEGATIVE); COLOR, URINE YELLOW (YELLOW); GLUCOSE, URINE (UA) AUTO NEGATIVE (NEGATIVE); KETONE, URINE AUTO TRACE mg/dL (NEGATIVE); LEUKOCYTE ESTERASE, URINE AUTO 3+ (NEGATIVE); NITRITE, URINE AUTO NEGATIVE (NEGATIVE); PROTEIN, URINE AUTO 1+ mg/dL (NEGATIVE); RBC, URINE AUTO 12 /HPF (0-3); SPECIFIC GRAVITY URINE AUTO 1.012 (1.002-1.035); SQUAMOUS EPITHELIAL CELL UR AU 0 /HPF (0-6); UROBILINOGEN, URINE AUTO 0.2 mg/dL (0.0-2.0); WBC, URINE AUTO TNTC /HPF (0-3)
[2023-05-25] MEDS ORDERED: SODIUM CHLORIDE 0.9% 1000ML IV ONE (10:50)
[2023-05-25] MEDS: METOPROLOL TART 25 MG TABLET PO SCH ×3 (11:27→20:23)
[2023-05-25] MEDS: FLUoxetine 20MG CAP PO SCH (11:47)
[2023-05-25] MEDS: MEROPENEM INJ 500 MG in IV 1 EA IV SCH (11:47)
[2023-05-25] MEDS: PRIMIDONE 50MG TAB PO SCH ×2 (11:48→20:22)
[2023-05-25 11:53] VITALS: BP 116/56; TEMP 97.5; O2SAT 95
[2023-05-25] MEDS: PANTOPRAZOLE 40MG VIAL IV SCH (13:41)
[2023-05-25] MEDS: HEPARIN SOD (PORCINE) 5000UNITS/ML 1ML VIAL/SYRINGE SC SCH ×2 (15:22→22:58)
[2023-05-25 15:58] VITALS: BP 108/55; TEMP 98.5; O2SAT 95
[2023-05-25] MEDS: MAG SULF 1GM/100ML (MAG RUN) 1 GM in IV 1 EA IV SCH ×4 (16:49→22:58)
[2023-05-25 20:00] VITALS: BP 114/58; TEMP 97.2; O2SAT 96
[2023-05-25] MEDS: SIMVASTATIN 40 MG TAB PO SCH (20:22)
[2023-05-25] MEDS: LATANOPROST 0.005% OPHTH SOLN 2.5 ML OU SCH (20:23)
[2023-05-26] VITALS (7 sets, daily range): BP systolic 113–126; BP diastolic 57–76; TEMP 96.9–98.1; O2SAT 92–98
[2023-05-26] MEDS: MEROPENEM INJ 500 MG in IV 1 EA IV SCH ×2
[2023-05-26] MEDS: HYDROMORPHONE HCL 0.5 MG/ 0.5 ML SYRINGE IV PRN (02:31)
[2023-05-26 05:12] LABS: BASO % 0.4 % (0.0-1.0); EOS # 0.1 10^3/uL (0.0-0.5); EOS % 1.3 % (0.0-3.0); HEMATOCRIT 26.5 % (36.0-47.0); HEMOGLOBIN 8.5 g/dl (12.0-15.5); LYMPH # 1.1 10^3/uL (1.5-5.0); LYMPH % 15.5 % (24.0-44.0); MEAN CORPUSCULAR HEMOGLOBIN 30.4 pg (27.0-33.0); MEAN CORPUSCULAR HGB CONC 32.1 g/dl (32.0-36.5); MEAN CORPUSCULAR VOLUME 94.6 fl (80.0-96.0); MONO # 0.7 10^3/uL (0.0-0.8); MONO % 9.8 % (2.0-8.0); NEUTROPHILS # 5.2 10^3/uL (1.5-8.5); NEUTROPHILS % 72.2 % (36.0-66.0); PLATELET COUNT, AUTOMATED 191 10^3/uL (150-450); WHITE BLOOD COUNT 7.1 10^3/uL (4.0-10.0)
[2023-05-26 05:24] LABS: ALBUMIN 1.7 G/DL (3.2-5.2); CALCIUM LEVEL 7.4 MG/DL (8.3-10.6); CREATININE FOR GFR 1.72 MG/DL (0.55-1.30); GLOMERULAR FILTRATION RATE 30.5 (>39); PHOSPHORUS LEVEL 2.8 MG/DL (2.4-5.1)
[2023-05-26] MEDS: HEPARIN SOD (PORCINE) 5000UNITS/ML 1ML VIAL/SYRINGE SC SCH ×3 (05:52→22:04)
[2023-05-26 07:25] LABS: MAGNESIUM LEVEL 2.2 MG/DL (1.8-2.4)
[2023-05-26] MEDS: PRIMIDONE 50MG TAB PO SCH ×2 (08:18→20:03)
[2023-05-26] MEDS: FLUoxetine 20MG CAP PO SCH (08:19)
[2023-05-26] MEDS: NS 1,000 ML IV SCH ×3 (08:20→22:06)
[2023-05-26] MEDS: METOPROLOL TART 25 MG TABLET PO SCH ×2 (08:20→20:02)
[2023-05-26] MEDS: ACETAMINOPHEN TAB 650MG DOSE (2X325MG) PO PRN ×3 (08:26→22:37)
[2023-05-26] MEDS: MEROPENEM INJ 1 GM in IV 1 EA IV SCH ×3 (12:24→22:06)
[2023-05-26] MEDS: METOCLOPRAMIDE 10MG TAB PO SCH ×3 (13:00→20:03)
[2023-05-26] MEDS ORDERED: BACLOFEN 5MG PER 1/2 TABLET PO ONE (14:00)
[2023-05-26] MEDS: PANTOPRAZOLE 40MG VIAL IV SCH (15:25)
[2023-05-26] MEDS: PERCOCET 5MG/325MG TAB PO PRN ×2 (17:45→23:31)
[2023-05-26] MEDS: LATANOPROST 0.005% OPHTH SOLN 2.5 ML OU SCH (20:03)
[2023-05-26] MEDS: SIMVASTATIN 40 MG TAB PO SCH (20:03)
[2023-05-26] MEDS: BACLOFEN 5MG PER 1/2 TABLET PO PRN (22:04)
[2023-05-26] MEDS ORDERED: LOPERAMIDE 2 MG CAPLET PO ONE (23:00)
[2023-05-27 03:46] VITALS: BP 147/64; TEMP 97.1; O2SAT 99
[2023-05-27 05:18] LABS: BASO % 0.6 % (0.0-1.0); EOS # 0.1 10^3/uL (0.0-0.5); EOS % 2.4 % (0.0-3.0); HEMATOCRIT 26.6 % (36.0-47.0); HEMOGLOBIN 8.8 g/dl (12.0-15.5); LYMPH # 0.9 10^3/uL (1.5-5.0); LYMPH % 18.3 % (24.0-44.0); MEAN CORPUSCULAR HEMOGLOBIN 31.1 pg (27.0-33.0); MEAN CORPUSCULAR HGB CONC 33.1 g/dl (32.0-36.5); MONO # 0.6 10^3/uL (0.0-0.8); MONO % 12.9 % (2.0-8.0); NEUTROPHILS # 3.2 10^3/uL (1.5-8.5); NEUTROPHILS % 64.6 % (36.0-66.0); PLATELET COUNT, AUTOMATED 187 10^3/uL (150-450); RED BLOOD COUNT 2.83 10^6/uL (4.00-5.40)
[2023-05-27 05:49] LABS: ALBUMIN 1.6 G/DL (3.2-5.2); CALCIUM LEVEL 7.2 MG/DL (8.3-10.6); CREATININE FOR GFR 1.39 MG/DL (0.55-1.30); PHOSPHORUS LEVEL 2.5 MG/DL (2.4-5.1); POTASSIUM SERUM 3.8 MMOL/L (3.5-5.1)
[2023-05-27] MEDS: HEPARIN SOD (PORCINE) 5000UNITS/ML 1ML VIAL/SYRINGE SC SCH ×3 (05:49→19:58)
[2023-05-27] MEDS: PERCOCET 5MG/325MG TAB PO PRN ×3 (06:13→19:56)
[2023-05-27] MEDS: METOCLOPRAMIDE 10MG TAB PO SCH (07:30)
[2023-05-27 07:51] VITALS: BP 140/70; TEMP 97.5; O2SAT 95
[2023-05-27] MEDS: NS 1,000 ML IV SCH ×2 (09:00→19:55)
[2023-05-27] MEDS: BACLOFEN 5MG PER 1/2 TABLET PO PRN (09:07)
[2023-05-27] MEDS: METOPROLOL TART 25 MG TABLET PO SCH ×3 (09:08→18:29)
[2023-05-27] MEDS: PRIMIDONE 50MG TAB PO SCH ×2 (09:08→19:58)
[2023-05-27] MEDS: FLUoxetine 20MG CAP PO SCH (09:08)
[2023-05-27 10:14] LABS: MAGNESIUM LEVEL 1.8 MG/DL (1.8-2.4)
[2023-05-27] MEDS ORDERED: CALCIUM CARBONATE 500 MG CHEW U/D PO ONE (11:00)
[2023-05-27] MEDS: MEROPENEM INJ 1 GM in IV 1 EA IV SCH (11:24)
[2023-05-27 11:45] VITALS: BP 111/58; TEMP 97; O2SAT 94
[2023-05-27] MEDS: PANTOPRAZOLE 40MG VIAL IV SCH (14:44)
[2023-05-27] MEDS: LACTOBACILLUS ACIDOPHILUS CAP (BACID) PO SCH ×2 (14:44→18:29)
[2023-05-27 15:08] LABS: CLOSTRIDIUM DIFFICILE PCR POSITIVE (NEGATIVE)
[2023-05-27 15:19] VITALS: BP 110/56; TEMP 96.9; O2SAT 95
[2023-05-27] MEDS: FIDAXOMICIN 200 MG TAB (DIFICID) PO SCH (18:30)
[2023-05-27] MEDS: LATANOPROST 0.005% OPHTH SOLN 2.5 ML OU SCH (19:58)
[2023-05-27] MEDS: SIMVASTATIN 40 MG TAB PO SCH (19:58)
[2023-05-27 20:06] VITALS: BP 128/62; TEMP 97.9; O2SAT 97
[2023-05-27] MEDS ORDERED: BACLOFEN 5MG PER 1/2 TABLET PO PRN (21:00)
[2023-05-28] MEDS: ACETAMINOPHEN TAB 650MG DOSE (2X325MG) PO PRN (00:57)
[2023-05-28 00:59] VITALS: BP 134/57; TEMP 97.5; O2SAT 97
[2023-05-28] MEDS: FIDAXOMICIN 200 MG TAB (DIFICID) PO SCH ×2 (05:02→17:34)
[2023-05-28] MEDS: PERCOCET 5MG/325MG TAB PO PRN ×3 (05:03→18:26)
[2023-05-28 05:05] VITALS: BP 143/65; TEMP 97.1; O2SAT 97
[2023-05-28] MEDS: HEPARIN SOD (PORCINE) 5000UNITS/ML 1ML VIAL/SYRINGE SC SCH ×3 (05:06→21:07)
[2023-05-28] MEDS: METOPROLOL TART 25 MG TABLET PO SCH ×3 (05:06→21:00)
[2023-05-28 05:16] LABS: BASO % 0.4 % (0.0-1.0); EOS # 0.2 10^3/uL (0.0-0.5); EOS % 3.2 % (0.0-3.0); HEMATOCRIT 24.9 % (36.0-47.0); HEMOGLOBIN 8.1 g/dl (12.0-15.5); LYMPH # 1.2 10^3/uL (1.5-5.0); LYMPH % 23.1 % (24.0-44.0); MEAN CORPUSCULAR HEMOGLOBIN 30.5 pg (27.0-33.0); MEAN CORPUSCULAR HGB CONC 32.5 g/dl (32.0-36.5); MEAN CORPUSCULAR VOLUME 93.6 fl (80.0-96.0); MONO # 0.6 10^3/uL (0.0-0.8); MONO % 12.1 % (2.0-8.0); NEUTROPHILS # 3.2 10^3/uL (1.5-8.5); NEUTROPHILS % 59.7 % (36.0-66.0); PLATELET COUNT, AUTOMATED 179 10^3/uL (150-450); RED BLOOD COUNT 2.66 10^6/uL (4.00-5.40); WHITE BLOOD COUNT 5.3 10^3/uL (4.0-10.0)
[2023-05-28 05:47] LABS: ALBUMIN 1.6 G/DL (3.2-5.2); CALCIUM LEVEL 7.6 MG/DL (8.3-10.6); CREATININE FOR GFR 1.36 MG/DL (0.55-1.30); PHOSPHORUS LEVEL 2.5 MG/DL (2.4-5.1); POTASSIUM SERUM 3.7 MMOL/L (3.5-5.1)
[2023-05-28 07:32] LABS: MAGNESIUM LEVEL 1.7 MG/DL (1.8-2.4)
[2023-05-28 08:00] VITALS: BP 134/96; TEMP 97; O2SAT 96
[2023-05-28] MEDS: LACTOBACILLUS ACIDOPHILUS CAP (BACID) PO SCH ×3 (08:46→17:34)
[2023-05-28] MEDS: FLUoxetine 20MG CAP PO SCH (08:46)
[2023-05-28] MEDS: PRIMIDONE 50MG TAB PO SCH ×2 (08:46→21:08)
[2023-05-28 10:59] LABS: FERRITIN 1176.9 NG/ML (7.3-270.7); FOLATE 4.8 NG/ML (>5.4)
[2023-05-28] MEDS: MAGNESIUM OXIDE 400MG TAB (MAG-OX) PO SCH ×2 (11:31→21:08)
[2023-05-28 11:48] VITALS: BP 136/84; TEMP 97.2; O2SAT 97
[2023-05-28] MEDS: PANTOPRAZOLE 40MG VIAL IV SCH (13:31)
[2023-05-28] MEDS ORDERED: MAG SULF 1GM/100ML (MAG RUN) 1 GM in IV 1 EA IV SCH (14:00)
[2023-05-28] MEDS ORDERED: METOPROLOL TART 25 MG TABLET PO SCH (14:00)
[2023-05-28] MEDS: FOLIC ACID 1MG TAB PO SCH (14:38)
[2023-05-28 16:26] VITALS: BP 135/60; TEMP 97.1; O2SAT 97
[2023-05-28 20:19] VITALS: BP 148/66; TEMP 97; O2SAT 95
[2023-05-28] MEDS: LATANOPROST 0.005% OPHTH SOLN 2.5 ML OU SCH (21:07)
[2023-05-28] MEDS: SIMVASTATIN 40 MG TAB PO SCH (21:08)
[2023-05-29] VITALS (8 sets, daily range): BP systolic 119–167; BP diastolic 56–74; TEMP 97.4–98.6; O2SAT 94–98
[2023-05-29] MEDS: PERCOCET 5MG/325MG TAB PO PRN ×4 (00:31→19:32)
[2023-05-29 05:40] LABS: BASO % 0.7 % (0.0-1.0); EOS # 0.2 10^3/uL (0.0-0.5); EOS % 3.8 % (0.0-3.0); HEMATOCRIT 25.2 % (36.0-47.0); HEMOGLOBIN 8.4 g/dl (12.0-15.5); LYMPH # 1.7 10^3/uL (1.5-5.0); LYMPH % 27.7 % (24.0-44.0); MEAN CORPUSCULAR HEMOGLOBIN 30.8 pg (27.0-33.0); MEAN CORPUSCULAR HGB CONC 33.3 g/dl (32.0-36.5); MEAN CORPUSCULAR VOLUME 92.3 fl (80.0-96.0); MONO # 0.5 10^3/uL (0.0-0.8); MONO % 8.8 % (2.0-8.0); NEUTROPHILS # 3.4 10^3/uL (1.5-8.5); NEUTROPHILS % 56.2 % (36.0-66.0); PLATELET COUNT, AUTOMATED 241 10^3/uL (150-450); RED BLOOD COUNT 2.73 10^6/uL (4.00-5.40)
[2023-05-29] MEDS: FIDAXOMICIN 200 MG TAB (DIFICID) PO SCH ×2 (05:40→17:13)
[2023-05-29] MEDS: HEPARIN SOD (PORCINE) 5000UNITS/ML 1ML VIAL/SYRINGE SC SCH ×3 (05:41→21:28)
[2023-05-29 06:04] LABS: ALBUMIN 1.7 G/DL (3.2-5.2); CALCIUM LEVEL 7.6 MG/DL (8.3-10.6); CREATININE FOR GFR 1.21 MG/DL (0.55-1.30); GLOMERULAR FILTRATION RATE 45.8 (>39); MAGNESIUM LEVEL 1.6 MG/DL (1.8-2.4); PHOSPHORUS LEVEL 2.6 MG/DL (2.4-5.1); POTASSIUM SERUM 3.8 MMOL/L (3.5-5.1)
[2023-05-29] MEDS: LACTOBACILLUS ACIDOPHILUS CAP (BACID) PO SCH ×3 (08:22→17:13)
[2023-05-29] MEDS: FLUoxetine 20MG CAP PO SCH (08:22)
[2023-05-29] MEDS: MAG SULF 1GM/100ML (MAG RUN) 1 GM in IV 1 EA IV SCH ×3 (08:22→11:02)
[2023-05-29] MEDS: MAGNESIUM OXIDE 400MG TAB (MAG-OX) PO SCH ×2 (08:23→20:52)
[2023-05-29] MEDS: FOLIC ACID 1MG TAB PO SCH (08:23)
[2023-05-29] MEDS: PRIMIDONE 50MG TAB PO SCH ×2 (08:23→20:56)
[2023-05-29] MEDS: METOPROLOL TART 25 MG TABLET PO SCH ×2 (08:24→20:51)
[2023-05-29] MEDS: PANTOPRAZOLE 40MG VIAL IV SCH (15:03)
[2023-05-29] MEDS: SIMVASTATIN 40 MG TAB PO SCH (20:53)
[2023-05-29] MEDS: LATANOPROST 0.005% OPHTH SOLN 2.5 ML OU SCH (20:53)
[2023-05-30] MEDS: PERCOCET 5MG/325MG TAB PO PRN ×3 (01:08→14:00)
[2023-05-30 05:19] VITALS: BP 139/55; TEMP 97.9; O2SAT 93
[2023-05-30] MEDS: FIDAXOMICIN 200 MG TAB (DIFICID) PO SCH (05:31)
[2023-05-30] MEDS: HEPARIN SOD (PORCINE) 5000UNITS/ML 1ML VIAL/SYRINGE SC SCH ×2 (05:33→14:08)
[2023-05-30 05:58] LABS: BASO % 0.5 % (0.0-1.0); EOS # 0.3 10^3/uL (0.0-0.5); EOS % 3.1 % (0.0-3.0); HEMOGLOBIN 8.2 g/dl (12.0-15.5); LYMPH # 1.9 10^3/uL (1.5-5.0); LYMPH % 23.1 % (24.0-44.0); MEAN CORPUSCULAR HEMOGLOBIN 30.5 pg (27.0-33.0); MEAN CORPUSCULAR HGB CONC 32.8 g/dl (32.0-36.5); MEAN CORPUSCULAR VOLUME 92.9 fl (80.0-96.0); MONO # 0.6 10^3/uL (0.0-0.8); MONO % 7.7 % (2.0-8.0); NEUTROPHILS # 5.2 10^3/uL (1.5-8.5); NEUTROPHILS % 63.4 % (36.0-66.0); PLATELET COUNT, AUTOMATED 230 10^3/uL (150-450); RED BLOOD COUNT 2.69 10^6/uL (4.00-5.40); WHITE BLOOD COUNT 8.2 10^3/uL (4.0-10.0)
[2023-05-30 06:24] LABS: ALBUMIN 1.7 G/DL (3.2-5.2); CALCIUM LEVEL 7.9 MG/DL (8.3-10.6); CREATININE FOR GFR 1.14 MG/DL (0.55-1.30); GLOMERULAR FILTRATION RATE 49.1 (>39); PHOSPHORUS LEVEL 2.2 MG/DL (2.4-5.1); POTASSIUM SERUM 3.9 MMOL/L (3.5-5.1)
[2023-05-30] MEDS: LACTOBACILLUS ACIDOPHILUS CAP (BACID) PO SCH ×2 (12:30→12:32)
[2023-05-30] MEDS: FLUoxetine 20MG CAP PO SCH (12:32)
[2023-05-30] MEDS: FOLIC ACID 1MG TAB PO SCH (12:32)
[2023-05-30] MEDS: PRIMIDONE 50MG TAB PO SCH (12:32)
[2023-05-30] MEDS: MAGNESIUM OXIDE 400MG TAB (MAG-OX) PO SCH (12:33)
[2023-05-30 12:35] VITALS: BP 142/77
[2023-05-30] MEDS: METOPROLOL TART 25 MG TABLET PO SCH (12:35)
[2023-05-30] MEDS ORDERED: METO1TAB87 PO (13:22)
[2023-05-30] MEDS ORDERED: RISATAB3 PO (13:22)
[2023-05-30] MEDS ORDERED: MAGN400T2 PO (13:22)
[2023-05-30] MEDS ORDERED: FIDA200TA PO (13:22)
[2023-05-30] MEDS ORDERED: FOLI1TAB11 PO (13:22)
[2023-05-30] MEDS ORDERED: PROT1TAB2 PO (13:33)
[2023-05-30 14:00] VITALS: BP 142/78; TEMP 97.9; O2SAT 95
[2023-05-30] MEDS: PANTOPRAZOLE 40MG VIAL IV SCH (14:01)
== END 2023-05-30 15:57 | DRG 683 ==
LOC: M ED 03:06 → M ED INP 10:55 → ENRESERV 12:36 → M PCU 14:57 → M MSPAV 05-29 22:10
PROVIDERS: ADMIT Internal Medicine; ATTEND Internal Medicine
PROC: 0T9030Z Drainage of Right Kidney with Drainage Device, Percutaneous Approach (ICD-10-PCS; 2023-05-25)
PROC: 0T9130Z Drainage of Left Kidney with Drainage Device, Percutaneous Approach (ICD-10-PCS; principal; 2023-05-25 09:00)
DX: N17.9 Acute kidney failure, unspecified (principal); I50.32 Chronic diastolic (congestive) heart failure; I13.0 Hypertensive heart and chronic kidney disease with heart failure and stage 1 through stage 4 chronic kidney disease, or unspecified chronic kidney disease; A04.72 Enterocolitis due to Clostridium difficile, not specified as recurrent; E87.20 Acidosis, unspecified; N39.0 Urinary tract infection, site not specified; N13.1 Hydronephrosis with ureteral stricture, not elsewhere classified; I25.10 Atherosclerotic heart disease of native coronary artery without angina pectoris; R53.1 Weakness; M48.00 Spinal stenosis, site unspecified; G25.0 Essential tremor; H40.9 Unspecified glaucoma; F32.A Depression, unspecified; R06.6 Hiccough; I73.9 Peripheral vascular disease, unspecified; E78.5 Hyperlipidemia, unspecified; N18.30 Chronic kidney disease, stage 3 unspecified; K21.9 Gastro-esophageal reflux disease without esophagitis; I48.0 Paroxysmal atrial fibrillation; Z85.038 Personal history of other malignant neoplasm of large intestine; Z90.49 Acquired absence of other specified parts of digestive tract; Z92.3 Personal history of irradiation; Z96.0 Presence of urogenital implants; Z79.899 Other long term (current) drug therapy; Z88.1 Allergy status to other antibiotic agents; Z87.891 Personal history of nicotine dependence; D63.1 Anemia in chronic kidney disease; E83.42 Hypomagnesemia; B95.2 Enterococcus as the cause of diseases classified elsewhere

== ENCOUNTER → 2023-09-07 | Outpatient (CLI) | payer MEDICARE ==
[~2023-09-07] MED LIST changes: +FIDA200TA PO; +FOLI1TAB11 PO; +GABA-1171 PO; +MYRB50TA PO; -OXYB5TAB10 PO; +OXYB5TAB11 PO; +OXYC-517 PO; +PROT1TAB2 PO
== END ==
LOC: M WHC 15:25
PROVIDERS: ATTEND Family Medicine
DX: Z78.0 Asymptomatic menopausal state (principal)

== ENCOUNTER → 2023-09-19 | Outpatient (CLI) | payer MEDICARE | LOC: M WHC 12:55 | PROVIDERS: ATTEND Family Medicine | DX: M85.851 Other specified disorders of bone density and structure, right thigh (principal); M85.852 Other specified disorders of bone density and structure, left thigh; Z78.0 Asymptomatic menopausal state ==

== ENCOUNTER → 2023-09-21 | Outpatient (REF) | payer MEDICARE ==
[2023-09-21 19:04] LABS: PERCENT SATURATION 13.2 % (13.2-45.0)
== END ==
LOC: M LAB REF 17:19
PROVIDERS: ATTEND Nurse Practitioner Family
DX: D50.9 Iron deficiency anemia, unspecified (principal); N39.0 Urinary tract infection, site not specified

== ENCOUNTER → 2023-10-03 | Outpatient (CLI) | payer MEDICARE ==
[~2023-10-03] MED LIST changes: +CIPROFLOXACIN 400 MG in IV 1 EA IV ONE; +CIPROFLOXACIN/D5W 400 MG/200 ML BAG As Ordered ONE; +ISOVUE-300 61% 100ML VIAL As Ordered ONE; +LIDOCAINE 1% MDV 20ML VIAL As Ordered ONE; +NS 1,000 ML IV SCH; +ceFAZolin 1GM VIAL As Ordered ONE; +ceFAZolin 2 GM/D5W 50 ML IV BAG As Ordered ONE; +ceFAZolin SOD 1 GM in D5W MINI-BAG PLUS 50 ML IV ONE; +ceFAZolin SOD 2 GM in IV 1 EA IV ONE; +diphenhydrAMINE 50MG/ML VIAL As Ordered ONE; +fentaNYL 100 MCG/2 ML INJECTION As Ordered ONE
[2023-10-03 12:19] LABS: HEMATOCRIT 29.1 % (36.0-47.0); HEMOGLOBIN 9.3 g/dl (12.0-15.5); MEAN CORPUSCULAR HEMOGLOBIN 29.1 pg (27.0-33.0); MEAN CORPUSCULAR VOLUME 90.9 fl (80.0-96.0); PLATELET COUNT, AUTOMATED 213 10^3/uL (150-450)
[2023-10-03 12:31] LABS: INR 1.25; PROTHROMBIN TIME 15.4 SECONDS (12.5-14.5)
[2023-10-03 15:40] VITALS: BP 161/71; O2SAT 96
== END ==
LOC: M IRPRO 11:09
PROVIDERS: ATTEND Urology
DX: N13.5 Crossing vessel and stricture of ureter without hydronephrosis (principal)
CPT/HCPCS: 36415; 50435; 85027; 85610; 99152; 99153; C1729; J0690; J0744; J3010; Q9967

== ENCOUNTER → 2023-10-28 | Outpatient (REF) | payer MEDICARE ==
[~2023-10-28] MED LIST changes: -CIPROFLOXACIN 400 MG in IV 1 EA IV ONE; -CIPROFLOXACIN/D5W 400 MG/200 ML BAG As Ordered ONE; -ISOVUE-300 61% 100ML VIAL As Ordered ONE; -LIDOCAINE 1% MDV 20ML VIAL As Ordered ONE; -NS 1,000 ML IV SCH; -ceFAZolin 1GM VIAL As Ordered ONE; -ceFAZolin 2 GM/D5W 50 ML IV BAG As Ordered ONE; -ceFAZolin SOD 1 GM in D5W MINI-BAG PLUS 50 ML IV ONE; -ceFAZolin SOD 2 GM in IV 1 EA IV ONE; -diphenhydrAMINE 50MG/ML VIAL As Ordered ONE; -fentaNYL 100 MCG/2 ML INJECTION As Ordered ONE
[2023-10-28 16:00] LABS: APPEARANCE, URINE TURBID (CLEAR); BACTERIA, URINE AUTO 3+ (NEGATIVE); BILIRUBIN, URINE AUTO NEGATIVE (NEGATIVE); BLOOD, URINE BLOOD 1+ (NEGATIVE); COLOR, URINE YELLOW (YELLOW); GLUCOSE, URINE (UA) AUTO NEGATIVE (NEGATIVE); KETONE, URINE AUTO NEGATIVE (NEGATIVE); LEUKOCYTE ESTERASE, URINE AUTO 3+ (NEGATIVE); NITRITE, URINE AUTO POSITIVE (NEGATIVE); PROTEIN, URINE AUTO 2+ mg/dL (NEGATIVE); RBC, URINE AUTO 0 /HPF (0-3); SPECIFIC GRAVITY URINE AUTO 1.013 (1.002-1.035); SQUAMOUS EPITHELIAL CELL UR AU 9 /HPF (0-6); UROBILINOGEN, URINE AUTO 0.2 mg/dL (0.0-2.0); WBC, URINE AUTO TNTC /HPF (0-3)
[2023-10-28 16:01] LABS: APPEARANCE, URINE CLOUDY (CLEAR); BACTERIA, URINE AUTO NEGATIVE (NEGATIVE); BILIRUBIN, URINE AUTO NEGATIVE (NEGATIVE); BLOOD, URINE BLOOD NEGATIVE (NEGATIVE); COLOR, URINE YELLOW (YELLOW); GLUCOSE, URINE (UA) AUTO NEGATIVE (NEGATIVE); KETONE, URINE AUTO NEGATIVE (NEGATIVE); LEUKOCYTE ESTERASE, URINE AUTO 3+ (NEGATIVE); NITRITE, URINE AUTO NEGATIVE (NEGATIVE); PROTEIN, URINE AUTO 2+ mg/dL (NEGATIVE); RBC, URINE AUTO 0 /HPF (0-3); SPECIFIC GRAVITY URINE AUTO 1.012 (1.002-1.035); SQUAMOUS EPITHELIAL CELL UR AU 0 /HPF (0-6); UROBILINOGEN, URINE AUTO 0.2 mg/dL (0.0-2.0); WBC, URINE AUTO TNTC /HPF (0-3)
== END ==
LOC: M LAB REF 15:33
PROVIDERS: ATTEND Nurse Practitioner Family
DX: N10 Acute pyelonephritis (principal)

== ENCOUNTER 2023-11-04 14:40 | Inpatient (IN) | payer MEDICARE ==
[~2023-11-04] VITALS: Ht 162.6 cm; Wt 64.5 kg
[2023-11-04 15:52] LABS: BASO % 0.4 % (0.0-1.0); EOS # 0.1 10^3/uL (0.0-0.5); EOS % 0.4 % (0.0-3.0); HEMATOCRIT 32.2 % (36.0-47.0); HEMOGLOBIN 10.4 g/dl (12.0-15.5); LYMPH # 1.2 10^3/uL (1.5-5.0); LYMPH % 10.9 % (24.0-44.0); MEAN CORPUSCULAR HEMOGLOBIN 29.4 pg (27.0-33.0); MEAN CORPUSCULAR HGB CONC 32.3 g/dl (32.0-36.5); MONO # 0.4 10^3/uL (0.0-0.8); MONO % 3.9 % (2.0-8.0); NEUTROPHILS # 9.6 10^3/uL (1.5-8.5); PLATELET COUNT, AUTOMATED 205 10^3/uL (150-450); RED BLOOD COUNT 3.54 10^6/uL (4.00-5.40); WHITE BLOOD COUNT 11.4 10^3/uL (4.0-10.0)
[2023-11-04 16:21] LABS: LIPASE 28 U/L (12-53)
[2023-11-04 16:23] LABS: ALBUMIN 2.7 G/DL (3.2-5.2); ALKALINE PHOSPHATASE 116 U/L (46-116); ALT/SGPT 23 U/L (7.0-40); AST/SGOT 17 U/L (<34); BILIRUBIN,DIRECT < 0.1 MG/DL (<0.4); BILIRUBIN,TOTAL 0.2 MG/DL (0.3-1.2); BLOOD UREA NITROGEN 34 MG/DL (9-23); CARBON DIOXIDE LEVEL 28 MMOL/L (20-31); CHLORIDE LEVEL 104 MMOL/L (98-107); CREATININE FOR GFR 2.41 MG/DL (0.55-1.30); GLOMERULAR FILTRATION RATE 20.6 (>39); GLUCOSE, FASTING 110 MG/DL (74-106); POTASSIUM SERUM 3.7 MMOL/L (3.5-5.1); SODIUM LEVEL 138 MMOL/L (136-145); TOTAL PROTEIN 6.9 G/DL (5.7-8.2)
[2023-11-04] MEDS ORDERED: ERTAPENEM SODIUM 1 GM in NS MINI-BAG PLUS 50 ML IV ONE (16:25)
[2023-11-04] MEDS: MORPHINE 2 MG/ML 1ML VIAL IV PRN ×2 (17:10→18:28)
[2023-11-04 17:17] LABS: BACTERIA, URINE LARGE AMOUNT; HYALINE CAST, URINE NONE SEEN /lpf (0-1); SQUAMOUS EPITHELIAL CELL URINE NONE SEEN /hpf (SMALL AMT); TRANSITIONAL EPI CELLS, URINE MOD AMOUNT /hpf; WBC, URINE TNTC /hpf (0-3)
[2023-11-04] MEDS ORDERED: MED REC IN PROGRESS XX SCH (18:35)
[2023-11-04] MEDS ORDERED: ACETAMINOPHEN TAB 650MG DOSE (2X325MG) PO PRN (19:35)
[2023-11-04] MEDS ORDERED: MOM 30ML SUSPENSION UDC PO PRN (19:35)
[2023-11-04] MEDS ORDERED: OXYC10TA3 PO (20:35)
[2023-11-04] MEDS ORDERED: TRIA37.5 PO (20:35)
[2023-11-04] MEDS ORDERED: METO25TA4 PO (20:35)
[2023-11-04] MEDS ORDERED: FLUO40CA PO (20:35)
[2023-11-04] MEDS ORDERED: ONDA-83 PO (20:35)
[2023-11-04] MEDS ORDERED: POTA-149 PO (20:35)
[2023-11-04] MEDS ORDERED: SIMV40TA20 PO (20:35)
[2023-11-04] MEDS ORDERED: CALCCAP4 PO (20:36)
[2023-11-04] MEDS ORDERED: HOME MED LIST COMPLETE! XX SCH (20:40)
[2023-11-04 20:41] LABS: PROCALCITONIN 0.16 ng/ml
[2023-11-04 20:42] LABS: INR 1.17; PROTHROMBIN TIME 14.5 SECONDS (12.5-14.5)
[2023-11-04] MEDS: LATANOPROST 0.005% OPHTH SOLN 2.5 ML OU SCH (21:00)
[2023-11-04] MEDS: METOPROLOL TART 12.5 MG PER 1/2 TAB PO SCH (21:36)
[2023-11-04] MEDS: DOCUSATE SODIUM 100MG CAPSULE PO SCH (21:36)
[2023-11-04] MEDS: SIMVASTATIN 40 MG TAB PO SCH (21:36)
[2023-11-04] MEDS: ONDANSETRON 4MG TAB PO PRN (21:37)
[2023-11-04] MEDS: PERCOCET 5MG/325MG TAB PO PRN (21:37)
[2023-11-04] MEDS: HEPARIN SOD (PORCINE) 5000UNITS/ML 1ML VIAL/SYRINGE SC SCH (22:00)
[2023-11-05] MEDS: PERCOCET 5MG/325MG TAB PO PRN ×5 (01:32→21:29)
[2023-11-05 02:42] VITALS: BP 149/68; TEMP 97.3; O2SAT 97
[2023-11-05] MEDS: HEPARIN SOD (PORCINE) 5000UNITS/ML 1ML VIAL/SYRINGE SC SCH ×3 (05:32→21:29)
[2023-11-05 06:51] LABS: BASO % 0.4 % (0.0-1.0); EOS # 0.1 10^3/uL (0.0-0.5); EOS % 1.2 % (0.0-3.0); HEMATOCRIT 27.9 % (36.0-47.0); HEMOGLOBIN 9.1 g/dl (12.0-15.5); LYMPH # 2.2 10^3/uL (1.5-5.0); MEAN CORPUSCULAR HEMOGLOBIN 29.4 pg (27.0-33.0); MEAN CORPUSCULAR HGB CONC 32.6 g/dl (32.0-36.5); MEAN CORPUSCULAR VOLUME 90.3 fl (80.0-96.0); MONO # 0.8 10^3/uL (0.0-0.8); MONO % 9.1 % (2.0-8.0); NEUTROPHILS # 5.9 10^3/uL (1.5-8.5); NEUTROPHILS % 64.9 % (36.0-66.0); PLATELET COUNT, AUTOMATED 210 10^3/uL (150-450); RED BLOOD COUNT 3.09 10^6/uL (4.00-5.40); WHITE BLOOD COUNT 9.1 10^3/uL (4.0-10.0)
[2023-11-05 07:10] LABS: CALCIUM LEVEL 8.3 MG/DL (8.3-10.6); CREATININE FOR GFR 2.23 MG/DL (0.55-1.30); GLOMERULAR FILTRATION RATE 22.6 (>39); POTASSIUM SERUM 3.6 MMOL/L (3.5-5.1)
[2023-11-05] MEDS: METOPROLOL TART 12.5 MG PER 1/2 TAB PO SCH ×2 (09:00→21:00)
[2023-11-05 09:15] VITALS: BP 140/65
[2023-11-05] MEDS: CALCIUM/VITAMIN D 500 MG TAB PO SCH (09:19)
[2023-11-05] MEDS: FLUoxetine 20MG CAP PO SCH (09:19)
[2023-11-05] MEDS: DOCUSATE SODIUM 100MG CAPSULE PO SCH ×2 (09:19→21:28)
[2023-11-05] MEDS: VITAMIN D 1,000 INTERNATIONAL UNITS TABLET PO SCH (09:19)
[2023-11-05 14:00] VITALS: BP 129/67; TEMP 97.6; O2SAT 95
[2023-11-05] MEDS ORDERED: ERTAPENEM SODIUM 1 GM in NS MINI-BAG PLUS 50 ML IV SCH (15:00)
[2023-11-05] MEDS ORDERED: ERTAPENEM SODIUM 500 MG in NS 50 ML IV SCH (17:00)
[2023-11-05 20:00] VITALS: BP 131/62; TEMP 97.5; O2SAT 95
[2023-11-05] MEDS: SIMVASTATIN 40 MG TAB PO SCH (21:28)
[2023-11-05] MEDS: LATANOPROST 0.005% OPHTH SOLN 2.5 ML OU SCH (21:29)
[2023-11-06] MEDS ORDERED: ALPRAZolam 0.25 MG TAB PO ONE
[2023-11-06] MEDS: PERCOCET 5MG/325MG TAB PO PRN ×5 (03:01→20:01)
[2023-11-06] MEDS: HEPARIN SOD (PORCINE) 5000UNITS/ML 1ML VIAL/SYRINGE SC SCH ×3 (05:25→21:33)
[2023-11-06 06:00] VITALS: BP 133/63; TEMP 97.7; O2SAT 94
[2023-11-06 06:45] LABS: BASO % 0.5 % (0.0-1.0); EOS # 0.2 10^3/uL (0.0-0.5); EOS % 2.3 % (0.0-3.0); HEMATOCRIT 28.5 % (36.0-47.0); HEMOGLOBIN 9.2 g/dl (12.0-15.5); LYMPH % 22.5 % (24.0-44.0); MEAN CORPUSCULAR HEMOGLOBIN 29.3 pg (27.0-33.0); MEAN CORPUSCULAR HGB CONC 32.3 g/dl (32.0-36.5); MEAN CORPUSCULAR VOLUME 90.8 fl (80.0-96.0); MONO # 0.6 10^3/uL (0.0-0.8); MONO % 6.7 % (2.0-8.0); NEUTROPHILS % 67.7 % (36.0-66.0); PLATELET COUNT, AUTOMATED 196 10^3/uL (150-450); RED BLOOD COUNT 3.14 10^6/uL (4.00-5.40); WHITE BLOOD COUNT 8.9 10^3/uL (4.0-10.0)
[2023-11-06 07:17] LABS: CALCIUM LEVEL 8.7 MG/DL (8.3-10.6); CREATININE FOR GFR 2.41 MG/DL (0.55-1.30); GLOMERULAR FILTRATION RATE 20.6 (>39); POTASSIUM SERUM 3.6 MMOL/L (3.5-5.1)
[2023-11-06 07:28] LABS: PROCALCITONIN 0.14 ng/ml
[2023-11-06 09:23] VITALS: BP 136/72
[2023-11-06] MEDS: DOCUSATE SODIUM 100MG CAPSULE PO SCH ×2 (09:27→21:33)
[2023-11-06] MEDS: METOPROLOL TART 12.5 MG PER 1/2 TAB PO SCH ×2 (09:27→21:00)
[2023-11-06] MEDS: VITAMIN D 1,000 INTERNATIONAL UNITS TABLET PO SCH (09:27)
[2023-11-06] MEDS: FLUoxetine 20MG CAP PO SCH (09:28)
[2023-11-06] MEDS: CALCIUM/VITAMIN D 500 MG TAB PO SCH (09:28)
[2023-11-06 15:04] VITALS: BP 150/74; TEMP 98.1; O2SAT 94
[2023-11-06] MEDS: cefTRIAXone SOD 2 GM in D5W MINI-BAG PLUS 50 ML IV SCH (15:41)
[2023-11-06 19:50] VITALS: BP 135/64; TEMP 97.5; O2SAT 95
[2023-11-06] MEDS: SIMVASTATIN 40 MG TAB PO SCH (21:33)
[2023-11-06] MEDS: LATANOPROST 0.005% OPHTH SOLN 2.5 ML OU SCH (21:33)
[2023-11-07] MEDS: PERCOCET 5MG/325MG TAB PO PRN ×5 (01:59→20:23)
[2023-11-07] MEDS: ONDANSETRON 4MG TAB PO PRN ×2 (02:03→07:52)
[2023-11-07] MEDS: HEPARIN SOD (PORCINE) 5000UNITS/ML 1ML VIAL/SYRINGE SC SCH ×3 (05:18→20:24)
[2023-11-07 05:29] VITALS: BP 148/62; TEMP 97.7; O2SAT 95
[2023-11-07 06:51] LABS: BASO # 0.1 10^3/uL (0.0-0.2); BASO % 0.7 % (0.0-1.0); EOS # 0.3 10^3/uL (0.0-0.5); EOS % 4.1 % (0.0-3.0); HEMATOCRIT 28.3 % (36.0-47.0); HEMOGLOBIN 9.3 g/dl (12.0-15.5); LYMPH # 2.3 10^3/uL (1.5-5.0); LYMPH % 27.8 % (24.0-44.0); MEAN CORPUSCULAR HEMOGLOBIN 29.7 pg (27.0-33.0); MEAN CORPUSCULAR HGB CONC 32.9 g/dl (32.0-36.5); MEAN CORPUSCULAR VOLUME 90.4 fl (80.0-96.0); MONO # 0.6 10^3/uL (0.0-0.8); MONO % 7.3 % (2.0-8.0); NEUTROPHILS # 4.8 10^3/uL (1.5-8.5); NEUTROPHILS % 59.7 % (36.0-66.0); PLATELET COUNT, AUTOMATED 239 10^3/uL (150-450); RED BLOOD COUNT 3.13 10^6/uL (4.00-5.40); WHITE BLOOD COUNT 8.1 10^3/uL (4.0-10.0)
[2023-11-07 07:22] LABS: CALCIUM LEVEL 8.6 MG/DL (8.3-10.6); CREATININE FOR GFR 2.17 MG/DL (0.55-1.30); GLOMERULAR FILTRATION RATE 23.3 (>39); POTASSIUM SERUM 3.8 MMOL/L (3.5-5.1)
[2023-11-07] MEDS ORDERED: PERCOCET 5MG/325MG TAB PO ONE (07:40)
[2023-11-07] MEDS: DOCUSATE SODIUM 100MG CAPSULE PO SCH ×2 (07:46→20:23)
[2023-11-07] MEDS: VITAMIN D 1,000 INTERNATIONAL UNITS TABLET PO SCH (07:46)
[2023-11-07] MEDS: CALCIUM/VITAMIN D 500 MG TAB PO SCH (07:46)
[2023-11-07] MEDS: FLUoxetine 20MG CAP PO SCH (07:46)
[2023-11-07 07:49] VITALS: BP 143/67
[2023-11-07] MEDS: METOPROLOL TART 12.5 MG PER 1/2 TAB PO SCH ×2 (10:02→20:48)
[2023-11-07] MEDS ORDERED: LIDOCAINE 1% MDV 20ML VIAL As Ordered ONE (13:18)
[2023-11-07 14:00] VITALS: BP 140/66; TEMP 97.3; O2SAT 95
[2023-11-07] MEDS: cefTRIAXone SOD 2 GM in D5W MINI-BAG PLUS 50 ML IV SCH (16:28)
[2023-11-07 20:14] VITALS: BP 135/65; TEMP 97.5; O2SAT 95
[2023-11-07] MEDS: SIMVASTATIN 40 MG TAB PO SCH (20:24)
[2023-11-07] MEDS: LATANOPROST 0.005% OPHTH SOLN 2.5 ML OU SCH (20:27)
[2023-11-08] MEDS: PERCOCET 5MG/325MG TAB PO PRN ×3 (00:33→11:31)
[2023-11-08 05:33] VITALS: BP 156/66; TEMP 97.7; O2SAT 94
[2023-11-08 05:38] VITALS: BP 156/66
[2023-11-08] MEDS: HEPARIN SOD (PORCINE) 5000UNITS/ML 1ML VIAL/SYRINGE SC SCH (06:00)
[2023-11-08 06:22] LABS: BASO # 0.1 10^3/uL (0.0-0.2); BASO % 0.8 % (0.0-1.0); EOS # 0.5 10^3/uL (0.0-0.5); HEMATOCRIT 28.4 % (36.0-47.0); HEMOGLOBIN 9.3 g/dl (12.0-15.5); LYMPH # 1.7 10^3/uL (1.5-5.0); LYMPH % 19.3 % (24.0-44.0); MEAN CORPUSCULAR HEMOGLOBIN 29.6 pg (27.0-33.0); MEAN CORPUSCULAR HGB CONC 32.7 g/dl (32.0-36.5); MEAN CORPUSCULAR VOLUME 90.4 fl (80.0-96.0); MONO # 0.6 10^3/uL (0.0-0.8); MONO % 6.9 % (2.0-8.0); NEUTROPHILS # 5.7 10^3/uL (1.5-8.5); NEUTROPHILS % 66.6 % (36.0-66.0); PLATELET COUNT, AUTOMATED 251 10^3/uL (150-450); RED BLOOD COUNT 3.14 10^6/uL (4.00-5.40); WHITE BLOOD COUNT 8.6 10^3/uL (4.0-10.0)
[2023-11-08 06:50] LABS: CALCIUM LEVEL 8.4 MG/DL (8.3-10.6); CREATININE FOR GFR 2.22 MG/DL (0.55-1.30); GLOMERULAR FILTRATION RATE 22.7 (>39)
[2023-11-08] MEDS ORDERED: BACI1CAP PO (07:31)
[2023-11-08] MEDS: FLUoxetine 20MG CAP PO SCH (08:50)
[2023-11-08 08:51] VITALS: BP 156/64
[2023-11-08] MEDS: CALCIUM/VITAMIN D 500 MG TAB PO SCH (08:51)
[2023-11-08] MEDS: METOPROLOL TART 12.5 MG PER 1/2 TAB PO SCH (08:51)
[2023-11-08] MEDS: ONDANSETRON 4MG TAB PO PRN (08:51)
[2023-11-08] MEDS: DOCUSATE SODIUM 100MG CAPSULE PO SCH (08:51)
[2023-11-08] MEDS: VITAMIN D 1,000 INTERNATIONAL UNITS TABLET PO SCH (08:51)
[2023-11-08] MEDS ORDERED: PROMETHAZINE 25MG/ML 1ML VIAL IV ONE (11:30)
[2023-11-08] MEDS ORDERED: METOCLOPRAMIDE INJ 10MG/2ML VIAL IV ONE (12:25)
== END 2023-11-08 14:35 | disposition home health service (06) | DRG 690 ==
LOC: M ED 14:40 → EDBD 14:40 → EEVIPCON 19:32 → M ED INP 19:32 → M MS5PR 11-05 02:42
PROVIDERS: ADMIT Student in an Organized Health Care Education/Training Program; ATTEND General Practice
PROC: 02HV33Z Insertion of Infusion Device into Superior Vena Cava, Percutaneous Approach (ICD-10-PCS; principal; 2023-11-07 14:00)
DX: N13.6 Pyonephrosis (principal); K21.9 Gastro-esophageal reflux disease without esophagitis; I12.9 Hypertensive chronic kidney disease with stage 1 through stage 4 chronic kidney disease, or unspecified chronic kidney disease; E78.5 Hyperlipidemia, unspecified; N17.9 Acute kidney failure, unspecified; G89.29 Other chronic pain; N39.0 Urinary tract infection, site not specified; M54.9 Dorsalgia, unspecified; H40.9 Unspecified glaucoma; M48.00 Spinal stenosis, site unspecified; E11.51 Type 2 diabetes mellitus with diabetic peripheral angiopathy without gangrene; D63.8 Anemia in other chronic diseases classified elsewhere; N18.4 Chronic kidney disease, stage 4 (severe); B96.1 Klebsiella pneumoniae [K. pneumoniae] as the cause of diseases classified elsewhere; E11.22 Type 2 diabetes mellitus with diabetic chronic kidney disease; Z79.899 Other long term (current) drug therapy; Z88.0 Allergy status to penicillin; Z88.1 Allergy status to other antibiotic agents; Z88.2 Allergy status to sulfonamides; Z85.038 Personal history of other malignant neoplasm of large intestine; Z96.0 Presence of urogenital implants; Z90.49 Acquired absence of other specified parts of digestive tract

== ENCOUNTER → 2023-11-22 | Outpatient (REF) | payer MEDICARE ==
[~2023-11-22] MED LIST changes: +BACI1CAP PO; +CALCCAP4 PO; +METO25TA4 PO; +ONDA-83 PO
== END ==
LOC: M LAB REF 15:59 → EEVIPCON 15:59
PROVIDERS: ATTEND Nurse Practitioner Family
DX: N39.0 Urinary tract infection, site not specified (principal)

== ENCOUNTER → 2023-11-28 | Outpatient (CLI) | payer MEDICARE ==
[2023-11-28 14:28] LABS: BASO # 0.1 10^3/uL (0.0-0.2); BASO % 0.6 % (0.0-1.0); EOS # 0.4 10^3/uL (0.0-0.5); EOS % 3.8 % (0.0-3.0); HEMATOCRIT 32.1 % (36.0-47.0); HEMOGLOBIN 10.2 g/dl (12.0-15.5); LYMPH # 1.9 10^3/uL (1.5-5.0); LYMPH % 16.4 % (24.0-44.0); MEAN CORPUSCULAR HEMOGLOBIN 29.8 pg (27.0-33.0); MEAN CORPUSCULAR HGB CONC 31.8 g/dl (32.0-36.5); MEAN CORPUSCULAR VOLUME 93.9 fl (80.0-96.0); MONO # 0.5 10^3/uL (0.0-0.8); MONO % 4.5 % (2.0-8.0); NEUTROPHILS # 8.5 10^3/uL (1.5-8.5); NEUTROPHILS % 74.4 % (36.0-66.0); PLATELET COUNT, AUTOMATED 328 10^3/uL (150-450); RED BLOOD COUNT 3.42 10^6/uL (4.00-5.40); WHITE BLOOD COUNT 11.4 10^3/uL (4.0-10.0)
[2023-11-28 14:34] LABS: ERYTHROCYTE SEDIMENTATION RATE 86 mm/hr (0-30)
[2023-11-28 14:50] LABS: C REACTIVE PROTEIN QUANTITATIV 9.7 MG/DL (<1.0)
[2023-11-28 14:52] LABS: ALBUMIN 2.5 G/DL (3.2-5.2); BILIRUBIN,TOTAL 0.2 MG/DL (0.3-1.2); CREATININE FOR GFR 2.04 MG/DL (0.55-1.30); POTASSIUM SERUM 4.3 MMOL/L (3.5-5.1)
== END ==
LOC: M PLALAB 11:20
PROVIDERS: ATTEND Internal Medicine Infectious Disease
DX: N12 Tubulo-interstitial nephritis, not specified as acute or chronic (principal)

== ENCOUNTER → 2023-12-23 | Outpatient (CLI) | payer MEDICARE ==
[~2023-12-23] VITALS: Ht 162.6 cm; Wt 64.0 kg
[~2023-12-23] MED LIST changes: +ISOVUE-300 61% 100ML VIAL As Ordered ONE; +LIDOCAINE 1% MDV 20ML VIAL As Ordered ONE; +MIDAZOLAM INJ 2MG/2ML VIAL As Ordered ONE; -OXYB5TAB11 PO; +OXYB5TAB14 PO; +PRIM250T8 PO; +SENN-23 PO; +THERTAB52 PO; +VITA-243 PO; +ZINC100T3 PO; +ceFAZolin 2 GM/D5W 50 ML IV BAG As Ordered ONE; +fentaNYL 100 MCG/2 ML INJECTION As Ordered ONE; +oxyCODONE 5MG TAB As Ordered ONE
[2023-12-23 11:50] VITALS: TEMP 98.1
[2023-12-23] MEDS: NS 1,000 ML IV SCH (13:11)
[2023-12-23] MEDS: ceFAZolin SOD 2 GM in IV 1 EA IV ONE (13:11)
[2023-12-23] MEDS: oxyCODONE 5MG TAB PO ONE (13:13)
[2023-12-23 15:10] VITALS: BP 173/50; O2SAT 95
== END ==
LOC: M IRPRO 11:39
PROVIDERS: ATTEND Urology
DX: N13.5 Crossing vessel and stricture of ureter without hydronephrosis (principal)
CPT/HCPCS: 50435; 75984; C1729; C1769; J0690; J2250; J3010; Q9967

== ENCOUNTER → 2024-02-07 | Outpatient (REF) | payer MEDICARE ==
[~2024-02-07] MED LIST changes: -ISOVUE-300 61% 100ML VIAL As Ordered ONE; -LIDOCAINE 1% MDV 20ML VIAL As Ordered ONE; -MIDAZOLAM INJ 2MG/2ML VIAL As Ordered ONE; -ceFAZolin 2 GM/D5W 50 ML IV BAG As Ordered ONE; -fentaNYL 100 MCG/2 ML INJECTION As Ordered ONE; -oxyCODONE 5MG TAB As Ordered ONE
[2024-02-08 12:51] LABS: BASO # 0.1 10^3/uL (0.0-0.2); BASO % 0.6 % (0.0-1.0); EOS # 0.4 10^3/uL (0.0-0.5); EOS % 4.5 % (0.0-3.0); HEMATOCRIT 28.1 % (36.0-47.0); LYMPH # 2.2 10^3/uL (1.5-5.0); LYMPH % 21.8 % (24.0-44.0); MEAN CORPUSCULAR HEMOGLOBIN 29.5 pg (27.0-33.0); MEAN CORPUSCULAR VOLUME 92.1 fl (80.0-96.0); MONO # 0.4 10^3/uL (0.0-0.8); MONO % 4.5 % (2.0-8.0); NEUTROPHILS # 6.8 10^3/uL (1.5-8.5); NEUTROPHILS % 68.4 % (36.0-66.0); PLATELET COUNT, AUTOMATED 265 10^3/uL (150-450); RED BLOOD COUNT 3.05 10^6/uL (4.00-5.40); WHITE BLOOD COUNT 9.9 10^3/uL (4.0-10.0)
[2024-02-08 13:22] LABS: CALCIUM LEVEL 9.1 MG/DL (8.3-10.6); CREATININE FOR GFR 1.85 MG/DL (0.55-1.30); PHOSPHORUS LEVEL 3.2 MG/DL (2.4-5.1); POTASSIUM SERUM 4.6 MMOL/L (3.5-5.1)
[2024-02-13 11:09] LABS: PERCENT SATURATION 7.9 % (13.2-45.0)
== END ==
LOC: M SFHCCLAY 15:34
PROVIDERS: ATTEND Family Medicine
DX: Z00.00 Encounter for general adult medical examination without abnormal findings (principal); N13.9 Obstructive and reflux uropathy, unspecified; I10 Essential (primary) hypertension; Z86.39 Personal history of other endocrine, nutritional and metabolic disease

== ENCOUNTER → 2024-02-12 | Outpatient (REF) | payer MEDICARE | LOC: M SFHCCLAY 19:41 | PROVIDERS: ATTEND Family Medicine | DX: D64.9 Anemia, unspecified (principal); Z53.9 Procedure and treatment not carried out, unspecified reason ==

== ENCOUNTER → 2024-02-22 | Outpatient (REF) | payer MEDICARE ==
[~2024-02-22] MED LIST changes: +DOXY-440 PO; -DOXY-444 PO
== END ==
LOC: M LAB REF 11:14
PROVIDERS: ATTEND Urology
DX: N39.0 Urinary tract infection, site not specified (principal)

== ENCOUNTER → 2024-02-24 | Outpatient (REF) | payer MEDICARE ==
[2024-02-24 18:34] LABS: APPEARANCE, URINE TURBID (CLEAR); BACTERIA, URINE AUTO NEGATIVE (NEGATIVE); BILIRUBIN, URINE AUTO NEGATIVE (NEGATIVE); BLOOD, URINE BLOOD 1+ (NEGATIVE); COLOR, URINE YELLOW (YELLOW); GLUCOSE, URINE (UA) AUTO NEGATIVE (NEGATIVE); KETONE, URINE AUTO NEGATIVE (NEGATIVE); LEUKOCYTE ESTERASE, URINE AUTO 2+ (NEGATIVE); NITRITE, URINE AUTO NEGATIVE (NEGATIVE); PROTEIN, URINE AUTO 3+ mg/dL (NEGATIVE); RBC, URINE AUTO TNTC /HPF (0-3); SPECIFIC GRAVITY URINE AUTO 1.019 (1.002-1.035); SQUAMOUS EPITHELIAL CELL UR AU 0 /HPF (0-6); UROBILINOGEN, URINE AUTO 0.2 mg/dL (0.0-2.0); WBC, URINE AUTO TNTC /HPF (0-3)
== END ==
LOC: M SMT 17:08
PROVIDERS: ATTEND Urology
DX: N39.0 Urinary tract infection, site not specified (principal)

== ENCOUNTER 2024-03-16 14:28 | Emergency (ER) | payer MEDICARE ==
[~2024-03-16] VITALS: Ht 165.1 cm; Wt 65.9 kg
[~2024-03-16 14:28] MED LIST changes: -ASCO500T PO; -CHEL50TA2 PO; -FOSF3PAC2 PO; -MULT-90 PO; -PROA1AER2 INH
[2024-03-16 15:58] LABS: BASO # 0.1 10^3/uL (0.0-0.2); BASO % 0.6 % (0.0-1.0); EOS # 0.1 10^3/uL (0.0-0.5); EOS % 1.4 % (0.0-3.0); HEMATOCRIT 28.2 % (36.0-47.0); HEMOGLOBIN 8.9 g/dl (12.0-15.5); LYMPH # 1.5 10^3/uL (1.5-5.0); LYMPH % 17.3 % (24.0-44.0); MEAN CORPUSCULAR HEMOGLOBIN 28.3 pg (27.0-33.0); MEAN CORPUSCULAR HGB CONC 31.6 g/dl (32.0-36.5); MEAN CORPUSCULAR VOLUME 89.5 fl (80.0-96.0); MONO # 0.4 10^3/uL (0.0-0.8); MONO % 4.7 % (2.0-8.0); NEUTROPHILS # 6.4 10^3/uL (1.5-8.5); NEUTROPHILS % 75.6 % (36.0-66.0); PLATELET COUNT, AUTOMATED 303 10^3/uL (150-450); RED BLOOD COUNT 3.15 10^6/uL (4.00-5.40); WHITE BLOOD COUNT 8.5 10^3/uL (4.0-10.0)
[2024-03-16] MEDS: NS 1,000 ML IV SCH (16:28)
[2024-03-16 16:30] LABS: ALBUMIN 2.1 G/DL (3.2-5.2); ALKALINE PHOSPHATASE 83 U/L (46-116); ALT/SGPT 13 U/L (7.0-40); AST/SGOT 13 U/L (<34); BILIRUBIN,DIRECT < 0.1 MG/DL (<0.4); BILIRUBIN,TOTAL < 0.2 MG/DL (0.3-1.2); BLOOD UREA NITROGEN 29 MG/DL (9-23); CARBON DIOXIDE LEVEL 24 MMOL/L (20-31); CHLORIDE LEVEL 107 MMOL/L (98-107); GLOMERULAR FILTRATION RATE 24.2 (>39); GLUCOSE, FASTING 93 MG/DL (74-106); SODIUM LEVEL 138 MMOL/L (136-145); TOTAL PROTEIN 6.6 G/DL (5.7-8.2)
[2024-03-16] MEDS: PERCOCET 5MG/325MG TAB PO ONE (16:52)
[2024-03-16] MEDS: ERTAPENEM SODIUM 1 GM in NS MINI-BAG PLUS 50 ML IV ONE (16:53)
[2024-03-16] MEDS ORDERED: CHEL50TA2 PO (18:18)
[2024-03-16] MEDS ORDERED: ASCO500T PO (18:18)
[2024-03-16] MEDS ORDERED: MULT-90 PO (18:18)
[2024-03-16] MEDS ORDERED: HOME MED LIST COMPLETE! XX SCH (18:20)
[2024-03-16] MEDS ORDERED: FOSF3PAC2 PO (18:27)
[2024-03-16] MEDS ORDERED: PROA1AER2 INH (18:27)
[2024-03-16 18:43] VITALS: BP 184/77; TEMP 98.4; O2SAT 94
== END 2024-03-16 19:15 | disposition home or self-care (01) ==
LOC: M ED 14:28
DX: N10 Acute pyelonephritis (principal); N13.30 Unspecified hydronephrosis; N18.4 Chronic kidney disease, stage 4 (severe); D50.9 Iron deficiency anemia, unspecified; E11.9 Type 2 diabetes mellitus without complications; M54.9 Dorsalgia, unspecified; K21.9 Gastro-esophageal reflux disease without esophagitis; F32.A Depression, unspecified; Z85.038 Personal history of other malignant neoplasm of large intestine; Z93.6 Other artificial openings of urinary tract status; Z87.891 Personal history of nicotine dependence; Z92.3 Personal history of irradiation; Z86.19 Personal history of other infectious and parasitic diseases; Z79.899 Other long term (current) drug therapy; Z88.2 Allergy status to sulfonamides; Z88.0 Allergy status to penicillin; Z88.1 Allergy status to other antibiotic agents; Z88.8 Allergy status to other drugs, medicaments and biological substances
CPT/HCPCS: 71046; 74176; 80048; 80076; 81001; 83550; 85025; 87040; 87088; 87186; 93041; 96365; 96366; 99284; J1335

== ENCOUNTER → 2024-03-16 | Outpatient (REF) | payer MEDICARE ==
[~2024-03-16] MED LIST changes: +ASCO500T PO; +CHEL50TA2 PO; +FOSF3PAC2 PO; +MULT-90 PO; +PROA1AER2 INH
[2024-03-16 18:40] LABS: PERCENT SATURATION 5.2 % (13.2-45.0)
== END ==
LOC: M LAB REF 17:10
PROVIDERS: ATTEND Nurse Practitioner Family
DX: D50.9 Iron deficiency anemia, unspecified (principal)

== ENCOUNTER → 2024-03-29 | Outpatient (CLI) | payer MEDICARE ==
[~2024-03-29] MED LIST changes: +ASCO500T PO; +CHEL50TA2 PO; +FLUO-365 PO; -FLUO20CA22 PO; +FOSF3PAC2 PO; +MULT-90 PO; +PROA1AER2 INH
== END ==
LOC: M RAD 13:31
PROVIDERS: ATTEND Family Medicine
DX: R19.00 Intra-abdominal and pelvic swelling, mass and lump, unspecified site (principal); N83.201 Unspecified ovarian cyst, right side; N83.202 Unspecified ovarian cyst, left side; R93.89 Abnormal findings on diagnostic imaging of other specified body structures; N85.8 Other specified noninflammatory disorders of uterus

== ENCOUNTER → 2024-04-18 | Outpatient (CLI) | payer MEDICARE ==
[~2024-04-18] MED LIST changes: +ISOVUE-300 61% 100ML VIAL As Ordered ONE; +LIDOCAINE 1% MDV 20ML VIAL As Ordered ONE; +MIDAZOLAM INJ 2MG/2ML VIAL As Ordered ONE; +ceFAZolin 2 GM/D5W 50 ML IV BAG As Ordered ONE; +ceFAZolin SOD 2 GM in IV 1 EA IV ONE; +fentaNYL 100 MCG/2 ML INJECTION As Ordered ONE
[2024-04-18 12:30] VITALS: TEMP 98.1
[2024-04-18 15:00] VITALS: BP 157/70; O2SAT 93
== END ==
LOC: M IRPRO 11:14
PROVIDERS: ATTEND Nurse Practitioner Family
DX: N13.5 Crossing vessel and stricture of ureter without hydronephrosis (principal)
CPT/HCPCS: 50435; 75984; 99152; C1729; C1769; J0690; J2250; J3010; Q9967

== ENCOUNTER → 2024-05-29 | Outpatient (REF) | payer MEDICARE ==
[~2024-05-29] MED LIST changes: +FERR325T82 PO; -ISOVUE-300 61% 100ML VIAL As Ordered ONE; -LIDOCAINE 1% MDV 20ML VIAL As Ordered ONE; -MIDAZOLAM INJ 2MG/2ML VIAL As Ordered ONE; -ceFAZolin 2 GM/D5W 50 ML IV BAG As Ordered ONE; -ceFAZolin SOD 2 GM in IV 1 EA IV ONE; -fentaNYL 100 MCG/2 ML INJECTION As Ordered ONE
== END ==
LOC: M SFHCCLAY 10:17
PROVIDERS: ATTEND Family Medicine
DX: D64.9 Anemia, unspecified (principal)

== ENCOUNTER → 2024-05-29 | Outpatient (CLI) | payer MEDICARE | LOC: M PLALAB 15:47 | PROVIDERS: ATTEND Family Medicine | DX: D64.9 Anemia, unspecified (principal) ==

== ENCOUNTER 2024-05-30 11:19 | Inpatient (IN) | payer MEDICARE ==
[~2024-05-30] VITALS: Ht 167.6 cm; Wt 62.5 kg
[2024-05-30] VITALS (10 sets, daily range): BP systolic 138–170; BP diastolic 64–77; TEMP 97.1–99; O2SAT 96–99
[~2024-05-30 11:19] MED LIST changes: -FERR325T82 PO
[2024-05-30 12:29] LABS: BASO # 0.1 10^3/uL (0.0-0.2); BASO % 0.5 % (0.0-1.0); EOS # 0.1 10^3/uL (0.0-0.5); EOS % 0.9 % (0.0-3.0); HEMATOCRIT 24.7 % (36.0-47.0); HEMOGLOBIN 7.4 g/dl (12.0-15.5); LYMPH # 1.8 10^3/uL (1.5-5.0); LYMPH % 18.1 % (24.0-44.0); MEAN CORPUSCULAR HEMOGLOBIN 26.6 pg (27.0-33.0); MEAN CORPUSCULAR VOLUME 88.8 fl (80.0-96.0); MONO # 0.5 10^3/uL (0.0-0.8); NEUTROPHILS # 7.5 10^3/uL (1.5-8.5); PLATELET COUNT, AUTOMATED 462 10^3/uL (150-450); RED BLOOD COUNT 2.78 10^6/uL (4.00-5.40)
[2024-05-30 12:51] LABS: CK-MB VALUE MASS < 1.0 NG/ML (<3.6)
[2024-05-30 12:54] LABS: ALBUMIN 1.8 G/DL (3.2-5.2); ALKALINE PHOSPHATASE 73 U/L (46-116); ALT/SGPT < 9 U/L (7.0-40); AST/SGOT 8 U/L (<34); BILIRUBIN,DIRECT < 0.1 MG/DL (<0.4); BILIRUBIN,TOTAL 0.2 MG/DL (0.3-1.2); BLOOD UREA NITROGEN 25 MG/DL (9-23); CARBON DIOXIDE LEVEL 26 MMOL/L (20-31); CHLORIDE LEVEL 106 MMOL/L (98-107); CPK CREATINE PHOSPHOKINASE 30 U/L (34-145); CREATININE FOR GFR 2.11 MG/DL (0.55-1.30); GLOMERULAR FILTRATION RATE 24.1 (>39); GLUCOSE, FASTING 101 MG/DL (74-106); MB/CK RELATIVE INDEX 3.33 (< OR =4); POTASSIUM SERUM 3.8 MMOL/L (3.5-5.1); SODIUM LEVEL 140 MMOL/L (136-145); TOTAL PROTEIN 6.5 G/DL (5.7-8.2)
[2024-05-30 12:56] LABS: THYROID STIMULATING HORMONE 1.935 uIU/ML (0.55-4.78)
[2024-05-30] MEDS: MORPHINE 4 MG/ML 1ML VIAL IV PRN ×2 (13:57→16:51)
[2024-05-30] MEDS: ONDANSETRON 4MG 2ML VIAL IV ONE (13:57)
[2024-05-30] MEDS ORDERED: ERTAPENEM SODIUM 1 GM in NS MINI-BAG PLUS 50 ML IV SCH (14:30)
[2024-05-30] MEDS ORDERED: MOM 30ML SUSPENSION UDC PO PRN (14:30)
[2024-05-30] MEDS ORDERED: MAALOX 30 ML SUSP *UDC PO PRN (14:30)
[2024-05-30 14:52] LABS: IRON (FE) 36 UG/DL (50-170); PERCENT SATURATION 21.2 % (13.2-45.0); TOTAL IRON BINDING CAPACITY 170 UG/DL (250-425)
[2024-05-30 14:54] LABS: FOLATE > 24.00 NG/ML (>5.4); VITAMIN B12 LEVEL 777 PG/ML (211-911)
[2024-05-30 14:55] LABS: FERRITIN 450.7 NG/ML (7.3-270.7)
[2024-05-30 15:04] LABS: PROCALCITONIN 0.23 ng/ml
[2024-05-30] MEDS ORDERED: FERR325T82 PO (15:07)
[2024-05-30] MEDS ORDERED: HOME MED LIST COMPLETE! XX SCH (15:10)
[2024-05-30] MEDS: FUROSEMIDE 20MG/2ML VIAL IV ONE (16:45)
[2024-05-30] MEDS: ERTAPENEM SODIUM 500 MG in NS 50 ML IV SCH (17:22)
[2024-05-30] MEDS: LACTOBACILLUS ACIDOPHILUS CAP (BACID) PO SCH (17:23)
[2024-05-30] MEDS: SIMVASTATIN 40 MG TAB PO SCH (20:45)
[2024-05-30] MEDS: HEPARIN SOD (PORCINE) 5000UNITS/ML 1ML VIAL/SYRINGE SC SCH (20:45)
[2024-05-30] MEDS: LATANOPROST 0.005% OPHTH SOLN 2.5 ML OU SCH (21:01)
[2024-05-30] MEDS: DOCUSATE SODIUM 100MG CAPSULE PO SCH (21:01)
[2024-05-30 23:40] LABS: HEMATOCRIT 31.5 % (36.0-47.0)
[2024-05-31 03:27] VITALS: BP 150/68; TEMP 98.7; O2SAT 99
[2024-05-31 07:52] LABS: BASO # 0.1 10^3/uL (0.0-0.2); BASO % 0.5 % (0.0-1.0); EOS # 0.2 10^3/uL (0.0-0.5); EOS % 1.3 % (0.0-3.0); HEMATOCRIT 31.9 % (36.0-47.0); HEMOGLOBIN 10.1 g/dl (12.0-15.5); LYMPH # 2.4 10^3/uL (1.5-5.0); LYMPH % 21.6 % (24.0-44.0); MEAN CORPUSCULAR HGB CONC 31.7 g/dl (32.0-36.5); MEAN CORPUSCULAR VOLUME 88.4 fl (80.0-96.0); MONO # 0.8 10^3/uL (0.0-0.8); MONO % 6.9 % (2.0-8.0); NEUTROPHILS # 7.7 10^3/uL (1.5-8.5); NEUTROPHILS % 69.3 % (36.0-66.0); PLATELET COUNT, AUTOMATED 366 10^3/uL (150-450); RED BLOOD COUNT 3.61 10^6/uL (4.00-5.40); WHITE BLOOD COUNT 11.1 10^3/uL (4.0-10.0)
[2024-05-31 08:20] LABS: CALCIUM LEVEL 8.8 MG/DL (8.3-10.6); CREATININE FOR GFR 1.93 MG/DL (0.55-1.30); GLOMERULAR FILTRATION RATE 26.7 (>39); MAGNESIUM LEVEL 1.9 MG/DL (1.8-2.4); POTASSIUM SERUM 3.6 MMOL/L (3.5-5.1)
[2024-05-31 08:31] VITALS: BP 171/69; TEMP 99.3; O2SAT 95
[2024-05-31] MEDS: FLUoxetine 20MG CAP PO SCH (08:41)
[2024-05-31] MEDS: VITAMIN D 1,000 INTERNATIONAL UNITS TABLET PO SCH (08:41)
[2024-05-31] MEDS: PANTOPRAZOLE 40MG TAB (PROTONIX) PO SCH (08:41)
[2024-05-31] MEDS: FERROUS SULFATE 325MG TAB PO SCH (08:42)
[2024-05-31] MEDS: ASCORBIC ACID 500 MG TAB PO SCH (08:42)
[2024-05-31] MEDS: MULTIVITAMINS/MINERALS THERAP 1 TAB PO SCH (08:42)
[2024-05-31 08:49] VITALS: BP 160/62
[2024-05-31 10:26] LABS: INR 1.26; PARTIAL THROMBOPLASTIN TIME 38.3 SECONDS (24.8-34.2); PROTHROMBIN TIME 15.4 SECONDS (12.5-14.5)
[2024-05-31 12:54] VITALS: BP 150/68; TEMP 98.6; O2SAT 96
[2024-05-31 15:51] VITALS: BP 138/62; TEMP 98.8; O2SAT 95
[2024-05-31 19:31] VITALS: BP 132/74; TEMP 98.3; O2SAT 96
[2024-06-01] VITALS (8 sets, daily range): BP systolic 122–162; BP diastolic 54–78; TEMP 97.3–98.2; O2SAT 93–98
[2024-06-01 06:47] LABS: BASO # 0.1 10^3/uL (0.0-0.2); BASO % 0.4 % (0.0-1.0); EOS # 0.2 10^3/uL (0.0-0.5); EOS % 1.6 % (0.0-3.0); HEMATOCRIT 32.1 % (36.0-47.0); HEMOGLOBIN 10.2 g/dl (12.0-15.5); LYMPH # 2.5 10^3/uL (1.5-5.0); LYMPH % 20.8 % (24.0-44.0); MEAN CORPUSCULAR HEMOGLOBIN 28.1 pg (27.0-33.0); MEAN CORPUSCULAR HGB CONC 31.8 g/dl (32.0-36.5); MEAN CORPUSCULAR VOLUME 88.4 fl (80.0-96.0); MONO # 0.9 10^3/uL (0.0-0.8); NEUTROPHILS # 8.5 10^3/uL (1.5-8.5); NEUTROPHILS % 69.5 % (36.0-66.0); PLATELET COUNT, AUTOMATED 374 10^3/uL (150-450); RED BLOOD COUNT 3.63 10^6/uL (4.00-5.40); WHITE BLOOD COUNT 12.2 10^3/uL (4.0-10.0)
[2024-06-01 07:20] LABS: CALCIUM LEVEL 8.6 MG/DL (8.3-10.6); CREATININE FOR GFR 2.01 MG/DL (0.55-1.30); GLOMERULAR FILTRATION RATE 25.4 (>39); MAGNESIUM LEVEL 1.9 MG/DL (1.8-2.4); POTASSIUM SERUM 3.7 MMOL/L (3.5-5.1)
[2024-06-01] MEDS: oxyCODONE 5MG TAB PO PRN (09:30)
[2024-06-01] MEDS ORDERED: fentaNYL 100 MCG/2 ML INJECTION As Ordered ONE (13:23)
[2024-06-01] MEDS ORDERED: LIDOCAINE 1% MDV 20ML VIAL As Ordered ONE (13:23)
[2024-06-01] MEDS ORDERED: MIDAZOLAM INJ 2MG/2ML VIAL As Ordered ONE (13:23)
[2024-06-01] MEDS: MORPHINE 2 MG/ML 1ML VIAL IV PRN (17:41)
[2024-06-01] MEDS: HEPARIN SOD (PORCINE) 5000UNITS/ML 1ML VIAL/SYRINGE SQ SCH (21:24)
[2024-06-02 06:43] LABS: BASO # 0.1 10^3/uL (0.0-0.2); BASO % 0.5 % (0.0-1.0); EOS # 0.3 10^3/uL (0.0-0.5); EOS % 2.1 % (0.0-3.0); HEMATOCRIT 32.6 % (36.0-47.0); HEMOGLOBIN 10.3 g/dl (12.0-15.5); LYMPH # 2.4 10^3/uL (1.5-5.0); LYMPH % 19.5 % (24.0-44.0); MEAN CORPUSCULAR HGB CONC 31.6 g/dl (32.0-36.5); MEAN CORPUSCULAR VOLUME 88.6 fl (80.0-96.0); MONO # 0.6 10^3/uL (0.0-0.8); MONO % 4.8 % (2.0-8.0); NEUTROPHILS % 72.5 % (36.0-66.0); PLATELET COUNT, AUTOMATED 319 10^3/uL (150-450); RED BLOOD COUNT 3.68 10^6/uL (4.00-5.40); WHITE BLOOD COUNT 12.5 10^3/uL (4.0-10.0)
[2024-06-02 07:06] LABS: CALCIUM LEVEL 8.8 MG/DL (8.3-10.6); CREATININE FOR GFR 1.71 MG/DL (0.55-1.30); GLOMERULAR FILTRATION RATE 30.7 (>39); MAGNESIUM LEVEL 1.9 MG/DL (1.8-2.4); POTASSIUM SERUM 3.5 MMOL/L (3.5-5.1)
[2024-06-02] MEDS: ONDANSETRON 4MG TAB PO PRN (08:46)
[2024-06-02 12:00] VITALS: BP 123/57; TEMP 97.9; O2SAT 93
[2024-06-02 20:00] VITALS: BP 117/59; TEMP 97.7; O2SAT 94
[2024-06-03] MEDS: HYDROMORPHONE HCL 0.5 MG/ 0.5 ML SYRINGE IV ONE (00:48)
[2024-06-03 04:00] VITALS: BP 164/73; TEMP 98.6; O2SAT 95
[2024-06-03] MEDS ORDERED: MOM 30ML SUSPENSION UDC PO PRN (07:30)
[2024-06-03] MEDS ORDERED: BISACODYL 10MG SUPP PR PRN (07:30)
[2024-06-03] MEDS ORDERED: MIRALAX *UNIT DOSE* 17GM PACKET PO PRN (07:30)
[2024-06-03] MEDS: LACTULOSE 20GM/30ML SYRUP UDC PO ONE (07:55)
[2024-06-03] MEDS: SENOKOT S TAB PO SCH (07:55)
[2024-06-03] MEDS ORDERED: MEROPENEM INJ 2 GM in NS 100 ML IV SCH (08:05)
[2024-06-03] MEDS: ACETAMINOPHEN TAB 650MG DOSE (2X325MG) PO PRN (08:06)
[2024-06-03 08:07] LABS: BASO # 0.1 10^3/uL (0.0-0.2); BASO % 0.5 % (0.0-1.0); EOS # 0.3 10^3/uL (0.0-0.5); EOS % 2.7 % (0.0-3.0); HEMATOCRIT 32.1 % (36.0-47.0); HEMOGLOBIN 10.1 g/dl (12.0-15.5); LYMPH # 2.7 10^3/uL (1.5-5.0); LYMPH % 21.7 % (24.0-44.0); MEAN CORPUSCULAR HEMOGLOBIN 27.7 pg (27.0-33.0); MEAN CORPUSCULAR HGB CONC 31.5 g/dl (32.0-36.5); MEAN CORPUSCULAR VOLUME 88.2 fl (80.0-96.0); MONO # 0.8 10^3/uL (0.0-0.8); MONO % 6.1 % (2.0-8.0); NEUTROPHILS # 8.6 10^3/uL (1.5-8.5); NEUTROPHILS % 68.5 % (36.0-66.0); PLATELET COUNT, AUTOMATED 379 10^3/uL (150-450); RED BLOOD COUNT 3.64 10^6/uL (4.00-5.40); WHITE BLOOD COUNT 12.6 10^3/uL (4.0-10.0)
[2024-06-03 08:19] LABS: CALCIUM LEVEL 8.6 MG/DL (8.3-10.6); CREATININE FOR GFR 1.92 MG/DL (0.55-1.30); GLOMERULAR FILTRATION RATE 26.8 (>39); MAGNESIUM LEVEL 1.9 MG/DL (1.8-2.4); POTASSIUM SERUM 3.7 MMOL/L (3.5-5.1)
[2024-06-03] MEDS: MEROPENEM INJ 500 MG in IV 1 EA IV SCH (10:34)
[2024-06-03 12:00] VITALS: BP 141/61; TEMP 97.5; O2SAT 95
[2024-06-03 20:03] VITALS: BP 150/82; TEMP 97.9; O2SAT 97
[2024-06-04 05:33] VITALS: BP 129/60; TEMP 97.7; O2SAT 92
[2024-06-04 06:28] LABS: BASO # 0.1 10^3/uL (0.0-0.2); BASO % 0.6 % (0.0-1.0); EOS # 0.3 10^3/uL (0.0-0.5); EOS % 3.3 % (0.0-3.0); HEMATOCRIT 32.7 % (36.0-47.0); HEMOGLOBIN 10.2 g/dl (12.0-15.5); LYMPH # 1.8 10^3/uL (1.5-5.0); MEAN CORPUSCULAR HEMOGLOBIN 27.7 pg (27.0-33.0); MEAN CORPUSCULAR HGB CONC 31.2 g/dl (32.0-36.5); MEAN CORPUSCULAR VOLUME 88.9 fl (80.0-96.0); MONO # 0.6 10^3/uL (0.0-0.8); MONO % 5.6 % (2.0-8.0); NEUTROPHILS # 7.3 10^3/uL (1.5-8.5); NEUTROPHILS % 71.9 % (36.0-66.0); PLATELET COUNT, AUTOMATED 358 10^3/uL (150-450); RED BLOOD COUNT 3.68 10^6/uL (4.00-5.40); WHITE BLOOD COUNT 10.2 10^3/uL (4.0-10.0)
[2024-06-04 06:42] LABS: CALCIUM LEVEL 9.3 MG/DL (8.3-10.6); CREATININE FOR GFR 1.91 MG/DL (0.55-1.30); MAGNESIUM LEVEL 1.9 MG/DL (1.8-2.4); POTASSIUM SERUM 3.6 MMOL/L (3.5-5.1)
[2024-06-04 12:00] VITALS: BP 121/65; TEMP 97.5; O2SAT 94
[2024-06-04 20:34] VITALS: BP 142/65; TEMP 97.7; O2SAT 94
[2024-06-04] MEDS: AMOXICILLIN 500 MG CAP PO SCH (20:39)
[2024-06-05 05:35] VITALS: BP 141/69; TEMP 98.1; O2SAT 94
[2024-06-05 06:24] LABS: BASO # 0.1 10^3/uL (0.0-0.2); BASO % 0.6 % (0.0-1.0); EOS # 0.3 10^3/uL (0.0-0.5); HEMATOCRIT 32.4 % (36.0-47.0); HEMOGLOBIN 10.4 g/dl (12.0-15.5); LYMPH # 1.8 10^3/uL (1.5-5.0); LYMPH % 16.7 % (24.0-44.0); MEAN CORPUSCULAR HEMOGLOBIN 28.4 pg (27.0-33.0); MEAN CORPUSCULAR HGB CONC 32.1 g/dl (32.0-36.5); MEAN CORPUSCULAR VOLUME 88.5 fl (80.0-96.0); MONO # 0.6 10^3/uL (0.0-0.8); MONO % 5.6 % (2.0-8.0); NEUTROPHILS # 7.7 10^3/uL (1.5-8.5); NEUTROPHILS % 73.5 % (36.0-66.0); PLATELET COUNT, AUTOMATED 334 10^3/uL (150-450); RED BLOOD COUNT 3.66 10^6/uL (4.00-5.40); WHITE BLOOD COUNT 10.5 10^3/uL (4.0-10.0)
[2024-06-05 06:40] LABS: CREATININE FOR GFR 1.86 MG/DL (0.55-1.30); GLOMERULAR FILTRATION RATE 27.8 (>39); POTASSIUM SERUM 3.7 MMOL/L (3.5-5.1)
[2024-06-05 12:00] VITALS: BP 120/53; TEMP 98.1; O2SAT 67
[2024-06-05] MEDS ORDERED: AMOX500C PO (14:47)
[2024-06-05] MEDS ORDERED: AMOX500T PO (15:19)
[2024-06-05] MEDS ORDERED: ONDA-83 PO (15:56)
[2024-06-05 17:55] VITALS: O2SAT 97
[2024-06-05] MEDS ORDERED: AMOXICILLIN 500 MG CAP PO SCH (21:00)
== END 2024-06-05 18:05 | disposition home or self-care (01) | DRG 811 ==
LOC: EDBD 11:19 → M ED 11:19 → M ED INP 14:29 → M PCU 15:49 → M MS5PR 06-01 22:35
PROVIDERS: ADMIT Internal Medicine; ATTEND Internal Medicine
PROC: B246ZZZ Ultrasonography of Right and Left Heart (ICD-10-PCS; principal; 2024-05-30)
PROC: 30233N1 Transfusion of Nonautologous Red Blood Cells into Peripheral Vein, Percutaneous Approach (ICD-10-PCS; 2024-05-30)
DX: D64.9 Anemia, unspecified (principal); K65.1 Peritoneal abscess; N39.0 Urinary tract infection, site not specified; I12.9 Hypertensive chronic kidney disease with stage 1 through stage 4 chronic kidney disease, or unspecified chronic kidney disease; E78.5 Hyperlipidemia, unspecified; G89.29 Other chronic pain; H40.9 Unspecified glaucoma; H35.30 Unspecified macular degeneration; K21.9 Gastro-esophageal reflux disease without esophagitis; N73.9 Female pelvic inflammatory disease, unspecified; B96.1 Klebsiella pneumoniae [K. pneumoniae] as the cause of diseases classified elsewhere; R10.9 Unspecified abdominal pain; M54.9 Dorsalgia, unspecified; N13.5 Crossing vessel and stricture of ureter without hydronephrosis; R42 Dizziness and giddiness; N18.30 Chronic kidney disease, stage 3 unspecified; F39 Unspecified mood [affective] disorder; E55.9 Vitamin D deficiency, unspecified; Z79.899 Other long term (current) drug therapy; Z88.1 Allergy status to other antibiotic agents; Z88.0 Allergy status to penicillin; Z88.2 Allergy status to sulfonamides; Z87.891 Personal history of nicotine dependence; Z93.6 Other artificial openings of urinary tract status; Z92.3 Personal history of irradiation; Z92.21 Personal history of antineoplastic chemotherapy; Z85.038 Personal history of other malignant neoplasm of large intestine

== ENCOUNTER → 2024-06-13 | Outpatient (POV) | payer MEDICARE ==
[~2024-06-13] VITALS: Ht 167.6 cm; Wt 59.0 kg
[~2024-06-13] MED LIST changes: +AMOX500T PO; +FERR325T82 PO; +GABA-1490 PO; -GABA600T4 PO; +OXYC-1 PO
[2024-06-13 14:00] VITALS: BP 131/89; O2SAT 97
== END ==
LOC: M IRPOV 14:15
PROVIDERS: ATTEND Radiology Diagnostic Radiology
DX: K65.1 Peritoneal abscess (principal); R10.2 Pelvic and perineal pain; K59.00 Constipation, unspecified; Z79.899 Other long term (current) drug therapy; Z88.1 Allergy status to other antibiotic agents; Z88.2 Allergy status to sulfonamides; Z90.49 Acquired absence of other specified parts of digestive tract

== ENCOUNTER → 2024-06-15 | Outpatient (CLI) | payer MEDICARE ==
[~2024-06-15] MED LIST changes: -GABA-1490 PO; +GABA600T4 PO; -OXYC-1 PO
== END ==
LOC: M RAD 14:25
PROVIDERS: ATTEND Radiology Diagnostic Radiology
DX: K65.1 Peritoneal abscess (principal)

== ENCOUNTER → 2024-06-28 | Outpatient (CLI) | payer MEDICARE ==
[~2024-06-28] VITALS: Ht 167.6 cm; Wt 58.0 kg
[~2024-06-28] MED LIST changes: +GABA-1490 PO; -GABA600T4 PO; +ISOVUE-300 61% 100ML VIAL As Ordered ONE; +LIDOCAINE 1% MDV 20ML VIAL As Ordered ONE; +MIDAZOLAM INJ 2MG/2ML VIAL As Ordered ONE; +PIPERACILLIN/TAZOBACTAM SOD 2.25 GM in D5W MINI-BAG PLUS 50 ML IV ONE; +fentaNYL 100 MCG/2 ML INJECTION As Ordered ONE
[2024-06-28 10:20] VITALS: TEMP 97.4
[2024-06-28] MEDS: NS 1,000 ML IV SCH (11:07)
[2024-06-28] MEDS: PIPERACILLIN/TAZOBACTAM SOD 3.375 GM in D5W MINI-BAG PLUS 50 ML IV ONE (11:07)
[2024-06-28 13:17] VITALS: BP 164/79; O2SAT 96
== END ==
LOC: M IRPRO 09:45
PROVIDERS: ATTEND Nurse Practitioner Family
DX: N13.30 Unspecified hydronephrosis (principal); K65.1 Peritoneal abscess
CPT/HCPCS: 49405; 50435; 74176; 99152; 99153; C1729; J2250; J2543; J3010; Q9967

== ENCOUNTER → 2024-07-12 | Outpatient (CLI) | payer MEDICARE ==
[~2024-07-12] MED LIST changes: +LIDOCAINE 2% JELLY 6ML SYRINGE As Ordered ONE; +NS 1,000 ML IV SCH; -PIPERACILLIN/TAZOBACTAM SOD 2.25 GM in D5W MINI-BAG PLUS 50 ML IV ONE
[2024-07-12 13:30] VITALS: TEMP 98.7
[2024-07-12 17:38] VITALS: BP 161/71; O2SAT 96
== END ==
LOC: M IRPRO 13:08
PROVIDERS: ATTEND Radiology Diagnostic Radiology
DX: K65.1 Peritoneal abscess (principal)
CPT/HCPCS: 49422; 99152; J2250; J3010; Q9967

== ENCOUNTER → 2024-07-16 | Outpatient (REF) | payer MEDICARE ==
[~2024-07-16] MED LIST changes: -ISOVUE-300 61% 100ML VIAL As Ordered ONE; -LIDOCAINE 1% MDV 20ML VIAL As Ordered ONE; -LIDOCAINE 2% JELLY 6ML SYRINGE As Ordered ONE; -MIDAZOLAM INJ 2MG/2ML VIAL As Ordered ONE; -NS 1,000 ML IV SCH; -fentaNYL 100 MCG/2 ML INJECTION As Ordered ONE
== END ==
LOC: M SFHCCLAY 10:46
PROVIDERS: ATTEND Internal Medicine Infectious Disease
DX: R19.7 Diarrhea, unspecified (principal)

== ENCOUNTER → 2024-07-23 | Outpatient (REF) | payer MEDICARE | LOC: M LABDRAWC 16:39 | PROVIDERS: ATTEND Internal Medicine Infectious Disease | DX: R19.7 Diarrhea, unspecified (principal) ==

== ENCOUNTER 2024-08-12 11:08 | Inpatient (IN) | payer MEDICARE ==
[~2024-08-12] VITALS: Ht 167.6 cm; Wt 58.9 kg
[~2024-08-12 11:08] MED LIST changes: +FLUC-1 PO; -FLUC200T4 PO
[2024-08-12] MEDS: NS 1,770 ML in IV 1 EA IV ONE (11:58)
[2024-08-12 11:59] LABS: BASO # 0.1 10^3/uL (0.0-0.2); BASO % 0.4 % (0.0-1.0); EOS % 0.2 % (0.0-3.0); HEMATOCRIT 26.8 % (36.0-47.0); HEMOGLOBIN 8.3 g/dl (12.0-15.5); LYMPH # 0.9 10^3/uL (1.5-5.0); LYMPH % 5.8 % (24.0-44.0); MEAN CORPUSCULAR VOLUME 93.7 fl (80.0-96.0); MONO # 0.6 10^3/uL (0.0-0.8); MONO % 3.9 % (2.0-8.0); NEUTROPHILS % 89.1 % (36.0-66.0); PLATELET COUNT, AUTOMATED 417 10^3/uL (150-450); RED BLOOD COUNT 2.86 10^6/uL (4.00-5.40); WHITE BLOOD COUNT 14.5 10^3/uL (4.0-10.0)
[2024-08-12] MEDS ORDERED: OXYC-1 PO (12:04)
[2024-08-12 12:11] LABS: INR 1.31; PARTIAL THROMBOPLASTIN TIME 22.8 SECONDS (24.8-34.2); PROTHROMBIN TIME 15.9 SECONDS (12.5-14.5)
[2024-08-12] MEDS: ACETAMINOPHEN *IV* 1,000 MG in IV 1 EA IV ONE (12:31)
[2024-08-12 12:36] LABS: PROCALCITONIN 0.34 ng/ml
[2024-08-12 12:41] LABS: ALBUMIN 1.8 G/DL (3.2-5.2); ALKALINE PHOSPHATASE 80 U/L (46-116); ALT/SGPT 17 U/L (7.0-40); AST/SGOT 40 U/L (<34); BILIRUBIN,DIRECT < 0.1 MG/DL (<0.4); BILIRUBIN,TOTAL 0.2 MG/DL (0.3-1.2); BLOOD UREA NITROGEN 33 MG/DL (9-23); CALCIUM LEVEL 13.4 MG/DL (8.3-10.6); CARBON DIOXIDE LEVEL 30 MMOL/L (20-31); CHLORIDE LEVEL 101 MMOL/L (98-107); CK-MB VALUE MASS < 1.0 NG/ML (<3.6); CPK CREATINE PHOSPHOKINASE 37 U/L (34-145); CREATININE FOR GFR 2.19 MG/DL (0.55-1.30); GLUCOSE, FASTING 110 MG/DL (74-106); LIPASE 14 U/L (12-53); POTASSIUM SERUM 3.9 MMOL/L (3.5-5.1); SODIUM LEVEL 134 MMOL/L (136-145); TOTAL PROTEIN 6.9 G/DL (5.7-8.2)
[2024-08-12] MEDS: MEROPENEM INJ 1 GM in IV 1 EA IV ONE (14:20)
[2024-08-12] MEDS ORDERED: HOME MED LIST COMPLETE! XX SCH (15:40)
[2024-08-12] MEDS ORDERED: MEROPENEM INJ 1 GM in IV 1 EA IV SCH (16:25)
[2024-08-12 16:35] LABS: INR 1.34; PROTHROMBIN TIME 16.1 SECONDS (12.5-14.5)
[2024-08-12 16:51] LABS: PERCENT SATURATION 4.4 % (13.2-45.0)
[2024-08-12 16:53] LABS: PROCALCITONIN 0.31 ng/ml
[2024-08-12 16:54] LABS: FERRITIN 964.7 NG/ML (7.3-270.7); FOLATE 23.63 NG/ML (>5.4)
[2024-08-12 17:26] VITALS: BP 120/60; TEMP 97.9; O2SAT 96
[2024-08-12 20:53] VITALS: BP 150/99; TEMP 97.5; O2SAT 96
[2024-08-12] MEDS: LATANOPROST 0.005% OPHTH SOLN 2.5 ML OU SCH (21:21)
[2024-08-12] MEDS: IRON SUCROSE 200 MG in NS 100 ML IV SCH (21:21)
[2024-08-12] MEDS: SIMVASTATIN 40 MG TAB PO SCH (21:22)
[2024-08-12] MEDS: HEPARIN SOD (PORCINE) 5000UNITS/ML 1ML VIAL/SYRINGE SQ SCH (21:22)
[2024-08-12 21:23] VITALS: BP 150/57; TEMP 98.6; O2SAT 94
[2024-08-12] MEDS: oxyCODONE 5MG TAB PO PRN (21:23)
[2024-08-13] VITALS (12 sets, daily range): BP systolic 121–139; BP diastolic 54–89; TEMP 97.2–97.9; O2SAT 92–95
[2024-08-13] MEDS: MEROPENEM INJ 500 MG in IV 1 EA IV SCH (01:40)
[2024-08-13 06:30] LABS: HEMATOCRIT 23.1 % (36.0-47.0); HEMOGLOBIN 7.2 g/dl (12.0-15.5); MEAN CORPUSCULAR HEMOGLOBIN 29.4 pg (27.0-33.0); MEAN CORPUSCULAR HGB CONC 31.2 g/dl (32.0-36.5); MEAN CORPUSCULAR VOLUME 94.3 fl (80.0-96.0); PLATELET COUNT, AUTOMATED 339 10^3/uL (150-450); RED BLOOD COUNT 2.45 10^6/uL (4.00-5.40); WHITE BLOOD COUNT 13.6 10^3/uL (4.0-10.0)
[2024-08-13 06:46] LABS: ALBUMIN 1.4 G/DL (3.2-5.2); ALKALINE PHOSPHATASE 64 U/L (46-116); ALT/SGPT 13 U/L (7.0-40); AST/SGOT 12 U/L (<34); BILIRUBIN,TOTAL < 0.2 MG/DL (0.3-1.2); BLOOD UREA NITROGEN 33 MG/DL (9-23); CALCIUM LEVEL 12.9 MG/DL (8.3-10.6); CARBON DIOXIDE LEVEL 28 MMOL/L (20-31); CHLORIDE LEVEL 108 MMOL/L (98-107); CREATININE FOR GFR 2.32 MG/DL (0.55-1.30); GLOMERULAR FILTRATION RATE 21.6 (>39); GLUCOSE, FASTING 118 MG/DL (74-106); SODIUM LEVEL 141 MMOL/L (136-145); TOTAL PROTEIN 5.3 G/DL (5.7-8.2)
[2024-08-13 08:15] LABS: PTH INTACT 7.9 PG/ML (18.5-88.0)
[2024-08-13 08:19] LABS: TOTAL 25(OH) VITAMIN D 72.2 NG/ML (20.0-100.0)
[2024-08-13] MEDS: FERROUS SULFATE 325MG TAB PO SCH (08:47)
[2024-08-13] MEDS: FLUoxetine 20MG CAP PO SCH (08:47)
[2024-08-13] MEDS: ASCORBIC ACID 500 MG TAB PO SCH (08:47)
[2024-08-13] MEDS: MULTIVITAMINS/MINERALS THERAP 1 TAB PO SCH (08:47)
[2024-08-13] MEDS: POTASSIUM CHLORIDE 10MEQ SR TABLET PO SCH ×2 (08:47→16:40)
[2024-08-13] MEDS: NS 1,000 ML IV SCH (10:58)
[2024-08-13] MEDS: CALCITONIN SALMON (MIACALCIN) 400INTERNATIONAL UNITS/2ML VIAL SQ SCH (11:53)
[2024-08-13 12:13] LABS: HEMATOCRIT 22.4 % (36.0-47.0); HEMOGLOBIN 7.1 g/dl (12.0-15.5); MEAN CORPUSCULAR HEMOGLOBIN 29.8 pg (27.0-33.0); MEAN CORPUSCULAR HGB CONC 31.7 g/dl (32.0-36.5); MEAN CORPUSCULAR VOLUME 94.1 fl (80.0-96.0); PLATELET COUNT, AUTOMATED 312 10^3/uL (150-450); RED BLOOD COUNT 2.38 10^6/uL (4.00-5.40); WHITE BLOOD COUNT 13.1 10^3/uL (4.0-10.0)
[2024-08-13 12:42] LABS: CALCIUM LEVEL 12.7 MG/DL (8.3-10.6); CREATININE FOR GFR 2.27 MG/DL (0.55-1.30); GLOMERULAR FILTRATION RATE 22.1 (>39); POTASSIUM SERUM 3.4 MMOL/L (3.5-5.1)
[2024-08-13] MEDS ORDERED: ISOVUE-300 61% 100ML VIAL As Ordered ONE (12:58)
[2024-08-13] MEDS ORDERED: LIDOCAINE 1% MDV 20ML VIAL As Ordered ONE (12:58)
[2024-08-13] MEDS ORDERED: fentaNYL 100 MCG/2 ML INJECTION As Ordered ONE (13:30)
[2024-08-13] MEDS ORDERED: MIDAZOLAM INJ 2MG/2ML VIAL As Ordered ONE (13:30)
[2024-08-13 18:51] LABS: CALCIUM LEVEL 11.3 MG/DL (8.3-10.6); CREATININE FOR GFR 2.08 MG/DL (0.55-1.30); GLOMERULAR FILTRATION RATE 24.5 (>39); POTASSIUM SERUM 3.7 MMOL/L (3.5-5.1)
[2024-08-13 20:15] LABS: MAGNESIUM LEVEL 2.1 MG/DL (1.8-2.4)
[2024-08-14] MEDS: HYDROMORPHONE HCL 0.5 MG/ 0.5 ML SYRINGE IV ONE (00:24)
[2024-08-14 00:44] LABS: ALBUMIN 1.5 G/DL (3.2-5.2); BILIRUBIN,TOTAL 0.7 MG/DL (0.3-1.2); CALCIUM LEVEL 10.8 MG/DL (8.3-10.6); GLOMERULAR FILTRATION RATE 25.6 (>39); TOTAL PROTEIN 5.7 G/DL (5.7-8.2)
[2024-08-14 01:00] LABS: HEMATOCRIT 29.9 % (36.0-47.0); MEAN CORPUSCULAR HEMOGLOBIN 29.4 pg (27.0-33.0); MEAN CORPUSCULAR HGB CONC 32.1 g/dl (32.0-36.5); MEAN CORPUSCULAR VOLUME 91.4 fl (80.0-96.0); PLATELET COUNT, AUTOMATED 332 10^3/uL (150-450); RED BLOOD COUNT 3.27 10^6/uL (4.00-5.40); WHITE BLOOD COUNT 12.9 10^3/uL (4.0-10.0)
[2024-08-14 01:01] LABS: HEMOGLOBIN 9.6 g/dl (12.0-15.5)
[2024-08-14 04:19] VITALS: BP 136/88; TEMP 97.9; O2SAT 93
[2024-08-14 05:57] LABS: HEMATOCRIT 29.5 % (36.0-47.0); HEMOGLOBIN 9.6 g/dl (12.0-15.5); MEAN CORPUSCULAR HEMOGLOBIN 29.6 pg (27.0-33.0); MEAN CORPUSCULAR HGB CONC 32.5 g/dl (32.0-36.5); PLATELET COUNT, AUTOMATED 273 10^3/uL (150-450); RED BLOOD COUNT 3.24 10^6/uL (4.00-5.40); WHITE BLOOD COUNT 12.5 10^3/uL (4.0-10.0)
[2024-08-14 06:26] LABS: ALBUMIN 1.5 G/DL (3.2-5.2); BILIRUBIN,TOTAL 0.3 MG/DL (0.3-1.2); CALCIUM LEVEL 10.3 MG/DL (8.3-10.6); CREATININE FOR GFR 1.91 MG/DL (0.55-1.30); MAGNESIUM LEVEL 2.1 MG/DL (1.8-2.4); POTASSIUM SERUM 3.9 MMOL/L (3.5-5.1); TOTAL PROTEIN 5.6 G/DL (5.7-8.2)
[2024-08-14 12:00] VITALS: BP 140/89; TEMP 97.7; O2SAT 92
[2024-08-14 12:36] LABS: ALBUMIN 1.5 G/DL (3.2-5.2); BILIRUBIN,TOTAL 0.2 MG/DL (0.3-1.2); CALCIUM LEVEL 10.3 MG/DL (8.3-10.6); CREATININE FOR GFR 1.74 MG/DL (0.55-1.30); POTASSIUM SERUM 3.9 MMOL/L (3.5-5.1); TOTAL PROTEIN 5.8 G/DL (5.7-8.2)
[2024-08-14] MEDS: cefTRIAXone SOD 2 GM in DEXTROSE 5% (D5W) ADV/MINI-BAG 50 ML IV SCH (12:39)
[2024-08-14] MEDS: MORPHINE 2 MG/ML 1ML VIAL IV PRN (12:39)
[2024-08-14] MEDS: METOPROLOL TART 25 MG TABLET PO SCH (12:46)
[2024-08-14] MEDS: APIXABAN 2.5 MG TAB (ELIQUIS) PO SCH (13:16)
[2024-08-14 19:23] LABS: ALBUMIN 1.4 G/DL (3.2-5.2); ALKALINE PHOSPHATASE 71 U/L (46-116); ALT/SGPT 15 U/L (7.0-40); AST/SGOT 13 U/L (<34); BILIRUBIN,TOTAL < 0.2 MG/DL (0.3-1.2); BLOOD UREA NITROGEN 27 MG/DL (9-23); CALCIUM LEVEL 10.2 MG/DL (8.3-10.6); CARBON DIOXIDE LEVEL 24 MMOL/L (20-31); CHLORIDE LEVEL 110 MMOL/L (98-107); CREATININE FOR GFR 1.69 MG/DL (0.55-1.30); GLOMERULAR FILTRATION RATE 31.1 (>39); GLUCOSE, FASTING 114 MG/DL (74-106); POTASSIUM SERUM 3.8 MMOL/L (3.5-5.1); SODIUM LEVEL 140 MMOL/L (136-145); TOTAL PROTEIN 5.5 G/DL (5.7-8.2)
[2024-08-14] MEDS ORDERED: ELIQ2.5T PO (19:39)
[2024-08-14 20:00] VITALS: BP 139/90; TEMP 97.3; O2SAT 96
[2024-08-15] MEDS: RAMELTEON 8 MG TAB (ROZEREM) PO PRN (01:15)
[2024-08-15 04:00] VITALS: BP 149/83; TEMP 97.5; O2SAT 95
[2024-08-15 06:08] LABS: BASO % 0.2 % (0.0-1.0); EOS % 0.2 % (0.0-3.0); HEMATOCRIT 30.9 % (36.0-47.0); LYMPH # 1.1 10^3/uL (1.5-5.0); LYMPH % 6.3 % (24.0-44.0); MEAN CORPUSCULAR HEMOGLOBIN 29.4 pg (27.0-33.0); MEAN CORPUSCULAR HGB CONC 32.4 g/dl (32.0-36.5); MEAN CORPUSCULAR VOLUME 90.9 fl (80.0-96.0); MONO # 0.5 10^3/uL (0.0-0.8); MONO % 2.8 % (2.0-8.0); NEUTROPHILS # 15.7 10^3/uL (1.5-8.5); NEUTROPHILS % 89.5 % (36.0-66.0); PLATELET COUNT, AUTOMATED 319 10^3/uL (150-450); WHITE BLOOD COUNT 17.6 10^3/uL (4.0-10.0)
[2024-08-15 06:28] LABS: ALBUMIN 1.5 G/DL (3.2-5.2); BILIRUBIN,TOTAL 0.2 MG/DL (0.3-1.2); CALCIUM LEVEL 10.4 MG/DL (8.3-10.6); CREATININE FOR GFR 1.56 MG/DL (0.55-1.30); GLOMERULAR FILTRATION RATE 34.1 (>39); POTASSIUM SERUM 3.4 MMOL/L (3.5-5.1); TOTAL PROTEIN 5.6 G/DL (5.7-8.2)
[2024-08-15] MEDS ORDERED: FUROSEMIDE 20MG/2ML VIAL IV STA (07:09)
[2024-08-15] MEDS: IPRATROPIUM 0.5MG/ALBUTEROL 2.5MG INH SOL UD 3ML (DUONEB) NEB STA (07:47)
[2024-08-15] MEDS ORDERED: ISOVUE-370 76% 100ML VIAL As Ordered ONE (09:52)
[2024-08-15] MEDS: FUROSEMIDE 40MG/4ML VIAL IV ONE (09:57)
[2024-08-15 10:05] LABS: C REACTIVE PROTEIN QUANTITATIV 15.5 MG/DL (<1.0)
[2024-08-15 10:18] LABS: PROCALCITONIN 0.3 ng/ml
[2024-08-15 12:00] VITALS: BP 143/78; TEMP 97.7; O2SAT 94
[2024-08-15] MEDS: POTASSIUM CHLORIDE 10MEQ SR TABLET PO ONE (13:14)
[2024-08-15] MEDS ORDERED: ERTAPENEM SODIUM 1 GM in NS MINI-BAG PLUS 50 ML IV SCH (15:30)
[2024-08-15] MEDS: ERTAPENEM SODIUM 500 MG in NS 50 ML IV SCH (17:42)
[2024-08-15] MEDS: oxyCODONE 5MG TAB PO PRN (17:48)
[2024-08-15 21:06] VITALS: BP 142/73; TEMP 97.7; O2SAT 96
[2024-08-15] MEDS: QUEtiapine FUMARATE 12.5 MG HALF-TAB PO SCH (21:13)
[2024-08-16] MEDS: ACETAMINOPHEN 325 MG TAB PO PRN (01:41)
[2024-08-16 04:00] VITALS: BP 149/64; TEMP 97.9; O2SAT 98
[2024-08-16 05:43] LABS: BASO % 0.2 % (0.0-1.0); EOS # 0.1 10^3/uL (0.0-0.5); EOS % 0.9 % (0.0-3.0); HEMATOCRIT 28.1 % (36.0-47.0); HEMOGLOBIN 9.2 g/dl (12.0-15.5); LYMPH # 1.6 10^3/uL (1.5-5.0); MEAN CORPUSCULAR HGB CONC 32.7 g/dl (32.0-36.5); MEAN CORPUSCULAR VOLUME 88.6 fl (80.0-96.0); MONO # 0.6 10^3/uL (0.0-0.8); MONO % 4.7 % (2.0-8.0); NEUTROPHILS # 10.1 10^3/uL (1.5-8.5); NEUTROPHILS % 80.1 % (36.0-66.0); PLATELET COUNT, AUTOMATED 253 10^3/uL (150-450); RED BLOOD COUNT 3.17 10^6/uL (4.00-5.40); WHITE BLOOD COUNT 12.6 10^3/uL (4.0-10.0)
[2024-08-16 06:07] LABS: C REACTIVE PROTEIN QUANTITATIV 12.5 MG/DL (<1.0)
[2024-08-16 06:09] LABS: CALCIUM LEVEL 11.3 MG/DL (8.3-10.6); CREATININE FOR GFR 1.54 MG/DL (0.55-1.30); GLOMERULAR FILTRATION RATE 34.6 (>39); POTASSIUM SERUM 3.3 MMOL/L (3.5-5.1)
[2024-08-16 06:21] LABS: PROCALCITONIN 0.27 ng/ml
[2024-08-16] MEDS: POTASSIUM CHLORIDE 10MEQ SR TABLET PO ONE (08:48)
[2024-08-16 12:00] VITALS: BP 161/86; TEMP 98.1; O2SAT 96
[2024-08-16] MEDS: NS 1,000 ML IV SCH (13:35)
[2024-08-16 14:36] VITALS: BP 160/88; TEMP 97.3; O2SAT 95
[2024-08-16] MEDS: ZOLEDRONIC ACID 4 MG in IV 1 EA IV ONE (15:26)
[2024-08-16] MEDS: MORPHINE 2 MG/ML 1ML VIAL IV PRN (15:50)
[2024-08-16] MEDS: KCL 20MEQ in NS 1000ML 1,000 ML IV SCH (16:26)
[2024-08-16] MEDS: oxyCODONE 5MG TAB PO PRN (16:40)
[2024-08-16 21:18] VITALS: BP 154/85; TEMP 97.3; O2SAT 96
[2024-08-17 03:47] VITALS: BP 143/93; TEMP 97.9; O2SAT 94
[2024-08-17 05:59] LABS: BASO % 0.3 % (0.0-1.0); EOS # 0.4 10^3/uL (0.0-0.5); EOS % 3.1 % (0.0-3.0); HEMATOCRIT 28.8 % (36.0-47.0); HEMOGLOBIN 9.1 g/dl (12.0-15.5); LYMPH # 1.6 10^3/uL (1.5-5.0); LYMPH % 11.4 % (24.0-44.0); MEAN CORPUSCULAR HEMOGLOBIN 28.6 pg (27.0-33.0); MEAN CORPUSCULAR HGB CONC 31.6 g/dl (32.0-36.5); MEAN CORPUSCULAR VOLUME 90.6 fl (80.0-96.0); MONO # 0.6 10^3/uL (0.0-0.8); MONO % 4.1 % (2.0-8.0); NEUTROPHILS # 11.1 10^3/uL (1.5-8.5); NEUTROPHILS % 79.9 % (36.0-66.0); PLATELET COUNT, AUTOMATED 217 10^3/uL (150-450); RED BLOOD COUNT 3.18 10^6/uL (4.00-5.40); WHITE BLOOD COUNT 13.9 10^3/uL (4.0-10.0)
[2024-08-17 06:23] LABS: CALCIUM LEVEL 11.4 MG/DL (8.3-10.6); CREATININE FOR GFR 1.42 MG/DL (0.55-1.30); MAGNESIUM LEVEL 1.8 MG/DL (1.8-2.4); POTASSIUM SERUM 3.6 MMOL/L (3.5-5.1)
[2024-08-17 08:28] LABS: ALBUMIN 1.5 G/DL (3.2-5.2)
[2024-08-17 08:34] LABS: C REACTIVE PROTEIN QUANTITATIV 9.8 MG/DL (<1.0)
[2024-08-17 08:53] LABS: CA19-9 TUMOR MARKER,CARBOHYDRA 12.1 U/ML (<35.0)
[2024-08-17] MEDS: MORPHINE 2 MG/ML 1ML VIAL IV PRN (11:09)
[2024-08-17 12:00] VITALS: BP 165/82; TEMP 97.3; O2SAT 95
[2024-08-17] MEDS: oxyCODONE 5MG TAB PO PRN (17:44)
[2024-08-17 20:00] VITALS: BP 153/78; TEMP 98.1; O2SAT 94
[2024-08-18] VITALS (10 sets, daily range): BP systolic 131–159; BP diastolic 64–94; TEMP 97.3–98.6; O2SAT 92–96
[2024-08-18 07:11] LABS: BASO # 0.1 10^3/uL (0.0-0.2); BASO % 0.3 % (0.0-1.0); EOS # 0.6 10^3/uL (0.0-0.5); EOS % 3.7 % (0.0-3.0); HEMATOCRIT 29.4 % (36.0-47.0); HEMOGLOBIN 9.4 g/dl (12.0-15.5); LYMPH # 1.6 10^3/uL (1.5-5.0); LYMPH % 10.5 % (24.0-44.0); MEAN CORPUSCULAR HEMOGLOBIN 29.7 pg (27.0-33.0); MONO # 0.5 10^3/uL (0.0-0.8); MONO % 3.4 % (2.0-8.0); NEUTROPHILS # 12.7 10^3/uL (1.5-8.5); NEUTROPHILS % 81.1 % (36.0-66.0); PLATELET COUNT, AUTOMATED 268 10^3/uL (150-450); RED BLOOD COUNT 3.16 10^6/uL (4.00-5.40); WHITE BLOOD COUNT 15.6 10^3/uL (4.0-10.0)
[2024-08-18 07:47] LABS: ALBUMIN 1.6 G/DL (3.2-5.2); BILIRUBIN,TOTAL 0.2 MG/DL (0.3-1.2); CREATININE FOR GFR 1.4 MG/DL (0.55-1.30); GLOMERULAR FILTRATION RATE 38.6 (>39); POTASSIUM SERUM 3.7 MMOL/L (3.5-5.1); TOTAL PROTEIN 5.3 G/DL (5.7-8.2)
[2024-08-18 08:19] LABS: C REACTIVE PROTEIN QUANTITATIV 12.8 MG/DL (<1.0)
[2024-08-18 08:32] LABS: PROCALCITONIN 0.14 ng/ml
[2024-08-18] MEDS: NS 1,000 ML IV SCH (14:25)
[2024-08-18] MEDS ORDERED: ONDANSETRON 4MG 2ML VIAL IV PRN (14:25)
[2024-08-18] MEDS ORDERED: oxyCODONE 5MG TAB PO PRN (14:25)
[2024-08-18] MEDS ORDERED: LIDOCAINE 2% 100MG/5ML SDV (FOR ANES.) As Ordered ONE (15:16)
[2024-08-18] MEDS ORDERED: propofoL 200 MG/20 ML VIAL As Ordered ONE (15:16)
[2024-08-18] MEDS ORDERED: ONDANSETRON 4MG 2ML VIAL As Ordered ONE (15:40)
[2024-08-18] MEDS: ERTAPENEM SODIUM 1 GM in NS MINI-BAG PLUS 50 ML IV SCH (16:55)
[2024-08-18 17:57] LABS: 25-HYDROXY VITAMIN D2 < 8 pg/mL; 25-HYDROXY VITAMIN D3 26 pg/mL; VITAMIN D 1 25 DIHYDROXY 26 pg/mL (18-72)
[2024-08-19] VITALS (7 sets, daily range): BP systolic 136–149; BP diastolic 73–86; TEMP 97.2–97.9; O2SAT 93–95
[2024-08-19 06:04] LABS: BASO % 0.1 % (0.0-1.0); EOS % 0.1 % (0.0-3.0); HEMATOCRIT 30.2 % (36.0-47.0); HEMOGLOBIN 9.4 g/dl (12.0-15.5); LYMPH # 1.6 10^3/uL (1.5-5.0); LYMPH % 12.8 % (24.0-44.0); MEAN CORPUSCULAR HEMOGLOBIN 29.3 pg (27.0-33.0); MEAN CORPUSCULAR HGB CONC 31.1 g/dl (32.0-36.5); MEAN CORPUSCULAR VOLUME 94.1 fl (80.0-96.0); MONO # 0.3 10^3/uL (0.0-0.8); NEUTROPHILS # 10.3 10^3/uL (1.5-8.5); NEUTROPHILS % 83.9 % (36.0-66.0); PLATELET COUNT, AUTOMATED 238 10^3/uL (150-450); RED BLOOD COUNT 3.21 10^6/uL (4.00-5.40); WHITE BLOOD COUNT 12.3 10^3/uL (4.0-10.0)
[2024-08-19 06:38] LABS: CALCIUM LEVEL 8.9 MG/DL (8.3-10.6); CREATININE FOR GFR 1.38 MG/DL (0.55-1.30); GLOMERULAR FILTRATION RATE 39.3 (>39); MAGNESIUM LEVEL 1.6 MG/DL (1.8-2.4); POTASSIUM SERUM 4.1 MMOL/L (3.5-5.1)
[2024-08-19] MEDS: PROMETHAZINE 25MG/ML 1ML VIAL IV ONE (07:40)
[2024-08-19] MEDS: NS 1,000 ML IV SCH (11:46)
[2024-08-19] MEDS: MAG SULF 1GM/100ML (MAG RUN) 1 GM in IV 1 EA IV SCH (11:46)
[2024-08-19] MEDS: ONDANSETRON 4MG 2ML VIAL IV PRN (18:06)
[2024-08-20 04:30] VITALS: BP 141/74; TEMP 97.3; O2SAT 94
[2024-08-20 05:52] LABS: BASO % 0.2 % (0.0-1.0); EOS # 0.6 10^3/uL (0.0-0.5); EOS % 4.3 % (0.0-3.0); HEMATOCRIT 29.5 % (36.0-47.0); LYMPH # 2.3 10^3/uL (1.5-5.0); LYMPH % 15.8 % (24.0-44.0); MEAN CORPUSCULAR HEMOGLOBIN 28.6 pg (27.0-33.0); MEAN CORPUSCULAR HGB CONC 30.5 g/dl (32.0-36.5); MEAN CORPUSCULAR VOLUME 93.7 fl (80.0-96.0); MONO # 0.6 10^3/uL (0.0-0.8); MONO % 4.3 % (2.0-8.0); NEUTROPHILS # 10.6 10^3/uL (1.5-8.5); NEUTROPHILS % 74.5 % (36.0-66.0); PLATELET COUNT, AUTOMATED 256 10^3/uL (150-450); RED BLOOD COUNT 3.15 10^6/uL (4.00-5.40); WHITE BLOOD COUNT 14.3 10^3/uL (4.0-10.0)
[2024-08-20 06:17] LABS: CREATININE FOR GFR 1.48 MG/DL (0.55-1.30); GLOMERULAR FILTRATION RATE 36.2 (>39); POTASSIUM SERUM 3.8 MMOL/L (3.5-5.1)
[2024-08-20 07:01] LABS: C REACTIVE PROTEIN QUANTITATIV 7.8 MG/DL (<1.0)
[2024-08-20 07:14] LABS: PROCALCITONIN 0.1 ng/ml
[2024-08-20 12:00] VITALS: BP 148/88; TEMP 98.6; O2SAT 95
[2024-08-20] MEDS ORDERED: MORPHINE 10MG/0.5ML ORAL CONCENTRATE SOLUTION U/D SL PRN (15:50)
[2024-08-20] MEDS ORDERED: HYOSCYAMINE SULFATE 0.125 MG SUBL TABLET PO PRN (15:50)
[2024-08-20] MEDS: MORPHINE 10MG/0.5ML ORAL CONCENTRATE SOLUTION U/D SL SCH (16:36)
[2024-08-20] MEDS: ONDANSETRON 4MG ORAL DISINTEGRATING TAB PO PRN (18:12)
[2024-08-20 20:00] VITALS: BP 137/76; TEMP 97.7; O2SAT 93
[2024-08-20] MEDS: AUGMENTIN 500MG TAB PO SCH (20:30)
[2024-08-21] MEDS: MORPHINE 10MG/0.5ML ORAL CONCENTRATE SOLUTION U/D SL PRN (11:33)
[2024-08-21] MEDS: MORPHINE 10MG/0.5ML ORAL CONCENTRATE SOLUTION U/D SL SCH (13:05)
[2024-08-21] MEDS: LORazepam 0.5 MG TAB PO SCH (21:31)
[2024-08-22] MEDS: MORPHINE 10MG/0.5ML ORAL CONCENTRATE SOLUTION U/D SL PRN (15:26)
[2024-08-22] MEDS: MORPHINE 10MG/0.5ML ORAL CONCENTRATE SOLUTION U/D SL SCH (17:11)
[2024-08-23 20:43] VITALS: BP 118/61
[2024-08-24 09:00] VITALS: BP 121/65; TEMP 97.7; O2SAT 92
[2024-08-24 11:21] VITALS: BP 133/72; TEMP 97.9; O2SAT 95
[2024-08-25] MEDS: LORazepam 1 MG TAB PO PRN (12:35)
[2024-09-05 22:10] VITALS: BP 133/72; TEMP 97.9
[2024-09-06 05:52] VITALS: O2SAT 95
[2024-09-06] MEDS ORDERED: MORP1SOL5 PO (08:04)
[2024-09-06] MEDS ORDERED: HYOS125TA PO (08:04)
[2024-09-06] MEDS ORDERED: ATIV1TAB10 PO (08:04)
== END 2024-09-06 09:14 | disposition hospice, home (50) | DRG 668 ==
LOC: EDBD 11:08 → M ED 11:08 → M ED INP 15:35 → M MSPAV 16:50
PROVIDERS: ADMIT Internal Medicine; ATTEND Internal Medicine
PROC: 0T9030Z Drainage of Right Kidney with Drainage Device, Percutaneous Approach (ICD-10-PCS; 2024-08-13)
PROC: 0T9130Z Drainage of Left Kidney with Drainage Device, Percutaneous Approach (ICD-10-PCS; 2024-08-13)
PROC: 0TBB3ZX Excision of Bladder, Percutaneous Approach, Diagnostic (ICD-10-PCS; principal; 2024-08-13 14:30)
PROC: 0UBG8ZX Excision of Vagina, Via Natural or Artificial Opening Endoscopic, Diagnostic (ICD-10-PCS; 2024-08-18)
DX: N99.53 Complication of continent stoma of urinary tract (principal); G93.41 Metabolic encephalopathy; N17.9 Acute kidney failure, unspecified; N13.1 Hydronephrosis with ureteral stricture, not elsewhere classified; R64 Cachexia; C79.11 Secondary malignant neoplasm of bladder; C79.82 Secondary malignant neoplasm of genital organs; N39.0 Urinary tract infection, site not specified; T83.518A Infection and inflammatory reaction due to other urinary catheter, initial encounter; C53.9 Malignant neoplasm of cervix uteri, unspecified; I48.91 Unspecified atrial fibrillation; F32.A Depression, unspecified; N18.30 Chronic kidney disease, stage 3 unspecified; E78.5 Hyperlipidemia, unspecified; M54.9 Dorsalgia, unspecified; G89.29 Other chronic pain; E86.0 Dehydration; I12.9 Hypertensive chronic kidney disease with stage 1 through stage 4 chronic kidney disease, or unspecified chronic kidney disease; Z51.5 Encounter for palliative care; Z66 Do not resuscitate; E83.52 Hypercalcemia; K21.9 Gastro-esophageal reflux disease without esophagitis; D50.9 Iron deficiency anemia, unspecified; E87.6 Hypokalemia; K76.0 Fatty (change of) liver, not elsewhere classified; D63.1 Anemia in chronic kidney disease; N89.8 Other specified noninflammatory disorders of vagina; N93.9 Abnormal uterine and vaginal bleeding, unspecified; B96.20 Unspecified Escherichia coli [E. coli] as the cause of diseases classified elsewhere; H35.30 Unspecified macular degeneration; H40.9 Unspecified glaucoma; R41.0 Disorientation, unspecified; R53.1 Weakness; Z74.01 Bed confinement status; Z85.038 Personal history of other malignant neoplasm of large intestine; Z90.49 Acquired absence of other specified parts of digestive tract; Z79.899 Other long term (current) drug therapy; Z88.1 Allergy status to other antibiotic agents; Z88.2 Allergy status to sulfonamides; Z92.21 Personal history of antineoplastic chemotherapy; Z92.3 Personal history of irradiation; Y84.8 Other medical procedures as the cause of abnormal reaction of the patient, or of later complication, without mention of misadventure at the time of the procedure

== ENCOUNTER → 2024-08-23 | Outpatient (RCR) | payer MEDICARE ==
[~2024-08-23] MED LIST changes: +OXYC-1 PO
== END ==
LOC: M ONCR 08-20 14:16
PROVIDERS: ATTEND General Practice
DX: Z51.0 Encounter for antineoplastic radiation therapy (principal); C53.8 Malignant neoplasm of overlapping sites of cervix uteri

== ENCOUNTER 2024-09-03 11:10 | Outpatient (RCR) | payer MEDICARE ==
[2024-09-06] MEDS ORDERED: HYOS125TA PO (08:04)
[2024-09-06] MEDS ORDERED: ATIV1TAB10 PO (08:04)
[2024-09-06] MEDS ORDERED: MORP1SOL5 PO (08:04)
== END 2024-09-22 ==
LOC: M ONCR 11:10
PROVIDERS: ATTEND General Practice
DX: Z51.0 Encounter for antineoplastic radiation therapy (principal); C53.8 Malignant neoplasm of overlapping sites of cervix uteri